=== PATIENT | female | born 1950 | race Caucasian/White ===

== ENCOUNTER 2016-06-08 10:26 | Inpatient (IN) | payer OTHER ==
--- NOTE | 2016-06-08 10:40 | PDOC ---
History of Present Illness - General History Source: Patient Exam Limitations: No Limitations - History of Present Illness Initial Comments: 06/08/16 11:02 CHIEF COMPLAINT: Left sided chest pressure PCP: Dr. Javier Strickland HISTORY OF PRESENT ILLNESS: 65 year old female presented to the ED with the chief complaints of left side chest pressure. A/c to the patient, she couldn't sleep, woke up at 4am, had her breakfast and then started having chest pressure, radiating towards the right arms and jaw and in the back in between the scapula. She called Dr. Mcginnis and was recommended to call 911 and so she came here. En route, her saturation was in 90's, she received nasal oxygen, sublingual nitrates and 162mg of Aspirin. Now, she is not complaining of any chest pressure and wants to go home. Denies palpitation, sob, cough, abdominal pain, nausea or vomiting. Recent Travel: None PAST MEDICAL HISTORY: Hypertension, Hyperlipidemia, DM, Hypothyroidism, Obesity , OA PAST SURGICAL HISTORY: As mentioned above Social History: Smoking: Denies Alcohol: Denies Drugs: Denies Family History: Allergies: NKDA <Zoila Cuevas - Last Filed: 06/08/16 14:03> <Alexandrea Gonsalves - Last Filed: 06/08/16 14:25> - General Chief Complaint: Chest Pain Stated Complaint: CHEST PAIN Time Seen by Provider: 06/08/16 10:40 Past History - Past Medical History Anemia: No Asthma: No Cancer: No Cardiac Disorders: No CVA: No COPD: No CHF: No Dementia: No Diabetes: Yes Disorders: No HTN: Yes Hypercholesterolemia: Yes Thyroid Disease: Yes (HYPO.) - Surgical History Cardiac Surgery: No Lung Surgery: No Neurologic Surgery: Yes Orthopedic Surgery: Yes - Psycho/Social/Smoking Cessation Hx Anxiety: No Suicidal Ideation: No Smoking Status: No Smoking History: Never smoked Have you smoked in the past 12 months: No Number of Cigarettes Smoked Daily: 0 Hx Alcohol Use: No Drug/Substance Use Hx: No Substance Use Type: None Hx Substance Use Treatment: No <Zoila Cuevas - Last Filed: 06/08/16 14:03> <Alexandrea Gonsalves - Last Filed: 06/08/16 14:25> - Past Medical History Allergies/Adverse Reactions: Allergies Allergy/AdvReac Type Severity Reaction Status Date / Time Penicillins AdvReac Rash Verified 06/08/16 10:31 Home Medications: Ambulatory Orders Atorvastatin Ca [Lipitor] 20 mg PO HS 01/24/16 Furosemide [Lasix -] 20 mg PO DAILY 01/24/16 Glipizide 2.5 mg PO DAILY 01/24/16 Hydrochlorothiazide [Hctz -] 25 mg PO DAILY 01/24/16 Levothyroxine [Synthroid -] 75 mcg PO DAILY 01/24/16 Metoprolol Succinate [Toprol Xl] 50 mg PO DAILY 01/24/16 Review of Systems - Review of Systems Able to Perform ROS?: Yes Comments:: 06/08/16 13:52 CONSTITUTIONAL:~ Absent: fever, chills, diaphoresis, generalized weakness, malaise, loss of appetite HEENT:~ Absent: rhinorrhea, nasal congestion, throat pain, throat swelling, difficulty swallowing, mouth swelling, ear pain, eye pain, visual Changes CARDIOVASCULAR: Present: Chest pressure Absent: syncope, palpitations, irregular heart rate, lightheadedness, peripheral edema RESPIRATORY:~ Absent: cough, shortness of breath, dyspnea with exertion, orthopnea, wheezing, stridor, hemoptysis GASTROINTESTINAL: Absent: abdominal pain, abdominal distension, nausea, vomiting, diarrhea, constipation, melena, hematochezia GENITOURINARY:~ Absent: dysuria, frequency, urgency, hesitancy, hematuria, flank pain, genital pain MUSCULOSKELETAL:~ Absent: myalgia, arthralgia, joint swelling SKIN:~ Absent: rash, itching, pallor HEMATOLOGIC/IMMUNOLOGIC:~ Absent: easy bleeding, easy bruising, lymphadenopathy, frequent infections ENDOCRINE: Absent: unexplained weight gain, unexplained weight loss, heat intolerance, cold intolerance NEUROLOGIC:~ Absent: headache, focal weakness or paresthesias, dizziness, unsteady gait, seizure, mental status changes, bladder or bowel incontinence PSYCHIATRIC:~ Absent: anxiety, depression, suicidal or homicidal ideation, hallucinations. Is the patient limited Telugu proficient: No <Zoila Cuevas - Last Filed: 06/08/16 14:03> *Physical Exam - Vital Signs Last Vital Signs Temp Pulse Resp BP Pulse Ox 98.3 F 77 18 123/58 100 06/08/16 10:27 06/08/16 10:27 06/08/16 10:27 06/08/16 10:27 06/08/16 10:27 - Physical Exam Comments: 06/08/16 13:53 PE: GENERAL: Awake, alert, and fully oriented, in no acute distress HEAD: No signs of trauma EYES: PERRLA, EOMI, sclera anicteric, conjunctiva clear ENT: Auricles normal inspection, hearing grossly normal, nares patent, oropharynx clear without exudates. Moist mucosa NECK: Normal ROM, supple, no lymphadenopathy, JVD, or masses LUNGS: Breath sounds equal, clear to auscultation bilaterally. No wheezes, and no crackles.. HEART: Regular rate and rhythm, normal S1 and S2, no murmurs, rubs or gallops ABDOMEN: Soft, nontender, normoactive bowel sounds. No guarding, no rebound. No masses EXTREMITIES: Normal range of motion, no edema. No clubbing or cyanosis. No cords, erythema, or tenderness NEUROLOGICAL: Cranial nerves II through XII grossly intact. Normal speech, Gait not observed. SKIN: Warm, Dry, normal turgor, no rashes or lesions noted. <Zoila Cuevas - Last Filed: 06/08/16 14:03> - Vital Signs Last Vital Signs Temp Pulse Resp BP Pulse Ox 98.3 F 77 18 123/58 100 06/08/16 10:27 06/08/16 10:27 06/08/16 10:27 06/08/16 10:27 06/08/16 10:27 <Alexandrea Gonsalves - Last Filed: 06/08/16 14:25> Heart Score/ECG Review - ECG Impressions Comment:: EKG read 10:43- NSR 77 bpm, Q waves II, III, aVF. Incomplete RBBB. <Alexandrea Gonsalves - Last Filed: 06/08/16 14:25> ED Treatment Course - LABORATORY CBC & Chemistry Diagram: 06/08/16 11:05 06/08/16 11:05 <Zoila Cuevas - Last Filed: 06/08/16 14:03> - LABORATORY CBC & Chemistry Diagram: 06/08/16 11:05 06/08/16 11:05 - ADDITIONAL ORDERS Additional order review: Laboratory Results 03/04/2606/08/16 06/08/16 11:05 11:05 11:05 INR 1.04 Sodium 142 Potassium 3.4 L Chloride 100 Carbon Dioxide 33 H Anion Gap 9 BUN 23 H D Creatinine 0.7 Creat Clearance w eGFR > 60 Random Glucose 169 H D Calcium 8.7 Magnesium 1.7 L Total Bilirubin 0.3 AST 14 L ALT 16 D Alkaline Phosphatase 94 Creatine Kinase 152 CK-MB (CK-2) 2.459 Troponin I 0.09 H Total Protein 6.7 Albumin 3.3 L Triglycerides 120 Cholesterol 138 D Total LDL Cholesterol 82 HDL Cholesterol 54 06/08/16 11:05 RBC 3.81 MCV 84.4 MCHC 32.4 RDW 15.5 MPV 7.5 Neutrophils % 66.5 Lymphocytes % 23.2 Monocytes % 7.2 Eosinophils % 1.6 Basophils % 1.5 - Medications Given in the ED: ED Medications Discontinued Medications Generic Name Dose Route Start Last Admin Trade Name Freq PRN Reason Stop Dose Admin Aspirin 162 mg 06/08/16 10:59 06/08/16 11:19 Asa - PO 06/08/16 11:00 162 mg ONCE ONE Administration <Alexandrea Gonsalves - Last Filed: 06/08/16 14:25> Medical Decision Making - Medical Decision Making 06/08/16 10:40 Patient seen and examined at bed side. Vitals noted, saturation 90 on RA. Patient looks comfortable. Physical exam normal. Will order CBC, CMP, UA, CXR, EKG, Troponins. Aspirin 162mg Differential diagnosis: Gastritis; R/O ACS considering her risk factors 06/08/16 12:00 Labs reviewed: Troponin 0.09, WBC-10.9, K-3.4 Will trend troponin, next one ordered for 6pm. Call placed for Dr. Mcginnis. 06/08/2016 13:00 Patient reassessed. No complaints. Clinical Impression: Atypical chest pain- R/O ACS Troponin ordered for 6pm Potassium repleted Admit the patient in Telemetry, Dr. Mcginnis agrees to the plan Continuous cardiac monitoring Resume home meds Illness, Investigation and Plan of care explained to the patient. She verbalized understanding. Case seen and discussed with Dr. Gonsalves. <Zoila Cuevas - Last Filed: 06/08/16 14:03> *DC/Admit/Observation/Transfer <Zoila Cuevas - Last Filed: 06/08/16 14:03> - Discharge Dispostion Admit: Yes <Alexandrea Gonsalves - Last Filed: 06/08/16 14:25> Diagnosis at time of Disposition: Chest pain Qualifiers: Chest pain type: unspecified Qualified Code(s): R07.9 - Chest pain, unspecified - Discharge Dispostion Condition at time of disposition: Stable
[2016-06-08] MEDS ORDERED: ASPIRIN 81 MG CHEWABLE TABLETS PO ONE (10:59)
[2016-06-08] MEDS ORDERED: ASPIRIN 81 MG CHEWABLE TABLETS ONE (11:16)
[2016-06-08 11:20] LABS: BASOPHIL 1.5 % (0-2.0); EOSINOPHIL 1.6 % (0-4.5); MCH 27.4 pg (25.7-33.7); MCHC 32.4 g/dl (32.0-36.0); MEAN CELL VOLUME 84.4 fl (80-96); MEAN PLT VOLUME 7.5 fl (7.5-11.1); NEUTROPHILS 66.5 % (42.8-82.8); PLATELET COUNT 352 K/MM3 (134-434); RDW 15.5 % (11.6-15.6); WHITE BLOOD COUNT 10.4 K/mm3 (4.0-10.0)
--- NOTE | 2016-06-08 11:23 | PDOC ---
Attending Attestation - Resident Resident Name: Zoila Cuevas - ED Attending Attestation I have performed the following: I have examined & evaluated the patient, The case was reviewed & discussed with the resident, I agree w/resident's findings & plan, Exceptions are as noted - HPI HPI: 65 yo F history Hypertension, Hyperlipidemia, DM, Hypothyroidism, Obesity, OA presents with chest pain/pressure since this morning. Pain radiated to her upper back, R arm. She called Dr. Rahel REINOSO, who recommended that she go to the ED. She received aspirin 162 mg and nitroglycerin en route, currently pain free. No associated symptoms such as SOB, N/V, sweating. - Physicial Exam PE: GENERAL: Awake, alert, and fully oriented, in no acute distress HEAD: No signs of trauma EYES: PERRLA, EOMI, sclera anicteric, conjunctiva clear ENT: Auricles normal inspection, hearing grossly normal, nares patent, oropharynx clear without exudates. Moist mucosa NECK: Normal ROM, supple, no lymphadenopathy, JVD, or masses LUNGS: Breath sounds equal, clear to auscultation bilaterally. No wheezes, and no crackles HEART: Regular rate and rhythm, normal S1 and S2, no murmurs, rubs or gallops ABDOMEN: Soft, nontender, normoactive bowel sounds. No guarding, no rebound. No masses EXTREMITIES: Normal range of motion, no edema. No clubbing or cyanosis. No cords, erythema, or tenderness NEUROLOGICAL: Cranial nerves II through XII grossly intact. Normal speech, normal gait SKIN: Warm, Dry, normal turgor, no rashes or lesions noted. - Medical Decision Making 65 yo F with multiple cardiac risk factors presenting with chest pain. Initial troponin 0.09. Discussed with Dr. Mcginnis, will admit. Discussed with Dr. Barron, will evaluate.
[2016-06-08 11:47] LABS: ALBUMIN 3.3 g/dl (3.4-5.0); ANION GAP 9 (8-16); BILIRUBIN,TOTAL 0.3 mg/dL (0.2-1.0); CALCIUM 8.7 mg/dL (8.5-10.1); CHOLESTEROL 138 mg/dL (50-200); CO2 33 mmol/L (21-32); CREATININE 0.7 mg/dL (0.55-1.02); GLUCOSE,RANDOM 169 mg/dL (74-106); LDL CHOLESTEROL (ONLY SJRH) 82 mg/dL (5-100); MAGNESIUM 1.7 mg/dL (1.8-2.4); SGOT/AST 14 U/L (15-37); SGPT/ALT 16 U/L (12-78); TOT PROT 6.7 g/dl (6.4-8.2)
[2016-06-08 11:49] LABS: INR 1.04 (0.82-1.09); PROTHROMBIN TIME (PATIENT) 11.5 SEC (9.98-11.88)
[2016-06-08 11:50] LABS: ALK PHOS 94 U/L (45-117); TROPONIN I 0.09 ng/ml (0.00-0.05)
[2016-06-08 13:49] VITALS: BMI 35.2
--- NOTE | 2016-06-08 13:52 | CON.CARD ---
Consult Consult Specialty:: Cardiology Referred by:: Javier Mcginnis MD Reason for Consultation:: Chest pain - History of Present Illness Chief Complaint: Chest pain History of Present Illness: 65 year old female h/o HCVD, type 2 DM, chest pain syndrome with neg MPI, hypothyroidism, presented to the ED with complaints of post-prandial indigestion chest pressure with radiation towards the right arms and jaw and in the back in between the scapula. Sxs has since abated, she denies associated dyspnea, palpitations, near or true syncope, orthopnea, PND or LE edema. 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 History of Recent Travel: No Home Medications - Allergies Allergies/Adverse Reactions: Allergies Allergy/AdvReac Type Severity Reaction Status Date / Time Penicillins AdvReac Rash Verified 06/08/16 10:31 - Home Medications Home Medications: Ambulatory Orders Atorvastatin Ca [Lipitor] 20 mg PO HS 01/24/16 Furosemide [Lasix -] 20 mg PO DAILY 01/24/16 Glipizide 2.5 mg PO DAILY 01/24/16 Hydrochlorothiazide [Hctz -] 25 mg PO DAILY 01/24/16 Levothyroxine [Synthroid -] 75 mcg PO DAILY 01/24/16 Metoprolol Succinate [Toprol Xl] 50 mg PO DAILY 01/24/16 Family Disease History - Family Disease History Family Disease History: Diabetes: Father, Brother, Sister, Heart Disease: Mother (Stomach Ca, CVA), CA: Grandparent (Cervical), Mother, Sister Review of Systems - Review of Systems Cardiovascular: reports: Chest Pain - Risk Factors Known Risk Factors: Yes: Diabetes Mellitus, Gender, Hypercholesterolemia, Hypertension Vital Signs: Vital Signs Temperature 98.3 F 06/08/16 10:27 Pulse Rate 87 06/08/16 13:45 Respiratory Rate 18 06/08/16 13:45 Blood Pressure 125/58 06/08/16 13:45 O2 Sat by Pulse Oximetry (%) 94 L 06/08/16 13:45 Constitutional: Yes: No Distress Neck: Yes: Supple Respiratory: Yes: Regular, CTA Bilaterally Gastrointestinal: Yes: Normal Bowel Sounds, Soft Cardiovascular: Yes: Regular Rate and Rhythm JVD: No Carotid Bruit: No Heart Sounds: Yes: S1, S2 Edema: No - Other Data Labs, Other Data: INR, PTT INR 1.04 (0.82-1.09) 06/08/16 11:05 Nsr @ 77 Irbbb Ejection Fraction %: LVEF > or = 40 % Imaging - Results Chest X-ray: Report Reviewed (NAD) Problem List - Problems (1) Chest pain Code(s): R07.9 - CHEST PAIN, UNSPECIFIED Qualifiers: Chest pain type: unspecified Qualified Code(s): R07.9 - Chest pain, unspecified (2) HTN (hypertension) Code(s): I10 - ESSENTIAL (PRIMARY) HYPERTENSION Qualifiers: Hypertension type: essential hypertension Qualified Code(s): I10 - Essential (primary) hypertension (3) Hyperlipidemia Code(s): E78.5 - HYPERLIPIDEMIA, UNSPECIFIED Qualifiers: Hyperlipidemia type: Pure hypercholesterolemia (4) Diabetes Code(s): E11.9 - TYPE 2 DIABETES MELLITUS WITHOUT COMPLICATIONS Qualifiers: Diabetes mellitus type: type 2 (5) Hypothyroid Code(s): E03.9 - HYPOTHYROIDISM, UNSPECIFIED Qualifiers: Hypothyroidism type: unspecified Qualified Code(s): E03.9 - Hypothyroidism, unspecified Assessment/Plan Echo: 03/11/2015 Normal LV size and fxn, tr MR P-Myoview 03/12/2015 No ischemia, LVEF 72% 1. Chest pain syndrome r/o CAD 2. H/o left renal colic and hydronephrosis post cystoscopy and left ureteral stent 3. HTN 4. Hypercholesterolemia 5. Hypothyroidism 6. h/o LACEY (obstructive uropathy) resolved 7. Anemia PLAN: 1. Continue Toprol 50 qd, HCTZ 25 qd, Lipitor 20 qhs and ASA 81 qd, replete K 2. Cycle cardiac enzymes 3. Repeat pharm stress to r/o CAD 4. Thank you for consultative opportunity
[2016-06-08] MEDS ORDERED: MAGNESIUM OXIDE 400 MG TABLET (FP) PO ONE (14:08)
[2016-06-08] MEDS ORDERED: POTASSIUM CHLORIDE TABS 20 MEQ TABLET.ER (FP) PO ONE (14:11)
[2016-06-08] MEDS: METOPROLOL SUCCINATE 50 MG TAB.SR.24H (FP) PO SCH (14:52)
--- NOTE | 2016-06-08 17:21 | HP ---
Admitting History and Physical - Primary Care Physician PCP: Javier Mcginnis - Admission Chief Complaint: CP History of Present Illness: Pt. states that developed chest tightness, band like this AM, while sitting; pt. states that CP travelled to the back, neck and she felt SOB; Pt received ASA and SLNGT by EMS that relief her CP. In ER pt. became CP free. 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 History of Recent Travel: No Home Medications - Allergies Allergies/Adverse Reactions: Allergies Allergy/AdvReac Type Severity Reaction Status Date / Time Penicillins AdvReac Rash Verified 06/08/16 10:31 - Home Medications Home Medications: Ambulatory Orders Atorvastatin Ca [Lipitor] 20 mg PO HS 01/24/16 Furosemide [Lasix -] 20 mg PO DAILY 01/24/16 Glipizide 2.5 mg PO DAILY 01/24/16 Hydrochlorothiazide [Hctz -] 25 mg PO DAILY 01/24/16 Levothyroxine [Synthroid -] 75 mcg PO DAILY 01/24/16 Metoprolol Succinate [Toprol Xl] 50 mg PO DAILY 01/24/16 Family Disease History - Family Disease History Family Disease History: Diabetes: Father, Brother, Sister, Heart Disease: Mother (Stomach Ca, CVA), CA: Grandparent (Cervical), Mother, Sister Review of Systems - Review of Systems Constitutional: denies: Chills, Fever Eyes: denies: Blurred Vision, Double Vision HENT: denies: Difficult Swallowing, Ear Discharge, Ear Pain, Nasal Congestion, Throat Pain Cardiovascular: denies: Chest Pain (since came to ER), Palpitations, Shortness of Breath (since came to ER) Respiratory: denies: Cough, Hemoptysis, SOB (since came to ER) Gastrointestinal: reports: Other (no GERD symptomps). denies: Abdominal Pain, Constipation, Diarrhea Genitourinary: denies: Burning, Discharge, Dysuria Musculoskeletal: denies: Back Pain, Extremity Pain, Muscle Pain Integumentary: denies: Bruising, Pruritis, Rash Neurological: denies: Change in LOC, Change in Speech, Confusion, Numbness, Tremors Endocrine: denies: Excessive Sweating, Intolerance to Cold Psychiatric: denies: Altered Sleep Pattern, Anxiety, Depression Physical Examination Vital Signs: Vital Signs Temperature 98.3 F 06/08/16 10:27 Pulse Rate 88 06/08/16 14:38 Respiratory Rate 20 06/08/16 14:38 Blood Pressure 137/79 06/08/16 14:38 O2 Sat by Pulse Oximetry (%) 99 06/08/16 14:38 Constitutional: Yes: No Distress, Calm Eyes: Yes: Conjunctiva Clear, EOM Intact, PERRL HENT: Yes: Normocephalic. No: Epistaxis, Rhinnorhea Neck: Yes: Trachea Midline. No: Lymphadenopathy Cardiovascular: Yes: Regular Rate and Rhythm, S1, S2 Respiratory: Yes: Regular, CTA Bilaterally. No: Rales, Rhonchi Gastrointestinal: Yes: Normal Bowel Sounds, Soft, Abdomen, Obese. No: Palpable Mass, Tenderness Breast(s): Yes: Other (deferred) Musculoskeletal: No: Back Pain, Joint Stiffness, Muscle Pain Edema: No Integumentary: No: Bruising, Erythema, Rash Neurological: Yes: Alert, Oriented, Cran Nerves II-XII Intact Psychiatric: Yes: Alert, Oriented Labs: reviewed Imaging - Results Chest X-ray: Report Reviewed Problem List - Problems (1) Chest pain Assessment/Plan: Serial CE Cardio consult, appreciated. BB, ASA, Statin Code(s): R07.9 - CHEST PAIN, UNSPECIFIED Qualifiers: Chest pain type: unspecified Qualified Code(s): R07.9 - Chest pain, unspecified (2) Diabetes Assessment/Plan: Cont medication Code(s): E11.9 - TYPE 2 DIABETES MELLITUS WITHOUT COMPLICATIONS Qualifiers: Diabetes mellitus type: type 2 (3) HTN (hypertension) Code(s): I10 - ESSENTIAL (PRIMARY) HYPERTENSION Qualifiers: Hypertension type: essential hypertension Qualified Code(s): I10 - Essential (primary) hypertension (4) Hyperlipidemia Assessment/Plan: in Statin Code(s): E78.5 - HYPERLIPIDEMIA, UNSPECIFIED Qualifiers: Hyperlipidemia type: Pure hypercholesterolemia (5) Hypokalemia Assessment/Plan: repleted. To monitor Code(s): E87.6 - HYPOKALEMIA (6) Anemia Assessment/Plan: to monitor Code(s): D64.9 - ANEMIA, UNSPECIFIED Assessment/Plan Pt was placed in Observation
[2016-06-08 19:54] LABS: TROPONIN I 2.85 ng/ml (0.00-0.05)
[2016-06-08] MEDS: ENOXAPARIN NA (PORCINE) 100 MG/1 ML DISP.SYRIN SQ SCH (23:13)
[2016-06-08] MEDS: CLOPIDOGREL BISULFATE 75 MG TABLET (FP) PO SCH (23:13)
[2016-06-08] MEDS: ATORVASTATIN CA 20 MG TABLET (FP) PO SCH (23:13)
[2016-06-09 01:04] LABS: TROPONIN I 3.57 ng/ml (0.00-0.05)
[2016-06-09] MEDS: LEVOTHYROXINE NA 75 MCG TABLET (FP) PO SCH (06:11)
[2016-06-09] MEDS: glipiZIDE 5 MG TABLET (FP) PO SCH (06:12)
[2016-06-09 07:18] LABS: MCHC 33.1 g/dl (32.0-36.0); MEAN CELL VOLUME 84.5 fl (80-96); PLATELET COUNT 346 K/MM3 (134-434); RDW 15.4 % (11.6-15.6); WHITE BLOOD COUNT 10.8 K/mm3 (4.0-10.0)
[2016-06-09 07:55] LABS: CREATININE 0.7 mg/dL (0.55-1.02)
--- NOTE | 2016-06-09 09:16 | PN ---
Progress Note, Physician History of Present Illness: No CP, SOB, palp., dizziness, back pain since yesterday. - Current Medication List Current Medications: Active Medications Aspirin (Asa -) 81 mg PO DAILY [facility] Atorvastatin Calcium (Lipitor -) 20 mg PO HS [facility] Last Admin: 06/08/16 23:13 Dose: 20 mg Clopidogrel Bisulfate (Plavix -) 75 mg PO DAILY [facility] Last Admin: 06/08/16 23:13 Dose: 75 mg Enoxaparin Sodium (Lovenox -) 90 mg SQ BID [facility] Last Admin: 06/08/16 23:13 Dose: 90 mg Furosemide (Lasix -) 20 mg PO DAILY [facility] Glipizide (Glucotrol -) 2.5 mg PO DAILY@0700 [facility] Last Admin: 06/09/16 06:12 Dose: Not Given Hydrochlorothiazide (Hctz -) 25 mg PO DAILY [facility] Levothyroxine Sodium (Synthroid -) 75 mcg PO DAILY@0700 [facility] Last Admin: 06/09/16 06:11 Dose: 75 mcg Metoprolol Succinate (Toprol Xl -) 50 mg PO DAILY [facility] Last Admin: 06/08/16 14:52 Dose: Not Given - Objective Vital Signs: Vital Signs Temperature 98.2 F 06/09/16 06:00 Pulse Rate 91 H 06/09/16 06:00 Respiratory Rate 18 06/09/16 06:00 Blood Pressure 131/83 06/09/16 06:00 O2 Sat by Pulse Oximetry (%) 98 06/08/16 22:00 Constitutional: Yes: No Distress, Calm Cardiovascular: Yes: Regular Rate and Rhythm, S1, S2 Respiratory: Yes: Regular, CTA Bilaterally. No: Rales Gastrointestinal: Yes: Normal Bowel Sounds, Soft, Abdomen, Obese. No: Tenderness Edema: No Neurological: Yes: Alert, Oriented Labs: CBC, BMP 06/09/16 05:35 06/09/16 05:35 INR, PTT INR 1.04 (0.82-1.09) 06/08/16 11:05 Positive Trop I Problem List - Problems (1) Chest pain Assessment/Plan: NSTEMI- on Lovenox, Plavix, BB, ASA, Statin Serial CE- positive Trop I To monitor CE Cardio consult, appreciated- to f/u for further management. Code(s): R07.9 - CHEST PAIN, UNSPECIFIED Qualifiers: Chest pain type: unspecified Qualified Code(s): R07.9 - Chest pain, unspecified (2) HTN (hypertension) Code(s): I10 - ESSENTIAL (PRIMARY) HYPERTENSION Qualifiers: Hypertension type: essential hypertension Qualified Code(s): I10 - Essential (primary) hypertension (3) Hyperlipidemia Assessment/Plan: in Statin Code(s): E78.5 - HYPERLIPIDEMIA, UNSPECIFIED Qualifiers: Hyperlipidemia type: Pure hypercholesterolemia (4) Hypokalemia Assessment/Plan: repleted. Corrected To monitor Code(s): E87.6 - HYPOKALEMIA (5) Anemia Assessment/Plan: to monitor, stable Code(s): D64.9 - ANEMIA, UNSPECIFIED (6) Diabetes Assessment/Plan: Cont medication Code(s): E11.9 - TYPE 2 DIABETES MELLITUS WITHOUT COMPLICATIONS Qualifiers: Diabetes mellitus type: type 2 Diabetes mellitus complication detail: with chronic kidney disease
[2016-06-09 09:52] LABS: TROPONIN I 4.88 ng/ml (0.00-0.05)
[2016-06-09] MEDS ORDERED: FUROSEMIDE 20 MG TABLET (FP) PO SCH (10:00)
[2016-06-09] MEDS ORDERED: HYDROCHLOROTHIAZIDE 25 MG TABLET (FP) PO SCH (10:00)
--- NOTE | 2016-06-09 10:09 | PN ---
Progress Note, Physician History of Present Illness: No further chest pain or dyspnea. - Current Medication List Current Medications: Active Medications Aspirin (Asa -) 81 mg PO DAILY [facility] Atorvastatin Calcium (Lipitor -) 20 mg PO HS [facility] Last Admin: 06/08/16 23:13 Dose: 20 mg Clopidogrel Bisulfate (Plavix -) 75 mg PO DAILY [facility] Last Admin: 06/08/16 23:13 Dose: 75 mg Enoxaparin Sodium (Lovenox -) 90 mg SQ BID [facility] Last Admin: 06/08/16 23:13 Dose: 90 mg Furosemide (Lasix -) 20 mg PO DAILY [facility] Glipizide (Glucotrol -) 2.5 mg PO DAILY@0700 [facility] Last Admin: 06/09/16 06:12 Dose: Not Given Hydrochlorothiazide (Hctz -) 25 mg PO DAILY [facility] Levothyroxine Sodium (Synthroid -) 75 mcg PO DAILY@0700 [facility] Last Admin: 06/09/16 06:11 Dose: 75 mcg Metoprolol Succinate (Toprol Xl -) 50 mg PO DAILY [facility] Last Admin: 06/08/16 14:52 Dose: Not Given - Objective Vital Signs: Vital Signs Temperature 98.2 F 06/09/16 06:00 Pulse Rate 91 H 06/09/16 06:00 Respiratory Rate 18 06/09/16 06:00 Blood Pressure 131/83 06/09/16 06:00 O2 Sat by Pulse Oximetry (%) 98 06/08/16 22:00 Constitutional: Yes: No Distress, Calm Neck: Yes: Supple Cardiovascular: Yes: Regular Rate and Rhythm Respiratory: Yes: Regular, Diminished Gastrointestinal: Yes: Normal Bowel Sounds, Soft, Abdomen, Obese Edema: No Labs: INR, PTT INR 1.04 (0.82-1.09) 06/08/16 11:05 - ....Imaging EKG: Report Reviewed (NSR @ 69 IRBBB similar to previous) Problem List - Problems (1) Chest pain Code(s): R07.9 - CHEST PAIN, UNSPECIFIED Qualifiers: Chest pain type: unspecified Qualified Code(s): R07.9 - Chest pain, unspecified (2) HTN (hypertension) Code(s): I10 - ESSENTIAL (PRIMARY) HYPERTENSION Qualifiers: Hypertension type: essential hypertension Qualified Code(s): I10 - Essential (primary) hypertension (3) Hyperlipidemia Code(s): E78.5 - HYPERLIPIDEMIA, UNSPECIFIED Qualifiers: Hyperlipidemia type: Pure hypercholesterolemia (4) Diabetes Code(s): E11.9 - TYPE 2 DIABETES MELLITUS WITHOUT COMPLICATIONS Qualifiers: Diabetes mellitus type: type 2 Diabetes mellitus complication detail: with chronic kidney disease (5) Hypothyroid Code(s): E03.9 - HYPOTHYROIDISM, UNSPECIFIED Qualifiers: Hypothyroidism type: unspecified Qualified Code(s): E03.9 - Hypothyroidism, unspecified (6) Acute coronary syndrome Code(s): I24.9 - ACUTE ISCHEMIC HEART DISEASE, UNSPECIFIED Assessment/Plan Echo: 03/11/2015 Normal LV size and fxn, tr MR P-Myoview 03/12/2015 No ischemia, LVEF 72% 1. Acute coronary syndrome 2. H/o left renal colic and hydronephrosis post cystoscopy and left ureteral stent 3. HTN 4. Hypercholesterolemia 5. Hypothyroidism 6. h/o LACEY (obstructive uropathy) resolved 7. Anemia 8. Type 2 DM PLAN: 1. Continue Toprol 50 qd, Lipitor 20 qhs, HCTZ 25 qd, change Lasix 20 qd to lisinopril 10 qd for renovascular protection, ASA 81 qd and Plavix 75 qd 2. Cycle cardiac enzymes to document peak, continue Lovenox 90 bid 3. Pharm stress to assess severity of CAD, f/u echocardiogram 4. Hesitant for cath, will obtain MPI to risk stratify
[2016-06-09 11:00] LABS: THYROID STIMULATING HORMONE 2.03 uIU/ml (0.358-3.74)
[2016-06-09] MEDS: LISINOPRIL 10 MG TABLET (FP) PO SCH (12:36)
[2016-06-09] MEDS: METOPROLOL SUCCINATE 50 MG TAB.SR.24H (FP) PO SCH (12:36)
[2016-06-09] MEDS: ENOXAPARIN NA (PORCINE) 100 MG/1 ML DISP.SYRIN SQ SCH ×2 (12:36→21:34)
[2016-06-09] MEDS: CLOPIDOGREL BISULFATE 75 MG TABLET (FP) PO SCH (12:36)
[2016-06-09] MEDS: ASPIRIN 81 MG CHEWABLE TABLETS PO SCH (12:36)
--- NOTE | 2016-06-09 14:09 | EKG ---
Test Reason : Blood Pressure : / mmHG Vent. Rate : 069 BPM Atrial Rate : 069 BPM P-R Int : 130 ms QRS Dur : 114 ms QT Int : 424 ms P-R-T Axes : 065 008 025 degrees QTc Int : 454 ms NORMAL SINUS RHYTHM INCOMPLETE RIGHT BUNDLE BRANCH BLOCK BORDERLINE ECG WHEN COMPARED WITH ECG OF 08-JUN-2016 10:37, NO SIGNIFICANT CHANGE WAS FOUND Confirmed by NONI BAZAN MD ([id number]) on 06/09/2016 2:08:57 PM Referred By: DELIA ESPINO Confirmed By:NONI BAZAN MD
--- NOTE | 2016-06-09 14:13 | EKG ---
Test Reason : Blood Pressure : / mmHG Vent. Rate : 077 BPM Atrial Rate : 077 BPM P-R Int : 108 ms QRS Dur : 118 ms QT Int : 408 ms P-R-T Axes : 018 012 030 degrees QTc Int : 461 ms SINUS RHYTHM WITH SHORT MS INCOMPLETE RIGHT BUNDLE BRANCH BLOCK POSSIBLE LATERAL INFARCT , AGE UNDETERMINED CANNOT RULE OUT INFERIOR INFARCT , AGE UNDETERMINED ABNORMAL ECG WHEN COMPARED WITH ECG OF 16-SEP-2015 01:00, NO SIGNIFICANT CHANGE WAS FOUND Confirmed by NONI BAZAN MD ([id number]) on 06/09/2016 2:12:38 PM Referred By: Confirmed By:NONI BAZAN MD
[2016-06-09] MEDS: ATORVASTATIN CA 20 MG TABLET (FP) PO SCH (21:33)
[2016-06-10] MEDS: LEVOTHYROXINE NA 75 MCG TABLET (FP) PO SCH (06:30)
[2016-06-10] MEDS: glipiZIDE 5 MG TABLET (FP) PO SCH (06:30)
[2016-06-10 08:02] LABS: CALCIUM 8.9 mg/dL (8.5-10.1)
[2016-06-10 08:22] LABS: ALBUMIN 3.3 g/dl (3.4-5.0); ALK PHOS 92 U/L (45-117); ANION GAP 11 (8-16); BILIRUBIN,TOTAL 0.4 mg/dL (0.2-1.0); CO2 27 mmol/L (21-32); CREATININE 0.7 mg/dL (0.55-1.02); GLUCOSE,RANDOM 136 mg/dL (74-106); SGOT/AST 34 U/L (15-37); SGPT/ALT 19 U/L (12-78); TOT PROT 6.7 g/dl (6.4-8.2)
[2016-06-10 08:33] LABS: TROPONIN I 2.59 ng/ml (0.00-0.05)
--- NOTE | 2016-06-10 09:07 | PN ---
Progress Note, Physician History of Present Illness: No further chest pain or dyspnea. - Current Medication List Current Medications: Active Medications Aspirin (Asa -) 81 mg PO DAILY [facility] Last Admin: 06/09/16 12:36 Dose: 81 mg Atorvastatin Calcium (Lipitor -) 20 mg PO HS [facility] Last Admin: 06/09/16 21:33 Dose: 20 mg Clopidogrel Bisulfate (Plavix -) 75 mg PO DAILY [facility] Last Admin: 06/09/16 12:36 Dose: 75 mg Enoxaparin Sodium (Lovenox -) 90 mg SQ BID [facility] Last Admin: 06/09/16 21:34 Dose: 90 mg Glipizide (Glucotrol -) 2.5 mg PO DAILY@0700 [facility] Last Admin: 06/10/16 06:30 Dose: Not Given Hydrochlorothiazide (Hctz -) 25 mg PO DAILY [facility] Last Admin: 06/09/16 12:36 Dose: 25 mg Levothyroxine Sodium (Synthroid -) 75 mcg PO DAILY@0700 [facility] Last Admin: 06/10/16 06:30 Dose: 75 mcg Lisinopril (Prinivil) 10 mg PO DAILY [facility] Last Admin: 06/09/16 12:36 Dose: 10 mg Metoprolol Succinate (Toprol Xl -) 50 mg PO DAILY [facility] Last Admin: 06/09/16 12:36 Dose: 50 mg - Objective Vital Signs: Vital Signs Temperature 97.9 F 06/10/16 01:00 Pulse Rate 79 06/10/16 05:00 Respiratory Rate 20 06/10/16 05:00 Blood Pressure 113/45 06/10/16 05:00 O2 Sat by Pulse Oximetry (%) 96 06/09/16 20:00 Constitutional: Yes: No Distress, Calm Neck: Yes: Supple Cardiovascular: Yes: Regular Rate and Rhythm Respiratory: Yes: Regular, CTA Bilaterally Gastrointestinal: Yes: Normal Bowel Sounds, Soft Edema: No Labs: CBC, BMP 06/10/16 05:35 INR, PTT INR 1.04 (0.82-1.09) 06/08/16 11:05 - ....Imaging EKG: Report Reviewed (NSR @ 72 IRBBB similar to previous Tele: SR) Problem List - Problems (1) Chest pain Code(s): R07.9 - CHEST PAIN, UNSPECIFIED Qualifiers: Chest pain type: unspecified Qualified Code(s): R07.9 - Chest pain, unspecified (2) HTN (hypertension) Code(s): I10 - ESSENTIAL (PRIMARY) HYPERTENSION Qualifiers: Hypertension type: essential hypertension Qualified Code(s): I10 - Essential (primary) hypertension (3) Hyperlipidemia Code(s): E78.5 - HYPERLIPIDEMIA, UNSPECIFIED Qualifiers: Hyperlipidemia type: Pure hypercholesterolemia (4) Diabetes Code(s): E11.9 - TYPE 2 DIABETES MELLITUS WITHOUT COMPLICATIONS Qualifiers: Diabetes mellitus type: type 2 Diabetes mellitus complication detail: with chronic kidney disease (5) Hypothyroid Code(s): E03.9 - HYPOTHYROIDISM, UNSPECIFIED Qualifiers: Hypothyroidism type: unspecified Qualified Code(s): E03.9 - Hypothyroidism, unspecified (6) Acute coronary syndrome Code(s): I24.9 - ACUTE ISCHEMIC HEART DISEASE, UNSPECIFIED Assessment/Plan Echo: 03/11/2015 Normal LV size and fxn, tr MR P-Myoview 03/12/2015 No ischemia, LVEF 72% Echo: 06/09/2016 Echo: Normal biventricular size and fxn, mild MR, TR, RVSP 30-40 mmHg P-Myoview: 06/10/2016 Small, mild apical ischemia, normal LVEF 70% 1. CAD post acute coronary syndrome with mild apical ischemia on MPI 2. H/o left renal colic and hydronephrosis post cystoscopy and left ureteral stent 3. HTN 4. Hypercholesterolemia 5. Hypothyroidism 6. h/o LACEY (obstructive uropathy) resolved 7. Anemia 8. Type 2 DM PLAN: 1. Continue Toprol 50 qd, Lipitor 20 qhs, lisinopril 10 qd, ASA 81 qd and Plavix 75 qd 2. Cardiac enzymes have peaked, d/c Lovenox 3. Ambulate, d/c planning with f/u with Dr. Guzman
[2016-06-10] MEDS ORDERED: DIPYRIDAMOLE 50 MG/10 ML VIAL IVPB ONE (09:22)
[2016-06-10] MEDS ORDERED: DIPYRIDAMOLE STRESS TEST 46.6 MG in DEXTROSE 5%-WATER - 37.28 ML IVPB ONE (10:00)
[2016-06-10 10:12] LABS: FREE T4 1.47 ng/dl (0.76-1.46)
--- NOTE | 2016-06-10 10:21 | PN ---
Progress Note, Physician History of Present Illness: No CP, SOB, palp., dizziness, back pain since admission. - Current Medication List Current Medications: Active Medications Aspirin (Asa -) 81 mg PO DAILY [facility] Last Admin: 06/09/16 12:36 Dose: 81 mg Atorvastatin Calcium (Lipitor -) 20 mg PO HS [facility] Last Admin: 06/09/16 21:33 Dose: 20 mg Clopidogrel Bisulfate (Plavix -) 75 mg PO DAILY [facility] Last Admin: 06/09/16 12:36 Dose: 75 mg Enoxaparin Sodium (Lovenox -) 90 mg SQ BID [facility] Last Admin: 06/09/16 21:34 Dose: 90 mg Glipizide (Glucotrol -) 2.5 mg PO DAILY@0700 [facility] Last Admin: 06/10/16 06:30 Dose: Not Given Levothyroxine Sodium (Synthroid -) 75 mcg PO DAILY@0700 [facility] Last Admin: 06/10/16 06:30 Dose: 75 mcg Lisinopril (Prinivil) 10 mg PO DAILY [facility] Last Admin: 06/09/16 12:36 Dose: 10 mg Metoprolol Succinate (Toprol Xl -) 50 mg PO DAILY [facility] Last Admin: 06/09/16 12:36 Dose: 50 mg - Objective Vital Signs: Vital Signs Temperature 97.9 F 06/10/16 01:00 Pulse Rate 79 06/10/16 05:00 Respiratory Rate 20 06/10/16 05:00 Blood Pressure 113/45 06/10/16 05:00 O2 Sat by Pulse Oximetry (%) 96 06/09/16 20:00 Constitutional: Yes: No Distress, Calm Cardiovascular: Yes: Regular Rate and Rhythm, Murmur, S2, S3 Respiratory: Yes: Regular, CTA Bilaterally. No: Rales Gastrointestinal: Yes: Normal Bowel Sounds, Soft, Abdomen, Obese. No: Pulsatile Mass, Tenderness Musculoskeletal: No: Back Pain Edema: No Neurological: Yes: Alert, Oriented Labs: CBC, BMP 06/10/16 05:35 INR, PTT INR 1.04 (0.82-1.09) 06/08/16 11:05 Problem List - Problems (1) Acute coronary syndrome Assessment/Plan: Trop I trending down Pt for Stress test this AM. t on on Lovenox, Plavix, BB, ASA, Statin. Case was d/c Dr. Wetzel; to f/u stress test report; might need cardiac cath. Code(s): I24.9 - ACUTE ISCHEMIC HEART DISEASE, UNSPECIFIED (2) Chest pain Assessment/Plan: NSTEMI- on Lovenox, Plavix, BB, ASA, Statin Serial CE- positive Trop I To monitor CE Cardio consult, appreciated- to f/u for further management. Code(s): R07.9 - CHEST PAIN, UNSPECIFIED Qualifiers: Chest pain type: unspecified Qualified Code(s): R07.9 - Chest pain, unspecified (3) HTN (hypertension) Code(s): I10 - ESSENTIAL (PRIMARY) HYPERTENSION Qualifiers: Hypertension type: essential hypertension Qualified Code(s): I10 - Essential (primary) hypertension (4) Hyperlipidemia Assessment/Plan: in Statin Code(s): E78.5 - HYPERLIPIDEMIA, UNSPECIFIED Qualifiers: Hyperlipidemia type: Pure hypercholesterolemia (5) Hypokalemia Assessment/Plan: repleted. Corrected To monitor Code(s): E87.6 - HYPOKALEMIA (6) Anemia Assessment/Plan: to monitor, stable Code(s): D64.9 - ANEMIA, UNSPECIFIED (7) Diabetes Assessment/Plan: Cont medication Code(s): E11.9 - TYPE 2 DIABETES MELLITUS WITHOUT COMPLICATIONS Qualifiers: Diabetes mellitus type: type 2 Diabetes mellitus complication detail: with chronic kidney disease Assessment/Plan Pt asked me to talk with her dgNapoleon Campbell; I called her on her cell and work and left message to call me back.
--- NOTE | 2016-06-10 10:48 | EKG ---
Test Reason : Blood Pressure : / mmHG Vent. Rate : 072 BPM Atrial Rate : 072 BPM P-R Int : 132 ms QRS Dur : 114 ms QT Int : 422 ms P-R-T Axes : 065 022 024 degrees QTc Int : 462 ms NORMAL SINUS RHYTHM INFERIOR-POSTERIOR INFARCT , AGE UNDETERMINED ABNORMAL ECG WHEN COMPARED WITH ECG OF 09-JUN-2016 09:58, NO SIGNIFICANT CHANGE WAS FOUND Confirmed by ELHAM BELTRAN MD ([id number]) on 06/10/2016 10:48:38 AM Referred By: CAM WHITTEN Confirmed By:ELHAM BELTRAN MD
[2016-06-10] MEDS: LISINOPRIL 10 MG TABLET (FP) PO SCH (11:31)
[2016-06-10] MEDS: ENOXAPARIN NA (PORCINE) 100 MG/1 ML DISP.SYRIN SQ SCH (11:32)
[2016-06-10] MEDS: METOPROLOL SUCCINATE 50 MG TAB.SR.24H (FP) PO SCH (11:32)
[2016-06-10] MEDS: ASPIRIN 81 MG CHEWABLE TABLETS PO SCH (11:32)
[2016-06-10] MEDS: CLOPIDOGREL BISULFATE 75 MG TABLET (FP) PO SCH (11:32)
[2016-06-10] MEDS: ATORVASTATIN CA 20 MG TABLET (FP) PO SCH (21:37)
--- NOTE | 2016-06-10 22:38 | CON.OBG ---
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 she passed blood clot of fist size, c/o RLQ pain - History of Present Illness Chief Complaint: pt admitted on 06/09/16 for chest pain, admitted for observation & work up. today evening she had onset of new complains as above ( PMB & RLQ pain ) History of Present Illness: 65 yrs H/F , , menopause at age 45-50 yrs approx yr 1999. she experienced PMB & RLQ pain at age 58yrs ( 2009) , was seen by her Edi Specialist , had Bx under [place] int hosp ( possible D&C or hysteroscopy ) , pt states verything was normal.Ultrasound had shown , she had fibroid she had 2nd episode of PMB again in 2012, bx ( or D&C -?hysteroscopy ) was done in the hosp, she was told if she gets bleeding again , she should have Hysterectomy .. Pt had last visit with her Gyncologist in 2013. no/h/o abn pap no h/o cancer presently not sexually active for sometime Past MH: cycles were regular, nrmal flow, no pain . No h/o Menstural problems . no h/o std/pid etc - History Source History Provided By: Patient, Medical Record Limitations to Obtaining History: No Limitations - Past Medical History Cardio/Vascular: Yes: HTN, Hyperlipdemia, Other (chest pain ) Pulmonary: Yes: Other (SOB ) Gastrointestinal: No: GI Bleed Renal/: Yes: Renal Calculi Reproductive: Yes: Fibroids, Postmenopausal ...: No ...: 3 ...Para: 3 (c/sections x3 1954, 1955, 1980 ) Heme/Onc: Yes: Anemia Musculoskeletal: Yes: Osteoarthritis Endocrine: Yes: Diabetes Mellitus, Hypothyroidism - Past Surgical History Past Surgical History: Yes: (1954, 1955, 1980 ), Laminectomy (spine surgery , 3 times, disc removal & fusion done at [facility] ) Additional Surgical History: D&C 2009, 2012. 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 History of Recent Travel: No Home Medications - Allergies Allergies/Adverse Reactions: Allergies Allergy/AdvReac Type Severity Reaction Status Date / Time Penicillins AdvReac Rash Verified 06/08/16 10:31 - Home Medications Home Medications: Ambulatory Orders Atorvastatin Ca [Lipitor] 20 mg PO HS 01/24/16 Glipizide 2.5 mg PO DAILY 01/24/16 Levothyroxine [Synthroid -] 75 mcg PO DAILY 01/24/16 Metoprolol Succinate [Toprol Xl] 50 mg PO DAILY 01/24/16 Acetaminophen [Tylenol .Regular Strength -] 650 mg PO Q6H PRN #0 tablet Aspirin [ASA -] 81 mg PO DAILY tab.chew 06/14/16 Bacitracin - [Bacitracin Topical Ointment -] 1 applic TP BID tube 06/14/16 Clopidogrel Bisulfate [Plavix -] 75 mg PO DAILY #90 tablet 06/14/16 Lisinopril [Prinivil] 10 mg PO DAILY #90 tablet 06/14/16 Family Disease History - Family Disease History Family Disease History: Diabetes: Father, Brother, Sister, Heart Disease: Mother (Stomach Ca, CVA), CA: Grandparent (Cervical), Mother, Sister 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 No: CVA Tenderness - Left, CVA Tenderness - Right Pelvis: Yes: Tenderness (RLQ deep tenderness). No: Mass External Genitalia: Yes: Normal Vaginal Exam: Yes: Bleeding (old blood moderate bleeding) Cervix: Yes: Normal (post erior, bleeding from os) Uterus: Yes: Enlarged, Mass (anterior to cervix, mostly on rt side , occupying rt adnexa, hard in consistancy, not mobile , tender), Tender Adnexa: Mass: Right (mostly uterine mass felt in rt adnexa ), Not Palpable: Left Breast(s): Yes: WNL. No: Discharge from Nipple, Mass Extremities: No: Calf Tenderness Integumentary: Yes: Incision (subumblical midline scar & pfannensteil scars noted) Neurological: Yes: WNL ...Motor Strength: WNL Psychiatric: Yes: WNL Labs: CBC, BMP 06/10/16 05:35 Laboratory Tests 06/08/16 06/08/16 06/09/16 18:00 23:35 05:35 WBC 10.8 H RBC 3.65 Hgb 10.2 L Hct 30.8 L MCV 84.5 Plt Count 346 Creatine Kinase 298 H D 310 H CK-MB (CK-2) Troponin I 2.85 H* 3.57 H* TSH Free T4 06/09/16 06/10/16 05:35 05:35 WBC RBC Hgb Hct MCV Plt Count Creatine Kinase 312 H 184 D CK-MB (CK-2) 3.194 Troponin I 4.88 H* 2.59 H* TSH 2.03 D Free T4 1.47 H Problem List - Problems (1) Acute coronary syndrome Code(s): I24.9 - ACUTE ISCHEMIC HEART DISEASE, UNSPECIFIED (2) Chest pain Code(s): R07.9 - CHEST PAIN, UNSPECIFIED Qualifiers: Chest pain type: unspecified Qualified Code(s): R07.9 - Chest pain, unspecified (3) Diabetes Code(s): E11.9 - TYPE 2 DIABETES MELLITUS WITHOUT COMPLICATIONS Qualifiers: Diabetes mellitus type: type 2 Diabetes mellitus complication detail: with chronic kidney disease Diabetes mellitus pharmacy coordinator insulin use: without shelter use (4) Hypokalemia Code(s): E87.6 - HYPOKALEMIA (5) Anemia Code(s): D64.9 - ANEMIA, UNSPECIFIED Qualifiers: Anemia type: unspecified type Qualified Code(s): D64.9 - Anemia, unspecified (6) Post-menopausal bleeding Code(s): N95.0 - POSTMENOPAUSAL BLEEDING (7) Fibroid uterus Code(s): D25.9 - LEIOMYOMA OF UTERUS, UNSPECIFIED Qualifiers: Uterine leiomyoma location: unspecified location Qualified Code(s): D25.9 - Leiomyoma of uterus, unspecified (8) RLQ abdominal pain Code(s): R10.31 - RIGHT LOWER QUADRANT PAIN Assessment/Plan 65 yrs , wth possible Acishemic hear disease on Plavix, Lovenox, & asprin , h/o PMBleeding, & Fibroid uterus .( anticoagulants can be c/o bleeding also) unable to determine RLQ pain is due to fibroid or not , pt appears to be not much in discomfort . Plan : Pelvic & TV US to check EM thickness & uterine pathology To r/o endometrial cancer endometrial sampling will be necessary, which will require surgical procedure like D&C , Hysteroscopy under [place] which can be done when she is medically cleared . It will be prudent for her to follow with her Edi Specialist's associate who will have her past records of procedures & pathology reports
[2016-06-11] MEDS: glipiZIDE 5 MG TABLET (FP) PO SCH (06:03)
[2016-06-11] MEDS: LEVOTHYROXINE NA 75 MCG TABLET (FP) PO SCH (06:04)
[2016-06-11 08:19] LABS: MCH 27.6 pg (25.7-33.7); MCHC 32.2 g/dl (32.0-36.0); MEAN CELL VOLUME 85.9 fl (80-96); MEAN PLT VOLUME 7.8 fl (7.5-11.1); PLATELET COUNT 381 K/MM3 (134-434); RDW 15.3 % (11.6-15.6); WHITE BLOOD COUNT 12.1 K/mm3 (4.0-10.0)
[2016-06-11] MEDS: ENOXAPARIN NA (PORCINE) 40 MG/0.4 ML DISP.SYRIN SQ SCH (09:08)
[2016-06-11] MEDS: CLOPIDOGREL BISULFATE 75 MG TABLET (FP) PO SCH (09:08)
[2016-06-11] MEDS: ASPIRIN 81 MG CHEWABLE TABLETS PO SCH (09:08)
[2016-06-11] MEDS: LISINOPRIL 10 MG TABLET (FP) PO SCH (09:08)
[2016-06-11] MEDS: METOPROLOL SUCCINATE 50 MG TAB.SR.24H (FP) PO SCH (09:08)
[2016-06-11 09:16] LABS: ALBUMIN 3.6 g/dl (3.4-5.0); ALK PHOS 102 U/L (45-117); ANION GAP 8 (8-16); BILIRUBIN,TOTAL 0.4 mg/dL (0.2-1.0); CALCIUM 8.9 mg/dL (8.5-10.1); CO2 28 mmol/L (21-32); CREATININE 0.8 mg/dL (0.55-1.02); GLUCOSE,RANDOM 123 mg/dL (74-106); SGOT/AST 31 U/L (15-37); SGPT/ALT 22 U/L (12-78); TOT PROT 7.5 g/dl (6.4-8.2)
[2016-06-11 09:22] LABS: INR 1.05 (0.82-1.09); PROTHROMBIN TIME (PATIENT) 11.6 SEC (9.98-11.88)
[2016-06-11 09:27] LABS: TROPONIN I 1.14 ng/ml (0.00-0.05)
--- NOTE | 2016-06-11 10:08 | PN ---
Progress Note, Physician Chief Complaint: in bed nad no CP or SOB, walked yesterday in hallway and had some palpitations; some pelvic and RLQ pain and vaginal bleeding / clots; no N/V/C/D/ abdominal pain chart meds tests and consults reviewed and d/w pt - Current Medication List Current Medications: Active Medications Aspirin (Asa -) 81 mg PO DAILY [facility] Last Admin: 06/11/16 09:08 Dose: 81 mg Atorvastatin Calcium (Lipitor -) 20 mg PO HS [facility] Last Admin: 06/10/16 21:37 Dose: 20 mg Clopidogrel Bisulfate (Plavix -) 75 mg PO DAILY [facility] Last Admin: 06/11/16 09:08 Dose: 75 mg Enoxaparin Sodium (Lovenox -) 40 mg SQ DAILY [facility] Last Admin: 06/11/16 09:08 Dose: 40 mg Glipizide (Glucotrol -) 2.5 mg PO DAILY@0700 [facility] Last Admin: 06/11/16 06:03 Dose: 2.5 mg Levothyroxine Sodium (Synthroid -) 75 mcg PO DAILY@0700 [facility] Last Admin: 06/11/16 06:04 Dose: 75 mcg Lisinopril (Prinivil) 10 mg PO DAILY [facility] Last Admin: 06/11/16 09:08 Dose: 10 mg Metoprolol Succinate (Toprol Xl -) 50 mg PO DAILY [facility] Last Admin: 06/11/16 09:08 Dose: 50 mg - Objective Vital Signs: Vital Signs Temperature 98.3 F 06/11/16 02:00 Pulse Rate 96 H 06/11/16 06:00 Respiratory Rate 18 06/11/16 06:00 Blood Pressure 120/57 06/11/16 06:00 O2 Sat by Pulse Oximetry (%) 97 06/10/16 21:04 Constitutional: Yes: No Distress, Calm Eyes: Yes: Conjunctiva Clear HENT: Yes: Atraumatic Neck: Yes: Supple Cardiovascular: Yes: Regular Rate and Rhythm Respiratory: Yes: CTA Bilaterally Gastrointestinal: Yes: Soft. No: Distention, Tenderness Genitourinary: No: CVA Tenderness - Left, CVA Tenderness - Right Musculoskeletal: No: Joint Stiffness, Joint Swelling Extremities: No: Cold, Cool Edema: No Peripheral Pulses WNL: Yes Integumentary: No: Rash, Venous Stasis Changes Neurological: Yes: WNL, Alert, Oriented ...Motor Strength: WNL Psychiatric: Yes: WNL, Alert, Oriented. No: Agitated, Suicidal Ideation Labs: CBC, BMP 06/11/16 05:40 06/11/16 05:40 INR, PTT INR 1.05 (0.82-1.09) 06/11/16 08:55 - ....Imaging Other: Report Reviewed Assessment/Plan 1. CAD post acute coronary syndrome with mild apical ischemia on MPI 2. H/o left renal colic and hydronephrosis post cystoscopy and left ureteral stent 3. HTN 4. Hypercholesterolemia 5. Hypothyroidism 6. h/o LACEY (obstructive uropathy) resolved 7. Anemia 8. Type 2 DM 9. 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 Continue Toprol 50 qd, Lipitor 20 qhs, lisinopril 10 qd, ASA 81 qd and Plavix 75 qd 2. Cardiac enzymes have peaked, d/c Lovenox 3. Ambulate, d/c planning with f/u with Dr. Guzman 4. ONLINE MARKETING COORDINATOR f/u and Pelvic TV US pending
[2016-06-11] MEDS: ACETAMINOPHEN 325 MG TABLET (FP) PO PRN ×2 (10:30→20:24)
--- NOTE | 2016-06-11 13:38 | PN ---
Progress Note, Physician Chief Complaint: Events noted Denies chest pain, SOB or palpitations History of Present Illness: Patient was seen and examined. Awake and alert. Chart was reviewed HIDE STRETCHER HAND input noted. Patient complains of right quadrant abdominal discomfort - Current Medication List Current Medications: Active Medications Acetaminophen (Tylenol -) 650 mg PO Q6H PRN PRN Reason: FEVER OR PAIN Aspirin (Asa -) 81 mg PO DAILY [facility] Last Admin: 06/11/16 09:08 Dose: 81 mg Atorvastatin Calcium (Lipitor -) 20 mg PO HS [facility] Last Admin: 06/10/16 21:37 Dose: 20 mg Clopidogrel Bisulfate (Plavix -) 75 mg PO DAILY [facility] Last Admin: 06/11/16 09:08 Dose: 75 mg Enoxaparin Sodium (Lovenox -) 40 mg SQ DAILY [facility] Last Admin: 06/11/16 09:08 Dose: 40 mg Glipizide (Glucotrol -) 2.5 mg PO DAILY@0700 [facility] Last Admin: 06/11/16 06:03 Dose: 2.5 mg Levothyroxine Sodium (Synthroid -) 75 mcg PO DAILY@0700 [facility] Last Admin: 06/11/16 06:04 Dose: 75 mcg Lisinopril (Prinivil) 10 mg PO DAILY [facility] Last Admin: 06/11/16 09:08 Dose: 10 mg Metoprolol Succinate (Toprol Xl -) 50 mg PO DAILY [facility] Last Admin: 06/11/16 09:08 Dose: 50 mg - Objective Vital Signs: Vital Signs Temperature 98.3 F 06/11/16 02:00 Pulse Rate 86 06/11/16 10:00 Respiratory Rate 18 06/11/16 10:00 Blood Pressure 146/70 06/11/16 10:00 O2 Sat by Pulse Oximetry (%) 98 06/11/16 10:00 Neck: Yes: Supple Cardiovascular: Yes: Regular Rate and Rhythm, S1, S2 Respiratory: Yes: CTA Bilaterally Gastrointestinal: Yes: Normal Bowel Sounds, Soft, Abdomen, Obese, Tenderness ( vague right quadrant) Edema: No Additional Findings/Remarks: - Review of Systems Constitutional: denies: Fever. denies: Chills Cardiovascular: denies: Chest Pain, Palpitations, Shortness of Breath Respiratory: denies: Cough, Hemoptysis, Orthopnea, PND Gastrointestinal: denies: Abdominal Pain. denies: Diarrhea, Melena, Nausea, Rectal Bleeding, Vomiting Genitourinary: denies: Dysuria Neurological: denies: Dizziness, Headache, Seizure, Syncope Labs: CBC, BMP 06/11/16 05:40 06/11/16 05:40 INR, PTT INR 1.05 (0.82-1.09) 06/11/16 08:55 - ....Imaging Cat Scan: Pending Problem List - Problems (1) Acute coronary syndrome Code(s): I24.9 - ACUTE ISCHEMIC HEART DISEASE, UNSPECIFIED (2) Diabetes Code(s): E11.9 - TYPE 2 DIABETES MELLITUS WITHOUT COMPLICATIONS Qualifiers: Diabetes mellitus type: type 2 Diabetes mellitus complication detail: with chronic kidney disease Diabetes mellitus shelter insulin use: without shelter use (3) RLQ abdominal pain Code(s): R10.31 - RIGHT LOWER QUADRANT PAIN (4) Anemia Code(s): D64.9 - ANEMIA, UNSPECIFIED (5) HTN (hypertension) Code(s): I10 - ESSENTIAL (PRIMARY) HYPERTENSION Qualifiers: Hypertension type: essential hypertension Qualified Code(s): I10 - Essential (primary) hypertension (6) History of nephrolithiasis Code(s): Z87.442 - PERSONAL HISTORY OF URINARY CALCULI (7) Hyperlipidemia Code(s): E78.5 - HYPERLIPIDEMIA, UNSPECIFIED Qualifiers: Hyperlipidemia type: pure hypercholesterolemia Qualified Code(s): E78.0 - Pure hypercholesterolemia (8) Hypothyroid Code(s): E03.9 - HYPOTHYROIDISM, UNSPECIFIED Qualifiers: Hypothyroidism type: unspecified Qualified Code(s): E03.9 - Hypothyroidism, unspecified Assessment/Plan 1. CAD post acute coronary syndrome with mild apical ischemia on myocardial perfusion imaging 2. Left renal colic and hydronephrosis post cystoscopy and left ureteral stent 3. HTN 4. Hypercholesterolemia 5. Hypothyroidism 6. History of LACEY (obstructive uropathy) 7. Anemia 8. Type 2 DM PLAN: 1. Continue Toprol 50 mg QD, Lipitor 20 mg QHS, Lisinopril 10 mg QD, ASA 81 mg QD and Plavix 75 mg QD 2. Trend cardiac enzyme. 3. Conservative therapy for now. May add Ranexa if patient continues to have chest discomfort and +/- coronary angiography 4. Further HIDE STRETCHER HAND work up to follow Riaz Balbuena MD
[2016-06-11] MEDS: ATORVASTATIN CA 20 MG TABLET (FP) PO SCH (22:14)
[2016-06-12] MEDS: glipiZIDE 5 MG TABLET (FP) PO SCH (06:35)
[2016-06-12] MEDS: LEVOTHYROXINE NA 75 MCG TABLET (FP) PO SCH (06:35)
[2016-06-12 08:22] LABS: BASOPHIL 0.5 % (0-2.0); EOSINOPHIL 2.2 % (0-4.5); MCH 27.6 pg (25.7-33.7); MCHC 32.5 g/dl (32.0-36.0); MEAN CELL VOLUME 84.9 fl (80-96); MEAN PLT VOLUME 8.1 fl (7.5-11.1); PLATELET COUNT 367 K/MM3 (134-434); RDW 15.7 % (11.6-15.6); WHITE BLOOD COUNT 12.1 K/mm3 (4.0-10.0)
[2016-06-12 08:39] LABS: INR 1.04 (0.82-1.09); PROTHROMBIN TIME (PATIENT) 11.4 SEC (9.98-11.88)
[2016-06-12 08:57] LABS: ALBUMIN 3.4 g/dl (3.4-5.0); ANION GAP 7 (8-16); CALCIUM 8.8 mg/dL (8.5-10.1); CO2 28 mmol/L (21-32); CREATININE 0.7 mg/dL (0.55-1.02); GLUCOSE,RANDOM 117 mg/dL (74-106); SGOT/AST 76 U/L (15-37); SGPT/ALT 61 U/L (12-78)
[2016-06-12 09:02] LABS: ALK PHOS 93 U/L (45-117); BILIRUBIN,TOTAL 0.3 mg/dL (0.2-1.0)
--- NOTE | 2016-06-12 09:13 | PN ---
Progress Note, Physician Chief Complaint: Events noted Denies chest pain, SOB or palpitations History of Present Illness: Patient was seen and examined. Awake and alert. Chart was reviewed Patient still complains of right quadrant abdominal discomfort. FRAME STRIPPER AND CRUSHER consultation on medical record. History of intermittent vaginal bleed - Current Medication List Current Medications: Active Medications Acetaminophen (Tylenol -) 650 mg PO Q6H PRN PRN Reason: FEVER OR PAIN Last Admin: 06/11/16 20:24 Dose: 650 mg Aspirin (Asa -) 81 mg PO DAILY [facility] Last Admin: 06/11/16 09:08 Dose: 81 mg Atorvastatin Calcium (Lipitor -) 20 mg PO HS [facility] Last Admin: 06/11/16 22:14 Dose: 20 mg Clopidogrel Bisulfate (Plavix -) 75 mg PO DAILY [facility] Last Admin: 06/11/16 09:08 Dose: 75 mg Enoxaparin Sodium (Lovenox -) 40 mg SQ DAILY [facility] Last Admin: 06/11/16 09:08 Dose: 40 mg Glipizide (Glucotrol -) 2.5 mg PO DAILY@0700 [facility] Last Admin: 06/12/16 06:35 Dose: 2.5 mg Levothyroxine Sodium (Synthroid -) 75 mcg PO DAILY@0700 [facility] Last Admin: 06/12/16 06:35 Dose: 75 mcg Lisinopril (Prinivil) 10 mg PO DAILY [facility] Last Admin: 06/11/16 09:08 Dose: 10 mg Metoprolol Succinate (Toprol Xl -) 50 mg PO DAILY [facility] Last Admin: 06/11/16 09:08 Dose: 50 mg - Objective Vital Signs: Vital Signs Temperature 97.5 F L 06/11/16 17:00 Pulse Rate 97 H 06/12/16 06:00 Respiratory Rate 20 06/12/16 06:00 Blood Pressure 140/89 06/12/16 06:00 O2 Sat by Pulse Oximetry (%) 96 06/11/16 21:00 Neck: Yes: Supple Cardiovascular: Yes: Regular Rate and Rhythm, S1, S2 Respiratory: Yes: Diminished Gastrointestinal: Yes: Normal Bowel Sounds, Soft, Abdomen, Obese. No: Tenderness Edema: No Additional Findings/Remarks: - Review of Systems Constitutional: denies: Fever. denies: Chills Cardiovascular: denies: Chest Pain, Palpitations, Shortness of Breath Respiratory: denies: Cough, Hemoptysis, Orthopnea, PND Gastrointestinal: (+) Abdominal Pain. denies: Diarrhea, Melena, Nausea, Rectal Bleeding, Vomiting Genitourinary: denies: Dysuria Neurological: denies: Dizziness, Headache, Seizure, Syncope Labs: CBC, BMP 06/12/16 05:45 06/12/16 05:45 INR, PTT INR 1.04 (0.82-1.09) 06/12/16 05:45 - ....Imaging Cat Scan: Report Reviewed (Abdominal CT) Problem List - Problems (1) Acute coronary syndrome Code(s): I24.9 - ACUTE ISCHEMIC HEART DISEASE, UNSPECIFIED (2) Diabetes Code(s): E11.9 - TYPE 2 DIABETES MELLITUS WITHOUT COMPLICATIONS Qualifiers: Diabetes mellitus type: type 2 Diabetes mellitus complication detail: with chronic kidney disease Diabetes mellitus shelter insulin use: without intermediate manager use (3) RLQ abdominal pain Code(s): R10.31 - RIGHT LOWER QUADRANT PAIN (4) Anemia Code(s): D64.9 - ANEMIA, UNSPECIFIED (5) HTN (hypertension) Code(s): I10 - ESSENTIAL (PRIMARY) HYPERTENSION Qualifiers: Hypertension type: essential hypertension Qualified Code(s): I10 - Essential (primary) hypertension (6) History of nephrolithiasis Code(s): Z87.442 - PERSONAL HISTORY OF URINARY CALCULI (7) Hyperlipidemia Code(s): E78.5 - HYPERLIPIDEMIA, UNSPECIFIED Qualifiers: Hyperlipidemia type: pure hypercholesterolemia Qualified Code(s): E78.0 - Pure hypercholesterolemia (8) Hypothyroid Code(s): E03.9 - HYPOTHYROIDISM, UNSPECIFIED Qualifiers: Hypothyroidism type: unspecified Qualified Code(s): E03.9 - Hypothyroidism, unspecified Assessment/Plan 1. CAD post acute coronary syndrome with mild apical ischemia on myocardial perfusion imaging 2. Left renal colic and hydronephrosis post cystoscopy and left ureteral stent 3. HTN 4. Hypercholesterolemia 5. Hypothyroidism 6. History of LACEY (obstructive uropathy) 7. Anemia 8. Type 2 DM PLAN: 1. Continue Toprol 50 mg QD, Lipitor 20 mg QHS, Lisinopril 10 mg QD, ASA 81 mg QD and Plavix 75 mg QD as tolerated 2. Trend cardiac enzyme. 3. Conservative therapy for now. May add Ranexa if patient continues to have chest discomfort and +/- coronary angiography as recommended. 4. Further FRAME STRIPPER AND CRUSHER work up and plans to follow. Possible FRAME STRIPPER AND CRUSHER ultrasound Riaz Balbuena MD
[2016-06-12] MEDS: LISINOPRIL 10 MG TABLET (FP) PO SCH (09:26)
[2016-06-12] MEDS: METOPROLOL SUCCINATE 50 MG TAB.SR.24H (FP) PO SCH (09:26)
[2016-06-12] MEDS: ASPIRIN 81 MG CHEWABLE TABLETS PO SCH (09:26)
[2016-06-12] MEDS: CLOPIDOGREL BISULFATE 75 MG TABLET (FP) PO SCH (09:26)
[2016-06-12] MEDS: ENOXAPARIN NA (PORCINE) 40 MG/0.4 ML DISP.SYRIN SQ SCH (09:26)
--- NOTE | 2016-06-12 10:50 | PN ---
Progress Note, Physician Chief Complaint: in bed nad still with some RLQ pain, has loose stolls after po contrast; had one episode of vaginal bleed with clots CA125 high; abdomen pelvic CT negative; will do pelvic US; pt refused TV US - Current Medication List Current Medications: Active Medications Acetaminophen (Tylenol -) 650 mg PO Q6H PRN PRN Reason: FEVER OR PAIN Last Admin: 06/11/16 20:24 Dose: 650 mg Aspirin (Asa -) 81 mg PO DAILY [facility] Last Admin: 06/12/16 09:26 Dose: 81 mg Atorvastatin Calcium (Lipitor -) 20 mg PO HS [facility] Last Admin: 06/11/16 22:14 Dose: 20 mg Clopidogrel Bisulfate (Plavix -) 75 mg PO DAILY [facility] Last Admin: 06/12/16 09:26 Dose: 75 mg Enoxaparin Sodium (Lovenox -) 40 mg SQ DAILY [facility] Last Admin: 06/12/16 09:26 Dose: 40 mg Glipizide (Glucotrol -) 2.5 mg PO DAILY@0700 [facility] Last Admin: 06/12/16 06:35 Dose: 2.5 mg Levothyroxine Sodium (Synthroid -) 75 mcg PO DAILY@0700 [facility] Last Admin: 06/12/16 06:35 Dose: 75 mcg Lisinopril (Prinivil) 10 mg PO DAILY [facility] Last Admin: 06/12/16 09:26 Dose: 10 mg Metoprolol Succinate (Toprol Xl -) 50 mg PO DAILY [facility] Last Admin: 06/12/16 09:26 Dose: 50 mg - Objective Vital Signs: Vital Signs Temperature 97.5 F L 06/11/16 17:00 Pulse Rate 97 H 06/12/16 06:00 Respiratory Rate 20 06/12/16 06:00 Blood Pressure 140/89 06/12/16 06:00 O2 Sat by Pulse Oximetry (%) 96 06/11/16 21:00 Constitutional: Yes: No Distress, Calm Eyes: Yes: Conjunctiva Clear HENT: Yes: Atraumatic Neck: Yes: Supple Cardiovascular: Yes: Regular Rate and Rhythm Respiratory: Yes: CTA Bilaterally Gastrointestinal: Yes: Soft. No: Distention, Tenderness Genitourinary: No: CVA Tenderness - Left, CVA Tenderness - Right, Hematuria Musculoskeletal: No: Joint Stiffness, Joint Swelling Extremities: No: Cold, Cool Edema: No Peripheral Pulses WNL: Yes Neurological: Yes: WNL, Alert, Oriented ...Motor Strength: WNL Psychiatric: Yes: WNL, Alert, Oriented. No: Agitated, Suicidal Ideation Labs: CBC, BMP 06/12/16 05:45 06/12/16 05:45 INR, PTT INR 1.04 (0.82-1.09) 06/12/16 05:45 - ....Imaging Cat Scan: Report Reviewed Other: Report Reviewed Assessment/Plan 1. CAD post acute coronary syndrome with mild apical ischemia on MPI 2. H/o left renal colic and hydronephrosis post cystoscopy and left ureteral stent 3. HTN 4. Hypercholesterolemia 5. Hypothyroidism 6. h/o LACEY (obstructive uropathy) resolved 7. Anemia 8. Type 2 DM 9. Uterine fibroids and REEL SLITTER bleeding on ASA and sq lovenox PLAN: 1. Continue Toprol 50 qd, Lipitor 20 qhs, lisinopril 10 qd, ASA 81 qd and Plavix 75 qd 2. Cardiac enzymes have peaked, d/c Lovenox 3. Ambulate, d/c planning with f/u with Dr. Guzman 4. REEL SLITTER f/u and Pelvic TV US pending d/w pt and staff, d.w dr Berry cardio
[2016-06-12] MEDS ORDERED: LOPERAMIDE HCL 2 MG CAPSULE PO PRN (16:20)
[2016-06-12] MEDS: ATORVASTATIN CA 20 MG TABLET (FP) PO SCH (22:19)
[2016-06-13] MEDS: LEVOTHYROXINE NA 75 MCG TABLET (FP) PO SCH (06:20)
[2016-06-13 07:21] LABS: BASOPHIL 0.8 % (0-2.0); EOSINOPHIL 2.4 % (0-4.5); MCH 27.9 pg (25.7-33.7); MCHC 32.9 g/dl (32.0-36.0); MEAN CELL VOLUME 84.9 fl (80-96); MEAN PLT VOLUME 7.8 fl (7.5-11.1); NEUTROPHILS 58.7 % (42.8-82.8); PLATELET COUNT 330 K/MM3 (134-434); RDW 15.2 % (11.6-15.6); WHITE BLOOD COUNT 10.9 K/mm3 (4.0-10.0)
[2016-06-13 07:56] LABS: ALBUMIN 3.3 g/dl (3.4-5.0); ANION GAP 8 (8-16); CALCIUM 8.8 mg/dL (8.5-10.1); CO2 27 mmol/L (21-32); GLUCOSE,RANDOM 119 mg/dL (74-106)
[2016-06-13 08:00] LABS: ALK PHOS 94 U/L (45-117); BILIRUBIN,TOTAL 0.3 mg/dL (0.2-1.0); CREATININE 0.6 mg/dL (0.55-1.02); SGOT/AST 56 U/L (15-37); SGPT/ALT 60 U/L (12-78); TOT PROT 6.8 g/dl (6.4-8.2)
[2016-06-13] MEDS: glipiZIDE 5 MG TABLET (FP) PO SCH (08:20)
--- NOTE | 2016-06-13 08:36 | PN ---
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 INSIGHT MANAGER f/u no CP/SOB, cleared by cardio for DC home - Current Medication List Current Medications: Active Medications Acetaminophen (Tylenol -) 650 mg PO Q6H PRN PRN Reason: FEVER OR PAIN Last Admin: 06/11/16 20:24 Dose: 650 mg Aspirin (Asa -) 81 mg PO DAILY [facility] Last Admin: 06/12/16 09:26 Dose: 81 mg Atorvastatin Calcium (Lipitor -) 20 mg PO HS [facility] Last Admin: 06/12/16 22:19 Dose: 20 mg Clopidogrel Bisulfate (Plavix -) 75 mg PO DAILY [facility] Last Admin: 06/12/16 09:26 Dose: 75 mg Glipizide (Glucotrol -) 2.5 mg PO DAILY@0700 [facility] Last Admin: 06/13/16 08:20 Dose: 2.5 mg Levothyroxine Sodium (Synthroid -) 75 mcg PO DAILY@0700 [facility] Last Admin: 06/13/16 06:20 Dose: 75 mcg Lisinopril (Prinivil) 10 mg PO DAILY [facility] Last Admin: 06/12/16 09:26 Dose: 10 mg Loperamide HCl (Imodium -) 2 mg PO Q6H PRN PRN Reason: DIARRHEA Last Admin: 06/12/16 16:32 Dose: 2 mg Metoprolol Succinate (Toprol Xl -) 50 mg PO DAILY [facility] Last Admin: 06/12/16 09:26 Dose: 50 mg - Objective Vital Signs: Vital Signs Temperature 97.7 F 06/13/16 08:00 Pulse Rate 77 06/13/16 08:00 Respiratory Rate 18 06/13/16 08:00 Blood Pressure 128/55 06/13/16 08:00 O2 Sat by Pulse Oximetry (%) 97 06/13/16 08:00 Constitutional: Yes: No Distress Eyes: Yes: Conjunctiva Clear HENT: Yes: Atraumatic Neck: Yes: Supple Cardiovascular: Yes: Regular Rate and Rhythm Respiratory: Yes: CTA Bilaterally Gastrointestinal: Yes: Soft. No: Distention, Tenderness Genitourinary: No: CVA Tenderness - Left, CVA Tenderness - Right Musculoskeletal: No: Joint Stiffness, Joint Swelling Extremities: No: Cold, Cool Edema: No Peripheral Pulses WNL: Yes Neurological: Yes: WNL, Alert, Oriented ...Motor Strength: WNL Psychiatric: Yes: WNL, Alert, Oriented. No: Agitated Labs: CBC, BMP 06/13/16 05:35 06/13/16 05:35 INR, PTT INR 1.04 (0.82-1.09) 06/12/16 05:45 - ....Imaging Other: Report Reviewed Assessment/Plan 1. CAD post acute coronary syndrome with mild apical ischemia on MPI 2. H/o left renal colic and hydronephrosis post cystoscopy and left ureteral stent 3. HTN 4. Hypercholesterolemia 5. Hypothyroidism 6. h/o LACEY (obstructive uropathy) resolved 7. Anemia 8. Type 2 DM 9. 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 Continue Toprol 50 qd, Lipitor 20 qhs, lisinopril 10 qd, ASA 81 qd and Plavix 75 qd 2. Cardiac enzymes have peaked, d/cd Lovenox 3. Ambulate, d/c planning with f/u with Dr. Guzman 4. SENIOUR INSIGHT MANAGER f/u regarding further w/u d/w pt and staff
[2016-06-13] MEDS: CLOPIDOGREL BISULFATE 75 MG TABLET (FP) PO SCH (09:05)
[2016-06-13] MEDS: ASPIRIN 81 MG CHEWABLE TABLETS PO SCH (09:05)
[2016-06-13] MEDS: METOPROLOL SUCCINATE 50 MG TAB.SR.24H (FP) PO SCH (09:05)
[2016-06-13] MEDS: LISINOPRIL 10 MG TABLET (FP) PO SCH (09:05)
--- NOTE | 2016-06-13 09:47 | PN ---
Progress Note, Physician Chief Complaint: Events noted Denies chest pain, SOB or palpitations Left lower extremity appears to be mildly edematous History of Present Illness: Patient was seen and examined. Awake and alert. Chart was reviewed Patient denies right quadrant abdominal discomfort. IRONWORKER APPRENTICE consultation on medical record. History of intermittent vaginal bleed, currently appears stable Denies chest pain or shortness of breath - Current Medication List Current Medications: Active Medications Acetaminophen (Tylenol -) 650 mg PO Q6H PRN PRN Reason: FEVER OR PAIN Last Admin: 06/11/16 20:24 Dose: 650 mg Aspirin (Asa -) 81 mg PO DAILY [facility] Last Admin: 06/13/16 09:05 Dose: 81 mg Atorvastatin Calcium (Lipitor -) 20 mg PO HS [facility] Last Admin: 06/12/16 22:19 Dose: 20 mg Bacitracin (Bacitracin -) 1 applic TP BID [facility] Clopidogrel Bisulfate (Plavix -) 75 mg PO DAILY [facility] Last Admin: 06/13/16 09:05 Dose: 75 mg Glipizide (Glucotrol -) 2.5 mg PO DAILY@0700 [facility] Last Admin: 06/13/16 08:20 Dose: 2.5 mg Levothyroxine Sodium (Synthroid -) 75 mcg PO DAILY@0700 [facility] Last Admin: 06/13/16 06:20 Dose: 75 mcg Lisinopril (Prinivil) 10 mg PO DAILY [facility] Last Admin: 06/13/16 09:05 Dose: 10 mg Loperamide HCl (Imodium -) 2 mg PO Q6H PRN PRN Reason: DIARRHEA Last Admin: 06/12/16 16:32 Dose: 2 mg Metoprolol Succinate (Toprol Xl -) 50 mg PO DAILY [facility] Last Admin: 06/13/16 09:05 Dose: 50 mg - Objective Vital Signs: Vital Signs Temperature 97.7 F 06/13/16 08:00 Pulse Rate 77 06/13/16 08:00 Respiratory Rate 18 06/13/16 08:00 Blood Pressure 128/55 06/13/16 08:00 O2 Sat by Pulse Oximetry (%) 97 06/13/16 08:00 Neck: Yes: Supple Cardiovascular: Yes: Regular Rate and Rhythm, S1, S2 Respiratory: Yes: CTA Bilaterally Gastrointestinal: Yes: Normal Bowel Sounds, Soft, Abdomen, Obese. No: Tenderness Edema: Yes Edema: LLE: Trace Additional Findings/Remarks: - Review of Systems Constitutional: denies: Fever. denies: Chills Cardiovascular: denies: Chest Pain, Palpitations, Shortness of Breath Respiratory: denies: Cough, Hemoptysis, Orthopnea, PND Gastrointestinal: (+) Abdominal Pain. denies: Diarrhea, Melena, Nausea, Rectal Bleeding, Vomiting Genitourinary: denies: Dysuria Neurological: denies: Dizziness, Headache, Seizure, Syncope Labs: CBC, BMP 06/13/16 05:35 06/13/16 05:35 INR, PTT INR 1.04 (0.82-1.09) 06/12/16 05:45 Problem List - Problems (1) Acute coronary syndrome Code(s): I24.9 - ACUTE ISCHEMIC HEART DISEASE, UNSPECIFIED (2) Diabetes Code(s): E11.9 - TYPE 2 DIABETES MELLITUS WITHOUT COMPLICATIONS Qualifiers: Diabetes mellitus type: type 2 Diabetes mellitus complication detail: with chronic kidney disease Diabetes mellitus dog day care attendant insulin use: without dog day care attendant use (3) RLQ abdominal pain Code(s): R10.31 - RIGHT LOWER QUADRANT PAIN (4) Anemia Code(s): D64.9 - ANEMIA, UNSPECIFIED Qualifiers: Anemia type: unspecified type Qualified Code(s): D64.9 - Anemia, unspecified (5) HTN (hypertension) Code(s): I10 - ESSENTIAL (PRIMARY) HYPERTENSION Qualifiers: Hypertension type: essential hypertension Qualified Code(s): I10 - Essential (primary) hypertension (6) History of nephrolithiasis Code(s): Z87.442 - PERSONAL HISTORY OF URINARY CALCULI (7) Hyperlipidemia Code(s): E78.5 - HYPERLIPIDEMIA, UNSPECIFIED Qualifiers: Hyperlipidemia type: pure hypercholesterolemia Qualified Code(s): E78.0 - Pure hypercholesterolemia (8) Hypothyroid Code(s): E03.9 - HYPOTHYROIDISM, UNSPECIFIED Qualifiers: Hypothyroidism type: unspecified Qualified Code(s): E03.9 - Hypothyroidism, unspecified Assessment/Plan 1. CAD post acute coronary syndrome with mild apical ischemia on myocardial perfusion imaging 2. Left renal colic and hydronephrosis post cystoscopy and left ureteral stent 3. HTN 4. Hypercholesterolemia 5. Hypothyroidism 6. History of LACEY (obstructive uropathy) 7. Anemia 8. Type 2 DM 9. LLE edema - rule out DVT PLAN: 1. Continue Toprol 50 mg QD, Lipitor 20 mg QHS, Lisinopril 10 mg QD, ASA 81 mg QD and Plavix 75 mg QD as tolerated 2. Trend cardiac enzyme. 3. Conservative therapy for now. May add Ranexa if patient continues to have chest discomfort and +/- coronary angiography as recommended. 4. Further IRONWORKER APPRENTICE work up and plans to follow. Possible IRONWORKER APPRENTICE ultrasound 5. Lower extremity Doppler to rule out DVT Riaz Balbuena MD
[2016-06-13 10:14] LABS: TROPONIN I 0.42 ng/ml (0.00-0.05)
[2016-06-13] MEDS: BACITRACIN 30 GM TUBE TOPICAL OINTMENT TP SCH ×2 (10:30→22:03)
--- NOTE | 2016-06-13 13:43 | PN ---
Progress Note (short form) - Note Progress Note: Cloud Developer f/u pt not in the room she has gone for testing. . ct scan report noted : fibroid uterus . pelvic us pending . pt is refusing tv sono but it is necessary to estimate endomerial thickness, which will give us clue for EM cancer . US radiocommunications technician had called me up to ask for TVsono, I told him i ordered it but pt is refusing, if she permits him to do, he should go ahead. CA 125 : 160.2 elevated .. I will f/u Pelvic US report Problem List - Problems (1) Acute coronary syndrome Code(s): I24.9 - ACUTE ISCHEMIC HEART DISEASE, UNSPECIFIED (2) Chest pain Code(s): R07.9 - CHEST PAIN, UNSPECIFIED Qualifiers: Chest pain type: unspecified Qualified Code(s): R07.9 - Chest pain, unspecified (3) Diabetes Code(s): E11.9 - TYPE 2 DIABETES MELLITUS WITHOUT COMPLICATIONS Qualifiers: Diabetes mellitus type: type 2 Diabetes mellitus complication detail: with chronic kidney disease Diabetes mellitus roasterman insulin use: without roasterman use (4) Hypokalemia Code(s): E87.6 - HYPOKALEMIA (5) Anemia Code(s): D64.9 - ANEMIA, UNSPECIFIED Qualifiers: Anemia type: unspecified type Qualified Code(s): D64.9 - Anemia, unspecified (6) Post-menopausal bleeding Code(s): N95.0 - POSTMENOPAUSAL BLEEDING (7) Fibroid uterus Code(s): D25.9 - LEIOMYOMA OF UTERUS, UNSPECIFIED Qualifiers: Uterine leiomyoma location: unspecified location Qualified Code(s): D25.9 - Leiomyoma of uterus, unspecified (8) RLQ abdominal pain Code(s): R10.31 - RIGHT LOWER QUADRANT PAIN
[2016-06-13] MEDS: ATORVASTATIN CA 20 MG TABLET (FP) PO SCH (22:06)
[2016-06-14] MEDS: LEVOTHYROXINE NA 75 MCG TABLET (FP) PO SCH (06:05)
[2016-06-14] MEDS: glipiZIDE 5 MG TABLET (FP) PO SCH (06:05)
--- NOTE | 2016-06-14 09:37 | DS ---
Physical Examination Vital Signs: Vital Signs Temperature 97.4 F L 06/14/16 06:00 Pulse Rate 107 H 06/14/16 06:00 Respiratory Rate 20 06/14/16 06:00 Blood Pressure 119/88 06/14/16 06:00 O2 Sat by Pulse Oximetry (%) 97 06/13/16 22:00 Findings/Remarks: Pt. w/o CP, SOB, palp., dizziness, abd. pain. Pt with decreased vaginal bleeding. Time spent for managing pt.'s care: over 45 minutes. Constitutional: Yes: No Distress, Calm Cardiovascular: Yes: Regular Rate and Rhythm, S1, S2 Respiratory: Yes: Regular, CTA Bilaterally. No: Rales Gastrointestinal: Yes: Normal Bowel Sounds, Soft, Abdomen, Obese. No: Palpable Mass, Tenderness Edema: No Neurological: Yes: Alert, Oriented Labs: CBC, BMP 06/13/16 05:35 06/13/16 05:35 Pelvic/ Bladder US reviewed Discharge Summary Reason For Visit: CHEST PAIN Current Active Problems Acute coronary syndrome (Acute) Chest pain (Acute) Diabetes (Acute) Fibroid uterus (Acute) Hypokalemia (Acute) Post-menopausal bleeding (Acute) RLQ abdominal pain (Acute) Procedures: Principal: Stress Test Other Procedures: ECHO. Pelvic/Bladder US Hospital Course: Pt. came to ER with CP, resolved by the time she came to ER; 1-st CE was negative, pt. was admitted for observation on Telemetry; second CE came back elevated, pt was started on AC and treated for ACS. Pt. was seen by Cardiology ( Dr. Wetzel/ Kristi/ Thomas). Pt had pharmacologic stress test( + for apical ischemia with preserved ejection fraction). Pt. started to have vaginal bleed( has hx/o vaginal bleed, uterine fibroids), AC was stopped and pt. was ssen by Pharmacy Services Representative (Dr. Hill); pt. had Pelvic/ Bladder US ( c/w multiple uterine fibroids) ; pt. wants to have D&C with her own GEAR SHAPER. Pt's case was reviewed in detail with Dr. Guzman; pt is cleared for D&C and the then should have cardiac cath.; pt was explained above, all questions were answered; pt. agrees with the plan and wants to see her own Pharmacy Services Representative specialist ( [facility]) for evaluation and D&C. To DC pt. home today with f/u with my office and Cardio office. Condition: Stable - Instructions Diet, Activity, Other Instructions: ADA, Low salt, Low Cholesterol. To see GEAR SHAPER specialist as soon as possible. Referrals: Javier Mcginnis MD [Primary Care Provider] - (within a week) Belén Guzman MD [Staff Physician] - (as ascheduled) Disposition: HOME - Home Medications Comprehensive Discharge Medication List: Ambulatory Orders Atorvastatin Ca [Lipitor] 20 mg PO HS 01/24/16 Glipizide 2.5 mg PO DAILY 01/24/16 Levothyroxine [Synthroid -] 75 mcg PO DAILY 01/24/16 Metoprolol Succinate [Toprol Xl] 50 mg PO DAILY 01/24/16 This is NOT an updated list (computer glitch).
--- NOTE | 2016-06-14 10:13 | PN ---
Progress Note (short form) - Note Progress Note: Chief Complaint: Events noted, notes reviewed, denies any chest pain or dyspnea , reports vague dysphagia History of Present Illness: Seen and examined on telemetry. Events noted, notes reviewed, denies any chest pain or dyspnea, reports vague dysphagia Discussed in detail with patient and her primary care provider Dr. Lenard Mcginnis in reference to her presentation with ACS which is managed medically that she should proceed with EDUCATION COUNSELOR evaluation and management of her vaginal bleed related to uterine fibroids, prior to proceeding with LHC & coronary angiogrpahy unless patient has recurrent angina pectoris (not controllable with medical therapy) - Current Medication List Current Medications Acetaminophen (Tylenol -) 650 mg PO Q6H PRN PRN Reason: FEVER OR PAIN Last Admin: 06/11/16 20:24 Dose: 650 mg Aspirin (Asa -) 81 mg PO DAILY [facility] Last Admin: 06/13/16 09:05 Dose: 81 mg Atorvastatin Calcium (Lipitor -) 20 mg PO HS [facility] Last Admin: 06/13/16 22:06 Dose: 20 mg Bacitracin (Bacitracin -) 1 applic TP BID [facility] Last Admin: 06/13/16 22:03 Dose: 1 applic Clopidogrel Bisulfate (Plavix -) 75 mg PO DAILY [facility] Last Admin: 06/13/16 09:05 Dose: 75 mg Glipizide (Glucotrol -) 2.5 mg PO DAILY@0700 [facility] Last Admin: 06/14/16 06:05 Dose: 2.5 mg Levothyroxine Sodium (Synthroid -) 75 mcg PO DAILY@0700 [facility] Last Admin: 06/14/16 06:05 Dose: 75 mcg Lisinopril (Prinivil) 10 mg PO DAILY [facility] Last Admin: 06/13/16 09:05 Dose: 10 mg Loperamide HCl (Imodium -) 2 mg PO Q6H PRN PRN Reason: DIARRHEA Last Admin: 06/12/16 16:32 Dose: 2 mg Metoprolol Succinate (Toprol Xl -) 50 mg PO DAILY [facility] Last Admin: 06/13/16 09:05 Dose: 50 mg Review of Systems - Review of Systems Constitutional: denies: Chills, Fever Cardiovascular: As noted above Respiratory: denies: Cough or Sputum Production Gastrointestinal: denies: Nausea, Vomiting, Diarrhea, Constipation or Abdominal Pain Musculoskeletal: No symptoms reported Neurological: No symptoms reported - Objective Vital Signs: Last Vital Signs Temp Pulse Resp BP Pulse Ox 97.4 F L 107 H 20 119/88 97 06/14/16 06:00 06/14/16 06:00 06/14/16 06:00 06/14/16 06:00 06/13/16 22:00 Neck: Supple Negative JVD No bruit Cardiovascular: S1 S2 Regular Rate and Rhythm Respiratory: Clear to A&P Bilaterally Gastrointestinal: Soft Benign Normal Bowel Sounds Ext: Trace Edema Labs: CBC, BMP 06/13/16 05:35 06/13/16 05:35 Assessment/Plan ASSESSMENT: 1. CAD post acute coronary syndrome abnormal MPI study (mild apical ischemia) angina pectoris 2. Diastolic LV dysfunction with class 0 NYHA classification LV failure 3. HTN 4. DM 5. Hypercholesterolemia 6. Hypothyroidism 7. Left renal colic and hydronephrosis post cystoscopy and left ureteral stent 8. History of LACEY (obstructive uropathy) 9. Vaginal bleed related to uterine fibroids 10. Anemia PLAN: 1. Continue Toprol 2. Continue Lisinopril 3. Continue Lipitor 4. Continue ASA and Plavix with caution considering the above noted vaginal bleed and anemia 5. As outlined above regarding proceeding with further EDUCATION COUNSELOR evaluation Belén Guzman MD
[2016-06-14 10:23] VITALS: BP 126/55; PULSE 82; TEMP 97.6
[2016-06-14] MEDS: METOPROLOL SUCCINATE 50 MG TAB.SR.24H (FP) PO SCH (10:23)
[2016-06-14] MEDS: LISINOPRIL 10 MG TABLET (FP) PO SCH (10:23)
[2016-06-14] MEDS: ASPIRIN 81 MG CHEWABLE TABLETS PO SCH (10:23)
[2016-06-14] MEDS: CLOPIDOGREL BISULFATE 75 MG TABLET (FP) PO SCH (10:23)
[2016-06-14] MEDS: BACITRACIN 30 GM TUBE TOPICAL OINTMENT TP SCH (10:24)
== END 2016-06-14 14:20 | disposition home or self-care (01) | DRG 303 ==
LOC: JER 10:26 → JERBED 12:43 → J4W 14:25 → OBSVTOIN 06-09 09:09
PROVIDERS: ADMIT Specialist; ATTEND Specialist
DX: I25.10 Atherosclerotic heart disease of native coronary artery without angina pectoris (principal); I24.9 Acute ischemic heart disease, unspecified; I10 Essential (primary) hypertension; E78.5 Hyperlipidemia, unspecified; E11.9 Type 2 diabetes mellitus without complications; E03.9 Hypothyroidism, unspecified; N95.0 Postmenopausal bleeding; E66.8 Other obesity; Z68.35 Body mass index [BMI] 35.0-35.9, adult; Z71.3 Dietary counseling and surveillance; D25.9 Leiomyoma of uterus, unspecified; M19.90 Unspecified osteoarthritis, unspecified site; D64.9 Anemia, unspecified; E87.6 Hypokalemia; Z87.442 Personal history of urinary calculi
CPT/HCPCS: 36415; 71020-TC; 74176-TC; 76856-TC; 78452-TC; 80048; 80053; 80061; 82550; 82553; 83721; 83735; 84439; 84443; 84484; 85025; 85027; 85610; 86304; 93005; 93010; 93017; 93306-TC; 93971-TC; 99284-25; A9502; G0378; J1245; Q9967

== ENCOUNTER 2016-06-18 18:11 | Emergency (ER) | payer OTHER ==
[2016-06-18 18:27] VITALS: BMI 31.2
--- NOTE | 2016-06-18 19:06 | PDOC ---
History of Present Illness - History of Present Illness Initial Comments: 06/18/16 19:25 The patient is a 65 year old female, with a significant past medical history of hypertension, hyperlipidemia, diabetes mellitus, hypothyroidism, obesity, and osteoarthritis, who presents to the emergency department with right foot pain, swelling, and tingling since last night at 11PM. The patient was discharged from the hospital for mild [place] after a negative stress test on 06/14/16. She reports soaking her foot in epsom salt bath, elevating her foot and taking tylenol at 11am today with no alleviation of pain. She reports the painis is constant, stabbing, 10/10 in severity, and diffuse to her entire right foot with associated numbness/tingling to her She reports recently starting lasix and plavix since her discharge. She denies chest pain, shortness of breath, headache and dizziness. She denies fever, chills, nausea, vomit, diarrhea and constipation. She denies dysuria, frequency, urgency and hematuria. Allergies: penicillin (rash) Past surgical history: , Social history: denies toxic habits PCP - Dr. Javier Mcginnis Student Specialist - Dr. Guzman <Maegan Waller - Last Filed: 06/18/16 20:17> - General History Source: Patient Exam Limitations: No Limitations <Kendall Beach - Last Filed: 06/18/16 20:59> - General Chief Complaint: Edema Stated Complaint: RT FOOT SWOLLEN/PAIN/RED Time Seen by Provider: 06/18/16 18:26 Past History <Maegan Waller - Last Filed: 06/18/16 20:17> - Past Medical History Anemia: No Asthma: No Cancer: No Cardiac Disorders: Yes ([place](2017)) CVA: No COPD: No CHF: No Dementia: No Diabetes: Yes Disorders: No HTN: Yes Hypercholesterolemia: Yes Thyroid Disease: Yes (HYPO.) - Surgical History Cardiac Surgery: No Lung Surgery: No Neurologic Surgery: Yes Orthopedic Surgery: Yes - Psycho/Social/Smoking Cessation Hx Anxiety: No Suicidal Ideation: No Smoking Status: No Smoking History: Never smoked Have you smoked in the past 12 months: No Number of Cigarettes Smoked Daily: 0 Information on smoking cessation initiated: No Hx Alcohol Use: No Drug/Substance Use Hx: No Substance Use Type: None Hx Substance Use Treatment: No <BayleeKendall - Last Filed: 06/18/16 20:59> - Past Medical History Allergies/Adverse Reactions: Allergies Allergy/AdvReac Type Severity Reaction Status Date / Time Penicillins AdvReac Rash Verified 06/18/16 18:20 Home Medications: Ambulatory Orders Atorvastatin Ca [Lipitor] 20 mg PO HS 01/24/16 Glipizide 2.5 mg PO DAILY 01/24/16 Levothyroxine [Synthroid -] 75 mcg PO DAILY 01/24/16 Metoprolol Succinate [Toprol Xl] 50 mg PO DAILY 01/24/16 Acetaminophen [Tylenol .Regular Strength -] 650 mg PO Q6H PRN #0 tablet Aspirin [ASA -] 81 mg PO DAILY tab.chew 06/14/16 Clopidogrel Bisulfate [Plavix -] 75 mg PO DAILY #90 tablet 06/14/16 Furosemide [Lasix -] 20 mg PO DAILY 06/18/16 Sulfamethoxazole/Trimethoprim [Bactrim Ds -] 1 tab PO BID #14 tablet 06/18/16 Review of Systems - Review of Systems Able to Perform ROS?: Yes Comments:: 06/18/16 19:26 GENERAL/CONSTITUTIONAL: No fever or chills. No weakness. HEAD, EYES, EARS, NOSE AND THROAT: No change in vision. No ear pain or discharge. No sore throat. CARDIOVASCULAR: No chest pain or shortness of breath. RESPIRATORY: No cough, wheezing, or hemoptysis. GASTROINTESTINAL: No nausea, vomiting, diarrhea or constipation. GENITOURINARY: No dysuria, frequency, or change in urination. MUSCULOSKELETAL: No joint or muscle swelling or pain. No neck or back pain. EXTREMITIES: (+) right foot pain, redness and swelling SKIN: No rash NEUROLOGIC: No headache, vertigo, loss of consciousness, or change in strength/ sensation. ENDOCRINE: No increased thirst. No abnormal weight change. HEMATOLOGIC/LYMPHATIC: No anemia, easy bleeding, or history of blood clots. ALLERGIC/IMMUNOLOGIC: No hives or skin allergy. <Maegan Waller - Last Filed: 06/18/16 20:17> *Physical Exam - Vital Signs Last Vital Signs Temp Pulse Resp BP Pulse Ox 98.3 F 85 20 142/70 100 06/18/16 18:16 06/18/16 18:16 06/18/16 18:16 06/18/16 18:16 06/18/16 18:16 - Physical Exam Comments: 06/18/16 19:26 GENERAL: Awake, alert, and fully oriented, in no acute distress HEAD: No signs of trauma EYES: PERRLA, EOMI, sclera anicteric, conjunctiva clear ENT: Auricles normal inspection, hearing grossly normal, nares patent, oropharynx clear without exudates. Moist mucosa NECK: Normal ROM, supple, no lymphadenopathy, JVD, or masses LUNGS: Breath sounds equal, clear to auscultation bilaterally. No wheezes, and no crackles HEART: Regular rate and rhythm, normal S1 and S2, no murmurs, rubs or gallops ABDOMEN: Soft, nontender, normoactive bowel sounds. No guarding, no rebound. No masses EXTREMITIES: (+) 5x5cm erythema and ttp to right lateral foot, no calf tenderness, less than 2 second capillary refill in each digit. 2+ DP pulse in right foot. 1+ pedal edema in right foot. No clubbing or cyanosis. No cords. NEUROLOGICAL: Cranial nerves II-XII intact. Normal speech, normal gait. Sensation intact in upper and lower extremities. 5/5 motor strength in upper and lower extremities. No pronator drift. Finger to nose intact. Rapid alternations intact. SKIN: Warm, Dry, normal turgor, no rashes or lesions noted. <Maeagn Waller - Last Filed: 06/18/16 20:17> - Vital Signs Last Vital Signs Temp Pulse Resp BP Pulse Ox 98.3 F 85 20 142/70 100 06/18/16 18:16 06/18/16 18:16 06/18/16 18:16 06/18/16 18:16 06/18/16 18:16 <Kendall Beach - Last Filed: 06/18/16 20:59> ED Treatment Course - LABORATORY CBC & Chemistry Diagram: 06/18/16 19:03 06/18/16 19:03 - ADDITIONAL ORDERS Additional order review: 06/18/16 19:03 RBC 3.63 MCV 84.0 MCHC 32.1 RDW 15.3 MPV 7.6 Neutrophils % 68.2 Lymphocytes % 19.9 D Monocytes % 10.0 Eosinophils % 1.2 Basophils % 0.7 - RADIOLOGY Radiograph Interpretation: 06/18/16 20:17 EXAM: Right lower extremity venous duplex ultrasound was read by Mt Rodriguez MD at 20:13 EST REASON FOR EXAM: Rule out DVT FINDINGS: No evidence for deep venous thrombosis. No Sagastume's cyst. <PoornimadominiqueMaegan moralez - Last Filed: 06/18/16 20:17> - LABORATORY CBC & Chemistry Diagram: 06/18/16 19:03 06/18/16 19:03 - RADIOLOGY Radiology Studies Ordered: Category Date Time Status DUPLEX VASCUL US-1 LEG [US] Stat Ultrasound 06/18/16 18:54 Ordered <Kendall Beach - Last Filed: 06/18/16 20:59> Medical Decision Making - Medical Decision Making 06/18/16 20:16 Dr. Javier Mcginnis was paged via phone answering service requesting a call back for doctor to doctor consult at 20:18 <PoornimadominiqueMaegan moralez - Last Filed: 06/18/16 20:17> - Medical Decision Making 06/18/16 19:07 A portion of this note was documented by scribe services under my direction. I have reviewed the details of the note, within reason, and agree with the documentation with the following case summary and management plan written by me. Patient treated in the ED. Nursing notes are reviewed and incorporated into the medical decision-making. Vital signs reviewed. Peripheral IV access obtained by the nurse, laboratory studies are drawn and sent, reviewed and interpreted by myself. Vital Signs Temp Pulse Resp BP Pulse Ox 98.3 F 85 20 142/70 100 06/18/16 18:16 06/18/16 18:16 06/18/16 18:16 06/18/16 18:16 06/18/16 18:16 65-year-old female history of hypertension, diabetes, hyperlipidemia, hypothyroidism, obesity, coronary disease resents with right lateral foot pain and swelling since yesterday. Denies fevers or chills. There has some develop some erythema. This has started approximately 10 PM since yesterday. It is tender to the skin. Patient had called her PMD within sent the patient to the ER for rule out DVT. With my physical exam, I suspect that this is actually cellulitis. Patient denies any trauma. She is not ill-appearing. We'll obtain labs. We'll obtain a duplex. Initiate antibiotics. Patient overall appears well. We'll likely discharge after talking with PMD. As of note, the patient patient was recently admitted for NSTEMI. 06/18/16 20:57 CBC, BMP 06/18/16 19:03 06/18/16 19:03 CMP Sodium 140 mmol/L (136-145) 06/18/16 19:03 Potassium 3.8 mmol/L (3.5-5.1) 06/18/16 19:03 Chloride 101 mmol/L (98-107) 06/18/16 19:03 Carbon Dioxide 30 mmol/L (21-32) 06/18/16 19:03 Anion Gap 9 (8-16) 06/18/16 19:03 BUN 19 mg/dL (7-18) H 06/18/16 19:03 Creatinine 0.8 mg/dL (0.55-1.02) D 06/18/16 19:03 Creat Clearance w eGFR > 60 (>60) 06/18/16 19:03 Random Glucose 132 mg/dL (74-106) H 06/18/16 19:03 Calcium 8.9 mg/dL (8.5-10.1) 06/18/16 19:03 Total Bilirubin 0.5 mg/dL (0.2-1.0) D 06/18/16 19:03 AST 9 U/L (15-37) L D 06/18/16 19:03 ALT 26 U/L (12-78) D 06/18/16 19:03 Alkaline Phosphatase 105 U/L (45-117) 06/18/16 19:03 Total Protein 7.4 g/dl (6.4-8.2) 06/18/16 19:03 Albumin 3.6 g/dl (3.4-5.0) 06/18/16 19:03 Duplex negative for DVT. I again, this is likely cellulitis. Will initiate bactrim. Case discussed in detail with Dr. Javier Mcginnis. He agrees with plan and follow up with him. I discussed the physical exam findings, ancillary test results and final diagnoses with the patient. I answered all of the patient's questions. The patient was satisfied with the care received and felt comfortable with the discharge plan and treatment plan. The patient will call their primary care physician within 24 hours to arrange follow-up and will return to the Emergency Department with any new, persistant or worsening symptoms. <Kendall Beach - Last Filed: 06/18/16 20:59> *DC/Admit/Observation/Transfer - Attestations Scribe Attestion: 06/18/16 19:32 Documentation prepared by Maegan Waller, acting as er medical technician for Kendall Beach MD, MD <Maegan Waller - Last Filed: 06/18/16 20:17> - Discharge Dispostion Admit: No <Kendall Beach - Last Filed: 06/18/16 20:59> Diagnosis at time of Disposition: Cellulitis Qualifiers: Site of cellulitis: extremity Site of cellulitis of extremity: lower extremity Laterality: unspecified laterality Qualified Code(s): L03.119 - Cellulitis of unspecified part of limb - Discharge Dispostion Disposition: HOME Condition at time of disposition: Stable - Prescriptions Prescriptions: Sulfamethoxazole/Trimethoprim [Bactrim Ds -] 1 tab PO BID #14 tablet - Referrals Referrals: Javier Mcginnis MD [Primary Care Provider] - - Patient Instructions Printed Discharge Instructions: DI for Cellulitis -- Adult Additional Instructions: Please take 1 tablet of bactrim every 12 hours for the next week. Please follow up with Dr. Mcginnis.
[2016-06-18 19:13] LABS: BASOPHIL 0.7 % (0-2.0); EOSINOPHIL 1.2 % (0-4.5); MCHC 32.1 g/dl (32.0-36.0); MEAN PLT VOLUME 7.6 fl (7.5-11.1); NEUTROPHILS 68.2 % (42.8-82.8); PLATELET COUNT 372 K/MM3 (134-434); RDW 15.3 % (11.6-15.6); WHITE BLOOD COUNT 13.1 K/mm3 (4.0-10.0)
[2016-06-18 19:37] LABS: ALBUMIN 3.6 g/dl (3.4-5.0); ALK PHOS 105 U/L (45-117); ANION GAP 9 (8-16); BILIRUBIN,TOTAL 0.5 mg/dL (0.2-1.0); CALCIUM 8.9 mg/dL (8.5-10.1); CO2 30 mmol/L (21-32); CREATININE 0.8 mg/dL (0.55-1.02); GLUCOSE,RANDOM 132 mg/dL (74-106); SGOT/AST 9 U/L (15-37); SGPT/ALT 26 U/L (12-78); TOT PROT 7.4 g/dl (6.4-8.2)
[2016-06-18 20:34] VITALS: BP 138/65; PULSE 94
[2016-06-18] MEDS ORDERED: SULFAMETHOXAZOLE/TRIMETHOPRIM 800MG/160MG D.S. TABLET PO ONE (20:57)
[2016-06-18] MEDS ORDERED: SULFAMETHOXAZOLE/TRIMETHOPRIM 800MG/160MG D.S. TABLET ONE (21:01)
[2016-06-18 21:18] VITALS: TEMP 98.2
== END 2016-06-18 21:17 | disposition home or self-care (01) ==
LOC: JER 18:11
DX: L03.115 Cellulitis of right lower limb (principal); I10 Essential (primary) hypertension; E11.9 Type 2 diabetes mellitus without complications; Z79.84 Long term (current) use of oral hypoglycemic drugs; E03.9 Hypothyroidism, unspecified; E78.00 Pure hypercholesterolemia, unspecified; I21.4 Non-ST elevation (NSTEMI) myocardial infarction; I25.10 Atherosclerotic heart disease of native coronary artery without angina pectoris
CPT/HCPCS: 36415; 80053; 85025; 93971-TC; 99283-25

== ENCOUNTER 2016-07-06 10:50 | Emergency (ER) | payer OTHER ==
[2016-07-06 10:56] VITALS: BP 131/57; PULSE 97; TEMP 97.7; BMI 38.2
[2016-07-06] MEDS ORDERED: KETOROLAC TROMETHAMINE 30 MG/1 ML VIAL IM ONE (11:41)
[2016-07-06] MEDS ORDERED: traMADol HCL 50 MG TABLET PO ONE (11:42)
--- NOTE | 2016-07-06 11:54 | PDOC ---
History of Present Illness - General Chief Complaint: Pain Stated Complaint: PAIN/ BACK, LT LEG PAIN Time Seen by Provider: 07/06/16 11:20 History Source: Patient - History of Present Illness Occurred: reports: other Severity: reports: severe Pain Location: reports: back Past History - Past Medical History Allergies/Adverse Reactions: Allergies Allergy/AdvReac Type Severity Reaction Status Date / Time Penicillins AdvReac Rash Verified 07/06/16 10:56 Home Medications: Ambulatory Orders Atorvastatin Ca [Lipitor] 20 mg PO HS 01/24/16 Glipizide 2.5 mg PO DAILY 01/24/16 Levothyroxine [Synthroid -] 75 mcg PO DAILY 01/24/16 Metoprolol Succinate [Toprol Xl] 50 mg PO DAILY 01/24/16 Acetaminophen [Tylenol .Regular Strength -] 650 mg PO Q6H PRN #0 tablet Aspirin [ASA -] 81 mg PO DAILY tab.chew 06/14/16 Clopidogrel Bisulfate [Plavix -] 75 mg PO DAILY #90 tablet 06/14/16 Furosemide [Lasix -] 20 mg PO DAILY 06/18/16 Cyclobenzaprine HCl [Flexeril 10 mg] 10 mg PO TID PRN #9 tablet 07/06/16 Ibuprofen [Motrin -] 800 mg PO Q6H #30 tablet 07/06/16 Lidocaine 5% Patch [Lidoderm Patch -] 1 patch TP DAILY #10 patch 07/06/16 Tramadol HCl 50 mg PO Q6H #20 tablet MDD 200 mg 07/06/16 Anemia: No Asthma: No Cancer: No Cardiac Disorders: Yes ([place](2017)) CVA: No COPD: No CHF: No Dementia: No Diabetes: Yes Disorders: No HTN: Yes Hypercholesterolemia: Yes Thyroid Disease: Yes (HYPO.) - Surgical History Cardiac Surgery: No Lung Surgery: No Neurologic Surgery: Yes Orthopedic Surgery: Yes - Psycho/Social/Smoking Cessation Hx Anxiety: No Suicidal Ideation: No Smoking Status: No Smoking History: Never smoked Have you smoked in the past 12 months: No Number of Cigarettes Smoked Daily: 0 Hx Alcohol Use: No Drug/Substance Use Hx: No Substance Use Type: None Hx Substance Use Treatment: No Review of Systems - Review of Systems Constitutional: No: Fever ABD/GI: No: Nausea, Vomiting : No: Dysuria Musculoskeletal: Yes: Back Pain Neurological: No: Numbness, Tingling, Weakness *Physical Exam - Vital Signs Last Vital Signs Temp Pulse Resp BP Pulse Ox 97.7 F 97 H 20 131/57 98 07/06/16 10:53 07/06/16 10:53 07/06/16 10:53 07/06/16 10:53 07/06/16 10:53 - Physical Exam General Appearance: Yes: Appropriately Dressed. No: Apparent Distress HEENT: positive: Normal Voice Neck: positive: Supple Respiratory/Chest: negative: Respiratory Distress Gastrointestinal/Abdominal: positive: Soft. negative: Tender Musculoskeletal: positive: Other (+ttp to L gluteus). negative: CVA Tenderness Integumentary: positive: Dry, Warm Neurologic: positive: Fully Oriented, Alert, Normal Mood/Affect Medical Decision Making - Medical Decision Making 07/06/16 11:50 65 yo F, HTN, HLD, CAD, [place], hupothyroid, here w/ back pain. Patient reports left lower back/gluteal pain radiating to thigh 4 days that started after getting up from a seated position. Unable to describe pain but states it is 10 out of 10 and worse when she bears weight. Taking Tylenol with no relief. No lower extremity weakness, saddle anesthesia or bowel or bladder incontinence. No dysuria, nausea, vomiting, fever or chills. States she has had back pain in the past but not this severe. See exam LBP No trauma No red flags, i.e cauda equina or infxn M/l MSK -pain control in ED and reassess 07/06/16 13:30 Pt reports significant improvement w/ meds and now requesting discharge. Rxs sent to pharmacy. Pt to f/u with PMD if pain continues *DC/Admit/Observation/Transfer Diagnosis at time of Disposition: Low back pain Qualifiers: Chronicity: acute Back pain laterality: left Sciatica presence: without sciatica Qualified Code(s): M54.5 - Low back pain - Discharge Dispostion Disposition: HOME Condition at time of disposition: Improved - Prescriptions Prescriptions: Cyclobenzaprine HCl [Flexeril 10 mg] 10 mg PO TID PRN #9 tablet PRN Reason: Back Pain Lidocaine 5% Patch [Lidoderm Patch -] 1 patch TP DAILY #10 patch Ibuprofen [Motrin -] 800 mg PO Q6H #30 tablet Tramadol HCl 50 mg PO Q6H #20 tablet MDD 200 mg - Referrals Referrals: Javier Mcginnis MD [Primary Care Provider] - - Patient Instructions Printed Discharge Instructions: Low Back Pain Additional Instructions: Take medications as directed. If pain continues, follow with your PMD
[2016-07-06] MEDS ORDERED: traMADol HCL 50 MG TABLET ONE (12:01)
[2016-07-06] MEDS ORDERED: KETOROLAC TROMETHAMINE 30 MG/1 ML VIAL ONE (12:02)
[2016-07-06] MEDS ORDERED: LIDOCAINE 5% TOPICAL PATCH TP ONE (12:49)
[2016-07-06] MEDS ORDERED: LIDOCAINE 5% TOPICAL PATCH ONE (12:55)
== END 2016-07-06 13:29 | disposition home or self-care (01) ==
LOC: JERFT 10:50
DX: M54.5 Low back pain (principal)
CPT/HCPCS: 99281-25

== ENCOUNTER 2016-07-22 08:39 | Observation (INO) | payer OTHER ==
--- NOTE | 2016-07-22 09:29 | PDOC ---
History of Present Illness <Herman English - Last Filed: 07/22/16 11:20> - General History Source: Patient Exam Limitations: No Limitations - History of Present Illness Initial Comments: 07/22/16 11:29 The patient is a 65 year old female, with a significant past medical history of anemia, hypertension, hypercholesterolemia, diabetes mellitus, hypothyroidism, NE(2016), obesity, and osteoarthritis, who presents to the emergency department sent by PCP, Dr. Mcginnis for a blood transfusion. The patient reports a recent history of an NE in June of 2016, after which she was placed on Plavix. Patient reports experiencing vaginal spotting, dizziness, and lightheadedness after being placed on plavix. She states she presented to Dr. Paul office last week, during which she had blood work done. During this time the patient had an H and H of 8, and was placed on iron supplements. Patient reports she was diagnosed with uterine fibroids in 2013, which she was supposed to get surgically removed, but never got the chance. Patient reports she is scheduled for a D&C on Tuesday 07/25. Dr. Mcginnis reports speaking to patients surgeon, Dr. Jones, who reports the patient needs a blood transfusion prior to her D&C procedure. Patient reports receiving a call from Dr. Mcginnis, who informed the patient she needed to present to the ED for this transfusion. Patient states she is no longer on plavix, but does take a baby aspirin every day. Patient reports visiting her neurologist 3 days ago for pain and edema to her bilateral lower extremities, during which she received a cortisone injection. Patient denies any hematuria, dysuria, frequency, or urgency. Patient denies any abdominal pain, nausea, vomiting, diarrhea, or constipation. Patient denies any fever, chills, cough, headache, or dizziness. Allergies: Penicillins Past Surgical History: Section Social History: Non-smoker. Denies alcohol or drug use. PCP: Dr. Javier Mcginnis Multimedia Programmer: Dr. Guzman <Keri Mendez - Last Filed: 07/22/16 11:32> - General Chief Complaint: Blood Transfusion Stated Complaint: (PCP SENT) TRANSFUSION Time Seen by Provider: 07/22/16 09:27 Past History - Past Medical History Anemia: No Asthma: No Cancer: No Cardiac Disorders: Yes (NE(2017)) CVA: No COPD: No CHF: No Dementia: No Diabetes: Yes Disorders: No HTN: Yes Hypercholesterolemia: Yes Thyroid Disease: Yes (HYPO.) - Surgical History Abdominal Surgery: Yes Cardiac Surgery: No Lung Surgery: No Neurologic Surgery: Yes (BACK X 3.) Orthopedic Surgery: Yes - Psycho/Social/Smoking Cessation Hx Anxiety: No Suicidal Ideation: No Smoking Status: No Smoking History: Never smoked Have you smoked in the past 12 months: No Number of Cigarettes Smoked Daily: 0 Information on smoking cessation initiated: No Hx Alcohol Use: No Drug/Substance Use Hx: No Substance Use Type: None Hx Substance Use Treatment: No <Herman English - Last Filed: 07/22/16 11:20> <Keri Mendez - Last Filed: 07/22/16 11:32> - Past Medical History Allergies/Adverse Reactions: Allergies Allergy/AdvReac Type Severity Reaction Status Date / Time Penicillins AdvReac Intermediate Rash Verified 07/22/16 08:42 Home Medications: Ambulatory Orders Aspirin [ASA -] 81 mg PO DAILY 07/22/16 Atorvastatin Ca [Lipitor] 20 mg PO HS 07/22/16 Clopidogrel Bisulfate [Plavix -] 75 mg PO DAILY 07/22/16 Furosemide [Lasix] 20 mg PO DAILY 07/22/16 Glipizide [Glipizide ER] 5 mg PO DAILY 07/22/16 Hydrochlorothiazide 25 mg PO DAILY 07/22/16 Levothyroxine [Synthroid -] 75 mcg PO DAILY 07/22/16 Lisinopril 10 mg PO DAILY 07/22/16 Metoprolol Succinate [Toprol Xl] 50 mg PO DAILY 07/22/16 Review of Systems - Review of Systems Able to Perform ROS?: Yes Comments:: 07/22/16 11:30 GENERAL/CONSTITUTIONAL: No fever or chills. No weakness. HEAD, EYES, EARS, NOSE AND THROAT: No change in vision. No ear pain or discharge. No sore throat. CARDIOVASCULAR: No chest pain or shortness of breath. RESPIRATORY: No cough, wheezing, or hemoptysis. GASTROINTESTINAL: No nausea, vomiting, diarrhea or constipation. GENITOURINARY: Yes: +vaginal spotting. No dysuria, frequency, or change in urination. MUSCULOSKELETAL: No joint or muscle swelling or pain. No neck or back pain. SKIN: No rash NEUROLOGIC: Yes: +dizziness, +lightheadedness. No headache, vertigo, loss of consciousness, or change in strength/sensation. ENDOCRINE: No increased thirst. No abnormal weight change. HEMATOLOGIC/LYMPHATIC: Yes: +anemia, +easy bleeding and vaginal spotting secondary to being placed on plavix. No history of blood clots. ALLERGIC/IMMUNOLOGIC: No hives or skin allergy. <Keri Mendez - Last Filed: 07/22/16 11:32> *Physical Exam - Vital Signs Last Vital Signs Temp Pulse Resp BP Pulse Ox 97.8 F 79 19 130/94 100 07/22/16 08:42 07/22/16 08:42 07/22/16 08:42 07/22/16 08:42 07/22/16 09:08 <Herman English - Last Filed: 07/22/16 11:20> - Vital Signs Last Vital Signs Temp Pulse Resp BP Pulse Ox 97.8 F 79 19 130/94 100 07/22/16 08:42 07/22/16 08:42 07/22/16 08:42 07/22/16 08:42 07/22/16 09:08 - Physical Exam Comments: 07/22/16 11:29 GENERAL: Awake, alert, and fully oriented, in no acute distress HEAD: No signs of trauma EYES: PERRLA, EOMI, sclera anicteric, conjunctiva pale ENT: Auricles normal inspection, hearing grossly normal, nares patent, oropharynx clear without exudates. Moist mucosa NECK: Normal ROM, supple, no lymphadenopathy, JVD, or masses LUNGS: Breath sounds equal, clear to auscultation bilaterally. No wheezes, and no crackles HEART: Regular rate and rhythm, normal S1 and S2, no murmurs, rubs or gallops ABDOMEN: Soft, nontender, normoactive bowel sounds. No guarding, no rebound. No masses EXTREMITIES: Normal range of motion, no edema. No clubbing or cyanosis. No cords, erythema, or tenderness NEUROLOGICAL: Cranial nerves II through XII grossly intact. Normal speech, normal gait SKIN: Warm, Dry, normal turgor, no rashes or lesions noted. <Keri Mendez - Last Filed: 07/22/16 11:32> Medical Decision Making - Medical Decision Making 07/22/16 10:35 First call placed to Dr. Maria E Mcginnis at 10:35. Awaiting call back. Case discussed with Dr. Javier Mcginnis at 10:56. Will admit patient to observation. <Keri Mendez - Last Filed: 07/22/16 11:32> *DC/Admit/Observation/Transfer - Discharge Dispostion Admit: Yes - Attestations Physician Attestion: 07/22/16 09:29 I, Dr. Herman English, attest that this document has been prepared under my direction and personally reviewed by me in its entirety. I further attest, that it accurately reflects all work, treatment, procedures and medical decision -making performed by me. <Herman English - Last Filed: 07/22/16 11:20> - Attestations Scribe Attestion: 07/22/16 09:40 Documentation prepared by Keri Mendez, acting as medical photographer for Herman English DO. <Keri Mendez - Last Filed: 07/22/16 11:32> Diagnosis at time of Disposition: Acute blood loss anemia, Dyslipidemia associated with type 2 diabetes mellitus , Diabetes mellitus type 2 in obese, Vagina bleeding Coronary artery disease Qualifiers: Coronary Disease-Associated Artery/Lesion type: unspecified vessel or lesion type [place] vs. transplanted heart: [place] heart Associated angina: with unspecified angina Qualified Code(s): I25.119 - Atherosclerotic heart disease of [place] coronary artery with unspecified angina pectoris Obesity Qualifiers: Obesity type: unspecified obesity type Obesity severity: non-morbid Qualified Code(s): E66.9 - Obesity, unspecified Hypothyroid Qualifiers: Hypothyroidism type: acquired Qualified Code(s): E03.9 - Hypothyroidism, unspecified - Referrals Referrals: Maria E Mcginnis [Primary Care Provider] -
--- NOTE | 2016-07-22 12:48 | CON.CARD ---
Consult Consult Specialty:: Cardiology Referred by:: Javier Mcginnis MD Reason for Consultation:: Pre-procedure cardiovascular evaluation - History of Present Illness Chief Complaint: Dysfunctional uterine bleeding History of Present Illness: 65 year old female h/o HCVD, type 2 DM, CAD h/o acute coronary syndrome with mildly abnormal MPI, hypothyroidism, anemia, hypertension, hypercholesterolemia , diabetes mellitus, obesity, osteoarthritis, uterine fibroids, dysfunctional uterine bleeding planned for D&C Tuesday 07/25, Hgb 8, admitted for pRBC transfusion. Now off Plavix, remains on ASA 81 qd, she denies chest pain, dyspnea, near or true syncope, palpitations, orthopnea, PND or LE edema. Seen by Dr. Guzman 07/08/2016 for pre-op cv evaluation. Allergies: Penicillins Past Surgical History: Section Social History: Non-smoker. Denies alcohol or drug use. PCP: Dr. Javier Mcginnis Vegetable Worker: Dr. Guzman - History Source History Provided By: Patient Limitations to Obtaining History: No Limitations - Past Medical History Cardio/Vascular: Yes: HTN, Hyperlipdemia, Other (chest pain ) Pulmonary: Yes: Other (SOB ) Renal/: Yes: Renal Calculi Musculoskeletal: Yes: Osteoarthritis Endocrine: Yes: Diabetes Mellitus, Hypothyroidism - Past Surgical History Past Surgical History: Yes: (1954, 1955, 1980 ), Laminectomy (spine surgery , 3 times, disc removal & fusion done at [facility] ) - Alcohol/Substance Use Hx Alcohol Use: No History of Substance Use: reports: None - Smoking History Smoking history: Never smoked Have you smoked in the past 12 months: No Aproximately how many cigarettes per day: 0 - Social History ADL: Independent 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 History of Recent Travel: No Home Medications - Allergies Allergies/Adverse Reactions: Allergies Allergy/AdvReac Type Severity Reaction Status Date / Time Penicillins AdvReac Intermediate Rash Verified 07/22/16 08:42 - Home Medications Home Medications: Ambulatory Orders Aspirin [ASA -] 81 mg PO DAILY 07/22/16 Atorvastatin Ca [Lipitor] 20 mg PO HS 07/22/16 Clopidogrel Bisulfate [Plavix -] 75 mg PO DAILY 07/22/16 Furosemide [Lasix] 20 mg PO DAILY 07/22/16 Glipizide [Glipizide ER] 5 mg PO DAILY 07/22/16 Hydrochlorothiazide 25 mg PO DAILY 07/22/16 Levothyroxine [Synthroid -] 75 mcg PO DAILY 07/22/16 Lisinopril 10 mg PO DAILY 07/22/16 Metoprolol Succinate [Toprol Xl] 50 mg PO DAILY 07/22/16 Family Disease History - Family Disease History Family Disease History: Diabetes: Father, Brother, Sister, Heart Disease: Mother (Stomach Ca, CVA), CA: Grandparent (Cervical), Mother, Sister Review of Systems - Review of Systems Genitourinary: reports: Vaginal Bleeding Vital Signs: Vital Signs Temperature 97.8 F 07/22/16 08:42 Pulse Rate 79 07/22/16 08:42 Respiratory Rate 19 07/22/16 08:42 Blood Pressure 130/94 07/22/16 08:42 O2 Sat by Pulse Oximetry (%) 100 07/22/16 09:08 Constitutional: Yes: No Distress, Calm Neck: Yes: Supple Respiratory: Yes: Regular, CTA Bilaterally Gastrointestinal: Yes: Normal Bowel Sounds, Soft Cardiovascular: Yes: Regular Rate and Rhythm JVD: No Carotid Bruit: No Heart Sounds: Yes: S1, S2 Edema: No Problem List - Problems (1) Acute blood loss anemia Code(s): D62 - ACUTE POSTHEMORRHAGIC ANEMIA (2) Coronary artery disease Code(s): I25.10 - ATHSCL HEART DISEASE OF [place] CORONARY ARTERY W/O ANG PCTRS Qualifiers: Coronary Disease-Associated Artery/Lesion type: unspecified vessel or lesion type [place] vs. transplanted heart: [place] heart Associated angina: with unspecified angina Qualified Code(s): I25.119 - Atherosclerotic heart disease of [place] coronary artery with unspecified angina pectoris (3) Diabetes mellitus type 2 in obese Code(s): E11.9 - TYPE 2 DIABETES MELLITUS WITHOUT COMPLICATIONS E66.9 - OBESITY, UNSPECIFIED (4) Dyslipidemia associated with type 2 diabetes mellitus Code(s): E11.69 - TYPE 2 DIABETES MELLITUS WITH OTHER SPECIFIED COMPLICATION E78.5 - HYPERLIPIDEMIA, UNSPECIFIED (5) Fibroid uterus Code(s): D25.9 - LEIOMYOMA OF UTERUS, UNSPECIFIED Qualifiers: Uterine leiomyoma location: unspecified location Qualified Code(s): D25.9 - Leiomyoma of uterus, unspecified (6) Hypothyroid Code(s): E03.9 - HYPOTHYROIDISM, UNSPECIFIED Qualifiers: Hypothyroidism type: acquired Qualified Code(s): E03.9 - Hypothyroidism, unspecified (7) Vagina bleeding Code(s): N93.9 - ABNORMAL UTERINE AND VAGINAL BLEEDING, UNSPECIFIED (8) Anemia Code(s): D64.9 - ANEMIA, UNSPECIFIED Qualifiers: Anemia type: unspecified type Qualified Code(s): D64.9 - Anemia, unspecified (9) HTN (hypertension) Code(s): I10 - ESSENTIAL (PRIMARY) HYPERTENSION Qualifiers: Hypertension type: essential hypertension Qualified Code(s): I10 - Essential (primary) hypertension (10) Hyperlipidemia Code(s): E78.5 - HYPERLIPIDEMIA, UNSPECIFIED Qualifiers: Hyperlipidemia type: pure hypercholesterolemia Qualified Code(s): E78.00 - Pure hypercholesterolemia, unspecified; E78.0 - Pure hypercholesterolemia (11) Pre-operative cardiovascular examination Code(s): Z01.810 - ENCOUNTER FOR PREPROCEDURAL CARDIOVASCULAR EXAMINATION Assessment/Plan Echo: 03/11/2015 Normal LV size and fxn, tr MR P-Myoview 03/12/2015 No ischemia, LVEF 72% Echo: 06/09/2016 Echo: Normal biventricular size and fxn, mild MR, TR, RVSP 30-40 mmHg P-Myoview: 06/10/2016 Small, mild apical ischemia, normal LVEF 70% 1. CAD h/o acute coronary syndrome with mild apical ischemia on MPI 2. H/o left renal colic and hydronephrosis post cystoscopy and left ureteral stent 3. HTN 4. Hypercholesterolemia 5. Hypothyroidism 6. h/o LACEY (obstructive uropathy) resolved 7. Anemia 8. Type 2 DM PLAN: 1. Transfuse pRBC as needed with monitor Hgb 2. Continue Toprol 50 mg QD, Lipitor 20 mg QHS, Lisinopril 10 mg QD, hold Plavix 75 mg QD pre-procedure and resume once hemostasis achieved, ideally maintain ASA 81 qd adele-op 3. Given low risk stress test and no current sxs of acute coronary syndrome, decompensated CHF or malignant arrhythmia, may proceed with D&C as planned without further cardiovascular imaging 4. Thank you for consultative opportunity
[2016-07-22 13:34] LABS: EOSINOPHIL 1.6 % (0-4.5); MCHC 32.6 g/dl (32.0-36.0); MEAN CELL VOLUME 82.8 fl (80-96); MEAN PLT VOLUME 7.1 fl (7.5-11.1); NEUTROPHILS 57.4 % (42.8-82.8); PLATELET COUNT 432 K/MM3 (134-434); WHITE BLOOD COUNT 12.6 K/mm3 (4.0-10.0)
[2016-07-22 14:24] VITALS: BMI 37.3
--- NOTE | 2016-07-22 16:12 | HP ---
Admitting History and Physical - Primary Care Physician PCP: Javier Mcginnis - Admission Chief Complaint: Anemia History of Present Illness: Pt with recent ACS, known menorrhagia, it was noticed in the office to have Hb of 8 (repeated 8.2); pt is scheduled for D&C, admitted for PRBC TX pre surgery - Past Medical History Cardiovascular: Yes: HTN, Hyperlipdemia, Other (chest pain ) Pulmonary: Yes: Other (SOB ) Renal/: Yes: Renal Calculi Heme/Onc: Yes: Anemia Musculoskeletal: Yes: Osteoarthritis Endocrine: Yes: Diabetes Mellitus, Hypothyroidism - Past Surgical History Past Surgical History: Yes: (1954, 1955, 1980 ), Laminectomy (spine surgery , 3 times, disc removal & fusion done at [facility] ) - Smoking History Smoking history: Never smoked Have you smoked in the past 12 months: No Aproximately how many cigarettes per day: 0 - Alcohol/Substance Use Hx Alcohol Use: No History of Substance Use: reports: None - Social History ADL: Independent 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 History of Recent Travel: No Home Medications - Allergies Allergies/Adverse Reactions: Allergies Allergy/AdvReac Type Severity Reaction Status Date / Time Penicillins AdvReac Intermediate Rash Verified 07/22/16 08:42 - Home Medications Home Medications: Ambulatory Orders Aspirin [ASA -] 81 mg PO DAILY 07/22/16 Atorvastatin Ca [Lipitor] 20 mg PO HS 07/22/16 Clopidogrel Bisulfate [Plavix -] 75 mg PO DAILY 07/22/16 Furosemide [Lasix] 20 mg PO DAILY 07/22/16 Glipizide [Glipizide ER] 5 mg PO DAILY 07/22/16 Hydrochlorothiazide 25 mg PO DAILY 07/22/16 Levothyroxine [Synthroid -] 75 mcg PO DAILY 07/22/16 Lisinopril 10 mg PO DAILY 07/22/16 Metoprolol Succinate [Toprol Xl] 50 mg PO DAILY 07/22/16 Family Disease History - Family Disease History Family Disease History: Diabetes: Father, Brother, Sister, Heart Disease: Mother (Stomach Ca, CVA), CA: Grandparent (Cervical), Mother, Sister Review of Systems - Review of Systems Constitutional: denies: Chills, Fever Eyes: denies: Blind Spots, Double Vision HENT: reports: Other (no gum bleed). denies: Difficult Swallowing, Ear Pain, Epistaxis, Nasal Congestion Neck: denies: Stiffness, Tenderness Cardiovascular: denies: Chest Pain, Edema, Palpitations, Shortness of Breath Respiratory: denies: Cough, SOB Gastrointestinal: denies: Abdominal Pain, Diarrhea, Rectal Bleeding Genitourinary: reports: Vaginal Bleeding (worse last week, improved this week). denies: Burning, Dysuria, Hematuria Musculoskeletal: reports: Joint Pain Integumentary: denies: Bruising, Rash Hematology/Lymphatic: denies: Easily Bruised, Excessive Bleeding Psychiatric: denies: Anxiety, Depression Physical Examination Vital Signs: Vital Signs Temperature 98.3 F 07/22/16 14:15 Pulse Rate 80 07/22/16 14:15 Respiratory Rate 18 07/22/16 14:15 Blood Pressure 126/57 07/22/16 14:15 O2 Sat by Pulse Oximetry (%) 94 L 07/22/16 14:15 Constitutional: Yes: No Distress, Calm Eyes: Yes: Conjunctiva Clear, EOM Intact, PERRL HENT: Yes: Normocephalic, Other (no nose bleed, no gum bleeding). No: Nasal Congestion, Thrush Neck: Yes: Trachea Midline. No: Lymphadenopathy Cardiovascular: Yes: Regular Rate and Rhythm, Rub, S2 Respiratory: Yes: Regular, CTA Bilaterally. No: Rales Gastrointestinal: Yes: Normal Bowel Sounds, Soft, Abdomen, Obese. No: Palpable Mass, Tenderness ...Rectal Exam: Yes: Deferred Renal/: Yes: Other (deferred) Breast(s): Yes: Other (deferred) Musculoskeletal: No: Back Pain Extremities: No: Cold, Cool Edema: No Neurological: Yes: Alert, Oriented, Other (symmetric motor and sensory exam.) Labs: CBC, BMP 07/22/16 13:13 Problem List - Problems (1) Acute blood loss anemia Assessment/Plan: To transfuse PRBC. To monitor H/H. Pt. is scheduled for D&C this coming Monday. Code(s): D62 - ACUTE POSTHEMORRHAGIC ANEMIA (2) Acute coronary syndrome Assessment/Plan: Recent event (June 2016). Cardio consult- preop eval. Code(s): I24.9 - ACUTE ISCHEMIC HEART DISEASE, UNSPECIFIED (3) Coronary artery disease Assessment/Plan: Recent event (June 2016). Cardio consult- preop eval. Code(s): I25.10 - ATHSCL HEART DISEASE OF [place] CORONARY ARTERY W/O ANG PCTRS Qualifiers: Coronary Disease-Associated Artery/Lesion type: unspecified vessel or lesion type [place] vs. transplanted heart: [place] heart Associated angina: with unspecified angina Qualified Code(s): I25.119 - Atherosclerotic heart disease of [place] coronary artery with unspecified angina pectoris (4) Diabetes Code(s): E11.9 - TYPE 2 DIABETES MELLITUS WITHOUT COMPLICATIONS Qualifiers: Diabetes mellitus type: type 2 Diabetes mellitus complication detail: with chronic kidney disease Diabetes mellitus [facility] insulin use: without [facility] use (5) Menometrorrhagia Assessment/Plan: Pt is scheduled for D&C ( in our hospital) this coming Monday. Code(s): N92.1 - EXCESSIVE AND FREQUENT MENSTRUATION WITH IRREGULAR CYCLE
[2016-07-22 17:03] LABS: BASOPHIL 1.2 % (0-2.0); EOSINOPHIL 1.9 % (0-4.5); MCH 26.5 pg (25.7-33.7); MCHC 32.4 g/dl (32.0-36.0); MEAN CELL VOLUME 81.8 fl (80-96); MEAN PLT VOLUME 7.7 fl (7.5-11.1); NEUTROPHILS 56.7 % (42.8-82.8); PLATELET COUNT 445 K/MM3 (134-434); RDW 15.9 % (11.6-15.6); WHITE BLOOD COUNT 11.3 K/mm3 (4.0-10.0)
[2016-07-22] MEDS ORDERED: FUROSEMIDE 40 MG/4 ML INJECTABLE VIAL IVPUSH ONE (18:30)
[2016-07-22] MEDS ORDERED: FUROSEMIDE 40 MG/4 ML INJECTABLE VIAL ONE (21:20)
[2016-07-22] MEDS ORDERED: ATORVASTATIN CA 20 MG TABLET (FP) PO SCH (22:00)
[2016-07-22] MEDS ORDERED: LISINOPRIL 10 MG TABLET (FP) PO SCH (22:00)
[2016-07-23] MEDS ORDERED: PT OWN MED DRAWER 7, Y5N ONE ×2 (05:27→10:14)
[2016-07-23] MEDS: ACETAMINOPHEN 325 MG TABLET (FP) PO PRN ×2 (06:45→13:58)
[2016-07-23] MEDS ORDERED: glipiZIDE-XL 5 MG TAB.ER.24 PO SCH (07:00)
[2016-07-23] MEDS ORDERED: LEVOTHYROXINE NA 75 MCG TABLET (FP) PO SCH (07:00)
[2016-07-23 09:04] LABS: MCH 27.3 pg (25.7-33.7); MCHC 33.1 g/dl (32.0-36.0); MEAN CELL VOLUME 82.6 fl (80-96); MEAN PLT VOLUME 7.3 fl (7.5-11.1); PLATELET COUNT 388 K/MM3 (134-434); RDW 15.5 % (11.6-15.6); WHITE BLOOD COUNT 11.8 K/mm3 (4.0-10.0)
[2016-07-23 09:39] LABS: ALBUMIN 3.1 g/dl (3.4-5.0); BILIRUBIN,TOTAL 1.4 mg/dL (0.2-1.0); COCKROFT - GAULT 76.704; TOT PROT 6.9 g/dl (6.4-8.2)
[2016-07-23] MEDS ORDERED: ASPIRIN 81 MG CHEWABLE TABLETS PO SCH (10:00)
[2016-07-23] MEDS ORDERED: LISINOPRIL 10 MG TABLET (FP) PO SCH (10:00)
[2016-07-23] MEDS ORDERED: METOPROLOL SUCCINATE 50 MG TAB.SR.24H (FP) PO SCH (10:00)
[2016-07-23] MEDS ORDERED: HYDROCHLOROTHIAZIDE 25 MG TABLET (FP) PO SCH (10:00)
[2016-07-23] MEDS ORDERED: FUROSEMIDE 20 MG TABLET (FP) PO SCH (10:00)
--- NOTE | 2016-07-23 15:06 | PN ---
Progress Note (short form) - Note Progress Note: Chief Complaint: Events noted, notes reviewed, denies any chest pain or dyspnea History of Present Illness: Seen and examined. Events noted, notes reviewed, denies any chest pain or dyspnea Patient reports intermittent bilateral lower extremity edema Patient is scheduled to proceed with a D&C this coming Monday for management of her vaginal bleed related to uterine fibroids As outlined in the outpatient evaluation note that there are no absolute contraindications in proceeding with the above planned procedure, Ecotrin therapy to be continued adele-operatively and patient is to administer her cardiovascular medications in the morning of the procedure with a sip of water - Current Medication List Current Medications Acetaminophen (Tylenol -) 650 mg PO Q6H PRN PRN Reason: FEVER OR PAIN Last Admin: 07/23/16 13:58 Dose: 650 mg Aspirin (Asa -) 81 mg PO DAILY [facility] Last Admin: 07/23/16 10:20 Dose: 81 mg Atorvastatin Calcium (Lipitor -) 20 mg PO [facility] Last Admin: 07/22/16 21:52 Dose: Not Given Furosemide (Lasix -) 20 mg PO DAILY [facility] Last Admin: 07/23/16 10:25 Dose: 20 mg Glipizide (Glucotrol Xl -) 5 mg PO DAILY@0700 [facility] Last Admin: 07/23/16 07:43 Dose: 5 mg Hydrochlorothiazide (Hctz -) 25 mg PO DAILY [facility] Last Admin: 07/23/16 10:25 Dose: 25 mg Levothyroxine Sodium (Synthroid -) 75 mcg PO DAILY@0700 [facility] Last Admin: 07/23/16 06:44 Dose: 75 mcg Lisinopril (Prinivil) 10 mg PO [facility] Last Admin: 07/22/16 21:53 Dose: 10 mg Metoprolol Succinate (Toprol Xl -) 50 mg PO DAILY [facility] Last Admin: 07/23/16 10:25 Dose: 50 mg Review of Systems - Review of Systems Constitutional: denies: Chills, Fever Cardiovascular: As noted above Respiratory: denies: Cough or Sputum Production Gastrointestinal: denies: Nausea, Vomiting, Diarrhea, Constipation or Abdominal Pain Musculoskeletal: No symptoms reported Neurological: No symptoms reported - Objective Vital Signs: Last Vital Signs Temp Pulse Resp BP Pulse Ox 97.9 F 100 H 16 122/67 96 07/23/16 10:00 07/23/16 10:00 07/23/16 10:00 07/23/16 10:00 07/23/16 08:00 Neck: Supple Negative JVD No bruit Cardiovascular: S1 S2 Regular Rate and Rhythm Respiratory: Clear to A&P Bilaterally Gastrointestinal: Soft Benign Normal Bowel Sounds Ext: Trace Edema Labs: CBC, BMP 07/23/16 07:30 07/23/16 07:30 Assessment/Plan ASSESSMENT: 1. Anemia secondary to recurrent vaginal bleed related to uterine fibroids for D &C 2. CAD post acute coronary syndrome abnormal MPI study (mild apical ischemia) angina pectoris, Stable 3. Diastolic LV dysfunction with class 0 NYHA classification LV failure 4. HTN 5. DM 6. Hypercholesterolemia 7. Hypothyroidism 8. Left renal colic and hydronephrosis post cystoscopy and left ureteral stent 9. History of LACEY (obstructive uropathy) PLAN: 1. Continue Toprol 2. Continue Lisinopril 3. Continue Lipitor 4. Continue Lasix and Hydrochlorothiazide therapies with caution 5. Continue ASA adele-operatively as outlined above 6. Patient can be discharged home from the cardiovascular point of view to proceed with the above planned procedure Belén Guzman MD
--- NOTE | 2016-07-23 15:14 | DS ---
Physical Examination Vital Signs: Vital Signs Temperature 97.9 F 07/23/16 10:00 Pulse Rate 100 H 07/23/16 10:00 Respiratory Rate 16 07/23/16 10:00 Blood Pressure 122/67 07/23/16 10:00 O2 Sat by Pulse Oximetry (%) 96 07/23/16 08:00 Findings/Remarks: Pt. SOB, SOB, CP, plap, abd pain, bleed. Constitutional: Yes: No Distress, Calm Cardiovascular: Yes: Regular Rate and Rhythm, S1, S2 Respiratory: Yes: Regular, CTA Bilaterally. No: Rales Gastrointestinal: Yes: Normal Bowel Sounds, Soft, Abdomen, Obese. No: Tenderness Edema: No Labs: CBC, BMP 07/23/16 07:30 07/23/16 07:30 Discharge Summary Reason For Visit: ANEMIA,TYPE2 DIABETES Current Active Problems Acute blood loss anemia (Acute) Acute coronary syndrome (Acute) Chest pain (Acute) Coronary artery disease (Acute) Diabetes (Acute) Diabetes mellitus type 2 in obese (Acute) Dyslipidemia associated with type 2 diabetes mellitus (Acute) Fibroid uterus (Acute) Hypokalemia (Acute) Hypothyroid (Acute) Menometrorrhagia (Acute) Obesity (Acute) Post-menopausal bleeding (Acute) RLQ abdominal pain (Acute) Vagina bleeding (Acute) Hospital Course: Pt came to ER with anemia( Hb of 8 to 8.3- on repeated labs); pt. with ACS last month, scheduled for D&C on Monday. Pt. was transfused 2 units of PRBC, Hb now is 10.8. Pt was seen by Cardio, cleared for surgery. To DC pt home today. Pt to return Monday for D&C with Dr. Jones. Condition: Improved - Instructions Diet, Activity, Other Instructions: ADA, Low salt, Low cholesterol. Proceed with surgery on Monday. Referrals: Maria E Mcginnis [Primary Care Provider] - (as scheduled or PRN) Disposition: HOME - Home Medications Comprehensive Discharge Medication List: Ambulatory Orders Aspirin [ASA -] 81 mg PO DAILY 07/22/16 Atorvastatin Ca [Lipitor] 20 mg PO HS 07/22/16 Clopidogrel Bisulfate [Plavix -] 75 mg on HOLD untill after surgery; to restart it per Dr. Shi. Furosemide [Lasix] 20 mg PO DAILY 07/22/16 Glipizide [Glipizide ER] 5 mg PO DAILY 07/22/16 Hydrochlorothiazide 25 mg PO DAILY 07/22/16 Levothyroxine [Synthroid -] 75 mcg PO DAILY 07/22/16 Lisinopril 10 mg PO DAILY 07/22/16 Metoprolol Succinate [Toprol Xl] 50 mg PO DAILY 07/22/16
[2016-07-23 18:21] VITALS: BP 101/53; PULSE 88; TEMP 97.9
== END 2016-07-23 18:29 | disposition home or self-care (01) ==
LOC: JER 08:39 → JERBED 11:25 → J5S 13:50
PROVIDERS: ADMIT Specialist; ATTEND Specialist
PROC: 3E033GC Introduction of Other Therapeutic Substance into Peripheral Vein, Percutaneous Approach (ICD-10-PCS; principal; 2016-07-22)
DX: D62 Acute posthemorrhagic anemia (principal); I10 Essential (primary) hypertension; I25.119 Atherosclerotic heart disease of native coronary artery with unspecified angina pectoris; I25.2 Old myocardial infarction; I24.9 Acute ischemic heart disease, unspecified; E03.9 Hypothyroidism, unspecified; E11.69 Type 2 diabetes mellitus with other specified complication; E78.5 Hyperlipidemia, unspecified; E66.9 Obesity, unspecified; Z68.37 Body mass index [BMI] 37.0-37.9, adult; M19.90 Unspecified osteoarthritis, unspecified site; N93.9 Abnormal uterine and vaginal bleeding, unspecified; N92.1 Excessive and frequent menstruation with irregular cycle; D25.9 Leiomyoma of uterus, unspecified; Z88.0 Allergy status to penicillin; Z79.82 Long term (current) use of aspirin
CPT/HCPCS: 36415; 36430; 80053; 85025; 85027; 86850; 86900; 86901; 86922; 99284-25; G0378; P9038; P9058

== ENCOUNTER 2016-07-25 05:34 | Day surgery (SDC) | payer OTHER ==
[2016-07-19 17:00] VITALS: BMI 37.0
[2016-07-25] MEDS ORDERED: LIDOCAINE HCL/PF 2% SDV 5ML VIAL ONE (09:03)
[2016-07-25] MEDS ORDERED: MIDAZOLAM HCL 2 MG/2 ML SINGLE DOSE VIAL ONE (09:03)
[2016-07-25] MEDS ORDERED: PROPOFOL 20 ML ONE (09:03)
[2016-07-25] MEDS ORDERED: DEXAMETHASONE SOD PHOSPHATE 4 MG/1 ML VIAL ONE (09:03)
[2016-07-25] MEDS ORDERED: KETOROLAC TROMETHAMINE 30 MG/1 ML VIAL ONE (09:03)
--- NOTE | 2016-07-25 09:22 | HP ---
Past Medical History - Primary Care Physician PCP:: Jeferson Jones - Admission Chief Complaint: 65 yo female with postmenopausal bleeding, anemia, fibroid uterus. History of Present Illness: Recently admitted for blood transfusions. 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: Alzheimer's, CVA, Dementia, Migraine, Multiple Sclerosis, Peripheral Neuropathy, Parkinson's, Seizure, Syncope, TIA, Vertigo, Other Cardiovascular: Yes: HTN, Hyperlipdemia, Other (chest pain, CAD with apical ischemia) Pulmonary: Yes: Other (SOB ) Renal/: Yes: Renal Calculi ...Para: 3 Heme/Onc: Yes: Anemia Musculoskeletal: Yes: Osteoarthritis Endocrine: Yes: Diabetes Mellitus, Hypothyroidism - Past Surgical History Past Surgical History: Yes: (1954, 1955, 1980 ), Laminectomy (spine surgery , 3 times, disc removal & fusion done at [facility] ) Hx Myomectomy: No Hx Transabdominal Cerclage: No - Smoking History Smoking history: Never smoked Have you smoked in the past 12 months: No Aproximately how many cigarettes per day: 0 - Alcohol/Substance Use Hx Alcohol Use: No History of Substance Use: reports: None - Social History ADL: Independent 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 History of Recent Travel: No Home Medications - Allergies Allergies/Adverse Reactions: Allergies Allergy/AdvReac Type Severity Reaction Status Date / Time Penicillins AdvReac Intermediate Rash Verified 07/25/16 07:47 - Home Medications Home Medications: Ambulatory Orders Aspirin [ASA -] 81 mg PO DAILY 07/22/16 Atorvastatin Ca [Lipitor] 20 mg PO HS 07/22/16 Furosemide [Lasix] 20 mg PO DAILY 07/22/16 Glipizide [Glipizide ER] 5 mg PO DAILY 07/22/16 Hydrochlorothiazide 25 mg PO DAILY 07/22/16 Levothyroxine [Synthroid -] 75 mcg PO DAILY 07/22/16 Lisinopril 10 mg PO DAILY 07/22/16 Metoprolol Succinate [Toprol Xl] 50 mg PO DAILY 07/22/16 Acetaminophen [Tylenol .Regular Strength -] 650 mg PO Q6H PRN #0 tablet Family Disease History - Family Disease History Family Disease History: Diabetes: Father, Brother, Sister, Heart Disease: Mother (Stomach Ca, CVA), CA: Grandparent (Cervical), Mother, Sister Review of Systems Findings/Remarks: Well appearing - Review of Systems Constitutional: reports: No Symptoms Eyes: reports: No Symptoms HENT: reports: No Symptoms Neck: reports: No Symptoms Cardiovascular: reports: No Symptoms Respiratory: reports: No Symptoms Gastrointestinal: reports: No Symptoms Genitourinary: reports: No Symptoms, Vaginal Bleeding (light) Breasts: reports: No Symptoms Reported Musculoskeletal: reports: Other (right foot pain) Integumentary: reports: No Symptoms Neurological: reports: No Symptoms Endocrine: reports: No Symptoms Hematology/Lymphatic: reports: No Symptoms Psychiatric: reports: No Symptoms Pain Intensity: 2 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 Vital Signs: Vital Signs Temperature 97.8 F 07/25/16 07:43 Pulse Rate 92 H 07/25/16 07:43 Respiratory Rate 18 07/25/16 07:43 Blood Pressure 140/85 07/25/16 07:43 O2 Sat by Pulse Oximetry (%) 99 07/25/16 07:45 Constitutional: Yes: No Distress, Calm, Obese Eyes: Yes: WNL, Conjunctiva Clear HENT: Yes: WNL, Atraumatic, Normocephalic Neck: Yes: WNL, Supple, Trachea Midline Cardiovascular: Yes: WNL, Regular Rate and Rhythm Respiratory: Yes: WNL, Regular, CTA Bilaterally Gastrointestinal: Yes: Normal Bowel Sounds, Soft, Abdomen, Obese Renal/: Yes: WNL, Vaginal Bleeding (light) Pelvis: Yes: WNL External Genitalia: Yes: Normal Internal Exam Deferred: No Vaginal Exam: Yes: Normal Cervix: Yes: Normal Uterus: Yes: Enlarged Adnexa: Normal: Left, Right Musculoskeletal: Yes: WNL Extremities: Yes: WNL Edema: No Integumentary: Yes: WNL Neurological: Yes: WNL, Alert, Oriented ...Motor Strength: WNL Psychiatric: Yes: WNL, Alert, Oriented Imaging - Results Cat Scan: Report Reviewed Ultrasound: Report Reviewed Problem List - Problem (1) Acute coronary syndrome Assessment/Plan: Stable at this time. Cleared by cardiology. On ASA 81mg. Code(s): I24.9 - ACUTE ISCHEMIC HEART DISEASE, UNSPECIFIED (2) Fibroid uterus Code(s): D25.9 - LEIOMYOMA OF UTERUS, UNSPECIFIED Qualifiers: Uterine leiomyoma location: unspecified location Qualified Code(s): D25.9 - Leiomyoma of uterus, unspecified (3) Post-menopausal bleeding Assessment/Plan: Risks, benefits, alternatives of surgery were discussed. Risks of infection, bleeding, scarring, perforation, pain, etc expalined. Pt requested to proceed with surgery. Postop instructions also reviewed. Code(s): N95.0 - POSTMENOPAUSAL BLEEDING
[2016-07-25] MEDS ORDERED: CLINDAMYCIN 600 MG PREMIX BAG IVPB ONE (09:29)
[2016-07-25] MEDS ORDERED: CLINDAMYCIN PHOSPHATE 600 MG/4 ML VIAL ONE (09:29)
[2016-07-25] MEDS ORDERED: IBUPROFEN 600 MG TABLET (FP) PO PRN (10:00)
[2016-07-25] MEDS ORDERED: ACETAMINOPHEN 325 MG TABLET (FP) PO PRN (10:00)
[2016-07-25] MEDS ORDERED: oxyCODONE HCL 5 MG TABLET PO PRN (10:08)
[2016-07-25] MEDS ORDERED: ACETAMINOPHEN 1000 MG/100 ML VIAL (NON FORMULARY) IVPB PRN (10:08)
[2016-07-25] MEDS ORDERED: ONDANSETRON 4 MG/2 ML VIAL IVPUSH PRN (10:08)
[2016-07-25] MEDS ORDERED: LACTATED RINGERS SOLUTION 1,000 ML IV SCH (10:15)
--- NOTE | 2016-07-25 10:16 | OP ---
Operative Note - Note: Operative Date: 07/25/16 Pre-Operative Diagnosis: Postmenopausal bleeding, fibroid uterus, obesity Operation: Hysteroscopy, D&C Findings: Uterine polyps, small submucosal myomas Post-Operative Diagnosis: Other (same, and uterine polyps) Surgeon: Jeferson Jones Anesthesiologist/HOSPITALIST PROGRAM DIRECTOR: Jeanine Zhong Anesthesia: General Specimens Removed: Uterine polyps and curettings Estimated Blood Loss (mls): 20 Drains & Tubes with Location: None Blood Volume Replaced (mls): 0 Fluid Volume Replaced (mls): 300 Operative Report Dictated: Yes
[2016-07-25 10:56] VITALS: TEMP 98.1
[2016-07-25 11:33] VITALS: PULSE 73
[2016-07-25 12:29] VITALS: BP 131/64
--- NOTE | 2016-07-25 17:48 | OP ---
DATE OF OPERATION: 07/25/2016 PREOPERATIVE DIAGNOSIS: Post menopausal bleeding, fibroid uterus, morbid obesity, coronary artery disease, diabetes, nephrolithiasis, hypothyroidism, hypercholesterolemia. POSTOPERATIVE DIAGNOSIS: Post menopausal bleeding, fibroid uterus, morbid obesity, coronary artery disease, diabetes, nephrolithiasis, hypothyroidism, hypercholesterolemia. Uterine polyps. PROCEDURE: Hysteroscopy, dilation and curettage, excision of uterine polyps. SURGEON: Jeferson Jones M.D. BANQUET COORDINATOR: None. ANESTHESIOLOGIST: Jeanine Zhong M.D. ANESTHESIA: General. COMPLICATIONS: None. ESTIMATED BLOOD LOSS: 20 mL. INTRAVENOUS FLUIDS: 300 mL of crystalloids. PATHOLOGY: Uterine polyps and endometrial curettings. FINDINGS: Examination under anesthesia revealed abdominal obesity with a midline vertical old scar. The uterus appeared small, anteverted, somewhat adherent, internally consistent with multiple prior abdominal surgeries. No pelvic or adnexal masses were noted on examination. No vaginal bleeding was noted prior to surgery. Hysteroscopy revealed several small intrauterine polyps and several small submucosal fibroids. PROCEDURE: The patient was met preoperatively. Risks, benefits, and alternatives of surgery were discussed in detail at length. The patient does not need an deaf interpreter. She is proficient in French. Risks of surgery were explained including but not limited to infection, bleeding, scarring perforation, pain, need for further surgery including hysterectomy. Risks of anesthesia, risks of cardiac disease, etc. The patient verbalized her understanding and requested to proceed with the operation. The patient was then brought to the OR with the IV running. She was placed in a surgical table in a supine position. The general anesthesia was achieved without difficulty. The patient was then placed in a dorsal lithotomy position using adjustable Jeff stirrups. She was prepped and draped in the usual sterile fashion. A timeout procedure was conducted as per standard protocol. A weighted speculum was introduced inside the vagina with good visualization of the cervix. The anterior cervical lip was grasped with the tenaculum. The cervical os was dilated using Cartwright dilators. A diagnostic hysteroscopy was gently advanced through the cervix into the uterine cavity. The hysteroscopy revealed several small polyps and small submucosal myomas. The hysteroscope was then removed. Sharp uterine curettage was performed to excise the uterine polyps. Once the curettage was completed, the tissue was submitted to pathology. Following the sharp curettage, suction curettage was also performed to remove all of the intrauterine tissue and debris. Following the suction curettage, hysteroscopy was repeated, and no uterine polyps were noted. Good hemostasis was confirmed. All of the instruments were then removed from the patient once again hemostasis was noted. The patient was then transferred to supine position. Sponge, lap, and instruments counts were correct. The patient was transferred to recovery room in stable condition and awake. [place] [id number]
--- NOTE | 2016-07-26 15:58 | PATH ---
Surgical Pathology Report Patient Name: JEANINE DE LA ROSA Med. Rec. #: [id number] /Age/Gender: 1950 (Age: 65) / F Account: [id number] [facility] Taken: 07/25/2016 Received: 07/25/2016 Reported: 07/26/2016 Physicians: Jeferson Jones M.D. Specimen(s) Received ENDOMETRIAL CURETTINGS Clinical History Fibroids, postmenopausal bleeding Final Diagnosis ENDOMETRIUM, CURRETTING: ENDOMETRIOID ADENOCARCINOMA, FIGO GRADE 1 OF 3, PARTIALLY INVOLVING AN ENDOMETRIAL POLYP. ADDITIONAL PORTIONS OF BENIGN ENDOMETRIAL POLYP PRESENT. PORTIONS OF MYOMETRIAL TIDDUE CONSISTENT WITH PORTIONS OF LEIOMYOMA PRESENT. Comment: Mismatch repair protein analysis by immunohistochemistry is pending, and a report will follow. This case was discussed with Dr. Jones on 07/26/2016. Electronically Signed Ishmael May M.D. Addendum Reported: 07/27/2016 Addendum Diagnosis DNA Mismatch Repair (MMR) protein expression analysis by IHC performed at the [place], [place] ([id number]) on block #5 and interpreted [facility] shows the following: Results: hMLH-1 DNA Mismatch Repair Protein: Intact nuclear expression hMSH-2 DNA Mismatch Repair Protein: Intact nuclear expression hMSH-6 DNA Mismatch Repair Protein: Intact nuclear expression PMS2 DNA Mismatch Repair Protein: Intact nuclear expression Interpretation: No defect in DNA Mismatch Repair (MMR) protein expression is identified by IHC. This result is usually seen in MSI-H stable tumors and is not associated with HNPCC (Carvalho syndrome). Santiago Chilel M.D. Gross Description Received in formalin labeled "endometrial curetting," is a 5.7 x 5.5 x 0.5 cm aggregate of red-brown soft tissue fragments. The formalin is filtered and the specimen is entirely submitted in 7 cassettes. /07/25/201607/25/2016
== END 2016-07-25 12:30 | disposition home or self-care (01) ==
LOC: JASU-SURG 05:34
PROVIDERS: ATTEND Obstetrics & Gynecology
PROC: 0UB98ZX Excision of Uterus, Via Natural or Artificial Opening Endoscopic, Diagnostic (ICD-10-PCS; principal; 2016-07-25 09:00)
PROC: 0UDB8ZX Extraction of Endometrium, Via Natural or Artificial Opening Endoscopic, Diagnostic (ICD-10-PCS; 2016-07-25 09:00)
DX: N95.0 Postmenopausal bleeding (principal); D25.9 Leiomyoma of uterus, unspecified; E66.01 Morbid (severe) obesity due to excess calories; N84.0 Polyp of corpus uteri; I25.10 Atherosclerotic heart disease of native coronary artery without angina pectoris; E03.9 Hypothyroidism, unspecified; E11.9 Type 2 diabetes mellitus without complications; E78.00 Pure hypercholesterolemia, unspecified; N20.0 Calculus of kidney
CPT/HCPCS: 88305-TC; 94760

== ENCOUNTER 2016-07-28 15:40 | Emergency (ER) | payer OTHER ==
[2016-07-28 16:05] VITALS: BP 149/73; PULSE 71; TEMP 97.5; BMI 37.8
[2016-07-28] MEDS ORDERED: ACETAMINOPHEN 1000 MG/100 ML VIAL (NON FORMULARY) IVPB ONE (16:35)
--- NOTE | 2016-07-28 16:49 | PDOC ---
History of Present Illness <Essence Urena - Last Filed: 07/28/16 16:54> - History of Present Illness Initial Comments: 07/28/16 16:53 - History of Present Illness Initial Comments: 07/28/16 16:53 The patient is a 65 year old female HCVD, type 2 DM, CAD h/o prior acute coronary syndrome with mildly abnormal MPI, hypothyroidism, anemia, hypertension , hypercholesterolemia, obesity, osteoarthritis, uterine fibroids, lumbar laminectomy x 3, and hysteroscopy, who had dilation and curettage, excision of uterine polyps (07/25/16) due to persistent vaginal bleeding and anemia, who presents to the ED with left lower back pain for 3 weeks. She describes her back pain as a pressure pain, rating it a 10/10. She reports the pain radiates into her L buttock and down her left leg. She states the pain is exacerbated by lying down and with movement. She reports taking Tylenol, ice, menthol with no relief. She presented to the ED 3 weeks ago when the pain initially began, and she was given medications that did not help. (pain started prior to the surgery on 07/25) She denies numbness or tingling. She denies fever, chills. She denies abdominal pain, nausea, vomiting, diarrhea. She denies any urinary symptoms. She denies vaginal bleeding or discharge. The patient went to her surgeons office today and was received the results of her path report from the recent proceedure - endometrioid adenocarcinoma grade 1, partially involving an endometrial polyp and was recommended to have a hysterectomy. She is being followed closely by Dr Jones. Allergies: Penicillins Past Surgical History: hysteroscopy, dilation and curettage, excision of uterine polyps, lumbar laminectomy x3, Section Social History: Non-smoker. Denies alcohol or drug use. PCP: Dr. Javier Mcginnis River Tester: Dr. Belén Guzman Surgeon: Dr. Jeferson Jones <Essence Urena - Last Filed: 07/28/16 16:53> <Dana Cuba - Last Filed: 07/28/16 18:44> - General Chief Complaint: Back Pain Stated Complaint: LEFT LOWER BACK PAIN Time Seen by Provider: 07/28/16 16:12 Past History <Essence Urena - Last Filed: 07/28/16 16:54> - Past Medical History Anemia: Yes (BLOOD TRANSFUSION) Asthma: No Cancer: No Cardiac Disorders: Yes (RI(2017)) CVA: No COPD: No CHF: No Dementia: No Diabetes: Yes GI Disorders: No (POST MENOPAUSAL BLEEDING) Disorders: Yes HTN: Yes Hypercholesterolemia: Yes Liver Disease: No Seizures: No Thyroid Disease: Yes (HYPO.) - Surgical History Abdominal Surgery: Yes Appendectomy: No Cardiac Surgery: No Cholecystectomy: No Lung Surgery: No Neurologic Surgery: Yes (BACK X 3.) Orthopedic Surgery: Yes - Psycho/Social/Smoking Cessation Hx Anxiety: No Suicidal Ideation: No Smoking Status: No Smoking History: Never smoked Have you smoked in the past 12 months: No Number of Cigarettes Smoked Daily: 0 Hx Alcohol Use: No Drug/Substance Use Hx: No Substance Use Type: None Hx Substance Use Treatment: No <Dana Cuba - Last Filed: 07/28/16 18:44> - Past Medical History Allergies/Adverse Reactions: Allergies Allergy/AdvReac Type Severity Reaction Status Date / Time Penicillins AdvReac Intermediate Rash Verified 07/25/16 07:47 Home Medications: Ambulatory Orders Aspirin [ASA -] 81 mg PO DAILY 07/22/16 Atorvastatin Ca [Lipitor] 20 mg PO HS 07/22/16 Furosemide [Lasix] 20 mg PO DAILY 07/22/16 Glipizide [Glipizide ER] 5 mg PO DAILY 07/22/16 Hydrochlorothiazide 25 mg PO DAILY 07/22/16 Levothyroxine [Synthroid -] 75 mcg PO DAILY 07/22/16 Lisinopril 10 mg PO DAILY 07/22/16 Metoprolol Succinate [Toprol Xl] 50 mg PO DAILY 07/22/16 Acetaminophen [Tylenol .Regular Strength -] 650 mg PO Q6H PRN #0 tablet Metronidazole [Flagyl -] 500 mg PO BID #14 tablet 07/25/16 Clopidogrel Bisulfate [Plavix -] 75 mg PO HS 07/28/16 Ondansetron [Zofran Odt -] 4 mg SL TID PRN #14 od.tablet 07/28/16 Oxycodone HCl/Acetaminophen [Percocet 5-325 mg Tablet] 1 - 2 tab PO Q6H PRN #14 tab MDD 6 07/28/16 *Physical Exam - Vital Signs Last Vital Signs Temp Pulse Resp BP Pulse Ox 97.5 F L 71 17 149/73 99 07/28/16 15:46 07/28/16 15:46 07/28/16 15:46 07/28/16 15:46 07/28/16 15:46 <Essence Urena - Last Filed: 07/28/16 16:54> - Vital Signs Last Vital Signs Temp Pulse Resp BP Pulse Ox 97.5 F L 71 17 149/73 99 07/28/16 15:46 07/28/16 15:46 07/28/16 15:46 07/28/16 15:46 07/28/16 15:46 - Physical Exam Comments: 07/28/16 16:44 Physical exam Last Vital Signs Temp Pulse Resp BP Pulse Ox 97.5 F L 71 17 149/73 99 07/28/16 15:46 07/28/16 15:46 07/28/16 15:46 07/28/16 15:46 07/28/16 15:46 GENERAL: The patient is awake, alert, and answering questions HEAD: Normal with no signs of trauma. EYES: sclera anicteric, conjunctiva are normal. ENT: Moist mucous membranes. NECK: Normal range of motion, supple LUNGS: Breath sounds equal, clear to auscultation bilaterally. No wheezes, and no crackles. HEART: Regular rate and rhythm, normal S1 and S2 without murmur, rub or gallop. ABDOMEN: Soft, nontender, normoactive bowel sounds. No guarding, no rebound. No masses appreciated. BACK: No C-spine or T-spine tenderness There is a well-healed prior lumbar laminectomy scar There is no midline point tenderness on the LS-spine, or on the laminectomy scar To the left of the LS-spine, approximately L4-L5 area, there is some tenderness going into the left buttocks and sciatic area, which is also tender There is no warmth or erythema noted There is no CVA tenderness noted EXTREMITIES: Normal range of motion, no edema. No clubbing or cyanosis. No cords, erythema, or tenderness. Motor strength is 5 out of 5 in the lower extremities bilaterally, with full dorsiflexion and plantar flexion of the feet bilaterally also Dorsalis pedis pulses are full and intact bilaterally Sensation is intact in the lower extremities bilaterally There is negative straight leg raising bilaterally NEUROLOGICAL: Cranial nerves II through XII grossly intact. Normal speech, normal gait. PSYCH: Normal mood, normal affect. SKIN: Warm, Dry, <Dana Cuba - Last Filed: 07/28/16 18:44> ED Treatment Course - RADIOLOGY Radiology Studies Ordered: Category Date Time Status PELVIS [RAD] Stat Radiology 07/28/16 16:43 Ordered SPINE-LUMBAR SACRAL [RAD] Stat Radiology 07/28/16 16:36 Ordered <Dana Cuba - Last Filed: 07/28/16 18:44> Medical Decision Making - Medical Decision Making 07/28/16 16:48 65-year-old female with history as noted above, with pain that is clinically consistent with sciatica, without alarm symptoms She was just diagnosed on recent D&C with endometrial carcinoma in situ in one of the polyps removed, stage I, and was just recommended to have a hysterectomy There is no associated fever, abdominal pain, cauda equina symptoms, or midline point tenderness The pain started prior to her surgery, and there is no vaginal discharge or spotting, and she states that since her surgery she has had no further vaginal bleeding Will start with pain control and x-rays 07/28/16 18:07 LS-spine series There is straightening of the lordosis And interbody spacer is again seen at L3-L4 The height and alignment of the vertebral bodies appears unremarkable Slightly to moderately prominent spur formation at L2-L3 level is again seen There is degenerative disc disease at L4-L5, and L5-S1, with mild narrowing of the intervertebral disc spaces No paraspinal soft tissue abnormality is seen 07/28/16 18:[address] Mcginnis-will see the patient in the office for reevaluation on Monday07/28/16 18:36 Pelvis series with repeat views requested by radiology, as read by me- NAD will treat with percocet for pain, and pt will f/u with her PCP <Dana Cuba - Last Filed: 07/28/16 18:44> *DC/Admit/Observation/Transfer <Essence Urena - Last Filed: 07/28/16 16:54> <Dana Cuba - Last Filed: 07/28/16 18:44> Diagnosis at time of Disposition: Low back pain, Sciatica - Discharge Dispostion Disposition: HOME Condition at time of disposition: Improved - Referrals Referrals: Javier Mcginnis MD [Primary Care Provider] - Call tomorrow (please call tomorrow for an appointment on Monday - Dr Mcginnis says he will see you in the office on Monday) - Patient Instructions Printed Discharge Instructions: Sciatica, DI for Sciatica, DI for Low Back Pain , Low Back Pain Additional Instructions: Percocet for pain as directed-you may take Zofran SL one half hour prior to taking the Percocet as we discussed, to prevent the N+V Rest, warm compresses Followup with your primary care physician on Monday - call tomorrow to make this appointment Return immediately if you worsen in any way Take your medications as directed
[2016-07-28] MEDS ORDERED: ACETAMINOPHEN INJECTION 100 ML IVPB ONE (17:25)
== END 2016-07-28 19:03 | disposition home or self-care (01) ==
LOC: FER 15:40
PROC: 3E033NZ Introduction of Analgesics, Hypnotics, Sedatives into Peripheral Vein, Percutaneous Approach (ICD-10-PCS; principal; 2016-07-28)
DX: M54.30 Sciatica, unspecified side (principal); M54.5 Low back pain; E11.9 Type 2 diabetes mellitus without complications; I25.10 Atherosclerotic heart disease of native coronary artery without angina pectoris; E03.9 Hypothyroidism, unspecified; I10 Essential (primary) hypertension; E78.5 Hyperlipidemia, unspecified; E66.9 Obesity, unspecified; I51.9 Heart disease, unspecified
CPT/HCPCS: 72100-TC; 72170-TC; 99282-25

== ENCOUNTER 2016-09-04 23:13 | Inpatient (IN) | payer OTHER ==
[2016-09-04] MEDS ORDERED: ASPIRIN 81 MG CHEWABLE TABLETS PO ONE (23:32)
[2016-09-04 23:37] VITALS: BMI 37.0
--- NOTE | 2016-09-04 23:39 | PDOC ---
History of Present Illness - General History Source: Patient, Old Records Exam Limitations: No Limitations <JimMariela - Last Filed: 09/05/16 00:49> <GomezJessica Marroquin - Last Filed: 09/05/16 01:23> - General Chief Complaint: Chest Pain Stated Complaint: CHEST PAIN/NAUSEA Time Seen by Provider: 09/04/16 23:28 - History of Present Illness Initial Comments: 09/05/16 00:20 The patient is a 65 year old female HCVD, type 2 DM, CAD h/o prior acute coronary syndrome with mildly abnormal MPI, hypothyroidism, anemia, hypertension , hypercholesterolemia, obesity, osteoarthritis, uterine fibroids, lumbar laminectomy x 3, and hysteroscopy, who had dilation and curettage, excision of uterine polyps (07/25/16) due to persistent vaginal bleeding and anemia, who presents to the ED via EMS with chest pain, palpitations, and sciatica. Pt states that she woke up yesterday at 11AM and began to experience sciatica pain starting at the left-side of her lower back, moving down her buttock, and along her left leg. As peer son, it is becoming increasingly more difficult to transport the patient, who normally ambulates with a walker, due to the pain. She reports calling her PCP, Dr. Mcginnis, who advised the pt to take half a tramadol tablet. Before taking the medication, the pt reports that she was experiencing left-sided chest pain, palpitations, dizziness, and nausea. Pt was recently diagnosed with uterine cancer and is schedule for a full hysterectomy on 09/16 at [facility]. Patient denies any fever, chills, vomiting, diarrhea, or abdominal pain. Denies any shortness of breath. Dr. Javier Mcginnis Human Resource Professional: Dr. Saeed (Mariela Fernandez) Past History <Mariela Fernandez - Last Filed: 09/05/16 00:49> - Past Medical History Anemia: Yes (BLOOD TRANSFUSION) Asthma: No Cancer: No Cardiac Disorders: Yes (ID(2017)) CVA: No COPD: No CHF: No Dementia: No Diabetes: Yes GI Disorders: No (POST MENOPAUSAL BLEEDING) Disorders: Yes HTN: Yes Hypercholesterolemia: Yes Liver Disease: No Seizures: No Thyroid Disease: Yes (HYPO.) - Surgical History Abdominal Surgery: Yes Appendectomy: No Cardiac Surgery: No Cholecystectomy: No Lung Surgery: No Neurologic Surgery: Yes (BACK X 3.) Orthopedic Surgery: Yes - Psycho/Social/Smoking Cessation Hx Anxiety: No Suicidal Ideation: No Smoking Status: No Smoking History: Never smoked Have you smoked in the past 12 months: No Number of Cigarettes Smoked Daily: 0 Information on smoking cessation initiated: No Hx Alcohol Use: No Drug/Substance Use Hx: No Substance Use Type: None Hx Substance Use Treatment: No <Jessica Dyer - Last Filed: 09/05/16 01:23> - Past Medical History Allergies/Adverse Reactions: Allergies Allergy/AdvReac Type Severity Reaction Status Date / Time Penicillins AdvReac Intermediate Rash Verified 07/25/16 07:47 Home Medications: Ambulatory Orders Atorvastatin Ca [Lipitor] 20 mg PO HS 07/22/16 Furosemide [Lasix] 20 mg PO DAILY 07/22/16 Hydrochlorothiazide 25 mg PO DAILY 07/22/16 Levothyroxine [Synthroid -] 75 mcg PO DAILY 07/22/16 Lisinopril 10 mg PO DAILY 07/22/16 Metoprolol Succinate [Toprol Xl] 50 mg PO DAILY 07/22/16 Acetaminophen [Tylenol .Regular Strength -] 650 mg PO Q6H PRN #0 tablet Clopidogrel Bisulfate [Plavix -] 75 mg PO HS 07/28/16 Glipizide [Glipizide ER] 5 mg PO DAILY 09/05/16 Cardiac Specific PMH - Complaint Specific PMHX Pacemaker: No <Jessica Dyer - Last Filed: 09/05/16 01:23> Review of Systems - Review of Systems Able to Perform ROS?: Yes <Mariela Fernandez - Last Filed: 09/05/16 00:49> <Jessica Dyer - Last Filed: 09/05/16 01:23> - Review of Systems Comments:: 09/05/16 00:21 CONSTITUTIONAL: Absent: fever, chills, diaphoresis, generalized weakness, malaise, loss of appetite HEENT: Absent: rhinorrhea, nasal congestion, throat pain, throat swelling, difficulty swallowing, mouth swelling, ear pain, eye pain, visual Changes CARDIOVASCULAR: Present: chest pain, palpitations Absent: syncope, irregular heart rate, lightheadedness, peripheral edema RESPIRATORY: Absent: cough, shortness of breath, dyspnea with exertion, orthopnea, wheezing, stridor, hemoptysis GASTROINTESTINAL: Present: nausea Absent: abdominal pain, abdominal distension, vomiting, diarrhea, constipation, melena, hematochezia GENITOURINARY: Absent: dysuria, frequency, urgency, hesitancy, hematuria, flank pain, genital pain MUSCULOSKELETAL: Present: sciatica Absent: arthralgia, joint swelling SKIN: Absent: rash, itching, pallor HEMATOLOGIC/IMMUNOLOGIC: Absent: easy bleeding, easy bruising, lymphadenopathy, frequent infections ENDOCRINE: Absent: unexplained weight gain, unexplained weight loss, heat intolerance, cold intolerance NEUROLOGIC: Present: dizziness Absent: headache, focal weakness or paresthesias, unsteady gait, seizure, mental status changes, bladder or bowel incontinence PSYCHIATRIC: Absent: anxiety, depression, suicidal or homicidal ideation, hallucinations. (Mariela Fernandez) *Physical Exam <Mariela Fernandez - Last Filed: 09/05/16 00:49> <Jessica Dyer - Last Filed: 09/05/16 01:23> - Vital Signs Last Vital Signs Temp Pulse Resp BP Pulse Ox 97.7 F 75 21 123/66 100 09/04/16 23:34 09/04/16 23:34 09/04/16 23:34 09/04/16 23:34 09/04/16 23:34 - Physical Exam Comments: 09/05/16 00:23 Well developed, well nourished. Awake and alert. No acute distress. HEENT: Normocephalic, atraumatic. PERRLA, EOMI. No conjunctival pallor. Sclera are non- icteric. Moist mucous membranes. Oropharynx is clear. NECK: Supple. Full ROM. No JVD. Carotid pulses 2+ and symmetric, without bruits. No thyromegaly. No lymphadenopathy. CARDIOVASCULAR: Regular rate and rhythm. No murmurs, rubs, or gallops. Distal pulses are 2+ and symmetric. PULMONARY: No evidence of respiratory distress. Lungs clear to auscultation bilaterally. No wheezing, rales or rhonchi. ABDOMINAL: Soft. Protuberant belly. Non-tender. Non-distended. No rebound or guarding. No organomegaly. Normoactive bowel sounds. MUSCULOSKELETAL Normal range of motion at all joints. No bony deformities or tenderness. No CVA tenderness. EXTREMITIES: No cyanosis. No clubbing. No pitting edema. No calf tenderness. SKIN: Warm and dry. Normal capillary refill. No rashes. No jaundice. NEUROLOGICAL: Alert, awake, appropriate. Cranial nerves 2-12 intact. No deficits to light touch and temperature in face, upper extremities and lower extremities. No motor deficits in the in face, upper extremities and lower extremities. Normoreflexic in the upper and lower extremities. Normal speech. Toes are down- going bilaterally. Gait is normal without ataxia. PSYCHIATRIC: Cooperative. Good eye contact. Appropriate mood and affect. (Mariela Fernandez) Heart Score/ECG Review - History History: Slightly suspicious - Electrocardiogram EKG: Non specific repolarization disturbance - Age Age: >/= 65 - Risk Factors Risk Factors Heart Score: Yes Hx Hypercholesterolemia, Yes Hx Hypertension, Yes Hx Diabetes, Yes Positive family hx of cardiac disease, Yes Hx Obesity Based on the list above the patient has:: >/=3 risk factors or Hx atherosclerotic disease - Troponin Troponin: </= normal limit - Score Heart Score - Total: 5 - ECG Intrepretation Rhythm: Regular Rhythm - P and IA Delta Wave(s) Present: No WPW: No - QRS Widened: RBBB - ST and T Flattened T Waves: No Prolonged Q-T Interval: No - ECG Impressions Normal ECG: No Torsades luz marina Pointes: No WPW: No <Jessica Dyer - Last Filed: 09/05/16 01:23> ED Treatment Course - LABORATORY CBC & Chemistry Diagram: 09/05/16 00:01 09/05/16 00:01 <Mariela Fernandez - Last Filed: 09/05/16 00:49> - LABORATORY CBC & Chemistry Diagram: 09/05/16 00:01 09/05/16 00:01 <Jessica Dyer - Last Filed: 09/05/16 01:23> - ADDITIONAL ORDERS Additional order review: Laboratory Results 09/05/16 09/05/16 09/05/16 00:01 00:01 00:01 INR 1.14 Sodium 138 Potassium 3.8 Chloride 101 Carbon Dioxide 25 Anion Gap 12 BUN 32 H Creatinine 1.0 Creat Clearance w eGFR 55.64 Random Glucose 177 H D Calcium 9.0 Magnesium 1.8 Total Bilirubin 0.5 D AST 13 L ALT 16 Alkaline Phosphatase 89 Creatine Kinase 86 Troponin I < 0.02 B-Natriuretic Peptide 165.70 H Total Protein 7.2 Albumin 3.6 09/05/16 00:01 RBC 3.76 MCV 83.0 MCHC 32.2 RDW 16.8 H MPV 7.1 L Neutrophils % 76.2 D Lymphocytes % 14.0 D Monocytes % 9.3 Eosinophils % 0.1 D Basophils % 0.4 - RADIOLOGY Radiology Studies Ordered: Category Date Time Status CHEST X-RAY PORTABLE* [RAD] Stat Radiology 09/04/16 23:33 Taken - Medications Given in the ED: ED Medications Discontinued Medications Generic Name Dose Route Start Last Admin Trade Name Diegoq PRN Reason Stop Dose Admin Aspirin 162 mg 09/04/16 23:32 09/05/16 00:01 Asa - PO 09/04/16 23:33 162 mg ONCE ONE Administration Morphine Sulfate 2 mg 09/05/16 01:03 09/05/16 01:09 Morphine Injection - IVPUSH 09/05/16 01:04 2 mg ONCE ONE Administration Medical Decision Making <Mariela Fernandez - Last Filed: 09/05/16 00:49> <Jessica Dyer - Last Filed: 09/05/16 01:23> - Medical Decision Making 09/05/16 00:49 Dr. Javier Mcginnis was paged and notified via phone service. (Mariela Fernandez) 09/05/16 00:09 65-year-old female brought in by ambulance for chest pain, palpitations and sciatica that started 2 days ago. Yesterday morning at 11 AM, started to have sciatica that affected her left flank. He is from her low back and down her buttocks down her left leg. She does have a long history of sciatica. She says she only takes Tylenol. Patient was diagnosed with having cancer recently and scheduled for a total hysterectomy at [facility] on [address] today. She talked to Dr. Woods, who told her to take The tramadol. But even before taking her tramadol she said she felt dizzy and had palpitations. She was diaphoretic and nauseous. She describes left-sided chest pain. EKG was unchanged from prior EKG. Tonight's ekg is Normal sinus rhythm, 81 bpm , incomplete right bundle branch block Blood pressure is 123/66, pulse 79 Son and states that she uses a walker at home but is very difficult for her to make transfers because of the back pain. Her bathroom, was only about 10 feet from the bed, but it takes a very long period of time for her to get to the bathroom even with assistance. 09/05/16 00:13 She did have an echo done this year that showed normal LV function, ejection fraction of 70%, normal biventricular size and function, mild MR, mild TR, R VST 30-40mmHg Stress test was done on 06/10/2016 that showed small, mild apical ischemia, normal LV EF of 70% 09/05/16 01:20 First troponin is less than 0.02 This is discussed with her primary care physician, Dr. Herrera Androni recommended telemetry admission. Patient has a SCHNEIDER score of 5 Consulting Human Resource Professional will be from Drs. Berry/Flako/diane group (Jessica Dyer) *DC/Admit/Observation/Transfer <Mariela Fernandez - Last Filed: 09/05/16 00:49> - Discharge Dispostion Admit: Yes <Jessica Dyer - Last Filed: 09/05/16 01:23> Diagnosis at time of Disposition: Chest pain Qualifiers: Chest pain type: unspecified Qualified Code(s): R07.9 - Chest pain, unspecified Sciatica Qualifiers: Laterality: left Qualified Code(s): M54.32 - Sciatica, left side - Discharge Dispostion Decision to Admit order Date/Time: Decision to Admit Order Category Date Time Status Decision to Admit to Hospital Routine Admission 09/05/16 01:05 Active - Referrals Referrals: Javier Lamb MD [Primary Care Provider] - - Attestations Scribe Attestion: 09/05/16 00:24 Documentation prepared by Mariela Fernandez, acting as medical staffing coordinator for Jessica Dyer MD. (Mariela Fernandez)
[2016-09-04] MEDS ORDERED: ASPIRIN 81 MG CHEWABLE TABLETS ONE (23:41)
[2016-09-05 00:08] LABS: BASOPHIL 0.4 % (0-2.0); EOSINOPHIL 0.1 % (0-4.5)
[2016-09-05 00:10] LABS: MCH 26.7 pg (25.7-33.7); MCHC 32.2 g/dl (32.0-36.0); MEAN PLT VOLUME 7.1 fl (7.5-11.1); NEUTROPHILS 76.2 % (42.8-82.8); PLATELET COUNT 366 K/MM3 (134-434); RDW 16.8 % (11.6-15.6); WHITE BLOOD COUNT 14.2 K/mm3 (4.0-10.0)
[2016-09-05 00:23] LABS: INR 1.14 (0.82-1.09); PROTHROMBIN TIME (PATIENT) 12.6 SEC (9.98-11.88)
[2016-09-05 00:30] LABS: ALBUMIN 3.6 g/dl (3.4-5.0); ANION GAP 12 (8-16); BILIRUBIN,TOTAL 0.5 mg/dL (0.2-1.0); CO2 25 mmol/L (21-32); COCKROFT - GAULT 76.3045; GLUCOSE,RANDOM 177 mg/dL (74-106); MAGNESIUM 1.8 mg/dL (1.8-2.4); SGOT/AST 13 U/L (15-37); SGPT/ALT 16 U/L (12-78); TOT PROT 7.2 g/dl (6.4-8.2)
[2016-09-05 00:33] LABS: ALK PHOS 89 U/L (45-117); TROPONIN I < 0.02 ng/ml (0.00-0.05)
[2016-09-05] MEDS ORDERED: morphine CARPU-JECT 2 MG/1 ML DISP.SYRIN IVPUSH ONE ×2 (01:03→02:05)
[2016-09-05] MEDS ORDERED: morphine CARPU-JECT 2 MG/1 ML DISP.SYRIN ONE ×2 (01:06→02:12)
[2016-09-05] MEDS ORDERED: morphine CARPU-JECT 4 MG/1 ML DISP.SYRIN ONE ×2 (05:43→12:12)
[2016-09-05] MEDS: morphine CARPU-JECT 4 MG/1 ML DISP.SYRIN IVPB PRN ×2 (05:50→12:15)
[2016-09-05 07:44] LABS: TROPONIN I < 0.02 ng/ml (0.00-0.05)
--- NOTE | 2016-09-05 08:13 | EKG ---
Test Reason : Blood Pressure : / mmHG Vent. Rate : 081 BPM Atrial Rate : 081 BPM P-R Int : 138 ms QRS Dur : 118 ms QT Int : 402 ms P-R-T Axes : 055 -05 025 degrees QTc Int : 466 ms NORMAL SINUS RHYTHM INCOMPLETE RIGHT BUNDLE BRANCH BLOCK CANNOT RULE OUT INFERIOR INFARCT (CITED ON OR BEFORE 10-JUN-2016) ABNORMAL ECG WHEN COMPARED WITH ECG OF 10-JUN-2016 08:49, NO SIGNIFICANT CHANGE WAS FOUND Confirmed by JANET RAMIREZ MD ([id number]) on 09/05/2016 8:13:40 AM Referred By: Confirmed By:JANET RAMIREZ MD
[2016-09-05] MEDS ORDERED: HEMOQUE TEST 1 EACH EACH ONE (09:04)
[2016-09-05] MEDS ORDERED: glipiZIDE 5 MG TABLET (FP) ONE (09:14)
[2016-09-05] MEDS ORDERED: LEVOTHYROXINE NA 25 MCG TABLET (FP) ONE (09:14)
[2016-09-05 09:16] LABS: MCH 26.9 pg (25.7-33.7); MCHC 32.3 g/dl (32.0-36.0); MEAN CELL VOLUME 83.3 fl (80-96); MEAN PLT VOLUME 7.2 fl (7.5-11.1); PLATELET COUNT 315 K/MM3 (134-434); RDW 16.6 % (11.6-15.6); WHITE BLOOD COUNT 12.5 K/mm3 (4.0-10.0)
[2016-09-05] MEDS: glipiZIDE-XL 5 MG TAB.ER.24 PO SCH (09:17)
[2016-09-05] MEDS: LEVOTHYROXINE NA 75 MCG TABLET (FP) PO SCH (09:17)
[2016-09-05 09:27] LABS: ALBUMIN 3.2 g/dl (3.4-5.0); ANION GAP 10 (8-16); BILIRUBIN,TOTAL 0.5 mg/dL (0.2-1.0); CALCIUM 8.7 mg/dL (8.5-10.1); CO2 27 mmol/L (21-32); CREATININE 0.9 mg/dL (0.55-1.02); GLUCOSE,RANDOM 102 mg/dL (74-106); SGOT/AST 14 U/L (15-37); SGPT/ALT 17 U/L (12-78); TOT PROT 6.5 g/dl (6.4-8.2)
[2016-09-05 09:29] LABS: ALK PHOS 83 U/L (45-117); TROPONIN I < 0.02 ng/ml (0.00-0.05)
[2016-09-05] MEDS ORDERED: METOPROLOL SUCCINATE 50 MG TAB.SR.24H (FP) PO SCH (10:00)
[2016-09-05] MEDS: HYDROCHLOROTHIAZIDE 25 MG TABLET (FP) PO SCH (10:45)
[2016-09-05] MEDS: LISINOPRIL 10 MG TABLET (FP) PO SCH (10:45)
[2016-09-05] MEDS: FUROSEMIDE 20 MG TABLET (FP) PO SCH (10:45)
[2016-09-05] MEDS: INSULIN SLIDING SCALE (NOVOLOG) 1 VIAL SQ SCH ×3 (13:13→23:20)
[2016-09-05] MEDS ORDERED: ONDANSETRON 4 MG/2 ML VIAL IVPUSH ONE (13:14)
[2016-09-05] MEDS ORDERED: ONDANSETRON 4 MG/2 ML VIAL ONE (13:15)
--- NOTE | 2016-09-05 13:33 | HP ---
Admitting History and Physical - Primary Care Physician PCP: Javier Mcginnis - Admission Chief Complaint: CP, back pain History of Present Illness: Pt came to ER c/o left side CP and back pain (treated at home with Tramadol) w/ o relief. Pt states that has CP at rest, associated with lightheadedness; no specific trigger or alleviating factor. Pt states thet doen't recall any activity to trigger back pain; no radiation down the leg, no numbness, tingling , no LE motor weakness. Pt was admitted for further management. Pt with ACS in June 2016. History Source: Patient, Family Member (at bedside) - Past Medical History Cardiovascular: Yes: HTN, Hyperlipdemia, Other (chest pain, CAD with apical ischemia) Renal/: Yes: Renal Calculi Heme/Onc: Yes: Anemia Musculoskeletal: Yes: Osteoarthritis Endocrine: Yes: Diabetes Mellitus, Hypothyroidism Additional Past Medical History: Obesity Uterine fibroids Uterine Cancer ( for hysterectomy on 09/16/2016 at [facility]) - Past Surgical History Past Surgical History: Yes: (1954, 1955, 1980 ), Laminectomy (spine surgery , 3 times, disc removal & fusion done at [facility] ) - Smoking History Smoking history: Never smoked Have you smoked in the past 12 months: No Aproximately how many cigarettes per day: 0 - Alcohol/Substance Use Hx Alcohol Use: No History of Substance Use: reports: None - Social History ADL: Independent 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 History of Recent Travel: No Home Medications - Allergies Allergies/Adverse Reactions: Allergies Allergy/AdvReac Type Severity Reaction Status Date / Time Penicillins AdvReac Intermediate Rash Verified 07/25/16 07:47 - Home Medications Home Medications: Ambulatory Orders Atorvastatin Ca [Lipitor] 20 mg PO HS 07/22/16 Furosemide [Lasix] 20 mg PO DAILY 07/22/16 Hydrochlorothiazide 25 mg PO DAILY 07/22/16 Levothyroxine [Synthroid -] 75 mcg PO DAILY 07/22/16 Lisinopril 10 mg PO DAILY 07/22/16 Metoprolol Succinate [Toprol Xl] 50 mg PO DAILY 07/22/16 Acetaminophen [Tylenol .Regular Strength -] 650 mg PO Q6H PRN #0 tablet Clopidogrel Bisulfate [Plavix -] 75 mg PO HS 07/28/16 Glipizide [Glipizide ER] 5 mg PO DAILY 09/05/16 Family Disease History - Family Disease History Family Disease History: Diabetes: Father, Brother, Sister, Heart Disease: Mother (Stomach Ca, CVA), CA: Grandparent (Cervical), Mother, Sister Review of Systems - Review of Systems Constitutional: denies: Chills, Fever Eyes: denies: Blurred Vision, Double Vision, Recent Change in Vision HENT: denies: Difficult Swallowing, Ear Discharge, Nasal Congestion, Throat Pain Neck: denies: Decreased ROM, Pain on Movement Cardiovascular: denies: Chest Pain (now), Palpitations, Shortness of Breath Respiratory: denies: Cough, Hemoptysis, SOB (now), Wheezing Gastrointestinal: reports: Nausea (after received Morphine). denies: Abdominal Pain, Constipation, Diarrhea Genitourinary: denies: Burning, Discharge, Frequency Musculoskeletal: reports: Back Pain Neurological: denies: Change in LOC, Change in Speech, Confusion Endocrine: denies: Excessive Sweating, Intolerance to Cold Physical Examination Vital Signs: Vital Signs Temperature 98.1 F 09/05/16 07:30 Pulse Rate 74 09/05/16 09:13 Respiratory Rate 18 09/05/16 07:30 Blood Pressure 106/56 09/05/16 07:30 O2 Sat by Pulse Oximetry (%) 100 09/05/16 09:13 Constitutional: Yes: No Distress, Calm Eyes: Yes: Conjunctiva Clear, EOM Intact, PERRL HENT: Yes: Normocephalic. No: Rhinnorhea Neck: Yes: Trachea Midline. No: Lymphadenopathy Cardiovascular: Yes: Regular Rate and Rhythm, S1, S2 Respiratory: Yes: Regular, CTA Bilaterally. No: Rales Gastrointestinal: Yes: Normal Bowel Sounds, Soft, Abdomen, Obese. No: Tenderness ...Rectal Exam: Yes: Deferred Extremities: No: Cold, Cool, Cyanosis Edema: No Neurological: Yes: Oriented, Aphasia, Cran Nerves II-XII Intact Labs: CBC, BMP 09/05/16 08:55 09/05/16 08:55 Imaging - Results Cat Scan: Report Reviewed Problem List - Problems (1) Chest pain Code(s): R07.9 - CHEST PAIN, UNSPECIFIED Qualifiers: Chest pain type: chest pain on breathing Qualified Code(s): R07.1 - Chest pain on breathing (2) Anemia Code(s): D64.9 - ANEMIA, UNSPECIFIED Qualifiers: Anemia type: unspecified type Qualified Code(s): D64.9 - Anemia, unspecified (3) Diabetes Code(s): E11.9 - TYPE 2 DIABETES MELLITUS WITHOUT COMPLICATIONS Qualifiers: Diabetes mellitus type: type 2 Diabetes mellitus complication detail: with chronic kidney disease Diabetes mellitus boarding mother insulin use: without boarding mother use (4) HTN (hypertension) Code(s): I10 - ESSENTIAL (PRIMARY) HYPERTENSION Qualifiers: Hypertension type: essential hypertension Qualified Code(s): I10 - Essential (primary) hypertension (5) Nausea Assessment/Plan: secondary to pain medication Code(s): R11.0 - NAUSEA Assessment/Plan serisl CE Cardion consult Neuro consult admit to Telematry DVt prophylasis Am labs. Case was d/w with pt's ER nurse case was d/w pt'. familly -at bedside.
[2016-09-05 15:06] LABS: URINE APPEARANCE CLEAR; URINE BILIRUBIN NEGATIVE (NEGATIVE); URINE COLOR YELLOW; URINE GLUCOSE (UA) NEGATIVE (NEGATIVE); URINE KETONE NEGATIVE (NEGATIVE); URINE NITRITE POSITIVE (NEGATIVE); URINE PROTEIN NEGATIVE (NEGATIVE); URINE UROBILINOGEN NEGATIVE E.U./dl (0.2-1.0)
--- NOTE | 2016-09-05 15:07 | CON.CARD ---
Consult Consult Specialty:: Cardiology Referred by:: Javier Mcginnis MD Reason for Consultation:: Chest pain - History of Present Illness Chief Complaint: Chest pain History of Present Illness: 65 year old female h/o HCVD, type 2 DM, CAD h/o acute coronary syndrome with mildly abnormal MPI, hypothyroidism, anemia, hypertension, hypercholesterolemia , diabetes mellitus, obesity, osteoarthritis, lumbar laminectomy x 3, uterine fibroids, anemia, dysfunctional uterine bleeding post hysteroscopy, dilation and curettage, excision of uterine polyps with subsequent confirmation of uterine cancer planned for hysterectomy 09/16 at [facility] presented with chest pain, palpitations, and sciatica. Pt states that she woke up Monday at 11AM and began to experience sciatica pain starting at the left-side of her lower back, moving down her buttock, and along her left leg. As per son, it is becoming increasingly more difficult to transport the patient, who normally ambulates with a walker, due to the pain. Due to severe back pain, she then developed left -sided chest pain, palpitations, dizziness, dyspnea and nausea. Allergies: Penicillins Past Surgical History: Section Social History: Non-smoker. Denies alcohol or drug use. PCP: Dr. Javier Mcginnis Doping Supervisor: Dr. Guzman - History Source History Provided By: Patient Limitations to Obtaining History: No Limitations - Past Medical History Cardio/Vascular: Yes: HTN, Hyperlipdemia, Other (chest pain, CAD with apical ischemia) Pulmonary: Yes: Other (SOB ) Renal/: Yes: Renal Calculi Musculoskeletal: Yes: Osteoarthritis Endocrine: Yes: Diabetes Mellitus, Hypothyroidism - Past Surgical History Past Surgical History: Yes: (1954, 1955, 1980 ), Laminectomy (spine surgery , 3 times, disc removal & fusion done at [facility] ) - Alcohol/Substance Use Hx Alcohol Use: No History of Substance Use: reports: None - Smoking History Smoking history: Never smoked Have you smoked in the past 12 months: No Aproximately how many cigarettes per day: 0 - Social History ADL: Independent 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 History of Recent Travel: No Home Medications - Allergies Allergies/Adverse Reactions: Allergies Allergy/AdvReac Type Severity Reaction Status Date / Time Penicillins AdvReac Intermediate Rash Verified 07/25/16 07:47 - Home Medications Home Medications: Ambulatory Orders Atorvastatin Ca [Lipitor] 20 mg PO HS 07/22/16 Furosemide [Lasix] 20 mg PO DAILY 07/22/16 Hydrochlorothiazide 25 mg PO DAILY 07/22/16 Levothyroxine [Synthroid -] 75 mcg PO DAILY 07/22/16 Lisinopril 10 mg PO DAILY 07/22/16 Metoprolol Succinate [Toprol Xl] 50 mg PO DAILY 07/22/16 Acetaminophen [Tylenol .Regular Strength -] 650 mg PO Q6H PRN #0 tablet Clopidogrel Bisulfate [Plavix -] 75 mg PO HS 07/28/16 Glipizide [Glipizide ER] 5 mg PO DAILY 09/05/16 Family Disease History - Family Disease History Family Disease History: Diabetes: Father, Brother, Sister, Heart Disease: Mother (Stomach Ca, CVA), CA: Grandparent (Cervical), Mother, Sister Review of Systems - Review of Systems Cardiovascular: reports: Chest Pain, Shortness of Breath Musculoskeletal: reports: Back Pain Vital Signs: Vital Signs Temperature 98.1 F 09/05/16 07:30 Pulse Rate 74 09/05/16 09:13 Respiratory Rate 18 09/05/16 07:30 Blood Pressure 106/56 09/05/16 07:30 O2 Sat by Pulse Oximetry (%) 100 09/05/16 09:13 Constitutional: Yes: No Distress, Calm Neck: Yes: Supple Respiratory: Yes: Regular, Diminished Gastrointestinal: Yes: Normal Bowel Sounds, Soft, Abdomen, Obese Cardiovascular: Yes: Regular Rate and Rhythm JVD: No Carotid Bruit: No Heart Sounds: Yes: S1, S2 Murmur: Yes: Systolic Murmur, Grade 1 Edema: No - Other Data Labs, Other Data: CBC, BMP 09/05/16 08:55 09/05/16 08:55 INR, PTT INR 1.14 (0.82-1.09) 09/05/16 00:01 Troponin, BNP 09/05/16 09/05/16 06:50 08:55 Troponin I < 0.02 < 0.02 Troponin, BNP 09/05/16 09/05/16 06:50 08:55 Troponin I < 0.02 < 0.02 NSR @ 81 IRBBB Ejection Fraction %: LVEF > or = 40 % Imaging - Results Chest X-ray: Report Reviewed (NAD) Problem List - Problems (1) Chest pain Code(s): R07.9 - CHEST PAIN, UNSPECIFIED Qualifiers: Chest pain type: chest pain on breathing Qualified Code(s): R07.1 - Chest pain on breathing (2) Sciatica Code(s): M54.30 - SCIATICA, UNSPECIFIED SIDE Qualifiers: Laterality: left Qualified Code(s): M54.32 - Sciatica, left side (3) Status post dilation and curettage Code(s): Z98.890 - OTHER SPECIFIED POSTPROCEDURAL STATES (4) Anemia Code(s): D64.9 - ANEMIA, UNSPECIFIED Qualifiers: Anemia type: unspecified type Qualified Code(s): D64.9 - Anemia, unspecified (5) Coronary artery disease Code(s): I25.10 - ATHSCL HEART DISEASE OF [place] CORONARY ARTERY W/O ANG PCTRS Qualifiers: Coronary Disease-Associated Artery/Lesion type: unspecified vessel or lesion type [place] vs. transplanted heart: [place] heart Associated angina: with unspecified angina Qualified Code(s): I25.119 - Atherosclerotic heart disease of [place] coronary artery with unspecified angina pectoris (6) Diabetes mellitus type 2 in obese Code(s): E11.9 - TYPE 2 DIABETES MELLITUS WITHOUT COMPLICATIONS E66.9 - OBESITY, UNSPECIFIED (7) Dyslipidemia associated with type 2 diabetes mellitus Code(s): E11.69 - TYPE 2 DIABETES MELLITUS WITH OTHER SPECIFIED COMPLICATION E78.5 - HYPERLIPIDEMIA, UNSPECIFIED (8) HTN (hypertension) Code(s): I10 - ESSENTIAL (PRIMARY) HYPERTENSION Qualifiers: Hypertension type: essential hypertension Qualified Code(s): I10 - Essential (primary) hypertension (9) Hyperlipidemia Code(s): E78.5 - HYPERLIPIDEMIA, UNSPECIFIED Qualifiers: Hyperlipidemia type: pure hypercholesterolemia Qualified Code(s): E78.00 - Pure hypercholesterolemia, unspecified; E78.0 - Pure hypercholesterolemia (10) Hypothyroid Code(s): E03.9 - HYPOTHYROIDISM, UNSPECIFIED Qualifiers: Hypothyroidism type: acquired Qualified Code(s): E03.9 - Hypothyroidism, unspecified (11) Low back pain Code(s): M54.5 - LOW BACK PAIN Qualifiers: Chronicity: chronic Assessment/Plan Echo: 03/11/2015 Normal LV size and fxn, tr MR P-Myoview 03/12/2015 No ischemia, LVEF 72% Echo: 06/09/2016 Echo: Normal biventricular size and fxn, mild MR, TR, RVSP 30-40 mmHg P-Myoview: 06/10/2016 Small, mild apical ischemia, normal LVEF 70% 1. Chest pain syndrome with atypical features suspect anxiety in context of severe sciatica 2. CAD post acute coronary syndrome abnormal MPI study (mild apical ischemia) angina pectoris, stable 3. Diastolic LV dysfunction with class 0 NYHA classification LV failure 4. HTN 5. DM 6. Hypercholesterolemia 7. Hypothyroidism 8. Left renal colic and hydronephrosis post cystoscopy and left ureteral stent 9. History of ALCEY (obstructive uropathy) 10. Anemia with h/o dysfunctional uterine bleed due to uterine ca PLAN: 1. Continue Toprol 50 qd 2. Continue Lisinopril 10 qd 3. Continue Lipitor 20 qhs 4. Continue Lasix 20 qd and Hydrochlorothiazide 25 qd 5. Off ASA due to dysfunctional uterine bleed pending planned hysterectomy 6. Analgesia as needed, ruling out for [place], neuro input 7. Thank you for consultative opportunity
[2016-09-05 15:10] LABS: URINE BLOOD 1+ (NEGATIVE); URINE LEUK ESTERASE 1+ (NEGATIVE)
[2016-09-05 15:16] LABS: URINE HYALINE CAST 26 /lpf; URINE MUCUS RARE; URINE RBC 1 /hpf (0-3); URINE WBC 3 /hpf (3-5)
[2016-09-05 15:32] LABS: TROPONIN I < 0.02 ng/ml (0.00-0.05)
[2016-09-05 15:33] LABS: URINE BACTERIA MANY /hpf (NONE SEEN)
--- NOTE | 2016-09-05 18:27 | CON.NEURO ---
Consult Consult Specialty:: Neurology For [facility] Referred by:: Dr. Mcginnis Reason for Consultation:: Lumbar radiculopathy - History of Present Illness Chief Complaint: Back pain radiating down the left leg since Monday History of Present Illness: 65 year old woman with history of coronary artery disease, DMII, HTN, fibroids, and uterine cancer, laminectomy, who developed severe back pain in July following biopsy of her uterus. She had imaging which revealed herniated discs , but the pain got better until Monday when she had an acute exacerbation to the point where any movement is excruciating. She comes in with severe incapacitating pain and associated chest pain as well. She was also seen by cardiology. During the course of the interview, I pointed out to her that her right nasolabial fold was flattened and didn't move as her left did, and asked her if that were old. She said that she hadn't looked in a mirror since Monday , and when I showed her her face in my phone, she said that it was different. She has pain going from her back radiating down the left leg. She was given morphine in the ER which did take the edge off the pain. - History Source History Provided By: Patient, Medical Record Limitations to Obtaining History: No Limitations - Past Medical History Cardio/Vascular: Yes: HTN, Hyperlipdemia, Other (chest pain, CAD with apical ischemia) Pulmonary: Yes: Other (SOB ) Renal/: Yes: Renal Calculi Musculoskeletal: Yes: Osteoarthritis Endocrine: Yes: Diabetes Mellitus, Hypothyroidism - Past Surgical History Past Surgical History: Yes: (1954, 1955, 1980 ), Laminectomy (spine surgery , 3 times, disc removal & fusion done at [facility] ) - Alcohol/Substance Use Hx Alcohol Use: No History of Substance Use: reports: None - Smoking History Smoking history: Never smoked Have you smoked in the past 12 months: No Aproximately how many cigarettes per day: 0 - Social History ADL: Independent 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 History of Recent Travel: No Home Medications - Allergies Allergies/Adverse Reactions: Allergies Allergy/AdvReac Type Severity Reaction Status Date / Time Penicillins AdvReac Intermediate Rash Verified 07/25/16 07:47 - Home Medications Home Medications: Ambulatory Orders Atorvastatin Ca [Lipitor] 20 mg PO HS 07/22/16 Furosemide [Lasix] 20 mg PO DAILY 07/22/16 Hydrochlorothiazide 25 mg PO DAILY 07/22/16 Levothyroxine [Synthroid -] 75 mcg PO DAILY 07/22/16 Lisinopril 10 mg PO DAILY 07/22/16 Metoprolol Succinate [Toprol Xl] 50 mg PO DAILY 07/22/16 Acetaminophen [Tylenol .Regular Strength -] 650 mg PO Q6H PRN #0 tablet Clopidogrel Bisulfate [Plavix -] 75 mg PO HS 07/28/16 Glipizide [Glipizide ER] 5 mg PO DAILY 09/05/16 Family Disease History - Family Disease History Family Disease History: Diabetes: Father, Brother, Sister, Heart Disease: Mother (Stomach Ca, CVA), CA: Grandparent (Cervical), Mother, Sister Physical Exam-Neuro Vital Signs: Vital Signs Temperature 98.6 F 09/05/16 16:40 Pulse Rate 70 09/05/16 16:40 Respiratory Rate 18 09/05/16 16:40 Blood Pressure 115/74 09/05/16 16:40 O2 Sat by Pulse Oximetry (%) 98 09/05/16 16:40 Labs: CBC, BMP 09/05/16 08:55 09/05/16 08:55 INR, PTT INR 1.14 (0.82-1.09) 09/05/16 00:01 - Neuro Exam Cranial Nerves II-XII Intact: No (CN II-XII intact except for reduced movement of right lower face and flattened right nasolabial fold.) DTR's: 0 Left Achilles, 0 Right Achilles, 2+ Left Bicep, 2+ Right Bicep, 2+ Left Tricep, 2+ Right Tricep, 2+ Left Brachioradialis, 2+ Right Brachioradialis Babinski: Absent (withdrew) Motor Strength: 5/5: Left Arm, Right Arm Gait: Deferred (patient's pain level precluded lower extremity motor testing) NIH Stroke Scale - Total Score NIH Stroke Scale Score: 0 Problem List - Problems (1) Sciatica Assessment/Plan: IN addition to prn morphine, I'll add small dose of standing morphine so that her pain level has a chance to drop a bit. We'll probably have to titrate it up a bit, but I wanted to start by under dosing rather than overdosing. 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 Patient was not aware of the change. Interestingly, no other motor deficits were evident, which is a bit unusual. Dr. Cheung to f/u tomorrow. Thanks. Code(s): S04.50XA - INJURY OF FACIAL NERVE, UNSPECIFIED SIDE, INITIAL ENCOUNTER Qualifiers: Laterality: right
[2016-09-05] MEDS ORDERED: CLOPIDOGREL BISULFATE 75 MG TABLET (FP) PO SCH (22:00)
[2016-09-05] MEDS: HEPARIN NA (PORCINE) 5,000 UNITS/ML 1ML VIAL SQ SCH (23:03)
[2016-09-05] MEDS: morphine SO4 SUSTAINED ACTING 15 MG TABLET.SA PO SCH (23:04)
[2016-09-05] MEDS: ATORVASTATIN CA 20 MG TABLET (FP) PO SCH (23:04)
[2016-09-05] MEDS: ONDANSETRON 4 MG/2 ML VIAL IVPB PRN (23:13)
[2016-09-06] MEDS: morphine CARPU-JECT 4 MG/1 ML DISP.SYRIN IVPB PRN ×2 (04:48→10:54)
[2016-09-06] MEDS: glipiZIDE-XL 5 MG TAB.ER.24 PO SCH (06:20)
[2016-09-06] MEDS: LEVOTHYROXINE NA 75 MCG TABLET (FP) PO SCH (06:20)
[2016-09-06] MEDS: INSULIN SLIDING SCALE (NOVOLOG) 1 VIAL SQ SCH ×4 (06:21→22:19)
[2016-09-06 07:33] LABS: MCH 27.5 pg (25.7-33.7); MCHC 32.7 g/dl (32.0-36.0); MEAN CELL VOLUME 84.1 fl (80-96); MEAN PLT VOLUME 7.5 fl (7.5-11.1); PLATELET COUNT 328 K/MM3 (134-434); WHITE BLOOD COUNT 12.5 K/mm3 (4.0-10.0)
[2016-09-06 07:58] LABS: ANION GAP 10 (8-16); CALCIUM 9.3 mg/dL (8.5-10.1); CO2 29 mmol/L (21-32); CREATININE 0.9 mg/dL (0.55-1.02); GLUCOSE,RANDOM 109 mg/dL (74-106); SGOT/AST 12 U/L (15-37); SGPT/ALT 16 U/L (12-78)
[2016-09-06 08:00] LABS: ALK PHOS 80 U/L (45-117); BILIRUBIN,TOTAL 0.5 mg/dL (0.2-1.0); TOT PROT 6.5 g/dl (6.4-8.2)
[2016-09-06] MEDS ORDERED: PT OWN MED DRAWER 7, Y5N ONE (09:47)
[2016-09-06 10:23] LABS: URINE APPEARANCE SLCLOUDY; URINE BILIRUBIN NEGATIVE (NEGATIVE); URINE COLOR YELLOW; URINE GLUCOSE (UA) NEGATIVE (NEGATIVE); URINE KETONE NEGATIVE (NEGATIVE); URINE NITRITE POSITIVE (NEGATIVE); URINE PROTEIN NEGATIVE (NEGATIVE); URINE UROBILINOGEN NEGATIVE E.U./dl (0.2-1.0)
[2016-09-06 10:31] LABS: URINE BLOOD 2+ (NEGATIVE); URINE LEUK ESTERASE 1+ (NEGATIVE)
[2016-09-06 10:32] LABS: URINE RBC 4 /hpf (0-3); URINE WBC 7 /hpf (3-5)
[2016-09-06 10:33] LABS: URINE BACTERIA RARE /hpf (NONE SEEN); URINE HYALINE CAST 3 /lpf; URINE MUCUS RARE
[2016-09-06] MEDS: morphine SO4 SUSTAINED ACTING 15 MG TABLET.SA PO SCH ×2 (10:53→21:10)
[2016-09-06] MEDS: HEPARIN NA (PORCINE) 5,000 UNITS/ML 1ML VIAL SQ SCH ×2 (10:55→21:09)
[2016-09-06] MEDS: LISINOPRIL 10 MG TABLET (FP) PO SCH (10:55)
[2016-09-06] MEDS: FUROSEMIDE 20 MG TABLET (FP) PO SCH (10:55)
[2016-09-06] MEDS: METOPROLOL SUCCINATE 50 MG TAB.SR.24H (FP) PO SCH ×2 (10:55→21:10)
[2016-09-06] MEDS: HYDROCHLOROTHIAZIDE 25 MG TABLET (FP) PO SCH (10:55)
[2016-09-06] MEDS: ONDANSETRON 4 MG/2 ML VIAL IVPB PRN ×2 (10:55→17:46)
[2016-09-06] MEDS ORDERED: HYDROmorphone HCL CARPU-JECT 2 MG/1 ML DISP.SYRIN IVPB PRN (11:01)
--- NOTE | 2016-09-06 11:08 | PN ---
Progress Note (short form) - Note Progress Note: Chief Complaint: Events noted, notes reviewed, denies any chest pain or dyspnea , continues to report back discomfort and nausea History of Present Illness: Seen and examined on telemetry. Events noted, notes reviewed, denies any chest pain or dyspnea, continues to report back discomfort and nausea Neurology consult noted, evaluation of facial drop in progress, not evident on my exam although my exam is limited (MRI pending) - Current Medication List Current Medications Acetaminophen (Tylenol -) 650 mg PO Q6H PRN PRN Reason: FEVER OR PAIN Atorvastatin Calcium (Lipitor -) 20 mg PO HS [facility] Last Admin: 09/05/16 23:04 Dose: 20 mg Clopidogrel Bisulfate (Plavix -) 75 mg PO HS [facility] Last Admin: 09/05/16 23:04 Dose: 75 mg Furosemide (Lasix -) 20 mg PO DAILY [facility] Last Admin: 09/06/16 10:55 Dose: 20 mg Glipizide (Glucotrol Xl -) 5 mg PO DAILY@0700 [facility] Last Admin: 09/06/16 06:20 Dose: 5 mg Heparin Sodium (Porcine) (Heparin -) 5,000 unit SQ BID [facility] Last Admin: 09/06/16 10:55 Dose: 5,000 unit Hydrochlorothiazide (Hctz -) 25 mg PO DAILY [facility] Last Admin: 09/06/16 10:55 Dose: 25 mg Hydromorphone HCl (Dilaudid Injection -) 2 mg IVPB Q6H PRN PRN Reason: PAIN Insulin Aspart (Novolog Vial Sliding Scale -) 1 vial SQ ACHS [facility] PRN Reason: Protocol Last Admin: 09/06/16 06:21 Dose: Not Given Levothyroxine Sodium (Synthroid -) 75 mcg PO DAILY@0700 [facility] Last Admin: 09/06/16 06:20 Dose: 75 mcg Lisinopril (Prinivil) 10 mg PO DAILY [facility] Last Admin: 09/06/16 10:55 Dose: 10 mg Metoprolol Succinate (Toprol Xl -) 50 mg PO BID [facility] Last Admin: 09/06/16 10:55 Dose: 50 mg Morphine Sulfate (Ms Contin -) 15 mg PO BID [facility] Last Admin: 09/06/16 10:53 Dose: 15 mg Ondansetron HCl (Zofran Injection) 4 mg IVPB Q8H PRN PRN Reason: NAUSEA Last Admin: 09/06/16 10:55 Dose: 4 mg Review of Systems - Review of Systems Constitutional: denies: Chills, Fever Cardiovascular: As noted above Respiratory: denies: Cough or Sputum Production Gastrointestinal: denies: Vomiting, Diarrhea, Constipation or Abdominal Pain but reports Nausea as noted above Musculoskeletal: As noted above Neurological: No symptoms reported - Objective Vital Signs: Last Vital Signs Temp Pulse Resp BP Pulse Ox 98.2 F 84 14 114/56 97 09/06/16 08:00 09/06/16 08:00 09/06/16 08:00 09/06/16 08:00 09/05/16 21:00 Neck: Supple Negative JVD No bruit Cardiovascular: S1 S2 Regular Rate and Rhythm Respiratory: Clear to A&P Bilaterally Gastrointestinal: Soft Benign Normal Bowel Sounds Ext: Trace Edema Labs: CBC, BMP 07/23/16 07:30 07/23/16 07:30 Assessment/Plan ASSESSMENT: 1. Chest pain syndrome with atypical features suspect anxiety in context of severe sciatica 2. CAD post acute coronary syndrome abnormal MPI study (mild apical ischemia) angina pectoris, stable 3. Diastolic LV dysfunction with class 0 NYHA classification LV failure 4. HTN 5. DM 6. Hypercholesterolemia 7. Hypothyroidism 8. Left renal colic and hydronephrosis post cystoscopy and left ureteral stent 9. History of LACEY (related obstructive uropathy) 10. Anemia with h/o dysfunctional uterine bleed due to uterine ca PLAN: 1. Continue Toprol XL but increase dosage to twice daily (dose was increased as outpatient related to tachycardia) 2. Continue Lisinopril 3. Continue Lipitor 4. Continue Lasix and Hydrochlorothiazide with caution 5. Resume ASA and D/C Plavix pending planned hysterectomy for next week ( surgery to be performed with ASA on board) 6. Pain management as per the primary team Belén Guzman MD
--- NOTE | 2016-09-06 12:13 | PN ---
Progress Note (short form) - Note Progress Note: Neurology History of Present Illness: 65 year old woman with history of coronary artery disease, DMII, HTN, fibroids, and uterine cancer, laminectomy, who developed severe back pain in July following biopsy of her uterus. She had imaging which revealed herniated discs , but the pain got better until Monday when she had an acute exacerbation to the point where any movement is excruciating. She comes in with severe incapacitating pain and associated chest pain as well, seen by Dr. Ibanez covering over weekend. She was also seen by cardiology. Mention of ? right nasolabial fold was flattened and didn't move as her left did, and asked her if that were old. She said that she hadn't looked in a mirror since Monday, and when I showed her her face in my phone, she said that it was different. She has pain going from her back radiating down the left leg. She was given morphine in the ER which did take the edge off the pain. Active Medications Acetaminophen (Tylenol -) 650 mg PO Q6H PRN PRN Reason: FEVER OR PAIN Aspirin (Ecotrin -) 81 mg PO DAILY [facility] Atorvastatin Calcium (Lipitor -) 20 mg PO HS [facility] Last Admin: 09/05/16 23:04 Dose: 20 mg Furosemide (Lasix -) 20 mg PO DAILY [facility] Last Admin: 09/06/16 10:55 Dose: 20 mg Glipizide (Glucotrol Xl -) 5 mg PO DAILY@0700 [facility] Last Admin: 09/06/16 06:20 Dose: 5 mg Heparin Sodium (Porcine) (Heparin -) 5,000 unit SQ BID [facility] Last Admin: 09/06/16 10:55 Dose: 5,000 unit Hydrochlorothiazide (Hctz -) 25 mg PO DAILY [facility] Last Admin: 09/06/16 10:55 Dose: 25 mg Hydromorphone HCl (Dilaudid Injection -) 2 mg IVPB Q6H PRN PRN Reason: PAIN Insulin Aspart (Novolog Vial Sliding Scale -) 1 vial SQ ACHS [facility] PRN Reason: Protocol Last Admin: 09/06/16 06:21 Dose: Not Given Levothyroxine Sodium (Synthroid -) 75 mcg PO DAILY@0700 [facility] Last Admin: 09/06/16 06:20 Dose: 75 mcg Lisinopril (Prinivil) 10 mg PO DAILY [facility] Last Admin: 09/06/16 10:55 Dose: 10 mg Metoprolol Succinate (Toprol Xl -) 50 mg PO BID [facility] Last Admin: 09/06/16 10:55 Dose: 50 mg Morphine Sulfate (Ms Contin -) 15 mg PO BID [facility] Last Admin: 09/06/16 10:53 Dose: 15 mg Ondansetron HCl (Zofran Injection) 4 mg IVPB Q8H PRN PRN Reason: NAUSEA Last Admin: 09/06/16 10:55 Dose: 4 mg Family Disease History - Family Disease History Family Disease History: Diabetes: Father, Brother, Sister, Heart Disease: Mother (Stomach Ca, CVA), CA: Grandparent (Cervical), Mother, Sister Physical Exam-Neuro Vital Signs Temperature 98.2 F 09/06/16 08:00 Pulse Rate 84 09/06/16 08:00 Respiratory Rate 14 09/06/16 08:00 Blood Pressure 114/56 09/06/16 08:00 O2 Sat by Pulse Oximetry (%) 97 09/05/16 21:00 CBCD WBC 12.5 K/mm3 (4.0-10.0) H 09/06/16 05:35 RBC 3.51 M/mm3 (3.60-5.2) L 09/06/16 05:35 Hgb 9.6 GM/dL (10.7-15.3) L 09/06/16 05:35 Hct 29.5 % (32.4-45.2) L 09/06/16 05:35 MCV 84.1 fl (80-96) 09/06/16 05:35 MCHC 32.7 g/dl (32.0-36.0) 09/06/16 05:35 RDW 17.0 % (11.6-15.6) H 09/06/16 05:35 Plt Count 328 K/MM3 (134-434) 09/06/16 05:35 MPV 7.5 fl (7.5-11.1) 09/06/16 05:35 CMP Sodium 141 mmol/L (136-145) 09/06/16 05:35 Potassium 3.8 mmol/L (3.5-5.1) 09/06/16 05:35 Chloride 102 mmol/L (98-107) 09/06/16 05:35 Carbon Dioxide 29 mmol/L (21-32) 09/06/16 05:35 Anion Gap 10 (8-16) 09/06/16 05:35 BUN 26 mg/dL (7-18) H 09/06/16 05:35 Creatinine 0.9 mg/dL (0.55-1.02) 09/06/16 05:35 Creat Clearance w eGFR > 60 (>60) 09/06/16 05:35 Calcium 9.3 mg/dL (8.5-10.1) 09/06/16 05:35 Total Bilirubin 0.5 mg/dL (0.2-1.0) 09/06/16 05:35 AST 12 U/L (15-37) L 09/06/16 05:35 ALT 16 U/L (12-78) 09/06/16 05:35 Alkaline Phosphatase 80 U/L (45-117) 09/06/16 05:35 Total Protein 6.5 g/dl (6.4-8.2) 09/06/16 05:35 Albumin 3.0 g/dl (3.4-5.0) L 09/06/16 05:35 - Neuro Exam Cranial Nerves II-XII Intact: No (CN II-XII intact except for reduced movement of right lower face and flattened right nasolabial fold.) DTR's: 0 Left Achilles, 0 Right Achilles, 2+ Left Bicep, 2+ Right Bicep, 2+ Left Tricep, 2+ Right Tricep, 2+ Left Brachioradialis, 2+ Right Brachioradialis Babinski: Absent (withdrew) Motor Strength: 5/5: Left Arm, Right Arm Gait: D - Plan: 65 year old woman with history of coronary artery disease, DMII, HTN, fibroids, and uterine cancer, laminectomy, who developed severe back pain in July following biopsy of her uterus. She had imaging which revealed herniated discs , but the pain got better until Monday when she had an acute exacerbation to the point where any movement is excruciating. She comes in with severe incapacitating pain and associated chest pain as well, seen by Dr. Ibanez covering over weekend. She was also seen by cardiology. Mention of ? right nasolabial fold was flattened and didn't move as her left did, and asked her if that were old. Agree with MRI brain Had lumbar spine imaging already PT/OT Pain mgmt, consider consult Dr. regan Would not make suddent movements DVT ppx
[2016-09-06] MEDS ORDERED: DOCUSATE SODIUM 100 MG CAPSULE (FP) PO PRN (15:52)
--- NOTE | 2016-09-06 17:12 | CONSULT ---
Consult Consult Specialty:: Pain Management Reason for Consultation:: LBP - History of Present Illness Chief Complaint: LBP with Left leg pain History of Present Illness: 65 yr old female was admitted with severe LBP with left leg pain for last 4 days with acute onset. She had back surgery x3 in past. pain 10/10 , radiating left leg with no numbness or tingling. she has difficulty in ambulation. - History Source History Provided By: Patient Limitations to Obtaining History: No Limitations - Past Medical History Cardio/Vascular: Yes: HTN, Hyperlipdemia, Other (chest pain, CAD with apical ischemia) Pulmonary: Yes: Other (SOB ) Renal/: Yes: Renal Calculi Musculoskeletal: Yes: Osteoarthritis Endocrine: Yes: Diabetes Mellitus, Hypothyroidism - Past Surgical History Past Surgical History: Yes: (1954, 1955, 1980 ), Laminectomy (spine surgery , 3 times, disc removal & fusion done at [facility] ) - Alcohol/Substance Use Hx Alcohol Use: No History of Substance Use: reports: None - Smoking History Smoking history: Never smoked Have you smoked in the past 12 months: No Aproximately how many cigarettes per day: 0 - Social History ADL: Independent 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 History of Recent Travel: No Home Medications - Allergies Allergies/Adverse Reactions: Allergies Allergy/AdvReac Type Severity Reaction Status Date / Time Penicillins AdvReac Intermediate Rash Verified 07/25/16 07:47 - Home Medications Home Medications: Ambulatory Orders Atorvastatin Ca [Lipitor] 20 mg PO HS 07/22/16 Furosemide [Lasix] 20 mg PO DAILY 07/22/16 Hydrochlorothiazide 25 mg PO DAILY 07/22/16 Levothyroxine [Synthroid -] 75 mcg PO DAILY 07/22/16 Lisinopril 10 mg PO DAILY 07/22/16 Metoprolol Succinate [Toprol Xl] 50 mg PO DAILY 07/22/16 Acetaminophen [Tylenol .Regular Strength -] 650 mg PO Q6H PRN #0 tablet Clopidogrel Bisulfate [Plavix -] 75 mg PO HS 07/28/16 Glipizide [Glipizide ER] 5 mg PO DAILY 09/05/16 Family Disease History - Family Disease History Family Disease History: Diabetes: Father, Brother, Sister, Heart Disease: Mother (Stomach Ca, CVA), CA: Grandparent (Cervical), Mother, Sister Review of Systems - Review of Systems Constitutional: reports: No Symptoms Eyes: reports: No Symptoms HENT: reports: No Symptoms Neck: reports: No Symptoms Gastrointestinal: reports: No Symptoms Genitourinary: reports: No Symptoms Musculoskeletal: reports: Back Pain, Extremity Pain Integumentary: reports: No Symptoms Neurological: reports: No Symptoms Endocrine: reports: No Symptoms Hematology/Lymphatic: reports: No Symptoms Psychiatric: reports: No Symptoms Pain Intensity: 10 Physical Exam Vital Signs: Vital Signs Temperature 99.1 F 09/06/16 14:00 Pulse Rate 82 09/06/16 14:00 Respiratory Rate 16 09/06/16 14:00 Blood Pressure 100/45 09/06/16 14:00 O2 Sat by Pulse Oximetry (%) 96 09/06/16 09:00 Constitutional: Yes: Well Nourished, Calm, Obese Eyes: Yes: WNL HENT: Yes: WNL Neck: Yes: WNL Gastrointestinal: Yes: WNL Musculoskeletal: Yes: Back Pain, Muscle Pain, Muscle Weakness, Other Extremities: Yes: WNL Edema: No Peripheral Pulses WNL: Yes Neurological: Yes: WNL ...Motor Strength: WNL Psychiatric: Yes: WNL Labs: CBC, BMP 09/06/16 05:35 09/06/16 05:35 Problem List - Problems (1) Low back pain of multiple sites of spine with sciatica Code(s): M54.40 - LUMBAGO WITH SCIATICA, UNSPECIFIED SIDE (2) Fusion of lumbar spine Assessment/Plan: discussed in detail and answered all questions. continue current care Physical therapy. ambulation with assistance. dilaudid 1 mg IVPush q 4 hr PRN MRI of L-S spine with/without contrast. Neurontin 300 mg po TID Flexeril 10 mg PO BID please call if pain not well controlled [phone]. Thanks Kei Fabian MD Code(s): M43.26 - FUSION OF SPINE, LUMBAR REGION
[2016-09-06] MEDS ORDERED: HYDROmorphone HCL CARPU-JECT 1 MG/1 ML DISP.SYRIN IVPB PRN (17:19)
[2016-09-06] MEDS: SENNOSIDES 8.6MG TABLET (FP) PO SCH ×2 (18:21→21:10)
[2016-09-06] MEDS: GABAPENTIN 300 MG CAPSULE (FP) PO SCH (21:10)
[2016-09-06] MEDS: CYCLOBENZAPRINE HCL 10 MG TABLET (FP) PO SCH (21:10)
[2016-09-06] MEDS: ATORVASTATIN CA 20 MG TABLET (FP) PO SCH (21:10)
--- NOTE | 2016-09-06 23:48 | PN ---
Progress Note, Physician History of Present Illness: Pt. on Telemetry floor. Pt. w/o CP, palp, dizziness Pt with back pain, minimal improvement with Morphine. - Current Medication List Current Medications: Active Medications Acetaminophen (Tylenol -) 650 mg PO Q6H PRN PRN Reason: FEVER OR PAIN Aspirin (Ecotrin -) 81 mg PO DAILY [facility] Atorvastatin Calcium (Lipitor -) 20 mg PO HS [facility] Last Admin: 09/06/16 21:10 Dose: 20 mg Cyclobenzaprine HCl (Flexeril -) 10 mg PO TID [facility] Last Admin: 09/06/16 21:10 Dose: 10 mg Docusate Sodium (Colace -) 100 mg PO BID PRN PRN Reason: CONSTIPATION Furosemide (Lasix -) 20 mg PO DAILY [facility] Last Admin: 09/06/16 10:55 Dose: 20 mg Gabapentin (Neurontin -) 300 mg PO TID [facility] Last Admin: 09/06/16 21:10 Dose: 300 mg Glipizide (Glucotrol Xl -) 5 mg PO DAILY@0700 [facility] Last Admin: 09/06/16 06:20 Dose: 5 mg Heparin Sodium (Porcine) (Heparin -) 5,000 unit SQ BID [facility] Last Admin: 09/06/16 21:09 Dose: 5,000 unit Hydrochlorothiazide (Hctz -) 25 mg PO DAILY [facility] Last Admin: 09/06/16 10:55 Dose: 25 mg Hydromorphone HCl (Dilaudid Injection -) 1 mg IVPB Q4H PRN PRN Reason: PAIN Last Admin: 09/06/16 19:49 Dose: 1 mg Insulin Aspart (Novolog Vial Sliding Scale -) 1 vial SQ ACHS [facility] PRN Reason: Protocol Last Admin: 09/06/16 17:44 Dose: Not Given Levothyroxine Sodium (Synthroid -) 75 mcg PO DAILY@0700 [facility] Last Admin: 09/06/16 06:20 Dose: 75 mcg Lisinopril (Prinivil) 10 mg PO DAILY [facility] Last Admin: 09/06/16 10:55 Dose: 10 mg Metoprolol Succinate (Toprol Xl -) 50 mg PO BID [facility] Last Admin: 09/06/16 21:10 Dose: 50 mg Morphine Sulfate (Ms Contin -) 15 mg PO BID [facility] Last Admin: 09/06/16 21:10 Dose: 15 mg Ondansetron HCl (Zofran Injection) 4 mg IVPB Q8H PRN PRN Reason: NAUSEA Last Admin: 09/06/16 17:46 Dose: 4 mg Senna (Senna -) 1 tab PO BID [facility] Last Admin: 09/06/16 21:10 Dose: 1 tab - Objective Vital Signs: Vital Signs Temperature 98.4 F 09/06/16 17:30 Pulse Rate 84 09/06/16 17:30 Respiratory Rate 16 09/06/16 17:30 Blood Pressure 116/68 09/06/16 17:30 O2 Sat by Pulse Oximetry (%) 98 09/06/16 21:00 Constitutional: Yes: No Distress, Calm Cardiovascular: Yes: Regular Rate and Rhythm, S1, S2 Respiratory: Yes: Regular, CTA Bilaterally. No: Rales Gastrointestinal: Yes: Normal Bowel Sounds, Soft. No: Tenderness Edema: Yes Labs: CBC, BMP 09/06/16 05:35 09/06/16 05:35 INR, PTT INR 1.14 (0.82-1.09) 09/05/16 00:01 Problem List - Problems (1) Chest pain Assessment/Plan: serial CE are negative, Case was d/w Dr. Guzman, no new cardiac injury Code(s): R07.9 - CHEST PAIN, UNSPECIFIED Qualifiers: Chest pain type: chest pain on breathing Qualified Code(s): R07.1 - Chest pain on breathing (2) Low back pain Assessment/Plan: Change pain medicatin to Dilaudid Code(s): M54.5 - LOW BACK PAIN Qualifiers: Chronicity: chronic (3) Anemia Code(s): D64.9 - ANEMIA, UNSPECIFIED Qualifiers: Anemia type: unspecified type Qualified Code(s): D64.9 - Anemia, unspecified (4) Diabetes Code(s): E11.9 - TYPE 2 DIABETES MELLITUS WITHOUT COMPLICATIONS Qualifiers: Diabetes mellitus type: type 2 Diabetes mellitus complication detail: with chronic kidney disease 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
[2016-09-07] MEDS: CYCLOBENZAPRINE HCL 10 MG TABLET (FP) PO SCH ×3 (06:14→21:26)
[2016-09-07] MEDS: ACETAMINOPHEN 325 MG TABLET (FP) PO PRN ×2 (06:14→21:28)
[2016-09-07] MEDS: GABAPENTIN 300 MG CAPSULE (FP) PO SCH ×3 (06:14→21:28)
[2016-09-07] MEDS: glipiZIDE-XL 5 MG TAB.ER.24 PO SCH (06:14)
[2016-09-07] MEDS: LEVOTHYROXINE NA 75 MCG TABLET (FP) PO SCH (06:16)
[2016-09-07 07:35] LABS: MCH 27.1 pg (25.7-33.7); MCHC 32.6 g/dl (32.0-36.0); MEAN CELL VOLUME 83.1 fl (80-96); MEAN PLT VOLUME 7.5 fl (7.5-11.1); PLATELET COUNT 307 K/MM3 (134-434); RDW 16.6 % (11.6-15.6); WHITE BLOOD COUNT 11.5 K/mm3 (4.0-10.0)
[2016-09-07 07:56] LABS: CALCIUM 8.8 mg/dL (8.5-10.1); COCKROFT - GAULT 76.3045
[2016-09-07] MEDS: INSULIN SLIDING SCALE (NOVOLOG) 1 VIAL SQ SCH ×4 (08:14→21:38)
[2016-09-07] MEDS: morphine SO4 SUSTAINED ACTING 15 MG TABLET.SA PO SCH ×2 (10:17→21:27)
[2016-09-07] MEDS: SENNOSIDES 8.6MG TABLET (FP) PO SCH ×2 (10:18→21:28)
--- NOTE | 2016-09-07 10:40 | PN ---
Progress Note (short form) - Note Progress Note: Neurology History of Present Illness: 65 year old woman with history of coronary artery disease, DMII, HTN, fibroids, and uterine cancer, laminectomy, who developed severe back pain in July following biopsy of her uterus. She had imaging which revealed herniated discs , but the pain got better until Monday when she had an acute exacerbation to the point where any movement is excruciating. She comes in with severe incapacitating pain and associated chest pain as well, seen by Dr. Ibanez covering over weekend. She was also seen by cardiology. Mention of ? right nasolabial fold was flattened and didn't move as her left did, and asked her if that were old. She said that she hadn't looked in a mirror since Monday, and when I showed her her face in my phone, she said that it was different. She has pain going from her back radiating down the left leg. She was given morphine in the ER which did take the edge off the pain. Seen by Dr. Fabian for pain mgmt. Agree with MRI L spine. Active Medications Acetaminophen (Tylenol -) 650 mg PO Q6H PRN PRN Reason: FEVER OR PAIN Last Admin: 09/07/16 06:14 Dose: 650 mg Aspirin (Ecotrin -) 81 mg PO DAILY [facility] Atorvastatin Calcium (Lipitor -) 20 mg PO HS [facility] Last Admin: 09/06/16 21:10 Dose: 20 mg Cyclobenzaprine HCl (Flexeril -) 10 mg PO TID [facility] Last Admin: 09/07/16 06:14 Dose: 10 mg Docusate Sodium (Colace -) 100 mg PO BID PRN PRN Reason: CONSTIPATION Furosemide (Lasix -) 20 mg PO DAILY [facility] Last Admin: 09/06/16 10:55 Dose: 20 mg Gabapentin (Neurontin -) 300 mg PO TID [facility] Last Admin: 09/07/16 06:14 Dose: 300 mg Glipizide (Glucotrol Xl -) 5 mg PO DAILY@0700 [facility] Last Admin: 09/07/16 06:14 Dose: 5 mg Heparin Sodium (Porcine) (Heparin -) 5,000 unit SQ BID [facility] Last Admin: 09/06/16 21:09 Dose: 5,000 unit Hydrochlorothiazide (Hctz -) 25 mg PO DAILY [facility] Last Admin: 05/30/17 10:55 Dose: 25 mg Hydromorphone HCl (Dilaudid Injection -) 1 mg IVPB Q4H PRN PRN Reason: PAIN Last Admin: 09/06/16 19:49 Dose: 1 mg Insulin Aspart (Novolog Vial Sliding Scale -) 1 vial SQ ACHS [facility] PRN Reason: Protocol Last Admin: 09/07/16 08:14 Dose: Not Given Levothyroxine Sodium (Synthroid -) 75 mcg PO DAILY@0700 [facility] Last Admin: 09/07/16 06:16 Dose: 75 mcg Lisinopril (Prinivil) 10 mg PO DAILY [facility] Last Admin: 09/06/16 10:55 Dose: 10 mg Metoprolol Succinate (Toprol Xl -) 50 mg PO BID [facility] Last Admin: 09/06/16 21:10 Dose: 50 mg Morphine Sulfate (Ms Contin -) 15 mg PO BID [facility] Last Admin: 09/07/16 10:17 Dose: 15 mg Ondansetron HCl (Zofran Injection) 4 mg IVPB Q8H PRN PRN Reason: NAUSEA Last Admin: 09/06/16 17:46 Dose: 4 mg Senna (Senna -) 1 tab PO BID [facility] Last Admin: 09/07/16 10:18 Dose: 1 tab Family Disease History - Family Disease History Family Disease History: Diabetes: Father, Brother, Sister, Heart Disease: Mother (Stomach Ca, CVA), CA: Grandparent (Cervical), Mother, Sister Physical Exam-Neuro Vital Signs Temperature 98.2 F 09/06/16 08:00 Pulse Rate 84 09/06/16 08:00 Respiratory Rate 14 09/06/16 08:00 Blood Pressure 114/56 09/06/16 08:00 O2 Sat by Pulse Oximetry (%) 97 09/05/16 21:00 - Neuro Exam Cranial Nerves II-XII Intact: No (CN II-XII intact except for reduced movement of right lower face and flattened right nasolabial fold.) DTR's: 0 Left Achilles, 0 Right Achilles, 2+ Left Bicep, 2+ Right Bicep, 2+ Left Tricep, 2+ Right Tricep, 2+ Left Brachioradialis, 2+ Right Brachioradialis Babinski: Absent (withdrew) Motor Strength: 5/5: Left Arm, Right Arm Gait: Deferred - Plan: 65 year old woman with history of coronary artery disease, DMII, HTN, fibroids, and uterine cancer, laminectomy, who developed severe back pain in July following biopsy of her uterus. She had imaging which revealed herniated discs , but the pain got better until Monday when she had an acute exacerbation to the point where any movement is excruciating. She comes in with severe incapacitating pain and associated chest pain as well, seen by Dr. Ibanez covering over weekend. She was also seen by cardiology. Mention of ? right nasolabial fold was flattened and didn't move as her left did, and asked her if that were old. Agree with MRI brain, MRI L spine PT/OT, may need rehab placement Pain mgmt follow up, Dr. fabian Would not make sudden movements DVT ppx
--- NOTE | 2016-09-07 12:00 | PN ---
Progress Note, Physician History of Present Illness: Pt. on Telemetry floor. Pt. w/o motor or sensory deficit in UE/ LE/ face. Pt. w/o CP, palp, dizziness, abd apin, N, V. Pt with back pain, better; movements make pain worse. - Current Medication List Current Medications: Active Medications Acetaminophen (Tylenol -) 650 mg PO Q6H PRN PRN Reason: FEVER OR PAIN Last Admin: 09/07/16 06:14 Dose: 650 mg Aspirin (Ecotrin -) 81 mg PO DAILY [facility] Atorvastatin Calcium (Lipitor -) 20 mg PO HS [facility] Last Admin: 09/06/16 21:10 Dose: 20 mg Cyclobenzaprine HCl (Flexeril -) 10 mg PO TID [facility] Last Admin: 09/07/16 06:14 Dose: 10 mg Docusate Sodium (Colace -) 100 mg PO BID PRN PRN Reason: CONSTIPATION Furosemide (Lasix -) 20 mg PO DAILY [facility] Last Admin: 09/06/16 10:55 Dose: 20 mg Gabapentin (Neurontin -) 300 mg PO TID [facility] Last Admin: 09/07/16 06:14 Dose: 300 mg Glipizide (Glucotrol Xl -) 5 mg PO DAILY@0700 [facility] Last Admin: 09/07/16 06:14 Dose: 5 mg Heparin Sodium (Porcine) (Heparin -) 5,000 unit SQ BID [facility] Last Admin: 09/06/16 21:09 Dose: 5,000 unit Hydrochlorothiazide (Hctz -) 25 mg PO DAILY [facility] Last Admin: 09/06/16 10:55 Dose: 25 mg Insulin Aspart (Novolog Vial Sliding Scale -) 1 vial SQ ACHS [facility] PRN Reason: Protocol Last Admin: 09/07/16 08:14 Dose: Not Given Levothyroxine Sodium (Synthroid -) 75 mcg PO DAILY@0700 [facility] Last Admin: 09/07/16 06:16 Dose: 75 mcg Lisinopril (Prinivil) 10 mg PO DAILY [facility] Last Admin: 09/06/16 10:55 Dose: 10 mg Metoprolol Succinate (Toprol Xl -) 50 mg PO BID [facility] Morphine Sulfate (Ms Contin -) 15 mg PO BID [facility] Last Admin: 09/07/16 10:17 Dose: 15 mg Ondansetron HCl (Zofran Injection) 4 mg IVPB Q8H PRN PRN Reason: NAUSEA Last Admin: 09/06/16 17:46 Dose: 4 mg Senna (Senna -) 1 tab PO BID [facility] Last Admin: 09/07/16 10:18 Dose: 1 tab - Objective Vital Signs: Vital Signs Temperature 98.4 F 09/07/16 10:30 Pulse Rate 74 09/07/16 10:30 Respiratory Rate 14 09/07/16 10:30 Blood Pressure 94/42 09/07/16 10:30 O2 Sat by Pulse Oximetry (%) 98 09/06/16 21:00 Constitutional: Yes: No Distress, Calm, Other (sleepy) Cardiovascular: Yes: Regular Rate and Rhythm, S1, S2 Respiratory: Yes: Regular, CTA Bilaterally. No: Rales Gastrointestinal: Yes: Normal Bowel Sounds, Soft, Abdomen, Obese. No: Tenderness Edema: No Neurological: Yes: Alert, Oriented Labs: CBC, BMP 09/07/16 05:35 09/07/16 05:35 INR, PTT INR 1.14 (0.82-1.09) 09/05/16 00:01 Problem List - Problems (1) Chest pain Assessment/Plan: serial CE are negative, Code(s): R07.9 - CHEST PAIN, UNSPECIFIED Qualifiers: Chest pain type: chest pain on breathing Qualified Code(s): R07.1 - Chest pain on breathing (2) Low back pain Assessment/Plan: Pain management consult appreciated. Code(s): M54.5 - LOW BACK PAIN Qualifiers: Chronicity: chronic (3) Anemia Assessment/Plan: H/H trending down, no sign of bleeding To monitor. 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 To DC Dilaudid. To hold GAbapentin, Flexeril MS-contin until pt is more awake Code(s): R40.0 - SOMNOLENCE (8) UTI (urinary tract infection) Code(s): N39.0 - URINARY TRACT INFECTION, SITE NOT SPECIFIED Assessment/Plan Cardiology consult appreciated Neuro consult appreciated Pain Management consult appreciated Admitted to Telemetry DVT prophylaxis Start IV abtx for UTI, f/u [facility] AM labs.
[2016-09-07] MEDS: HYDROCHLOROTHIAZIDE 25 MG TABLET (FP) PO SCH (12:09)
[2016-09-07] MEDS: LISINOPRIL 10 MG TABLET (FP) PO SCH (12:09)
[2016-09-07] MEDS: FUROSEMIDE 20 MG TABLET (FP) PO SCH (12:09)
[2016-09-07] MEDS: METOPROLOL SUCCINATE 50 MG TAB.SR.24H (FP) PO SCH ×2 (12:10→21:26)
[2016-09-07] MEDS: HEPARIN NA (PORCINE) 5,000 UNITS/ML 1ML VIAL SQ SCH ×2 (12:11→21:28)
[2016-09-07] MEDS: ASPIRIN COATED 81 MG TABLET.EC PO SCH (12:11)
[2016-09-07] MEDS ORDERED: LEVOFLOXACIN 500 MG IVPB 100 ML IVPB ONE (16:24)
--- NOTE | 2016-09-07 16:45 | PN ---
Progress Note, Physician History of Present Illness: Continued back pain, chest pain, palpitations, dizziness, dyspnea and nausea resolved, L-S MRI pending. - Current Medication List Current Medications: Active Medications Acetaminophen (Tylenol -) 650 mg PO Q6H PRN PRN Reason: FEVER OR PAIN Last Admin: 09/07/16 06:14 Dose: 650 mg Aspirin (Ecotrin -) 81 mg PO DAILY [facility] Last Admin: 09/07/16 12:11 Dose: 81 mg Atorvastatin Calcium (Lipitor -) 20 mg PO HS [facility] Last Admin: 09/06/16 21:10 Dose: 20 mg Cyclobenzaprine HCl (Flexeril -) 10 mg PO TID [facility] Last Admin: 09/07/16 15:58 Dose: 10 mg Docusate Sodium (Colace -) 100 mg PO BID PRN PRN Reason: CONSTIPATION Furosemide (Lasix -) 20 mg PO DAILY [facility] Last Admin: 09/07/16 12:09 Dose: Not Given Gabapentin (Neurontin -) 300 mg PO TID [facility] Last Admin: 09/07/16 15:58 Dose: 300 mg Glipizide (Glucotrol Xl -) 5 mg PO DAILY@0700 [facility] Last Admin: 09/07/16 06:14 Dose: 5 mg Heparin Sodium (Porcine) (Heparin -) 5,000 unit SQ BID [facility] Last Admin: 09/07/16 12:11 Dose: 5,000 unit Hydrochlorothiazide (Hctz -) 25 mg PO DAILY [facility] Last Admin: 09/07/16 12:09 Dose: Not Given Levofloxacin (Levaquin 500 Mg Premixed Ivpb -) 100 mls @ 100 mls/hr IVPB ONCE ONE Stop: 09/07/16 17:23 Insulin Aspart (Novolog Vial Sliding Scale -) 1 vial SQ ACHS [facility] PRN Reason: Protocol Last Admin: 09/07/16 12:00 Dose: Not Given Levothyroxine Sodium (Synthroid -) 75 mcg PO DAILY@0700 [facility] Last Admin: 09/07/16 06:16 Dose: 75 mcg Lisinopril (Prinivil) 10 mg PO DAILY [facility] Last Admin: 09/07/16 12:09 Dose: Not Given Metoprolol Succinate (Toprol Xl -) 50 mg PO BID [facility] Morphine Sulfate (Ms Contin -) 15 mg PO BID [facility] Last Admin: 05/31/17 10:17 Dose: 15 mg Ondansetron HCl (Zofran Injection) 4 mg IVPB Q8H PRN PRN Reason: NAUSEA Last Admin: 09/06/16 17:46 Dose: 4 mg Senna (Senna -) 1 tab PO BID [facility] Last Admin: 09/07/16 10:18 Dose: 1 tab - Objective Vital Signs: Vital Signs Temperature 99.8 F H 09/07/16 15:55 Pulse Rate 92 H 09/07/16 15:55 Respiratory Rate 18 09/07/16 15:55 Blood Pressure 121/60 09/07/16 15:55 O2 Sat by Pulse Oximetry (%) 95 09/07/16 11:00 Constitutional: Yes: No Distress, Anxious Neck: Yes: Supple Cardiovascular: Yes: Regular Rate and Rhythm Respiratory: Yes: Regular, Diminished Gastrointestinal: Yes: Normal Bowel Sounds, Soft, Abdomen, Obese Edema: No Labs: CBC, BMP 09/07/16 05:35 09/07/16 05:35 INR, PTT INR 1.14 (0.82-1.09) 09/05/16 00:01 Problem List - Problems (1) Chest pain Code(s): R07.9 - CHEST PAIN, UNSPECIFIED Qualifiers: Chest pain type: chest pain on breathing Qualified Code(s): R07.1 - Chest pain on breathing (2) Sciatica Code(s): M54.30 - SCIATICA, UNSPECIFIED SIDE Qualifiers: Laterality: left Qualified Code(s): M54.32 - Sciatica, left side (3) Status post dilation and curettage Code(s): Z98.890 - OTHER SPECIFIED POSTPROCEDURAL STATES (4) Anemia Code(s): D64.9 - ANEMIA, UNSPECIFIED Qualifiers: Anemia type: unspecified type Qualified Code(s): D64.9 - Anemia, unspecified (5) Coronary artery disease Code(s): I25.10 - ATHSCL HEART DISEASE OF [place] CORONARY ARTERY W/O ANG PCTRS Qualifiers: Coronary Disease-Associated Artery/Lesion type: unspecified vessel or lesion type [place] vs. transplanted heart: [place] heart Associated angina: with unspecified angina Qualified Code(s): I25.119 - Atherosclerotic heart disease of [place] coronary artery with unspecified angina pectoris (6) Diabetes mellitus type 2 in obese Code(s): E11.9 - TYPE 2 DIABETES MELLITUS WITHOUT COMPLICATIONS E66.9 - OBESITY, UNSPECIFIED (7) Dyslipidemia associated with type 2 diabetes mellitus Code(s): E11.69 - TYPE 2 DIABETES MELLITUS WITH OTHER SPECIFIED COMPLICATION E78.5 - HYPERLIPIDEMIA, UNSPECIFIED (8) HTN (hypertension) Code(s): I10 - ESSENTIAL (PRIMARY) HYPERTENSION Qualifiers: Hypertension type: essential hypertension Qualified Code(s): I10 - Essential (primary) hypertension (9) Hyperlipidemia Code(s): E78.5 - HYPERLIPIDEMIA, UNSPECIFIED Qualifiers: Hyperlipidemia type: pure hypercholesterolemia Qualified Code(s): E78.00 - Pure hypercholesterolemia, unspecified; E78.0 - Pure hypercholesterolemia (10) Hypothyroid Code(s): E03.9 - HYPOTHYROIDISM, UNSPECIFIED Qualifiers: Hypothyroidism type: acquired Qualified Code(s): E03.9 - Hypothyroidism, unspecified (11) Low back pain Code(s): M54.5 - LOW BACK PAIN Qualifiers: Chronicity: chronic Assessment/Plan 1. Chest pain syndrome with atypical features suspect anxiety in context of severe sciatica 2. CAD post acute coronary syndrome abnormal MPI study (mild apical ischemia) angina pectoris, stable 3. Diastolic LV dysfunction with class 0 NYHA classification LV failure 4. HTN 5. DM 6. Hypercholesterolemia 7. Hypothyroidism 8. Left renal colic and hydronephrosis post cystoscopy and left ureteral stent 9. History of LACEY (related obstructive uropathy) 10. Anemia with h/o dysfunctional uterine bleed due to uterine ca PLAN: 1. Continue Toprol XL 50 twice daily (dose was increased as outpatient related to tachycardia) 2. Continue Lisinopril 10 qd 3. Continue Lipitor 20 qhs 4. Continue Lasix 20 qd and Hydrochlorothiazide 25 qd with caution 5. Continue ASA 81 qd and D/C Plavix pending planned hysterectomy for next week (surgery to be performed with ASA on board) 6. Pain management as per the primary team 7. DVT prophylaxis 8. Complete abx course
[2016-09-07] MEDS: ATORVASTATIN CA 20 MG TABLET (FP) PO SCH (21:26)
[2016-09-08] MEDS: GABAPENTIN 300 MG CAPSULE (FP) PO SCH ×3 (07:12→21:38)
[2016-09-08] MEDS: CYCLOBENZAPRINE HCL 10 MG TABLET (FP) PO SCH ×3 (07:13→21:38)
[2016-09-08] MEDS: LEVOTHYROXINE NA 75 MCG TABLET (FP) PO SCH (07:13)
[2016-09-08] MEDS: INSULIN SLIDING SCALE (NOVOLOG) 1 VIAL SQ SCH ×4 (07:13→22:15)
[2016-09-08 08:19] LABS: MCH 27.3 pg (25.7-33.7); MCHC 32.4 g/dl (32.0-36.0); MEAN CELL VOLUME 84.4 fl (80-96); MEAN PLT VOLUME 7.9 fl (7.5-11.1); PLATELET COUNT 328 K/MM3 (134-434); RDW 16.7 % (11.6-15.6); WHITE BLOOD COUNT 12.7 K/mm3 (4.0-10.0)
[2016-09-08 08:58] LABS: ALBUMIN 2.6 g/dl (3.4-5.0); BILIRUBIN,TOTAL 0.4 mg/dL (0.2-1.0); CALCIUM 8.7 mg/dL (8.5-10.1); COCKROFT - GAULT 76.3045
[2016-09-08] MEDS: glipiZIDE-XL 5 MG TAB.ER.24 PO SCH (10:42)
[2016-09-08] MEDS: SENNOSIDES 8.6MG TABLET (FP) PO SCH ×2 (10:44→21:39)
[2016-09-08] MEDS: METOPROLOL SUCCINATE 50 MG TAB.SR.24H (FP) PO SCH ×2 (10:44→21:39)
[2016-09-08] MEDS: FUROSEMIDE 20 MG TABLET (FP) PO SCH (10:44)
[2016-09-08] MEDS: ASPIRIN COATED 81 MG TABLET.EC PO SCH (10:44)
[2016-09-08] MEDS: morphine SO4 SUSTAINED ACTING 15 MG TABLET.SA PO SCH ×2 (10:44→21:38)
[2016-09-08] MEDS: LISINOPRIL 10 MG TABLET (FP) PO SCH (10:45)
[2016-09-08] MEDS: HYDROCHLOROTHIAZIDE 25 MG TABLET (FP) PO SCH (10:45)
[2016-09-08] MEDS: HEPARIN NA (PORCINE) 5,000 UNITS/ML 1ML VIAL SQ SCH ×2 (10:46→21:37)
--- NOTE | 2016-09-08 11:12 | PN ---
Progress Note, Physician History of Present Illness: Continued back pain radiating to left leg. Chest pain, palpitations, dizziness, dyspnea and nausea resolved, L-S MRI pending. - Current Medication List Current Medications: Active Medications Acetaminophen (Tylenol -) 650 mg PO Q6H PRN PRN Reason: FEVER OR PAIN Last Admin: 09/07/16 21:28 Dose: 650 mg Aspirin (Ecotrin -) 81 mg PO DAILY [facility] Last Admin: 09/08/16 10:44 Dose: 81 mg Atorvastatin Calcium (Lipitor -) 20 mg PO HS [facility] Last Admin: 09/07/16 21:26 Dose: 20 mg Cyclobenzaprine HCl (Flexeril -) 10 mg PO TID [facility] Last Admin: 09/08/16 07:13 Dose: Not Given Docusate Sodium (Colace -) 100 mg PO BID PRN PRN Reason: CONSTIPATION Furosemide (Lasix -) 20 mg PO DAILY [facility] Last Admin: 09/08/16 10:44 Dose: 20 mg Gabapentin (Neurontin -) 300 mg PO TID [facility] Last Admin: 09/08/16 07:12 Dose: 300 mg Glipizide (Glucotrol Xl -) 5 mg PO DAILY@0700 [facility] Last Admin: 09/08/16 10:42 Dose: Not Given Heparin Sodium (Porcine) (Heparin -) 5,000 unit SQ BID [facility] Last Admin: 09/08/16 10:46 Dose: 5,000 unit Hydrochlorothiazide (Hctz -) 25 mg PO DAILY [facility] Last Admin: 09/08/16 10:45 Dose: 25 mg Insulin Aspart (Novolog Vial Sliding Scale -) 1 vial SQ ACHS [facility] PRN Reason: Protocol Last Admin: 09/08/16 07:13 Dose: Not Given Levothyroxine Sodium (Synthroid -) 75 mcg PO DAILY@0700 [facility] Last Admin: 09/08/16 07:13 Dose: 75 mcg Lisinopril (Prinivil) 10 mg PO DAILY [facility] Last Admin: 09/08/16 10:45 Dose: 10 mg Metoprolol Succinate (Toprol Xl -) 50 mg PO BID [facility] Last Admin: 09/08/16 10:44 Dose: 50 mg Morphine Sulfate (Ms Contin -) 15 mg PO BID [facility] Last Admin: 09/08/16 10:44 Dose: 15 mg Ondansetron HCl (Zofran Injection) 4 mg IVPB Q8H PRN PRN Reason: NAUSEA Last Admin: 09/06/16 17:46 Dose: 4 mg Senna (Senna -) 1 tab PO BID [facility] Last Admin: 09/08/16 10:44 Dose: 1 tab - Objective Vital Signs: Vital Signs Temperature 97.6 F 09/08/16 06:00 Pulse Rate 71 09/08/16 06:00 Respiratory Rate 20 09/08/16 06:00 Blood Pressure 95/48 09/08/16 06:00 O2 Sat by Pulse Oximetry (%) 97 09/07/16 21:00 Constitutional: Yes: No Distress, Calm Neck: Yes: Supple Cardiovascular: Yes: Regular Rate and Rhythm Respiratory: Yes: Regular, Diminished Gastrointestinal: Yes: Normal Bowel Sounds, Soft, Abdomen, Obese Edema: No Labs: CBC, BMP 09/08/16 06:00 09/08/16 06:00 INR, PTT INR 1.14 (0.82-1.09) 09/05/16 00:01 - ....Imaging EKG: Report Reviewed (Tele: No events) Problem List - Problems (1) Chest pain Code(s): R07.9 - CHEST PAIN, UNSPECIFIED Qualifiers: Chest pain type: chest pain on breathing Qualified Code(s): R07.1 - Chest pain on breathing (2) Sciatica Code(s): M54.30 - SCIATICA, UNSPECIFIED SIDE Qualifiers: Laterality: left Qualified Code(s): M54.32 - Sciatica, left side (3) Status post dilation and curettage Code(s): Z98.890 - OTHER SPECIFIED POSTPROCEDURAL STATES (4) Anemia Code(s): D64.9 - ANEMIA, UNSPECIFIED Qualifiers: Anemia type: unspecified type Qualified Code(s): D64.9 - Anemia, unspecified (5) Coronary artery disease Code(s): I25.10 - ATHSCL HEART DISEASE OF [place] CORONARY ARTERY W/O ANG PCTRS Qualifiers: Coronary Disease-Associated Artery/Lesion type: unspecified vessel or lesion type [place] vs. transplanted heart: [place] heart Associated angina: with unspecified angina Qualified Code(s): I25.119 - Atherosclerotic heart disease of [place] coronary artery with unspecified angina pectoris (6) Diabetes mellitus type 2 in obese Code(s): E11.9 - TYPE 2 DIABETES MELLITUS WITHOUT COMPLICATIONS E66.9 - OBESITY, UNSPECIFIED (7) Dyslipidemia associated with type 2 diabetes mellitus Code(s): E11.69 - TYPE 2 DIABETES MELLITUS WITH OTHER SPECIFIED COMPLICATION E78.5 - HYPERLIPIDEMIA, UNSPECIFIED (8) HTN (hypertension) Code(s): I10 - ESSENTIAL (PRIMARY) HYPERTENSION Qualifiers: Hypertension type: essential hypertension Qualified Code(s): I10 - Essential (primary) hypertension (9) Hyperlipidemia Code(s): E78.5 - HYPERLIPIDEMIA, UNSPECIFIED Qualifiers: Hyperlipidemia type: pure hypercholesterolemia Qualified Code(s): E78.00 - Pure hypercholesterolemia, unspecified; E78.0 - Pure hypercholesterolemia (10) Hypothyroid Code(s): E03.9 - HYPOTHYROIDISM, UNSPECIFIED Qualifiers: Hypothyroidism type: acquired Qualified Code(s): E03.9 - Hypothyroidism, unspecified (11) Low back pain Code(s): M54.5 - LOW BACK PAIN Qualifiers: Chronicity: chronic Assessment/Plan 1. Chest pain syndrome with atypical features suspect anxiety in context of severe sciatica 2. CAD post acute coronary syndrome abnormal MPI study (mild apical ischemia) angina pectoris, stable 3. Diastolic LV dysfunction with class 0 NYHA classification LV failure 4. HTN 5. DM 6. Hypercholesterolemia 7. Hypothyroidism 8. Left renal colic and hydronephrosis post cystoscopy and left ureteral stent 9. History of LACEY (related obstructive uropathy) 10. Anemia with h/o dysfunctional uterine bleed due to uterine ca PLAN: 1. Continue Toprol XL 50 twice daily (dose was increased as outpatient related to tachycardia) 2. Continue Lisinopril 10 qd 3. Continue Lipitor 20 qhs 4. Continue Lasix 20 qd and Hydrochlorothiazide 25 qd with caution 5. Continue ASA 81 qd and D/C Plavix pending planned hysterectomy for next week (surgery to be performed with ASA on board) 6. Pain management as per the primary team, f/u L-S spine MRI 7. DVT prophylaxis, d/c telemetry 8. Complete abx course
--- NOTE | 2016-09-08 12:32 | PN ---
Progress Note (short form) - Note Progress Note: Neurology History of Present Illness: 65 year old woman with history of coronary artery disease, DMII, HTN, fibroids, and uterine cancer, laminectomy, who developed severe back pain in July following biopsy of her uterus. She had imaging which revealed herniated discs , but the pain got better until Monday when she had an acute exacerbation to the point where any movement is excruciating. She comes in with severe incapacitating pain and associated chest pain as well, seen by Dr. Ibanez covering over weekend. She was also seen by cardiology. Mention of ? right nasolabial fold was flattened and didn't move as her left did, and asked her if that were old. She said that she hadn't looked in a mirror since Monday, and when I showed her her face in my phone, she said that it was different. She has pain going from her back radiating down the left leg. She was given morphine in the ER which did take the edge off the pain. Seen by Dr. Fabian for pain mgmt. Agree with MRI L spine. MRi brain completed and no acute changes. Comfortable appearing and eatting lunch but reports excruciating pain. Active Medications Acetaminophen (Tylenol -) 650 mg PO Q6H PRN PRN Reason: FEVER OR PAIN Last Admin: 09/07/16 21:28 Dose: 650 mg Aspirin (Ecotrin -) 81 mg PO DAILY [facility] Last Admin: 09/08/16 10:44 Dose: 81 mg Atorvastatin Calcium (Lipitor -) 20 mg PO HS [facility] Last Admin: 09/07/16 21:26 Dose: 20 mg Cyclobenzaprine HCl (Flexeril -) 10 mg PO TID [facility] Last Admin: 09/08/16 07:13 Dose: Not Given Docusate Sodium (Colace -) 100 mg PO BID PRN PRN Reason: CONSTIPATION Furosemide (Lasix -) 20 mg PO DAILY [facility] Last Admin: 09/08/16 10:44 Dose: 20 mg Gabapentin (Neurontin -) 300 mg PO TID [facility] Last Admin: 09/08/16 07:12 Dose: 300 mg Glipizide (Glucotrol Xl -) 5 mg PO DAILY@0700 [facility] Last Admin: 09/08/16 10:42 Dose: Not Given Heparin Sodium (Porcine) (Heparin -) 5,000 unit SQ BID [facility] Last Admin: 09/08/16 10:46 Dose: 5,000 unit Hydrochlorothiazide (Hctz -) 25 mg PO DAILY [facility] Last Admin: 09/08/16 10:45 Dose: 25 mg Insulin Aspart (Novolog Vial Sliding Scale -) 1 vial SQ ACHS [facility] PRN Reason: Protocol Last Admin: 09/08/16 11:08 Dose: Not Given Levothyroxine Sodium (Synthroid -) 75 mcg PO DAILY@0700 [facility] Last Admin: 09/08/16 07:13 Dose: 75 mcg Lisinopril (Prinivil) 10 mg PO DAILY [facility] Last Admin: 09/08/16 10:45 Dose: 10 mg Metoprolol Succinate (Toprol Xl -) 50 mg PO BID [facility] Last Admin: 09/08/16 10:44 Dose: 50 mg Morphine Sulfate (Ms Contin -) 15 mg PO BID [facility] Last Admin: 09/08/16 10:44 Dose: 15 mg Ondansetron HCl (Zofran Injection) 4 mg IVPB Q8H PRN PRN Reason: NAUSEA Last Admin: 09/06/16 17:46 Dose: 4 mg Senna (Senna -) 1 tab PO BID [facility] Last Admin: 09/08/16 10:44 Dose: 1 tab Physical Exam-Neuro Vital Signs Temperature 97.6 F 09/08/16 06:00 Pulse Rate 71 09/08/16 06:00 Respiratory Rate 20 09/08/16 06:00 Blood Pressure 95/48 09/08/16 06:00 O2 Sat by Pulse Oximetry (%) 97 09/07/16 21:00 - Neuro Exam Cranial Nerves II-XII Intact: No (CN II-XII intact except for reduced movement of right lower face and flattened right nasolabial fold.) DTR's: 0 Left Achilles, 0 Right Achilles, 2+ Left Bicep, 2+ Right Bicep, 2+ Left Tricep, 2+ Right Tricep, 2+ Left Brachioradialis, 2+ Right Brachioradialis Babinski: Absent (withdrew) Motor Strength: 5/5: Left Arm, Right Arm Gait: Deferred - Plan: 65 year old woman with history of coronary artery disease, DMII, HTN, fibroids, and uterine cancer, laminectomy, who developed severe back pain in July following biopsy of her uterus. She had imaging which revealed herniated discs , but the pain got better until Saturday when she had an acute exacerbation to the point where any movement is excruciating. She comes in with severe incapacitating pain and associated chest pain as well, seen by Dr. Ibanez covering over weekend. She was also seen by cardiology. Mention of ? right nasolabial fold was flattened and didn't move as her left did, and asked her if that were old. MRI brain without acute changes, no infarct MRI L spine pending PT/OT, may need rehab placement Pain mgmt follow up, Dr. fabian Would not make sudden movements DVT ppx
[2016-09-08] MEDS: LEVOFLOXACIN 500 MG IVPB 100 ML IVPB SCH (15:12)
[2016-09-08] MEDS: ATORVASTATIN CA 20 MG TABLET (FP) PO SCH (21:38)
--- NOTE | 2016-09-08 22:32 | PN ---
Progress Note, Physician History of Present Illness: Pt. transferred to regular medical floor. Pt. w/o motor or sensory deficit in UE/ LE/ face. Pt. w/o CP, palp, dizziness, abd pain, N, V, blood in stool, no vaginal bleed. Pt with back pain; movements make pain worse. - Current Medication List Current Medications: Active Medications Acetaminophen (Tylenol -) 650 mg PO Q6H PRN PRN Reason: FEVER OR PAIN Last Admin: 09/07/16 21:28 Dose: 650 mg Aspirin (Ecotrin -) 81 mg PO DAILY [facility] Last Admin: 09/08/16 10:44 Dose: 81 mg Atorvastatin Calcium (Lipitor -) 20 mg PO HS [facility] Last Admin: 09/08/16 21:38 Dose: 20 mg Cyclobenzaprine HCl (Flexeril -) 10 mg PO TID [facility] Last Admin: 09/08/16 21:38 Dose: Not Given Docusate Sodium (Colace -) 100 mg PO BID PRN PRN Reason: CONSTIPATION Furosemide (Lasix -) 20 mg PO DAILY [facility] Last Admin: 09/08/16 10:44 Dose: 20 mg Gabapentin (Neurontin -) 300 mg PO TID [facility] Last Admin: 09/08/16 21:38 Dose: 300 mg Glipizide (Glucotrol Xl -) 5 mg PO DAILY@0700 [facility] Last Admin: 09/08/16 10:42 Dose: Not Given Heparin Sodium (Porcine) (Heparin -) 5,000 unit SQ BID [facility] Last Admin: 09/08/16 21:37 Dose: 5,000 unit Hydrochlorothiazide (Hctz -) 25 mg PO DAILY [facility] Last Admin: 09/08/16 10:45 Dose: 25 mg Levofloxacin (Levaquin 500 Mg Premixed Ivpb -) 100 mls @ 100 mls/hr IVPB DAILY [facility] Last Admin: 09/08/16 15:12 Dose: 100 mls/hr Insulin Aspart (Novolog Vial Sliding Scale -) 1 vial SQ ACHS [facility] PRN Reason: Protocol Last Admin: 09/08/16 17:37 Dose: Not Given Levothyroxine Sodium (Synthroid -) 75 mcg PO DAILY@0700 [facility] Last Admin: 09/08/16 07:13 Dose: 75 mcg Lisinopril (Prinivil) 10 mg PO DAILY [facility] Last Admin: 09/08/16 10:45 Dose: 10 mg Metoprolol Succinate (Toprol Xl -) 50 mg PO BID [facility] Last Admin: 09/08/16 21:39 Dose: Not Given Morphine Sulfate (Ms Contin -) 15 mg PO BID [facility] Last Admin: 09/08/16 21:38 Dose: 15 mg Ondansetron HCl (Zofran Injection) 4 mg IVPB Q8H PRN PRN Reason: NAUSEA Last Admin: 09/06/16 17:46 Dose: 4 mg Senna (Senna -) 1 tab PO BID [facility] Last Admin: 09/08/16 21:39 Dose: 1 tab - Objective Vital Signs: Vital Signs Temperature 98.5 F 09/08/16 18:00 Pulse Rate 85 09/08/16 18:00 Respiratory Rate 19 09/08/16 18:00 Blood Pressure 114/53 09/08/16 18:00 O2 Sat by Pulse Oximetry (%) 97 09/08/16 10:00 Constitutional: Yes: Mild Distress (secondary to back pain) Cardiovascular: Yes: Regular Rate and Rhythm, S1, S2 Respiratory: Yes: Regular, CTA Bilaterally. No: Rales Gastrointestinal: Yes: Normal Bowel Sounds, Soft, Abdomen, Obese. No: Tenderness Edema: No Neurological: Yes: Alert, Oriented Labs: CBC, BMP 09/08/16 06:00 09/08/16 06:00 INR, PTT INR 1.14 (0.82-1.09) 09/05/16 00:01 Problem List - Problems (1) Chest pain Assessment/Plan: serial CE are negative. Seen by Cardio, cleared for new cardiac event. Pt. was transferred out of Telemetry. Code(s): R07.9 - CHEST PAIN, UNSPECIFIED Qualifiers: Chest pain type: chest pain on breathing Qualified Code(s): R07.1 - Chest pain on breathing (2) Low back pain Assessment/Plan: Neuro consult appreciated. Pain management consult appreciated. Back MRI just done, to f/u reading with Neuro. Code(s): M54.5 - LOW BACK PAIN Qualifiers: Chronicity: chronic (3) Anemia Assessment/Plan: Pt. with Known MAMTA, secondary to Uterine bleed; now no obvious sign of bleed. H/H trending down; to transfuse PRBC, in this patient with Hx/o CAD To monitor H/H. Code(s): D64.9 - ANEMIA, UNSPECIFIED Qualifiers: Anemia type: unspecified type Qualified Code(s): D64.9 - Anemia, unspecified (4) Diabetes Code(s): E11.9 - TYPE 2 DIABETES MELLITUS WITHOUT COMPLICATIONS Qualifiers: Diabetes mellitus type: type 2 Diabetes mellitus complication detail: with chronic kidney disease Diabetes mellitus ferry terminal agent insulin use: without ferry terminal agent use (5) HTN (hypertension) Code(s): I10 - ESSENTIAL (PRIMARY) HYPERTENSION Qualifiers: Hypertension type: essential hypertension Qualified Code(s): I10 - Essential (primary) hypertension (6) Nausea Assessment/Plan: secondary to pain medication; better Code(s): R11.0 - NAUSEA (7) Sleepiness Assessment/Plan: resolved with medication adjustment. Code(s): R40.0 - SOMNOLENCE (8) UTI (urinary tract infection) Assessment/Plan: on IV abtx. Code(s): N39.0 - URINARY TRACT INFECTION, SITE NOT SPECIFIED Assessment/Plan Cardiology consult appreciated Neuro consult appreciated Pain Management consult appreciated DVT prophylaxis Start IV abtx for UTI, f/u UCX. Transfuse PRBC. AM labs.
[2016-09-09] MEDS ORDERED: PT OWN MED DRAWER 7, Y5N ONE ×3 (06:01→10:21)
[2016-09-09] MEDS: CYCLOBENZAPRINE HCL 10 MG TABLET (FP) PO SCH ×3 (06:23→21:27)
[2016-09-09] MEDS: GABAPENTIN 300 MG CAPSULE (FP) PO SCH ×3 (06:23→21:27)
[2016-09-09] MEDS: INSULIN SLIDING SCALE (NOVOLOG) 1 VIAL SQ SCH ×4 (06:24→21:29)
[2016-09-09] MEDS: LEVOTHYROXINE NA 75 MCG TABLET (FP) PO SCH (06:24)
[2016-09-09 08:47] LABS: THYROID STIMULATING HORMONE 1.89 uIU/ml (0.358-3.74)
[2016-09-09 09:08] LABS: MCH 28.2 pg (25.7-33.7); MCHC 33.3 g/dl (32.0-36.0); MEAN CELL VOLUME 84.6 fl (80-96); MEAN PLT VOLUME 7.2 fl (7.5-11.1); PLATELET COUNT 326 K/MM3 (134-434); RDW 16.6 % (11.6-15.6); WHITE BLOOD COUNT 10.1 K/mm3 (4.0-10.0)
[2016-09-09 09:33] LABS: ALBUMIN 2.6 g/dl (3.4-5.0); BILIRUBIN,TOTAL 0.8 mg/dL (0.2-1.0); CALCIUM 9.1 mg/dL (8.5-10.1); COCKROFT - GAULT 76.3045; TOT PROT 6.2 g/dl (6.4-8.2)
[2016-09-09] MEDS ORDERED: morphine CARPU-JECT 2 MG/1 ML DISP.SYRIN IVPUSH PRN (09:44)
--- NOTE | 2016-09-09 09:52 | PN ---
Progress Note, Physician History of Present Illness: Pt. transferred to regular medical floor. Pt. w/o motor or sensory deficit in UE/ LE/ face. Pt. w/o CP, palp, dizziness, abd pain, N, V, blood in stool, no vaginal bleed. Pt with back pain; movements make pain worse. Pt. with constipation. - Current Medication List Current Medications: Active Medications Acetaminophen (Tylenol -) 650 mg PO Q6H PRN PRN Reason: FEVER OR PAIN Last Admin: 09/07/16 21:28 Dose: 650 mg Aspirin (Ecotrin -) 81 mg PO DAILY [facility] Last Admin: 09/08/16 10:44 Dose: 81 mg Atorvastatin Calcium (Lipitor -) 20 mg PO HS [facility] Last Admin: 09/08/16 21:38 Dose: 20 mg Cyclobenzaprine HCl (Flexeril -) 10 mg PO TID [facility] Last Admin: 09/09/16 06:23 Dose: 10 mg Docusate Sodium (Colace -) 100 mg PO BID PRN PRN Reason: CONSTIPATION Furosemide (Lasix -) 20 mg PO DAILY [facility] Last Admin: 09/08/16 10:44 Dose: 20 mg Gabapentin (Neurontin -) 300 mg PO TID [facility] Last Admin: 09/09/16 06:23 Dose: 300 mg Glipizide (Glucotrol Xl -) 5 mg PO DAILY@0700 [facility] Last Admin: 09/08/16 10:42 Dose: Not Given Heparin Sodium (Porcine) (Heparin -) 5,000 unit SQ BID [facility] Last Admin: 09/08/16 21:37 Dose: 5,000 unit Hydrochlorothiazide (Hctz -) 25 mg PO DAILY [facility] Last Admin: 09/08/16 10:45 Dose: 25 mg Levofloxacin (Levaquin 500 Mg Premixed Ivpb -) 100 mls @ 100 mls/hr IVPB DAILY [facility] Last Admin: 09/08/16 15:12 Dose: 100 mls/hr Insulin Aspart (Novolog Vial Sliding Scale -) 1 vial SQ ACHS [facility] PRN Reason: Protocol Last Admin: 09/09/16 06:24 Dose: Not Given Levothyroxine Sodium (Synthroid -) 75 mcg PO DAILY@0700 [facility] Last Admin: 09/09/16 06:24 Dose: 75 mcg Lisinopril (Prinivil) 10 mg PO DAILY [facility] Last Admin: 09/08/16 10:45 Dose: 10 mg Metoprolol Succinate (Toprol Xl -) 50 mg PO BID [facility] Last Admin: 09/08/16 21:39 Dose: Not Given Morphine Sulfate (Ms Contin -) 15 mg PO BID [facility] Last Admin: 09/08/16 21:38 Dose: 15 mg Morphine Sulfate (Morphine Injection -) 1 mg IVPUSH Q6H PRN PRN Reason: PAIN Ondansetron HCl (Zofran Injection) 4 mg IVPB Q8H PRN PRN Reason: NAUSEA Last Admin: 09/06/16 17:46 Dose: 4 mg Polyethylene Glycol (Miralax (For Daily Use) -) 17 gm PO BID [facility] Senna (Senna -) 1 tab PO BID [facility] Last Admin: 09/08/16 21:39 Dose: 1 tab - Objective Vital Signs: Vital Signs Temperature 97.7 F 09/09/16 06:00 Pulse Rate 79 09/09/16 06:00 Respiratory Rate 18 09/09/16 06:00 Blood Pressure 102/48 09/09/16 06:00 O2 Sat by Pulse Oximetry (%) 97 09/08/16 21:00 Constitutional: Yes: No Distress, Calm Cardiovascular: Yes: Regular Rate and Rhythm, S1, S2 Respiratory: Yes: Regular, CTA Bilaterally. No: Rales Gastrointestinal: Yes: Normal Bowel Sounds, Soft, Abdomen, Obese. No: Palpable Mass, Tenderness Edema: No Neurological: Yes: Alert, Oriented, Other (motor and sensory is symetric in UE, LE, Face) Labs: CBC, BMP 09/09/16 08:50 09/09/16 08:50 INR, PTT INR 1.14 (0.82-1.09) 09/05/16 00:01 Problem List - Problems (1) Chest pain Assessment/Plan: serial CE are negative. Pt. was monitored on Telemetry. Seen by Cardio, cleared for new cardiac event. Pt. was transferred out of Telemetry. Code(s): R07.9 - CHEST PAIN, UNSPECIFIED Qualifiers: Chest pain type: chest pain on breathing Qualified Code(s): R07.1 - Chest pain on breathing (2) Low back pain Assessment/Plan: Neuro consult appreciated. Pain management consult appreciated. Back MRI was done ( report is pending), to f/u reading with Neuro. Code(s): M54.5 - LOW BACK PAIN Qualifiers: Chronicity: chronic (3) Anemia Assessment/Plan: Pt. with Known MAMTA, secondary to Uterine bleed; now no obvious sign of bleed. H/H trending down; s/p one unit of PRBC. To monitor H/H. Check stool for occult blood. Code(s): D64.9 - ANEMIA, UNSPECIFIED Qualifiers: Anemia type: unspecified type Qualified Code(s): D64.9 - Anemia, unspecified (4) Diabetes Code(s): E11.9 - TYPE 2 DIABETES MELLITUS WITHOUT COMPLICATIONS Qualifiers: Diabetes mellitus type: type 2 Diabetes mellitus complication detail: with chronic kidney disease Diabetes mellitus [facility] insulin use: without computer terminal operator use (5) HTN (hypertension) Code(s): I10 - ESSENTIAL (PRIMARY) HYPERTENSION Qualifiers: Hypertension type: essential hypertension Qualified Code(s): I10 - Essential (primary) hypertension (6) Nausea Code(s): R11.0 - NAUSEA (7) Sleepiness Code(s): R40.0 - SOMNOLENCE (8) UTI (urinary tract infection) Assessment/Plan: on IV abtx. Code(s): N39.0 - URINARY TRACT INFECTION, SITE NOT SPECIFIED (9) Constipation Assessment/Plan: Add Miralax Code(s): K59.00 - CONSTIPATION, UNSPECIFIED Assessment/Plan Cardiology consult appreciated Neuro consult appreciated Pain Management consult appreciated; to recall for reevaluation, medication adjustment DVT prophylaxis Start IV abtx for UTI, f/u UCX. AM labs.
[2016-09-09] MEDS: LEVOFLOXACIN 500 MG IVPB 100 ML IVPB SCH (10:42)
[2016-09-09] MEDS: SENNOSIDES 8.6MG TABLET (FP) PO SCH ×2 (10:43→21:27)
[2016-09-09] MEDS: morphine SO4 SUSTAINED ACTING 15 MG TABLET.SA PO SCH (10:43)
[2016-09-09] MEDS: HYDROCHLOROTHIAZIDE 25 MG TABLET (FP) PO SCH (10:43)
[2016-09-09] MEDS: FUROSEMIDE 20 MG TABLET (FP) PO SCH (10:43)
[2016-09-09] MEDS: METOPROLOL SUCCINATE 50 MG TAB.SR.24H (FP) PO SCH ×2 (10:43→21:27)
[2016-09-09] MEDS: LISINOPRIL 10 MG TABLET (FP) PO SCH (10:43)
[2016-09-09] MEDS: POLYETHYLENE GLYCOL 3350 119 GM BTL PO SCH ×2 (10:44→21:27)
[2016-09-09] MEDS: HEPARIN NA (PORCINE) 5,000 UNITS/ML 1ML VIAL SQ SCH ×2 (10:44→21:27)
[2016-09-09] MEDS: ASPIRIN COATED 81 MG TABLET.EC PO SCH (10:44)
[2016-09-09] MEDS: glipiZIDE-XL 5 MG TAB.ER.24 PO SCH (10:45)
--- NOTE | 2016-09-09 11:27 | PN ---
Progress Note (short form) - Note Progress Note: Neurology History of Present Illness: 65 year old woman with history of coronary artery disease, DMII, HTN, fibroids, and uterine cancer, laminectomy, who developed severe back pain in July following biopsy of her uterus. She had imaging which revealed herniated discs , but the pain got better until Monday when she had an acute exacerbation to the point where any movement is excruciating. She comes in with severe incapacitating pain and associated chest pain as well, seen by Dr. Ibanez covering over weekend. She was also seen by cardiology. Mention of ? right nasolabial fold was flattened and didn't move as her left did, and asked her if that were old. She said that she hadn't looked in a mirror since Monday, and when I showed her her face in my phone, she said that it was different. She has pain going from her back radiating down the left leg. She was given morphine in the ER which did take the edge off the pain. Seen by Dr. Fabian for pain mgmt. Agree with MRI L spine. MRi brain completed and no acute changes. MRI L spine completed, awaiting report, does appear to have disc herniations but does not appear to have cord impingement. Active Medications Acetaminophen (Tylenol -) 650 mg PO Q6H PRN PRN Reason: FEVER OR PAIN Last Admin: 09/07/16 21:28 Dose: 650 mg Aspirin (Ecotrin -) 81 mg PO DAILY [facility] [place] Last Admin: 09/09/16 10:44 Dose: 81 mg Atorvastatin Calcium (Lipitor -) 20 mg PO HS [facility] [place] Last Admin: 09/08/16 21:38 Dose: 20 mg Cyclobenzaprine HCl (Flexeril -) 10 mg PO TID [facility] [place] Last Admin: 09/09/16 06:23 Dose: 10 mg Docusate Sodium (Colace -) 100 mg PO BID PRN PRN Reason: CONSTIPATION Furosemide (Lasix -) 20 mg PO DAILY [facility] [place] Last Admin: 09/09/16 10:43 Dose: 20 mg Gabapentin (Neurontin -) 300 mg PO TID [facility] [place] Last Admin: 09/09/16 06:23 Dose: 300 mg Glipizide (Glucotrol Xl -) 5 mg PO DAILY@0700 [facility] [place] Last Admin: 09/09/16 10:45 Dose: 5 mg Heparin Sodium (Porcine) (Heparin -) 5,000 unit SQ BID [facility] [place] Last Admin: 09/09/16 10:44 Dose: 5,000 unit Hydrochlorothiazide (Hctz -) 25 mg PO DAILY [facility] [place] Last Admin: 09/09/16 10:43 Dose: 25 mg Levofloxacin (Levaquin 500 Mg Premixed Ivpb -) 100 mls @ 100 mls/hr IVPB DAILY [facility] [place] Last Admin: 09/09/16 10:42 Dose: 100 mls/hr Insulin Aspart (Novolog Vial Sliding Scale -) 1 vial SQ ACHS [facility] [place] PRN Reason: Protocol Last Admin: 09/09/16 06:24 Dose: Not Given Levothyroxine Sodium (Synthroid -) 75 mcg PO DAILY@0700 [facility] [place] Last Admin: 09/09/16 06:24 Dose: 75 mcg Lisinopril (Prinivil) 10 mg PO DAILY [facility] [place] Last Admin: 09/09/16 10:43 Dose: 10 mg Metoprolol Succinate (Toprol Xl -) 50 mg PO BID [facility] [place] Last Admin: 09/09/16 10:43 Dose: 50 mg Morphine Sulfate (Ms Contin -) 15 mg PO BID [facility] [place] Last Admin: 09/09/16 10:43 Dose: 15 mg Morphine Sulfate (Morphine Injection -) 1 mg IVPUSH Q6H PRN PRN Reason: PAIN Ondansetron HCl (Zofran Injection) 4 mg IVPB Q8H PRN PRN Reason: NAUSEA Last Admin: 09/06/16 17:46 Dose: 4 mg Polyethylene Glycol (Miralax (For Daily Use) -) 17 gm PO BID [facility] [place] Last Admin: 09/09/16 10:44 Dose: 17 grams Senna (Senna -) 1 tab PO BID [facility] [place] Last Admin: 09/09/16 10:43 Dose: 1 tab Physical Exam-Neuro Vital Signs Temperature 97.7 F 09/09/16 06:00 Pulse Rate 79 09/09/16 06:00 Respiratory Rate 18 09/09/16 06:00 Blood Pressure 102/48 09/09/16 06:00 O2 Sat by Pulse Oximetry (%) 97 09/08/16 21:00 - Neuro Exam Cranial Nerves II-XII Intact: No (CN II-XII intact except for reduced movement of right lower face and flattened right nasolabial fold.) DTR's: 0 Left Achilles, 0 Right Achilles, 2+ Left Bicep, 2+ Right Bicep, 2+ Left Tricep, 2+ Right Tricep, 2+ Left Brachioradialis, 2+ Right Brachioradialis Babinski: Absent (withdrew) Motor Strength: 5/5: Left Arm, Right Arm Gait: Deferred - Plan: 65 year old woman with history of coronary artery disease, DMII, HTN, fibroids, and uterine cancer, laminectomy, who developed severe back pain in July following biopsy of her uterus. She had imaging which revealed herniated discs , but the pain got better until Monday when she had an acute exacerbation to the point where any movement is excruciating. She comes in with severe incapacitating pain and associated chest pain as well, seen by Dr. Ibanez covering over weekend. She was also seen by cardiology. Mention of ? right nasolabial fold was flattened and didn't move as her left did, and asked her if that were old. MRI brain without acute changes, no infarct MRI L spine completed, awaiting final report PT/OT, may need rehab placement Pain mgmt follow up, Dr. fabian Would not make sudden movements DVT ppx Dr. Rubio covering this weekend if needed.
--- NOTE | 2016-09-09 14:41 | PN ---
Progress Note, Physician History of Present Illness: Continued back pain radiating to left leg. Chest pain, palpitations, dizziness, dyspnea and nausea resolved, L-S MRI results appreciated. - Current Medication List Current Medications: Active Medications Acetaminophen (Tylenol -) 650 mg PO Q6H PRN PRN Reason: FEVER OR PAIN Last Admin: 09/07/16 21:28 Dose: 650 mg Aspirin (Ecotrin -) 81 mg PO DAILY [facility] Last Admin: 09/09/16 10:44 Dose: 81 mg Atorvastatin Calcium (Lipitor -) 20 mg PO HS [facility] Last Admin: 09/08/16 21:38 Dose: 20 mg Cyclobenzaprine HCl (Flexeril -) 10 mg PO TID [facility] Last Admin: 09/09/16 06:23 Dose: 10 mg Docusate Sodium (Colace -) 100 mg PO BID PRN PRN Reason: CONSTIPATION Furosemide (Lasix -) 20 mg PO DAILY [facility] Last Admin: 09/09/16 10:43 Dose: 20 mg Gabapentin (Neurontin -) 300 mg PO TID [facility] Last Admin: 09/09/16 06:23 Dose: 300 mg Glipizide (Glucotrol Xl -) 5 mg PO DAILY@0700 [facility] Last Admin: 09/09/16 10:45 Dose: 5 mg Heparin Sodium (Porcine) (Heparin -) 5,000 unit SQ BID [facility] Last Admin: 09/09/16 10:44 Dose: 5,000 unit Hydrochlorothiazide (Hctz -) 25 mg PO DAILY [facility] Last Admin: 09/09/16 10:43 Dose: 25 mg Levofloxacin (Levaquin 500 Mg Premixed Ivpb -) 100 mls @ 100 mls/hr IVPB DAILY [facility] Last Admin: 09/09/16 10:42 Dose: 100 mls/hr Insulin Aspart (Novolog Vial Sliding Scale -) 1 vial SQ ACHS [facility] PRN Reason: Protocol Last Admin: 09/09/16 11:35 Dose: Not Given Levothyroxine Sodium (Synthroid -) 75 mcg PO DAILY@0700 [facility] Last Admin: 09/09/16 06:24 Dose: 75 mcg Lisinopril (Prinivil) 10 mg PO DAILY [facility] Last Admin: 09/09/16 10:43 Dose: 10 mg Metoprolol Succinate (Toprol Xl -) 50 mg PO BID [facility] Last Admin: 09/09/16 10:43 Dose: 50 mg Morphine Sulfate (Ms Contin -) 15 mg PO BID [facility] Last Admin: 09/09/16 10:43 Dose: 15 mg Morphine Sulfate (Morphine Injection -) 1 mg IVPUSH Q6H PRN PRN Reason: PAIN Ondansetron HCl (Zofran Injection) 4 mg IVPB Q8H PRN PRN Reason: NAUSEA Last Admin: 09/06/16 17:46 Dose: 4 mg Polyethylene Glycol (Miralax (For Daily Use) -) 17 gm PO BID [facility] Last Admin: 09/09/16 10:44 Dose: 17 grams Senna (Senna -) 1 tab PO BID [facility] Last Admin: 09/09/16 10:43 Dose: 1 tab - Objective Vital Signs: Vital Signs Temperature 98.3 F 09/09/16 14:03 Pulse Rate 92 H 09/09/16 14:03 Respiratory Rate 20 09/09/16 14:03 Blood Pressure 111/57 09/09/16 14:03 O2 Sat by Pulse Oximetry (%) 97 09/08/16 21:00 Constitutional: Yes: No Distress, Calm Neck: Yes: Supple Cardiovascular: Yes: Regular Rate and Rhythm Respiratory: Yes: Regular, Diminished Gastrointestinal: Yes: Normal Bowel Sounds, Soft, Abdomen, Obese Edema: No Labs: CBC, BMP 09/09/16 08:50 09/09/16 08:50 INR, PTT INR 1.14 (0.82-1.09) 09/05/16 00:01 Problem List - Problems (1) Chest pain Code(s): R07.9 - CHEST PAIN, UNSPECIFIED Qualifiers: Chest pain type: chest pain on breathing Qualified Code(s): R07.1 - Chest pain on breathing (2) Sciatica Code(s): M54.30 - SCIATICA, UNSPECIFIED SIDE Qualifiers: Laterality: left Qualified Code(s): M54.32 - Sciatica, left side (3) Status post dilation and curettage Code(s): Z98.890 - OTHER SPECIFIED POSTPROCEDURAL STATES (4) Anemia Code(s): D64.9 - ANEMIA, UNSPECIFIED Qualifiers: Anemia type: unspecified type Qualified Code(s): D64.9 - Anemia, unspecified (5) Coronary artery disease Code(s): I25.10 - ATHSCL HEART DISEASE OF [place] CORONARY ARTERY W/O ANG PCTRS Qualifiers: Coronary Disease-Associated Artery/Lesion type: unspecified vessel or lesion type [place] vs. transplanted heart: [place] heart Associated angina: with unspecified angina Qualified Code(s): I25.119 - Atherosclerotic heart disease of [place] coronary artery with unspecified angina pectoris (6) Diabetes mellitus type 2 in obese Code(s): E11.9 - TYPE 2 DIABETES MELLITUS WITHOUT COMPLICATIONS E66.9 - OBESITY, UNSPECIFIED (7) Dyslipidemia associated with type 2 diabetes mellitus Code(s): E11.69 - TYPE 2 DIABETES MELLITUS WITH OTHER SPECIFIED COMPLICATION E78.5 - HYPERLIPIDEMIA, UNSPECIFIED (8) HTN (hypertension) Code(s): I10 - ESSENTIAL (PRIMARY) HYPERTENSION Qualifiers: Hypertension type: essential hypertension Qualified Code(s): I10 - Essential (primary) hypertension (9) Hyperlipidemia Code(s): E78.5 - HYPERLIPIDEMIA, UNSPECIFIED Qualifiers: Hyperlipidemia type: pure hypercholesterolemia Qualified Code(s): E78.00 - Pure hypercholesterolemia, unspecified; E78.0 - Pure hypercholesterolemia (10) Hypothyroid Code(s): E03.9 - HYPOTHYROIDISM, UNSPECIFIED Qualifiers: Hypothyroidism type: acquired Qualified Code(s): E03.9 - Hypothyroidism, unspecified (11) Low back pain Code(s): M54.5 - LOW BACK PAIN Qualifiers: Chronicity: chronic Assessment/Plan 1. Chest pain syndrome with atypical features suspect anxiety in context of severe sciatica, L5 nerve impingement 2. CAD post acute coronary syndrome abnormal MPI study (mild apical ischemia) angina pectoris, stable 3. Diastolic LV dysfunction with class 0 NYHA classification LV failure 4. HTN 5. DM 6. Hypercholesterolemia 7. Hypothyroidism 8. Left renal colic and hydronephrosis post cystoscopy and left ureteral stent 9. History of LACEY (related obstructive uropathy) 10. Anemia with h/o dysfunctional uterine bleed due to uterine ca PLAN: 1. Continue Toprol XL 50 twice daily (dose was increased as outpatient related to tachycardia) 2. Continue Lisinopril 10 qd 3. Continue Lipitor 20 qhs 4. Continue Lasix 20 qd and Hydrochlorothiazide 25 qd with caution 5. Continue ASA 81 qd and D/C Plavix pending planned hysterectomy for next week (surgery to be performed with ASA on board) 6. Pain management as per the primary team 7. DVT prophylaxis, d/c telemetry 8. Complete abx course
--- NOTE | 2016-09-09 19:06 | PN ---
Progress Note, Physician History of Present Illness: 65 yr old female was admitted with severe LBP with left leg pain for last 4 days with acute onset. She had back surgery x3 in past. pain 10/10 , radiating left leg with no numbness or tingling. she has difficulty in ambulation. - Current Medication List Current Medications: Active Medications Acetaminophen (Tylenol -) 650 mg PO Q6H PRN PRN Reason: FEVER OR PAIN Last Admin: 09/07/16 21:28 Dose: 650 mg Aspirin (Ecotrin -) 81 mg PO DAILY [facility] Last Admin: 09/09/16 10:44 Dose: 81 mg Atorvastatin Calcium (Lipitor -) 20 mg PO HS [facility] Last Admin: 09/08/16 21:38 Dose: 20 mg Cyclobenzaprine HCl (Flexeril -) 10 mg PO TID [facility] Last Admin: 09/09/16 15:15 Dose: 10 mg Docusate Sodium (Colace -) 100 mg PO BID PRN PRN Reason: CONSTIPATION Furosemide (Lasix -) 20 mg PO DAILY [facility] Last Admin: 09/09/16 10:43 Dose: 20 mg Gabapentin (Neurontin -) 300 mg PO TID [facility] Last Admin: 09/09/16 15:15 Dose: 300 mg Glipizide (Glucotrol Xl -) 5 mg PO DAILY@0700 [facility] Last Admin: 09/09/16 10:45 Dose: 5 mg Heparin Sodium (Porcine) (Heparin -) 5,000 unit SQ BID [facility] Last Admin: 09/09/16 10:44 Dose: 5,000 unit Hydrochlorothiazide (Hctz -) 25 mg PO DAILY [facility] Last Admin: 09/09/16 10:43 Dose: 25 mg Levofloxacin (Levaquin 500 Mg Premixed Ivpb -) 100 mls @ 100 mls/hr IVPB DAILY [facility] Last Admin: 09/09/16 10:42 Dose: 100 mls/hr Insulin Aspart (Novolog Vial Sliding Scale -) 1 vial SQ ACHS [facility] PRN Reason: Protocol Last Admin: 09/09/16 17:35 Dose: Not Given Levothyroxine Sodium (Synthroid -) 75 mcg PO DAILY@0700 [facility] Last Admin: 09/09/16 06:24 Dose: 75 mcg Lisinopril (Prinivil) 10 mg PO DAILY [facility] Last Admin: 09/09/16 10:43 Dose: 10 mg Metoprolol Succinate (Toprol Xl -) 50 mg PO BID [facility] Last Admin: 09/09/16 10:43 Dose: 50 mg Morphine Sulfate (Ms Contin -) 15 mg PO BID [facility] Last Admin: 09/09/16 10:43 Dose: 15 mg Morphine Sulfate (Morphine Injection -) 1 mg IVPUSH Q6H PRN PRN Reason: PAIN Ondansetron HCl (Zofran Injection) 4 mg IVPB Q8H PRN PRN Reason: NAUSEA Last Admin: 09/06/16 17:46 Dose: 4 mg Polyethylene Glycol (Miralax (For Daily Use) -) 17 gm PO BID [facility] Last Admin: 09/09/16 10:44 Dose: 17 grams Senna (Senna -) 1 tab PO BID [facility] Last Admin: 09/09/16 10:43 Dose: 1 tab - Objective Vital Signs: Vital Signs Temperature 98.3 F 09/09/16 14:03 Pulse Rate 92 H 09/09/16 14:03 Respiratory Rate 20 09/09/16 14:03 Blood Pressure 111/57 09/09/16 14:03 O2 Sat by Pulse Oximetry (%) 93 L 09/09/16 09:00 Constitutional: Yes: Well Nourished Eyes: Yes: WNL HENT: Yes: WNL Neck: Yes: WNL Respiratory: Yes: WNL Gastrointestinal: Yes: Other (constipation) Genitourinary: Yes: WNL Musculoskeletal: Yes: Back Pain, Muscle Pain Edema: No Peripheral Pulses WNL: Yes ...Motor Strength: WNL (8) Labs: CBC, BMP 09/09/16 08:50 09/09/16 08:50 INR, PTT INR 1.14 (0.82-1.09) 09/05/16 00:01 Problem List - Problems (1) Low back pain of multiple sites of spine with sciatica Code(s): M54.40 - LUMBAGO WITH SCIATICA, UNSPECIFIED SIDE (2) Fusion of lumbar spine Code(s): M43.26 - FUSION OF SPINE, LUMBAR REGION Assessment/Plan Discussed in detail and answered all questions. Lumbar epidural steroid injection after PMD clearance. Continue current medication,\ Thanks Dr. Fabian
[2016-09-09] MEDS: KETOROLAC TROMETHAMINE 15 MG/ML VIAL IM PRN (21:25)
[2016-09-09] MEDS: ATORVASTATIN CA 20 MG TABLET (FP) PO SCH (21:27)
[2016-09-10] MEDS ORDERED: PT OWN MED DRAWER 7, Y5N ONE ×2 (05:43→09:46)
[2016-09-10] MEDS: glipiZIDE-XL 5 MG TAB.ER.24 PO SCH (06:11)
[2016-09-10] MEDS: GABAPENTIN 300 MG CAPSULE (FP) PO SCH ×3 (06:11→22:29)
[2016-09-10] MEDS: CYCLOBENZAPRINE HCL 10 MG TABLET (FP) PO SCH ×3 (06:11→22:29)
[2016-09-10] MEDS: LEVOTHYROXINE NA 75 MCG TABLET (FP) PO SCH (06:11)
[2016-09-10] MEDS: INSULIN SLIDING SCALE (NOVOLOG) 1 VIAL SQ SCH ×4 (06:12→22:31)
[2016-09-10 08:02] LABS: MCH 28.5 pg (25.7-33.7); MCHC 33.6 g/dl (32.0-36.0); MEAN CELL VOLUME 84.8 fl (80-96); MEAN PLT VOLUME 7.4 fl (7.5-11.1); PLATELET COUNT 352 K/MM3 (134-434); RDW 16.4 % (11.6-15.6); WHITE BLOOD COUNT 10.8 K/mm3 (4.0-10.0)
[2016-09-10 09:05] LABS: CALCIUM 9.4 mg/dL (8.5-10.1); COCKROFT - GAULT 54.502; CREATININE 1.4 mg/dL (0.55-1.02)
[2016-09-10] MEDS: FUROSEMIDE 20 MG TABLET (FP) PO SCH (09:49)
[2016-09-10] MEDS: LISINOPRIL 10 MG TABLET (FP) PO SCH (09:49)
[2016-09-10] MEDS: SENNOSIDES 8.6MG TABLET (FP) PO SCH ×2 (09:49→22:29)
[2016-09-10] MEDS: ASPIRIN COATED 81 MG TABLET.EC PO SCH (09:49)
[2016-09-10] MEDS: HEPARIN NA (PORCINE) 5,000 UNITS/ML 1ML VIAL SQ SCH ×2 (09:50→22:29)
[2016-09-10] MEDS: METOPROLOL SUCCINATE 50 MG TAB.SR.24H (FP) PO SCH ×2 (09:50→22:31)
[2016-09-10] MEDS: HYDROCHLOROTHIAZIDE 25 MG TABLET (FP) PO SCH (09:50)
[2016-09-10] MEDS: LEVOFLOXACIN 500 MG IVPB 100 ML IVPB SCH (09:52)
[2016-09-10] MEDS: KETOROLAC TROMETHAMINE 15 MG/ML VIAL IM PRN (11:16)
[2016-09-10] MEDS: POLYETHYLENE GLYCOL 3350 119 GM BTL PO SCH ×2 (11:21→22:31)
--- NOTE | 2016-09-10 11:31 | PN ---
Progress Note, Physician Chief Complaint: OOB to chair still with a lot of back pain and legs pains with moving; MRI done results P no paresis or incontinence constipation for few days; high fiber diet; po water and miralax ordered and d/ w pt and staff - Current Medication List Current Medications: Active Medications Acetaminophen (Tylenol -) 650 mg PO Q6H PRN PRN Reason: FEVER OR PAIN Last Admin: 09/07/16 21:28 Dose: 650 mg Aspirin (Ecotrin -) 81 mg PO DAILY [facility] Last Admin: 09/10/16 09:49 Dose: Not Given Atorvastatin Calcium (Lipitor -) 20 mg PO HS [facility] Last Admin: 09/09/16 21:27 Dose: 20 mg Cyclobenzaprine HCl (Flexeril -) 10 mg PO TID [facility] Last Admin: 09/10/16 06:11 Dose: 10 mg Docusate Sodium (Colace -) 100 mg PO BID PRN PRN Reason: CONSTIPATION Furosemide (Lasix -) 20 mg PO DAILY [facility] Last Admin: 09/10/16 09:49 Dose: 20 mg Gabapentin (Neurontin -) 300 mg PO TID [facility] Last Admin: 09/10/16 06:11 Dose: 300 mg Glipizide (Glucotrol Xl -) 5 mg PO DAILY@0700 [facility] Last Admin: 09/10/16 06:11 Dose: 5 mg Heparin Sodium (Porcine) (Heparin -) 5,000 unit SQ BID [facility] Last Admin: 09/10/16 09:50 Dose: 5,000 unit Hydrochlorothiazide (Hctz -) 25 mg PO DAILY [facility] Last Admin: 09/10/16 09:50 Dose: 25 mg Levofloxacin (Levaquin 500 Mg Premixed Ivpb -) 100 mls @ 100 mls/hr IVPB DAILY [facility] Last Admin: 09/10/16 09:52 Dose: 100 mls/hr Insulin Aspart (Novolog Vial Sliding Scale -) 1 vial SQ ACHS [facility] PRN Reason: Protocol Last Admin: 09/10/16 06:12 Dose: Not Given Ketorolac Tromethamine (Toradol Injection -) 15 mg IM Q8H PRN PRN Reason: PAIN Stop: 09/14/16 20:16 Last Admin: 09/10/16 11:16 Dose: 15 mg Levothyroxine Sodium (Synthroid -) 75 mcg PO DAILY@0700 [facility] Last Admin: 09/10/16 06:11 Dose: 75 mcg Lisinopril (Prinivil) 10 mg PO DAILY [facility] Last Admin: 09/10/16 09:49 Dose: Not Given Metoprolol Succinate (Toprol Xl -) 50 mg PO BID [facility] Last Admin: 09/10/16 09:50 Dose: Not Given Morphine Sulfate (Morphine Injection -) 1 mg IVPUSH Q6H PRN PRN Reason: PAIN Ondansetron HCl (Zofran Injection) 4 mg IVPB Q8H PRN PRN Reason: NAUSEA Last Admin: 09/06/16 17:46 Dose: 4 mg Polyethylene Glycol (Miralax (For Daily Use) -) 17 gm PO BID [facility] Last Admin: 09/10/16 11:21 Dose: 17 grams Senna (Senna -) 1 tab PO BID [facility] Last Admin: 09/10/16 09:49 Dose: 1 tab - Objective Vital Signs: Vital Signs Temperature 97.2 F L 09/10/16 06:00 Pulse Rate 75 09/10/16 06:00 Respiratory Rate 20 09/10/16 06:00 Blood Pressure 104/56 09/10/16 06:00 O2 Sat by Pulse Oximetry (%) 95 09/09/16 21:00 Constitutional: Yes: Anxious Eyes: Yes: Conjunctiva Clear HENT: Yes: Atraumatic Neck: Yes: Supple Cardiovascular: No: Regular Rate and Rhythm Respiratory: Yes: CTA Bilaterally Gastrointestinal: Yes: Soft, Abdomen, Obese. No: Distention, Tenderness Genitourinary: No: CVA Tenderness - Left, CVA Tenderness - Right, Hematuria, Vaginal Bleeding Musculoskeletal: No: Joint Stiffness, Joint Swelling Extremities: No: Cold, Cool, Cyanosis Edema: No Peripheral Pulses WNL: Yes Neurological: Yes: WNL, Alert, Oriented ...Motor Strength: WNL Psychiatric: Yes: WNL, Alert, Oriented. No: Agitated, Suicidal Ideation Labs: CBC, BMP 09/10/16 06:30 09/10/16 06:30 INR, PTT INR 1.14 (0.82-1.09) 09/05/16 00:01 - ....Imaging Other: Report Reviewed Assessment/Plan 65 year old woman with history of coronary artery disease, DMII, HTN, fibroids, and uterine cancer, laminectomy, who developed severe back pain in July following biopsy of her uterus. She had imaging which revealed herniated discs , recently she had an acute exacerbation to the point where any movement is excruciating. She comes in with severe incapacitating pain and associated chest pain as well, seen by neurology and cardiology. needs hysterectomy for CA PT/OT, may need rehab placement Pain mgmt follow up, Dr. regan, possible epidural next week Would not make sudden movements DVT and falls pfx d/w pt and staff
--- NOTE | 2016-09-10 20:19 | PN ---
Progress Note, Physician Chief Complaint: Events noted Complained of back pain History of Present Illness: Patient was seen and examined. Awake and alert. Chart was reviewed Denies chest pain, SOB or palpitations - Current Medication List Current Medications: Active Medications Acetaminophen (Tylenol -) 650 mg PO Q6H PRN PRN Reason: FEVER OR PAIN Last Admin: 09/07/16 21:28 Dose: 650 mg Aspirin (Ecotrin -) 81 mg PO DAILY [facility] Last Admin: 09/10/16 09:49 Dose: Not Given Atorvastatin Calcium (Lipitor -) 20 mg PO HS [facility] Last Admin: 09/09/16 21:27 Dose: 20 mg Cyclobenzaprine HCl (Flexeril -) 10 mg PO TID [facility] Last Admin: 09/10/16 13:36 Dose: 10 mg Docusate Sodium (Colace -) 100 mg PO BID PRN PRN Reason: CONSTIPATION Furosemide (Lasix -) 20 mg PO DAILY [facility] Last Admin: 09/10/16 09:49 Dose: 20 mg Gabapentin (Neurontin -) 300 mg PO TID [facility] Last Admin: 09/10/16 13:36 Dose: 300 mg Glipizide (Glucotrol Xl -) 5 mg PO DAILY@0700 [facility] Last Admin: 09/10/16 06:11 Dose: 5 mg Heparin Sodium (Porcine) (Heparin -) 5,000 unit SQ BID [facility] Last Admin: 09/10/16 09:50 Dose: 5,000 unit Hydrochlorothiazide (Hctz -) 25 mg PO DAILY [facility] Last Admin: 09/10/16 09:50 Dose: 25 mg Levofloxacin (Levaquin 500 Mg Premixed Ivpb -) 100 mls @ 100 mls/hr IVPB DAILY [facility] Last Admin: 09/10/16 09:52 Dose: 100 mls/hr Insulin Aspart (Novolog Vial Sliding Scale -) 1 vial SQ ACHS [facility] PRN Reason: Protocol Last Admin: 09/10/16 17:35 Dose: Not Given Ketorolac Tromethamine (Toradol Injection -) 15 mg IM Q8H PRN PRN Reason: PAIN Stop: 09/14/16 20:16 Last Admin: 09/10/16 11:16 Dose: 15 mg Levothyroxine Sodium (Synthroid -) 75 mcg PO DAILY@0700 [facility] Last Admin: 09/10/16 06:11 Dose: 75 mcg Lisinopril (Prinivil) 10 mg PO DAILY [facility] Last Admin: 09/10/16 09:49 Dose: Not Given Metoprolol Succinate (Toprol Xl -) 50 mg PO BID [facility] Last Admin: 09/10/16 09:50 Dose: Not Given Morphine Sulfate (Morphine Injection -) 1 mg IVPUSH Q6H PRN PRN Reason: PAIN Ondansetron HCl (Zofran Injection) 4 mg IVPB Q8H PRN PRN Reason: NAUSEA Last Admin: 09/06/16 17:46 Dose: 4 mg Polyethylene Glycol (Miralax (For Daily Use) -) 17 gm PO BID [facility] Last Admin: 09/10/16 11:21 Dose: 17 grams Senna (Senna -) 1 tab PO BID [facility] Last Admin: 09/10/16 09:49 Dose: 1 tab - Objective Vital Signs: Vital Signs Temperature 98.2 F 09/10/16 19:17 Pulse Rate 73 09/10/16 19:17 Respiratory Rate 20 09/10/16 19:17 Blood Pressure 110/65 09/10/16 19:17 O2 Sat by Pulse Oximetry (%) 99 09/10/16 09:00 Neck: Yes: Supple Cardiovascular: Yes: Regular Rate and Rhythm, S1, S2 Respiratory: Yes: CTA Bilaterally Gastrointestinal: Yes: Normal Bowel Sounds, Soft. No: Tenderness Edema: No Additional Findings/Remarks: - Review of Systems Cardiovascular: Denies: Chest Pain. denies: Palpitations, Shortness of Breath Respiratory: denies: Cough, Hemoptysis, Orthopnea, PND, SOB, SOB on Exertion Gastrointestinal: denies: Abdominal Pain, Constipation, Diarrhea, Melena, Nausea , Rectal Bleeding, Vomiting Neurological: denies: Dizziness, Headache, Seizure, Syncope Labs: CBC, BMP 09/10/16 06:30 09/10/16 06:30 Problem List - Problems (1) Chest pain Code(s): R07.9 - CHEST PAIN, UNSPECIFIED Qualifiers: Chest pain type: chest pain on breathing Qualified Code(s): R07.1 - Chest pain on breathing (2) Diabetes Code(s): E11.9 - TYPE 2 DIABETES MELLITUS WITHOUT COMPLICATIONS Qualifiers: Diabetes mellitus type: type 2 Diabetes mellitus complication detail: with chronic kidney disease Diabetes mellitus mcc insulin use: without joint terminal attack controller use (3) Low back pain of multiple sites of spine with sciatica Code(s): M54.40 - LUMBAGO WITH SCIATICA, UNSPECIFIED SIDE (4) LACEY (acute kidney injury) Code(s): N17.9 - ACUTE KIDNEY FAILURE, UNSPECIFIED (5) Anemia Code(s): D64.9 - ANEMIA, UNSPECIFIED Qualifiers: Anemia type: unspecified type Qualified Code(s): D64.9 - Anemia, unspecified (6) Coronary artery disease Code(s): I25.10 - ATHSCL HEART DISEASE OF [place] CORONARY ARTERY W/O ANG PCTRS Qualifiers: Coronary Disease-Associated Artery/Lesion type: unspecified vessel or lesion type [place] vs. transplanted heart: [place] heart Associated angina: with unspecified angina Qualified Code(s): I25.119 - Atherosclerotic heart disease of [place] coronary artery with unspecified angina pectoris (7) Dyslipidemia associated with type 2 diabetes mellitus Code(s): E11.69 - TYPE 2 DIABETES MELLITUS WITH OTHER SPECIFIED COMPLICATION E78.5 - HYPERLIPIDEMIA, UNSPECIFIED (8) HTN (hypertension) Code(s): I10 - ESSENTIAL (PRIMARY) HYPERTENSION Qualifiers: Hypertension type: essential hypertension Qualified Code(s): I10 - Essential (primary) hypertension (9) Hyperlipidemia Code(s): E78.5 - HYPERLIPIDEMIA, UNSPECIFIED Qualifiers: Hyperlipidemia type: pure hypercholesterolemia Qualified Code(s): E78.00 - Pure hypercholesterolemia, unspecified; E78.0 - Pure hypercholesterolemia (10) Menometrorrhagia Code(s): N92.1 - EXCESSIVE AND FREQUENT MENSTRUATION WITH IRREGULAR CYCLE (11) Pre-operative cardiovascular examination Code(s): Z01.810 - ENCOUNTER FOR PREPROCEDURAL CARDIOVASCULAR EXAMINATION Assessment/Plan 1. Chest pain syndrome with atypical features suspect anxiety in context of severe sciatica, L5 nerve impingement 2. CAD post acute coronary syndrome abnormal MPI study (mild apical ischemia) angina pectoris 3. Diastolic LV dysfunction with class 0 NYHA classification LV failure 4. HTN 5. DM 6. Hypercholesterolemia 7. Hypothyroidism 8. Left renal colic and hydronephrosis post cystoscopy and left ureteral stent 9. History of LACEY (related obstructive uropathy) 10. Anemia with h/o dysfunctional uterine bleed due to uterine CA PLAN: 1. Continue Toprol XL and Lisinopril 2. Continue Lipitor 3. Continue Lasix and Hydrochlorothiazide with caution 4. Await hysterectomy next week (surgery to be performed with ASA on board) - Plavix has been discontinued. There appears to be no absolute contraindication in proceeding with planned hysterectomy in view of absence of ischemic symptoms , decompensated congestive heart failure or malignant arrhythmia. 5. Pain management as per the primary team 6. DVT prophylaxis, d/c telemetry 7. Complete antibiotic course Riaz Berry MD
[2016-09-10] MEDS: ATORVASTATIN CA 20 MG TABLET (FP) PO SCH (22:30)
[2016-09-11] MEDS ORDERED: PT OWN MED DRAWER 7, Y5N ONE ×2 (05:53→18:07)
[2016-09-11] MEDS: INSULIN SLIDING SCALE (NOVOLOG) 1 VIAL SQ SCH ×4 (06:05→22:07)
[2016-09-11] MEDS: LEVOTHYROXINE NA 75 MCG TABLET (FP) PO SCH (06:05)
[2016-09-11] MEDS: CYCLOBENZAPRINE HCL 10 MG TABLET (FP) PO SCH ×3 (06:05→21:06)
[2016-09-11] MEDS: glipiZIDE-XL 5 MG TAB.ER.24 PO SCH (06:05)
[2016-09-11] MEDS: GABAPENTIN 300 MG CAPSULE (FP) PO SCH ×3 (06:05→21:06)
[2016-09-11 08:39] LABS: BASOPHIL 0.6 % (0-2.0); EOSINOPHIL 2.4 % (0-4.5); MCH 28.1 pg (25.7-33.7); MCHC 33.4 g/dl (32.0-36.0); MEAN CELL VOLUME 84.2 fl (80-96); MEAN PLT VOLUME 7.5 fl (7.5-11.1); PLATELET COUNT 356 K/MM3 (134-434); WHITE BLOOD COUNT 11.7 K/mm3 (4.0-10.0)
[2016-09-11 08:55] LABS: ALBUMIN 2.4 g/dl (3.4-5.0); BILIRUBIN,TOTAL 0.4 mg/dL (0.2-1.0); CALCIUM 8.8 mg/dL (8.5-10.1); COCKROFT - GAULT 76.3045; TOT PROT 5.8 g/dl (6.4-8.2)
[2016-09-11] MEDS: METOPROLOL SUCCINATE 50 MG TAB.SR.24H (FP) PO SCH ×2 (10:13→21:09)
[2016-09-11] MEDS: ASPIRIN COATED 81 MG TABLET.EC PO SCH (10:13)
[2016-09-11] MEDS: FUROSEMIDE 20 MG TABLET (FP) PO SCH (10:13)
[2016-09-11] MEDS: POLYETHYLENE GLYCOL 3350 119 GM BTL PO SCH ×2 (10:13→21:07)
[2016-09-11] MEDS: LISINOPRIL 10 MG TABLET (FP) PO SCH (10:13)
[2016-09-11] MEDS: HYDROCHLOROTHIAZIDE 25 MG TABLET (FP) PO SCH (10:13)
[2016-09-11] MEDS: SENNOSIDES 8.6MG TABLET (FP) PO SCH ×2 (10:13→21:06)
[2016-09-11] MEDS: HEPARIN NA (PORCINE) 5,000 UNITS/ML 1ML VIAL SQ SCH (10:13)
[2016-09-11] MEDS: LEVOFLOXACIN 500 MG IVPB 100 ML IVPB SCH (10:14)
--- NOTE | 2016-09-11 12:53 | PN ---
Progress Note, Physician Chief Complaint: in bed still with bavk pain when moving; pt does NOT want the epidural INJ on miralax and advised po fluids and fibers - Current Medication List Current Medications: Active Medications Acetaminophen (Tylenol -) 650 mg PO Q6H PRN PRN Reason: FEVER OR PAIN Last Admin: 09/07/16 21:28 Dose: 650 mg Aspirin (Ecotrin -) 81 mg PO DAILY [facility] Last Admin: 09/11/16 10:13 Dose: Not Given Atorvastatin Calcium (Lipitor -) 20 mg PO HS [facility] Last Admin: 09/10/16 22:30 Dose: 20 mg Cyclobenzaprine HCl (Flexeril -) 10 mg PO TID [facility] Last Admin: 09/11/16 06:05 Dose: Not Given Docusate Sodium (Colace -) 100 mg PO BID PRN PRN Reason: CONSTIPATION Furosemide (Lasix -) 20 mg PO DAILY [facility] Last Admin: 09/11/16 10:13 Dose: 20 mg Gabapentin (Neurontin -) 300 mg PO TID [facility] Last Admin: 09/11/16 06:05 Dose: Not Given Glipizide (Glucotrol Xl -) 5 mg PO DAILY@0700 [facility] Last Admin: 09/11/16 06:05 Dose: Not Given Heparin Sodium (Porcine) (Heparin -) 5,000 unit SQ BID [facility] Last Admin: 09/11/16 10:13 Dose: 5,000 unit Hydrochlorothiazide (Hctz -) 25 mg PO DAILY [facility] Last Admin: 09/11/16 10:13 Dose: 25 mg Levofloxacin (Levaquin 500 Mg Premixed Ivpb -) 100 mls @ 100 mls/hr IVPB DAILY [facility] Last Admin: 09/11/16 10:14 Dose: 100 mls/hr Insulin Aspart (Novolog Vial Sliding Scale -) 1 vial SQ ACHS [facility] PRN Reason: Protocol Last Admin: 09/11/16 06:05 Dose: Not Given Ketorolac Tromethamine (Toradol Injection -) 15 mg IM Q8H PRN PRN Reason: PAIN Stop: 09/14/16 20:16 Last Admin: 09/10/16 11:16 Dose: 15 mg Levothyroxine Sodium (Synthroid -) 75 mcg PO DAILY@0700 [facility] Last Admin: 09/11/16 06:05 Dose: Not Given Lisinopril (Prinivil) 10 mg PO DAILY [facility] Last Admin: 09/11/16 10:13 Dose: Not Given Metoprolol Succinate (Toprol Xl -) 50 mg PO BID [facility] Last Admin: 09/11/16 10:13 Dose: 50 mg Morphine Sulfate (Morphine Injection -) 1 mg IVPUSH Q6H PRN PRN Reason: PAIN Ondansetron HCl (Zofran Injection) 4 mg IVPB Q8H PRN PRN Reason: NAUSEA Last Admin: 09/06/16 17:46 Dose: 4 mg Polyethylene Glycol (Miralax (For Daily Use) -) 17 gm PO BID [facility] Last Admin: 09/11/16 10:13 Dose: 17 grams Senna (Senna -) 1 tab PO BID [facility] Last Admin: 09/11/16 10:13 Dose: 1 tab - Objective Vital Signs: Vital Signs Temperature 98.2 F 09/11/16 10:00 Pulse Rate 119 H 09/11/16 11:00 Respiratory Rate 18 09/11/16 10:00 Blood Pressure 109/60 09/11/16 10:00 O2 Sat by Pulse Oximetry (%) 95 09/11/16 11:00 Constitutional: Yes: No Distress, Calm Eyes: Yes: Conjunctiva Clear HENT: Yes: Atraumatic Neck: Yes: Supple Cardiovascular: Yes: Regular Rate and Rhythm Respiratory: Yes: CTA Bilaterally Gastrointestinal: Yes: Soft, Abdomen, Obese. No: Distention, Tenderness Genitourinary: No: CVA Tenderness - Left, CVA Tenderness - Right Musculoskeletal: No: Joint Stiffness, Joint Swelling Extremities: No: Cold, Cool, Cyanosis Edema: No Integumentary: No: Rash, Venous Stasis Changes Neurological: Yes: WNL, Alert, Oriented ...Motor Strength: WNL Psychiatric: Yes: WNL, Alert, Oriented. No: Agitated, Suicidal Ideation Labs: CBC, BMP 09/11/16 06:30 09/11/16 06:30 INR, PTT INR 1.14 (0.82-1.09) 09/05/16 00:01 - ....Imaging Other: Report Reviewed Assessment/Plan 65 year old woman with history of coronary artery disease, DMII, HTN, fibroids, and uterine cancer, laminectomy, who developed severe back pain in July following biopsy of her uterus. She had imaging which revealed herniated discs , recently she had an acute exacerbation to the point where any movement is excruciating. She comes in with severe incapacitating pain and associated chest pain as well, seen by neurology and cardiology. needs hysterectomy for CA PT/OT, Pain mgmt follow up, Dr. regan, pt does NOT want epidural inj stools softeners prn DVT and falls pfx d/w pt and staff
[2016-09-11] MEDS: ATORVASTATIN CA 20 MG TABLET (FP) PO SCH (21:06)
[2016-09-11] MEDS: ACETAMINOPHEN 325 MG TABLET (FP) PO PRN (21:07)
[2016-09-12] MEDS ORDERED: PT OWN MED DRAWER 7, Y5N ONE (06:04)
[2016-09-12] MEDS: LEVOTHYROXINE NA 75 MCG TABLET (FP) PO SCH (06:30)
[2016-09-12] MEDS: CYCLOBENZAPRINE HCL 10 MG TABLET (FP) PO SCH ×3 (06:31→21:44)
[2016-09-12] MEDS: glipiZIDE-XL 5 MG TAB.ER.24 PO SCH (06:31)
[2016-09-12] MEDS: GABAPENTIN 300 MG CAPSULE (FP) PO SCH ×3 (06:31→21:44)
[2016-09-12] MEDS: INSULIN SLIDING SCALE (NOVOLOG) 1 VIAL SQ SCH ×4 (06:31→22:25)
[2016-09-12] MEDS: POLYETHYLENE GLYCOL 3350 119 GM BTL PO SCH ×3 (06:31→22:25)
[2016-09-12 08:01] LABS: BASOPHIL 0.7 % (0-2.0); EOSINOPHIL 2.4 % (0-4.5); MCH 28.2 pg (25.7-33.7); MCHC 33.7 g/dl (32.0-36.0); MEAN CELL VOLUME 83.9 fl (80-96); MEAN PLT VOLUME 7.3 fl (7.5-11.1); PLATELET COUNT 381 K/MM3 (134-434); RDW 17.1 % (11.6-15.6); WHITE BLOOD COUNT 10.5 K/mm3 (4.0-10.0)
[2016-09-12 08:15] LABS: ALBUMIN 2.8 g/dl (3.4-5.0); BILIRUBIN,TOTAL 0.4 mg/dL (0.2-1.0); CALCIUM 9.5 mg/dL (8.5-10.1); COCKROFT - GAULT 76.3045; TOT PROT 6.3 g/dl (6.4-8.2)
[2016-09-12] MEDS: SENNOSIDES 8.6MG TABLET (FP) PO SCH ×2 (09:06→21:44)
[2016-09-12] MEDS: LEVOFLOXACIN 500 MG IVPB 100 ML IVPB SCH (09:06)
[2016-09-12] MEDS: FUROSEMIDE 20 MG TABLET (FP) PO SCH (09:06)
[2016-09-12] MEDS: HYDROCHLOROTHIAZIDE 25 MG TABLET (FP) PO SCH (09:06)
[2016-09-12] MEDS: METOPROLOL SUCCINATE 50 MG TAB.SR.24H (FP) PO SCH ×2 (09:07→21:44)
[2016-09-12] MEDS: LISINOPRIL 10 MG TABLET (FP) PO SCH (09:07)
[2016-09-12] MEDS: ACETAMINOPHEN 325 MG TABLET (FP) PO PRN (09:12)
--- NOTE | 2016-09-12 11:53 | PN ---
Progress Note, Physician History of Present Illness: Back pain radiating to left leg has improved, now with right knee discomfort with warm compress being applied. Chest pain, palpitations, dizziness, dyspnea and nausea resolved, L-S MRI results appreciated. - Current Medication List Current Medications: Active Medications Acetaminophen (Tylenol -) 650 mg PO Q6H PRN PRN Reason: FEVER OR PAIN Last Admin: 09/12/16 09:12 Dose: 650 mg Atorvastatin Calcium (Lipitor -) 20 mg PO HS [facility] Last Admin: 09/11/16 21:06 Dose: 20 mg Cyclobenzaprine HCl (Flexeril -) 10 mg PO TID [facility] Last Admin: 09/12/16 06:31 Dose: 10 mg Docusate Sodium (Colace -) 100 mg PO BID PRN PRN Reason: CONSTIPATION Furosemide (Lasix -) 20 mg PO DAILY [facility] Last Admin: 09/12/16 09:06 Dose: 20 mg Gabapentin (Neurontin -) 300 mg PO TID [facility] Last Admin: 09/12/16 06:31 Dose: 300 mg Glipizide (Glucotrol Xl -) 5 mg PO DAILY@0700 [facility] Last Admin: 09/12/16 06:31 Dose: 5 mg Heparin Sodium (Porcine) (Heparin -) 5,000 unit SQ BID [facility] Last Admin: 09/11/16 10:13 Dose: 5,000 unit Hydrochlorothiazide (Hctz -) 25 mg PO DAILY [facility] Last Admin: 09/12/16 09:06 Dose: 25 mg Levofloxacin (Levaquin 500 Mg Premixed Ivpb -) 100 mls @ 100 mls/hr IVPB DAILY [facility] Last Admin: 09/12/16 09:06 Dose: 100 mls/hr Insulin Aspart (Novolog Vial Sliding Scale -) 1 vial SQ ACHS [facility] PRN Reason: Protocol Last Admin: 09/12/16 06:31 Dose: Not Given Ketorolac Tromethamine (Toradol Injection -) 15 mg IM Q8H PRN PRN Reason: PAIN Stop: 09/14/16 20:16 Last Admin: 09/10/16 11:16 Dose: 15 mg Levothyroxine Sodium (Synthroid -) 75 mcg PO DAILY@0700 [facility] Last Admin: 09/12/16 06:30 Dose: 75 mcg Lisinopril (Prinivil) 10 mg PO DAILY [facility] Last Admin: 09/12/16 09:07 Dose: 10 mg Metoprolol Succinate (Toprol Xl -) 50 mg PO BID [facility] Last Admin: 09/12/16 09:07 Dose: 50 mg Morphine Sulfate (Morphine Injection -) 1 mg IVPUSH Q6H PRN PRN Reason: PAIN Ondansetron HCl (Zofran Injection) 4 mg IVPB Q8H PRN PRN Reason: NAUSEA Last Admin: 09/06/16 17:46 Dose: 4 mg Polyethylene Glycol (Miralax (For Daily Use) -) 17 gm PO TID [facility] Last Admin: 09/12/16 06:31 Dose: 17 grams Senna (Senna -) 1 tab PO BID [facility] Last Admin: 09/12/16 09:06 Dose: 1 tab - Objective Vital Signs: Vital Signs Temperature 97.7 F 09/12/16 10:00 Pulse Rate 87 09/12/16 10:00 Respiratory Rate 18 09/12/16 10:00 Blood Pressure 106/57 09/12/16 10:00 O2 Sat by Pulse Oximetry (%) 98 09/12/16 09:00 Constitutional: Yes: No Distress, Calm Neck: Yes: Supple Cardiovascular: Yes: Regular Rate and Rhythm Respiratory: Yes: Regular, CTA Bilaterally Gastrointestinal: Yes: Normal Bowel Sounds, Soft, Abdomen, Obese Edema: No Labs: CBC, BMP 09/12/16 06:30 09/12/16 06:30 INR, PTT INR 1.14 (0.82-1.09) 09/05/16 00:01 Problem List - Problems (1) Chest pain Code(s): R07.9 - CHEST PAIN, UNSPECIFIED Qualifiers: Chest pain type: chest pain on breathing Qualified Code(s): R07.1 - Chest pain on breathing (2) Sciatica Code(s): M54.30 - SCIATICA, UNSPECIFIED SIDE Qualifiers: Laterality: left Qualified Code(s): M54.32 - Sciatica, left side (3) Status post dilation and curettage Code(s): Z98.890 - OTHER SPECIFIED POSTPROCEDURAL STATES (4) Anemia Code(s): D64.9 - ANEMIA, UNSPECIFIED Qualifiers: Anemia type: unspecified type Qualified Code(s): D64.9 - Anemia, unspecified (5) Coronary artery disease Code(s): I25.10 - ATHSCL HEART DISEASE OF [place] CORONARY ARTERY W/O ANG PCTRS Qualifiers: Coronary Disease-Associated Artery/Lesion type: unspecified vessel or lesion type [place] vs. transplanted heart: [place] heart Associated angina: with unspecified angina Qualified Code(s): I25.119 - Atherosclerotic heart disease of [place] coronary artery with unspecified angina pectoris (6) Diabetes mellitus type 2 in obese Code(s): E11.9 - TYPE 2 DIABETES MELLITUS WITHOUT COMPLICATIONS E66.9 - OBESITY, UNSPECIFIED (7) Dyslipidemia associated with type 2 diabetes mellitus Code(s): E11.69 - TYPE 2 DIABETES MELLITUS WITH OTHER SPECIFIED COMPLICATION E78.5 - HYPERLIPIDEMIA, UNSPECIFIED (8) HTN (hypertension) Code(s): I10 - ESSENTIAL (PRIMARY) HYPERTENSION Qualifiers: Hypertension type: essential hypertension Qualified Code(s): I10 - Essential (primary) hypertension (9) Hyperlipidemia Code(s): E78.5 - HYPERLIPIDEMIA, UNSPECIFIED Qualifiers: Hyperlipidemia type: pure hypercholesterolemia Qualified Code(s): E78.00 - Pure hypercholesterolemia, unspecified; E78.0 - Pure hypercholesterolemia (10) Hypothyroid Code(s): E03.9 - HYPOTHYROIDISM, UNSPECIFIED Qualifiers: Hypothyroidism type: acquired Qualified Code(s): E03.9 - Hypothyroidism, unspecified (11) Low back pain Code(s): M54.5 - LOW BACK PAIN Qualifiers: Chronicity: chronic Assessment/Plan 1. Chest pain syndrome with atypical features suspect anxiety in context of severe sciatica, L5 nerve impingement 2. CAD post acute coronary syndrome abnormal MPI study (mild apical ischemia) angina pectoris 3. Diastolic LV dysfunction with class 0 NYHA classification LV failure 4. HTN 5. DM 6. Hypercholesterolemia 7. Hypothyroidism 8. Left renal colic and hydronephrosis post cystoscopy and left ureteral stent 9. History of LACEY (related obstructive uropathy) 10. Anemia with h/o dysfunctional uterine bleed due to uterine CA PLAN: 1. Continue Toprol XL 50 bid and Lisinopril 10 qd 2. Continue Lipitor 20 qhs 3. Continue Lasix 20 qd and Hydrochlorothiazide 25 qd with caution 4. Await hysterectomy next week (surgery to be performed with ASA on board) - Plavix has been discontinued. There appears to be no absolute contraindication in proceeding with planned hysterectomy in view of absence of ischemic symptoms , decompensated congestive heart failure or malignant arrhythmia. 5. Pain management as per the primary team, declines epidural injection 6. DVT prophylaxis, PT as tolerated 7. Complete antibiotic course
[2016-09-12] MEDS: KETOROLAC TROMETHAMINE 15 MG/ML VIAL IM PRN (13:09)
--- NOTE | 2016-09-12 14:21 | PN ---
Progress Note (short form) - Note Progress Note: Neurology History of Present Illness: 65 year old woman with history of coronary artery disease, DMII, HTN, fibroids, and uterine cancer, laminectomy, who developed severe back pain in July following biopsy of her uterus. She had imaging which revealed herniated discs , but the pain got better until Monday when she had an acute exacerbation to the point where any movement is excruciating. She comes in with severe incapacitating pain and associated chest pain as well, Seen by Dr. Fabian for pain mgmt. MRI brain completed and no acute changes. MRI L spine completed, mild to moderate changes noted, spinal cord signal intact. Well appearing today but reports inability to ambulate. Active Medications Acetaminophen (Tylenol -) 650 mg PO Q6H PRN PRN Reason: FEVER OR PAIN Last Admin: 09/12/16 09:12 Dose: 650 mg Atorvastatin Calcium (Lipitor -) 20 mg PO HS [facility] Last Admin: 09/11/16 21:06 Dose: 20 mg Cyclobenzaprine HCl (Flexeril -) 10 mg PO TID [facility] Last Admin: 09/12/16 13:09 Dose: 10 mg Docusate Sodium (Colace -) 100 mg PO BID PRN PRN Reason: CONSTIPATION Furosemide (Lasix -) 20 mg PO DAILY [facility] Last Admin: 09/12/16 09:06 Dose: 20 mg Gabapentin (Neurontin -) 300 mg PO TID [facility] Last Admin: 09/12/16 13:08 Dose: 300 mg Glipizide (Glucotrol Xl -) 5 mg PO DAILY@0700 [facility] Last Admin: 09/12/16 06:31 Dose: 5 mg Heparin Sodium (Porcine) (Heparin -) 5,000 unit SQ BID [facility] Last Admin: 09/11/16 10:13 Dose: 5,000 unit Hydrochlorothiazide (Hctz -) 25 mg PO DAILY [facility] Last Admin: 09/12/16 09:06 Dose: 25 mg Levofloxacin (Levaquin 500 Mg Premixed Ivpb -) 100 mls @ 100 mls/hr IVPB DAILY [facility] Last Admin: 09/12/16 09:06 Dose: 100 mls/hr Insulin Aspart (Novolog Vial Sliding Scale -) 1 vial SQ ACHS [facility] PRN Reason: Protocol Last Admin: 09/12/16 11:56 Dose: Not Given Ketorolac Tromethamine (Toradol Injection -) 15 mg IM Q8H PRN PRN Reason: PAIN Stop: 09/14/16 20:16 Last Admin: 09/12/16 13:09 Dose: 15 mg Levothyroxine Sodium (Synthroid -) 75 mcg PO DAILY@0700 [facility] Last Admin: 09/12/16 06:30 Dose: 75 mcg Lisinopril (Prinivil) 10 mg PO DAILY [facility] Last Admin: 09/12/16 09:07 Dose: 10 mg Metoprolol Succinate (Toprol Xl -) 50 mg PO BID [facility] Last Admin: 09/12/16 09:07 Dose: 50 mg Morphine Sulfate (Morphine Injection -) 1 mg IVPUSH Q6H PRN PRN Reason: PAIN Ondansetron HCl (Zofran Injection) 4 mg IVPB Q8H PRN PRN Reason: NAUSEA Last Admin: 09/06/16 17:46 Dose: 4 mg Polyethylene Glycol (Miralax (For Daily Use) -) 17 gm PO TID [facility] Last Admin: 09/12/16 13:37 Dose: 17 grams Senna (Senna -) 1 tab PO BID [facility] Last Admin: 09/12/16 09:06 Dose: 1 tab Physical Exam-Neuro Vital Signs Period Temp Pulse Resp BP Sys/Alcazar Pulse Ox Last 24 Hr 97.7 F-98.1 F 79-88 18-18 92-112/55-63 95-98 - Neuro Exam Cranial Nerves II-XII Intact: No (CN II-XII intact except for reduced movement of right lower face and flattened right nasolabial fold.) DTR's: 0 Left Achilles, 0 Right Achilles, 2+ Left Bicep, 2+ Right Bicep, 2+ Left Tricep, 2+ Right Tricep, 2+ Left Brachioradialis, 2+ Right Brachioradialis Babinski: Absent (withdrew) Motor Strength: 5/5: Left Arm, Right Arm Gait: Deferred - Plan:65 year old woman with history of coronary artery disease, DMII, HTN, fibroids, and uterine cancer, laminectomy, who developed severe back pain in July following biopsy of her uterus. She had imaging which revealed herniated discs, but the pain got better until Monday when she had an acute exacerbation to the point where any movement is excruciating. She comes in with severe incapacitating pain and associated chest pain as well, Seen by Dr. Fabian for pain mgmt. MRI brain completed and no acute changes. MRI L spine completed, mild to moderate changes noted, spinal cord signal intact. Well appearing today but reports inability to ambulate. MRI L spine completed, no cord changes, mild to moderate changes noted PT/OT, may need rehab placement as she reports not being able to ambulate Pain mgmt follow up, Dr. fabian Would not make sudden movements DVT ppx fall precautions
--- NOTE | 2016-09-12 19:23 | PN ---
Progress Note, Physician History of Present Illness: Pt. transferred to regular medical floor. Pt. w/o motor or sensory deficit in UE/ LE/ face. Pt. w/o CP, palp, dizziness, abd pain, N, V, blood in stool, no vaginal bleed. Pt with back pain; pain is better laying down in the bed but become significant when trying to walk. Pt. refused back infiltrations( were scheduled for today). - Current Medication List Current Medications: Active Medications Acetaminophen (Tylenol -) 650 mg PO Q6H PRN PRN Reason: FEVER OR PAIN Last Admin: 09/12/16 09:12 Dose: 650 mg Atorvastatin Calcium (Lipitor -) 20 mg PO HS [facility] Last Admin: 09/11/16 21:06 Dose: 20 mg Cyclobenzaprine HCl (Flexeril -) 10 mg PO TID [facility] Last Admin: 09/12/16 13:09 Dose: 10 mg Docusate Sodium (Colace -) 100 mg PO BID PRN PRN Reason: CONSTIPATION Furosemide (Lasix -) 20 mg PO DAILY [facility] Last Admin: 09/12/16 09:06 Dose: 20 mg Gabapentin (Neurontin -) 300 mg PO TID [facility] Last Admin: 09/12/16 13:08 Dose: 300 mg Glipizide (Glucotrol Xl -) 5 mg PO DAILY@0700 [facility] Last Admin: 09/12/16 06:31 Dose: 5 mg Heparin Sodium (Porcine) (Heparin -) 5,000 unit SQ BID [facility] Last Admin: 09/11/16 10:13 Dose: 5,000 unit Hydrochlorothiazide (Hctz -) 25 mg PO DAILY [facility] Last Admin: 09/12/16 09:06 Dose: 25 mg Levofloxacin (Levaquin 500 Mg Premixed Ivpb -) 100 mls @ 100 mls/hr IVPB DAILY [facility] Last Admin: 09/12/16 09:06 Dose: 100 mls/hr Insulin Aspart (Novolog Vial Sliding Scale -) 1 vial SQ ACHS [facility] PRN Reason: Protocol Last Admin: 09/12/16 17:30 Dose: Not Given Ketorolac Tromethamine (Toradol Injection -) 15 mg IM Q8H PRN PRN Reason: PAIN Stop: 09/14/16 20:16 Last Admin: 09/12/16 13:09 Dose: 15 mg Levothyroxine Sodium (Synthroid -) 75 mcg PO DAILY@0700 [facility] Last Admin: 09/12/16 06:30 Dose: 75 mcg Lisinopril (Prinivil) 10 mg PO DAILY [facility] Last Admin: 09/12/16 09:07 Dose: 10 mg Metoprolol Succinate (Toprol Xl -) 50 mg PO BID [facility] Last Admin: 09/12/16 09:07 Dose: 50 mg Morphine Sulfate (Morphine Injection -) 1 mg IVPUSH Q6H PRN PRN Reason: PAIN Ondansetron HCl (Zofran Injection) 4 mg IVPB Q8H PRN PRN Reason: NAUSEA Last Admin: 09/06/16 17:46 Dose: 4 mg Polyethylene Glycol (Miralax (For Daily Use) -) 17 gm PO TID [facility] Last Admin: 09/12/16 13:37 Dose: 17 grams Senna (Senna -) 1 tab PO BID [facility] Last Admin: 09/12/16 09:06 Dose: 1 tab - Objective Vital Signs: Vital Signs Temperature 98.6 F 09/12/16 17:14 Pulse Rate 80 09/12/16 17:14 Respiratory Rate 20 09/12/16 17:14 Blood Pressure 108/56 09/12/16 17:14 O2 Sat by Pulse Oximetry (%) 98 09/12/16 09:00 Constitutional: Yes: No Distress, Calm Cardiovascular: Yes: Regular Rate and Rhythm, S1, S2 Respiratory: Yes: Regular, CTA Bilaterally. No: Rales Gastrointestinal: Yes: Normal Bowel Sounds, Soft, Abdomen, Obese. No: Palpable Mass, Tenderness Edema: No Labs: CBC, BMP 09/12/16 06:30 09/12/16 06:30 INR, PTT INR 1.14 (0.82-1.09) 09/05/16 00:01 Problem List - Problems (1) Chest pain Assessment/Plan: serial CE are negative. Pt. was monitored on Telemetry. Seen by Cardio, cleared for new cardiac event. Pt. was transferred out of Telemetry. Code(s): R07.9 - CHEST PAIN, UNSPECIFIED Qualifiers: Chest pain type: chest pain on breathing Qualified Code(s): R07.1 - Chest pain on breathing (2) Low back pain Assessment/Plan: Neuro consult appreciated. Pain management consult appreciated. Back MRI was done ( c/w multilevel disc bulging). Code(s): M54.5 - LOW BACK PAIN Qualifiers: Chronicity: chronic (3) Anemia Assessment/Plan: Pt. with Known MAMTA, secondary to Uterine bleed; now no obvious sign of bleed. H/H trending down; s/p one unit of PRBC. To monitor H/H. Check stool for occult blood. Code(s): D64.9 - ANEMIA, UNSPECIFIED Qualifiers: Anemia type: unspecified type Qualified Code(s): D64.9 - Anemia, unspecified (4) Diabetes Code(s): E11.9 - TYPE 2 DIABETES MELLITUS WITHOUT COMPLICATIONS Qualifiers: Diabetes mellitus type: type 2 Diabetes mellitus complication detail: with chronic kidney disease Diabetes mellitus longterm insulin use: without longterm use (5) HTN (hypertension) Code(s): I10 - ESSENTIAL (PRIMARY) HYPERTENSION Qualifiers: Hypertension type: essential hypertension Qualified Code(s): I10 - Essential (primary) hypertension (6) Nausea Code(s): R11.0 - NAUSEA (7) Sleepiness Code(s): R40.0 - SOMNOLENCE (8) UTI (urinary tract infection) Assessment/Plan: on IV abtx. Code(s): N39.0 - URINARY TRACT INFECTION, SITE NOT SPECIFIED (9) Constipation Code(s): K59.00 - CONSTIPATION, UNSPECIFIED (10) Uterine cancer Assessment/Plan: scheduled for surgery this coming Monday. Code(s): C55 - MALIGNANT NEOPLASM OF UTERUS, PART UNSPECIFIED Assessment/Plan Cardiology consult appreciated Neuro consult appreciated Pain Management consult appreciated; pt. refused back infiltrations today ( although she agreed and was scheduled for it today). I made pt. aware that needs to be discharged to go to [facility] for uterine surgery and she might not be in the condition to allow it. I adviced her to talk with Dr. Fabian and Skye for alternative treatments. DVT prophylaxis
[2016-09-12] MEDS: ATORVASTATIN CA 20 MG TABLET (FP) PO SCH (21:44)
[2016-09-12] MEDS: HEPARIN NA (PORCINE) 5,000 UNITS/ML 1ML VIAL SQ SCH (21:56)
[2016-09-13] MEDS: GABAPENTIN 300 MG CAPSULE (FP) PO SCH ×3 (05:38→22:15)
[2016-09-13] MEDS: CYCLOBENZAPRINE HCL 10 MG TABLET (FP) PO SCH ×3 (05:38→22:14)
[2016-09-13] MEDS: POLYETHYLENE GLYCOL 3350 119 GM BTL PO SCH ×3 (05:43→22:24)
[2016-09-13] MEDS ORDERED: PT OWN MED DRAWER 7, Y5N ONE ×2 (06:23→09:34)
[2016-09-13] MEDS: glipiZIDE-XL 5 MG TAB.ER.24 PO SCH (06:24)
[2016-09-13] MEDS: LEVOTHYROXINE NA 75 MCG TABLET (FP) PO SCH (06:24)
[2016-09-13] MEDS: INSULIN SLIDING SCALE (NOVOLOG) 1 VIAL SQ SCH ×4 (06:25→22:18)
[2016-09-13] MEDS: METOPROLOL SUCCINATE 50 MG TAB.SR.24H (FP) PO SCH ×2 (09:36→22:15)
[2016-09-13] MEDS: HYDROCHLOROTHIAZIDE 25 MG TABLET (FP) PO SCH (09:40)
[2016-09-13] MEDS: FUROSEMIDE 20 MG TABLET (FP) PO SCH (09:40)
[2016-09-13] MEDS: HEPARIN NA (PORCINE) 5,000 UNITS/ML 1ML VIAL SQ SCH ×2 (09:40→22:15)
[2016-09-13] MEDS: LEVOFLOXACIN 500 MG IVPB 100 ML IVPB SCH (09:40)
[2016-09-13] MEDS: LISINOPRIL 10 MG TABLET (FP) PO SCH (09:40)
[2016-09-13] MEDS: SENNOSIDES 8.6MG TABLET (FP) PO SCH ×2 (09:41→22:14)
[2016-09-13] MEDS: ACETAMINOPHEN 325 MG TABLET (FP) PO PRN (09:41)
--- NOTE | 2016-09-13 11:13 | PN ---
Progress Note, Physician History of Present Illness: Pt. transferred to regular medical floor. Pt. w/o motor or sensory deficit in UE/ LE/ face. Pt. w/o CP, palp, dizziness, abd pain, N, V, blood in stool, no vaginal bleed. Pt with improved back pain. Pt. c/o left knee pain now, not able to walk - Current Medication List Current Medications: Active Medications Acetaminophen (Tylenol -) 650 mg PO Q6H PRN PRN Reason: FEVER OR PAIN Last Admin: 09/13/16 09:41 Dose: 650 mg Aspirin (Ecotrin -) 81 mg PO DAILY [facility] Atorvastatin Calcium (Lipitor -) 20 mg PO HS [facility] Last Admin: 09/12/16 21:44 Dose: 20 mg Cyclobenzaprine HCl (Flexeril -) 10 mg PO TID [facility] Last Admin: 09/13/16 05:38 Dose: 10 mg Docusate Sodium (Colace -) 100 mg PO BID PRN PRN Reason: CONSTIPATION Furosemide (Lasix -) 20 mg PO DAILY [facility] Last Admin: 09/13/16 09:40 Dose: Not Given Gabapentin (Neurontin -) 300 mg PO TID [facility] Last Admin: 09/13/16 05:38 Dose: 300 mg Glipizide (Glucotrol Xl -) 5 mg PO DAILY@0700 [facility] Last Admin: 09/13/16 06:24 Dose: 5 mg Heparin Sodium (Porcine) (Heparin -) 5,000 unit SQ BID [facility] Last Admin: 09/13/16 09:40 Dose: 5,000 unit Levofloxacin (Levaquin 500 Mg Premixed Ivpb -) 100 mls @ 100 mls/hr IVPB DAILY [facility] Last Admin: 09/13/16 09:40 Dose: 100 mls/hr Insulin Aspart (Novolog Vial Sliding Scale -) 1 vial SQ ACHS [facility] PRN Reason: Protocol Last Admin: 09/13/16 06:25 Dose: Not Given Ketorolac Tromethamine (Toradol Injection -) 15 mg IM Q8H PRN PRN Reason: PAIN Stop: 09/14/16 20:16 Last Admin: 09/12/16 13:09 Dose: 15 mg Levothyroxine Sodium (Synthroid -) 75 mcg PO DAILY@0700 [facility] Last Admin: 09/13/16 06:24 Dose: 75 mcg Lisinopril (Prinivil) 10 mg PO DAILY [facility] Last Admin: 09/13/16 09:40 Dose: Not Given Metoprolol Succinate (Toprol Xl -) 50 mg PO BID [facility] Last Admin: 09/13/16 09:36 Dose: Not Given Morphine Sulfate (Morphine Injection -) 1 mg IVPUSH Q6H PRN PRN Reason: PAIN Ondansetron HCl (Zofran Injection) 4 mg IVPB Q8H PRN PRN Reason: NAUSEA Last Admin: 09/06/16 17:46 Dose: 4 mg Polyethylene Glycol (Miralax (For Daily Use) -) 17 gm PO TID [facility] Last Admin: 09/13/16 05:43 Dose: Not Given Senna (Senna -) 1 tab PO BID [facility] Last Admin: 09/13/16 09:41 Dose: 1 tab - Objective Vital Signs: Vital Signs Temperature 98.8 F 09/13/16 09:29 Pulse Rate 80 09/13/16 09:29 Respiratory Rate 20 09/13/16 09:29 Blood Pressure 93/54 09/13/16 09:29 O2 Sat by Pulse Oximetry (%) 98 09/12/16 21:00 Constitutional: Yes: No Distress (sitting in the chair), Calm Cardiovascular: Yes: Regular Rate and Rhythm, S1, S2 Respiratory: Yes: Regular, CTA Bilaterally. No: Rales Gastrointestinal: Yes: Normal Bowel Sounds, Soft, Abdomen, Obese. No: Palpable Mass, Tenderness Edema: No Neurological: Yes: Alert, Oriented Labs: CBC, BMP 09/12/16 06:30 09/12/16 06:30 INR, PTT INR 1.14 (0.82-1.09) 09/05/16 00:01 Problem List - Problems (1) Chest pain Assessment/Plan: serial CE are negative. Pt. was monitored on Telemetry. Seen by Cardio, cleared for new cardiac event. Pt. was transferred out of Telemetry. Code(s): R07.9 - CHEST PAIN, UNSPECIFIED Qualifiers: Chest pain type: chest pain on breathing Qualified Code(s): R07.1 - Chest pain on breathing (2) Low back pain Assessment/Plan: Neuro consult appreciated. Pain management consult appreciated. Back MRI was done ( c/w multilevel disc bulging). Code(s): M54.5 - LOW BACK PAIN Qualifiers: Chronicity: chronic (3) Anemia Assessment/Plan: Pt. with Known MAMTA, secondary to Uterine bleed; now no obvious sign of bleed. H/H trending down; s/p one unit of PRBC. To monitor H/H. Check stool for occult blood. Code(s): D64.9 - ANEMIA, UNSPECIFIED Qualifiers: Anemia type: unspecified type Qualified Code(s): D64.9 - Anemia, unspecified (4) Diabetes Code(s): E11.9 - TYPE 2 DIABETES MELLITUS WITHOUT COMPLICATIONS Qualifiers: Diabetes mellitus type: type 2 Diabetes mellitus complication detail: with chronic kidney disease Diabetes mellitus custodial insulin use: without custodial use (5) HTN (hypertension) Code(s): I10 - ESSENTIAL (PRIMARY) HYPERTENSION Qualifiers: Hypertension type: essential hypertension Qualified Code(s): I10 - Essential (primary) hypertension (6) Nausea Code(s): R11.0 - NAUSEA (7) Sleepiness Code(s): R40.0 - SOMNOLENCE (8) UTI (urinary tract infection) Assessment/Plan: on IV abtx. Code(s): N39.0 - URINARY TRACT INFECTION, SITE NOT SPECIFIED (9) Constipation Code(s): K59.00 - CONSTIPATION, UNSPECIFIED (10) Uterine cancer Assessment/Plan: scheduled for surgery this coming Monday. Code(s): C55 - MALIGNANT NEOPLASM OF UTERUS, PART UNSPECIFIED (11) Knee pain Assessment/Plan: Ortho consult. Code(s): M25.569 - PAIN IN UNSPECIFIED KNEE Assessment/Plan Cardiology consult appreciated Neuro consult appreciated Pain Management consult appreciated; pt. refused back infiltrations. Ortho consult. Cont. PT DVT prophylaxis
--- NOTE | 2016-09-13 14:00 | PN ---
Progress Note (short form) - Note Progress Note: Neurology History of Present Illness: 65 year old woman with history of coronary artery disease, DMII, HTN, fibroids, and uterine cancer, laminectomy, who developed severe back pain in July following biopsy of her uterus. She had imaging which revealed herniated discs , but the pain got better until Monday when she had an acute exacerbation to the point where any movement is excruciating. She comes in with severe incapacitating pain and associated chest pain as well, Seen by Dr. Fabian for pain mgmt. MRI brain completed and no acute changes. MRI L spine completed, mild to moderate changes noted, spinal cord signal intact. The patient is awaiting uterine surgery but still no ambulatory. I further discussed epidural injection with her which she was inquiring about. Active Medications Acetaminophen (Tylenol -) 650 mg PO Q6H PRN PRN Reason: FEVER OR PAIN Last Admin: 09/13/16 09:41 Dose: 650 mg Aspirin (Ecotrin -) 81 mg PO DAILY [facility] Atorvastatin Calcium (Lipitor -) 20 mg PO HS [facility] Last Admin: 09/12/16 21:44 Dose: 20 mg Cyclobenzaprine HCl (Flexeril -) 10 mg PO TID [facility] Last Admin: 09/13/16 05:38 Dose: 10 mg Docusate Sodium (Colace -) 100 mg PO BID PRN PRN Reason: CONSTIPATION Furosemide (Lasix -) 20 mg PO DAILY [facility] Last Admin: 09/13/16 09:40 Dose: Not Given Gabapentin (Neurontin -) 300 mg PO TID [facility] Last Admin: 09/13/16 05:38 Dose: 300 mg Glipizide (Glucotrol Xl -) 5 mg PO DAILY@0700 [facility] Last Admin: 09/13/16 06:24 Dose: 5 mg Heparin Sodium (Porcine) (Heparin -) 5,000 unit SQ BID [facility] Last Admin: 09/13/16 09:40 Dose: 5,000 unit Levofloxacin (Levaquin 500 Mg Premixed Ivpb -) 100 mls @ 100 mls/hr IVPB DAILY [facility] Last Admin: 09/13/16 09:40 Dose: 100 mls/hr Insulin Aspart (Novolog Vial Sliding Scale -) 1 vial SQ ACHS [facility] PRN Reason: Protocol Last Admin: 09/13/16 11:53 Dose: Not Given Ketorolac Tromethamine (Toradol Injection -) 15 mg IM Q8H PRN PRN Reason: PAIN Stop: 09/14/16 20:16 Last Admin: 09/12/16 13:09 Dose: 15 mg Levothyroxine Sodium (Synthroid -) 75 mcg PO DAILY@0700 [facility] Last Admin: 09/13/16 06:24 Dose: 75 mcg Lisinopril (Prinivil) 10 mg PO DAILY [facility] Last Admin: 09/13/16 09:40 Dose: Not Given Metoprolol Succinate (Toprol Xl -) 50 mg PO BID [facility] Last Admin: 09/13/16 09:36 Dose: Not Given Morphine Sulfate (Morphine Injection -) 1 mg IVPUSH Q6H PRN PRN Reason: PAIN Ondansetron HCl (Zofran Injection) 4 mg IVPB Q8H PRN PRN Reason: NAUSEA Last Admin: 09/06/16 17:46 Dose: 4 mg Polyethylene Glycol (Miralax (For Daily Use) -) 17 gm PO TID [facility] Last Admin: 09/13/16 05:43 Dose: Not Given Senna (Senna -) 1 tab PO BID [facility] Last Admin: 09/13/16 09:41 Dose: 1 tab Physical Exam-Neuro Vital Signs Temperature 98.8 F 09/13/16 09:29 Pulse Rate 80 09/13/16 09:29 Respiratory Rate 20 09/13/16 09:29 Blood Pressure 93/54 09/13/16 09:29 O2 Sat by Pulse Oximetry (%) 97 09/13/16 09:00 - Neuro Exam Cranial Nerves II-XII Intact: No (CN II-XII intact except for reduced movement of right lower face and flattened right nasolabial fold.) DTR's: 0 Left Achilles, 0 Right Achilles, 2+ Left Bicep, 2+ Right Bicep, 2+ Left Tricep, 2+ Right Tricep, 2+ Left Brachioradialis, 2+ Right Brachioradialis Babinski: Absent (withdrew) Motor Strength: 5/5: Left Arm, Right Arm Gait: Deferred - Plan:65 year old woman with history of coronary artery disease, DMII, HTN, fibroids, and uterine cancer, laminectomy, who developed severe back pain in July following biopsy of her uterus. She had imaging which revealed herniated discs, but the pain got better until Monday when she had an acute exacerbation to the point where any movement is excruciating. She comes in with severe incapacitating pain and associated chest pain as well, Seen by Dr. Fabian for pain mgmt. MRI brain completed and no acute changes. MRI L spine completed, mild to moderate changes noted, spinal cord signal intact. Well appearing today but reports inability to ambulate. MRI L spine completed, no cord changes, mild to moderate changes noted PT/OT, may need rehab placement as she reports not being able to ambulate Pain mgmt follow up, Dr. fabian Would not make sudden movements DVT ppx fall precautions Awaiting uterine surgery but at this time still not ambulatory, she is considering delay until current condition improves/resolves. Encouraged epidural with patient again
--- NOTE | 2016-09-13 14:34 | CON.ORTH ---
Consult Reason for Consultation:: b/l knee pain - Past Medical History Cardio/Vascular: Yes: HTN, Hyperlipdemia, Other (chest pain, CAD with apical ischemia) Pulmonary: Yes: Other (SOB ) Renal/: Yes: Renal Calculi Musculoskeletal: Yes: Osteoarthritis Endocrine: Yes: Diabetes Mellitus, Hypothyroidism - Past Surgical History Past Surgical History: Yes: (1954, 1955, 1980 ), Laminectomy (spine surgery , 3 times, disc removal & fusion done at [facility] ) - Alcohol/Substance Use Hx Alcohol Use: No History of Substance Use: reports: None - Smoking History Smoking history: Never smoked Have you smoked in the past 12 months: No Aproximately how many cigarettes per day: 0 - Social History ADL: Independent 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 History of Recent Travel: No Home Medications - Allergies Allergies/Adverse Reactions: Allergies Allergy/AdvReac Type Severity Reaction Status Date / Time Penicillins AdvReac Intermediate Rash Verified 07/25/16 07:47 - Home Medications Home Medications: Ambulatory Orders Atorvastatin Ca [Lipitor] 20 mg PO HS 07/22/16 Furosemide [Lasix] 20 mg PO DAILY 07/22/16 Hydrochlorothiazide 25 mg PO DAILY 07/22/16 Levothyroxine [Synthroid -] 75 mcg PO DAILY 07/22/16 Lisinopril 10 mg PO DAILY 07/22/16 Metoprolol Succinate [Toprol Xl] 50 mg PO DAILY 07/22/16 Acetaminophen [Tylenol .Regular Strength -] 650 mg PO Q6H PRN #0 tablet Clopidogrel Bisulfate [Plavix -] 75 mg PO HS 07/28/16 Glipizide [Glipizide ER] 5 mg PO DAILY 09/05/16 Family Disease History - Family Disease History Family Disease History: Diabetes: Father, Brother, Sister, Heart Disease: Mother (Stomach Ca, CVA), CA: Grandparent (Cervical), Mother, Sister Physical Exam for Ortho Vital Signs: Vital Signs Temperature 98.8 F 09/13/16 09:29 Pulse Rate 80 09/13/16 09:29 Respiratory Rate 20 09/13/16 09:29 Blood Pressure 93/54 09/13/16 09:29 O2 Sat by Pulse Oximetry (%) 97 09/13/16 09:00 Labs: CBC, BMP 09/12/16 06:30 09/12/16 06:30 INR, PTT INR 1.14 (0.82-1.09) 09/05/16 00:01 - Lower Extremity Knee: Yes: Left, Right, Limited ROM, Pain, Tenderness, Other (+diffuse tenderness r>l, rom 0-100, calf soft, nt, nvi) Assessment/Plan 65 year old woman with history of coronary artery disease, DMII, HTN, fibroids, and uterine cancer, laminectomy, who developed severe back pain in July following biopsy of her uterus. She had imaging which revealed herniated discs , but the pain got better until Monday when she had an acute exacerbation to the point where any movement is excruciating. She comes in with severe incapacitating pain and associated chest pain as well, Seen by Dr. Fabian for pain mgmt. MRI brain completed and no acute changes. MRI L spine completed, mild to moderate changes noted, spinal cord signal intact. The patient is awaiting uterine surgery but still no ambulatory. I further discussed epidural injection with her which she was inquiring about. No with b/l knee pain. R>L. h/ o djd with injections in the past by Dr. Gonzalez. No injury/trauma a/p- b/l knee djd xrays of b/l knees PT pain control will advise after xrays d/w Dr. Gonzalez
[2016-09-13] MEDS: ASPIRIN COATED 81 MG TABLET.EC PO SCH (14:48)
[2016-09-13] MEDS: KETOROLAC TROMETHAMINE 15 MG/ML VIAL IM PRN (16:31)
--- NOTE | 2016-09-13 16:55 | PN ---
Progress Note, Physician - Current Medication List Current Medications: Active Medications Acetaminophen (Tylenol -) 650 mg PO Q6H PRN PRN Reason: FEVER OR PAIN Last Admin: 09/13/16 09:41 Dose: 650 mg Aspirin (Ecotrin -) 81 mg PO DAILY [facility] Last Admin: 09/13/16 14:48 Dose: 81 mg Atorvastatin Calcium (Lipitor -) 20 mg PO HS [facility] Last Admin: 09/12/16 21:44 Dose: 20 mg Cyclobenzaprine HCl (Flexeril -) 10 mg PO TID [facility] Last Admin: 09/13/16 14:48 Dose: 10 mg Docusate Sodium (Colace -) 100 mg PO BID PRN PRN Reason: CONSTIPATION Furosemide (Lasix -) 20 mg PO DAILY [facility] Last Admin: 09/13/16 09:40 Dose: Not Given Gabapentin (Neurontin -) 300 mg PO TID [facility] Last Admin: 09/13/16 14:49 Dose: 300 mg Glipizide (Glucotrol Xl -) 5 mg PO DAILY@0700 [facility] Last Admin: 09/13/16 06:24 Dose: 5 mg Heparin Sodium (Porcine) (Heparin -) 5,000 unit SQ BID [facility] Last Admin: 09/13/16 09:40 Dose: 5,000 unit Levofloxacin (Levaquin 500 Mg Premixed Ivpb -) 100 mls @ 100 mls/hr IVPB DAILY [facility] Last Admin: 09/13/16 09:40 Dose: 100 mls/hr Insulin Aspart (Novolog Vial Sliding Scale -) 1 vial SQ ACHS [facility] PRN Reason: Protocol Last Admin: 09/13/16 16:36 Dose: Not Given Ketorolac Tromethamine (Toradol Injection -) 15 mg IM Q8H PRN PRN Reason: PAIN Stop: 09/14/16 20:16 Last Admin: 09/13/16 16:31 Dose: 15 mg Levothyroxine Sodium (Synthroid -) 75 mcg PO DAILY@0700 [facility] Last Admin: 09/13/16 06:24 Dose: 75 mcg Lisinopril (Prinivil) 10 mg PO DAILY [facility] Last Admin: 09/13/16 09:40 Dose: Not Given Metoprolol Succinate (Toprol Xl -) 50 mg PO BID [facility] Last Admin: 09/13/16 09:36 Dose: Not Given Morphine Sulfate (Morphine Injection -) 1 mg IVPUSH Q6H PRN PRN Reason: PAIN Ondansetron HCl (Zofran Injection) 4 mg IVPB Q8H PRN PRN Reason: NAUSEA Last Admin: 09/06/16 17:46 Dose: 4 mg Polyethylene Glycol (Miralax (For Daily Use) -) 17 gm PO TID [facility] Last Admin: 09/13/16 14:49 Dose: 17 grams Senna (Senna -) 1 tab PO BID [facility] Last Admin: 09/13/16 09:41 Dose: 1 tab - Objective Vital Signs: Vital Signs Temperature 97.9 F 09/13/16 16:06 Pulse Rate 88 09/13/16 16:06 Respiratory Rate 16 09/13/16 16:06 Blood Pressure 105/88 09/13/16 16:06 O2 Sat by Pulse Oximetry (%) 97 09/13/16 09:00 Labs: CBC, BMP 09/12/16 06:30 09/12/16 06:30 INR, PTT INR 1.14 (0.82-1.09) 09/05/16 00:01 Problem List - Problems (1) Chest pain Code(s): R07.9 - CHEST PAIN, UNSPECIFIED Qualifiers: Chest pain type: chest pain on breathing Qualified Code(s): R07.1 - Chest pain on breathing (2) Diabetes Code(s): E11.9 - TYPE 2 DIABETES MELLITUS WITHOUT COMPLICATIONS Qualifiers: Diabetes mellitus type: type 2 Diabetes mellitus complication detail: with chronic kidney disease Diabetes mellitus usp insulin use: without usp use (3) Low back pain of multiple sites of spine with sciatica Code(s): M54.40 - LUMBAGO WITH SCIATICA, UNSPECIFIED SIDE (4) LACEY (acute kidney injury) Code(s): N17.9 - ACUTE KIDNEY FAILURE, UNSPECIFIED (5) Anemia Code(s): D64.9 - ANEMIA, UNSPECIFIED Qualifiers: Anemia type: unspecified type Qualified Code(s): D64.9 - Anemia, unspecified (6) Coronary artery disease Code(s): I25.10 - ATHSCL HEART DISEASE OF [place] CORONARY ARTERY W/O ANG PCTRS Qualifiers: Coronary Disease-Associated Artery/Lesion type: unspecified vessel or lesion type [place] vs. transplanted heart: [place] heart Associated angina: with unspecified angina Qualified Code(s): I25.119 - Atherosclerotic heart disease of [place] coronary artery with unspecified angina pectoris (7) Dyslipidemia associated with type 2 diabetes mellitus Code(s): E11.69 - TYPE 2 DIABETES MELLITUS WITH OTHER SPECIFIED COMPLICATION E78.5 - HYPERLIPIDEMIA, UNSPECIFIED (8) HTN (hypertension) Code(s): I10 - ESSENTIAL (PRIMARY) HYPERTENSION Qualifiers: Hypertension type: essential hypertension Qualified Code(s): I10 - Essential (primary) hypertension (9) Hyperlipidemia Code(s): E78.5 - HYPERLIPIDEMIA, UNSPECIFIED Qualifiers: Hyperlipidemia type: pure hypercholesterolemia Qualified Code(s): E78.00 - Pure hypercholesterolemia, unspecified; E78.0 - Pure hypercholesterolemia (10) Menometrorrhagia Code(s): N92.1 - EXCESSIVE AND FREQUENT MENSTRUATION WITH IRREGULAR CYCLE (11) Pre-operative cardiovascular examination Code(s): Z01.810 - ENCOUNTER FOR PREPROCEDURAL CARDIOVASCULAR EXAMINATION
[2016-09-13] MEDS: ATORVASTATIN CA 20 MG TABLET (FP) PO SCH (22:15)
[2016-09-14] MEDS: GABAPENTIN 300 MG CAPSULE (FP) PO SCH ×3 (06:06→22:14)
[2016-09-14] MEDS: INSULIN SLIDING SCALE (NOVOLOG) 1 VIAL SQ SCH ×4 (06:06→22:15)
[2016-09-14] MEDS: LEVOTHYROXINE NA 75 MCG TABLET (FP) PO SCH (06:06)
[2016-09-14] MEDS: CYCLOBENZAPRINE HCL 10 MG TABLET (FP) PO SCH ×3 (06:06→22:14)
[2016-09-14] MEDS: POLYETHYLENE GLYCOL 3350 119 GM BTL PO SCH ×4 (06:08→22:15)
[2016-09-14] MEDS ORDERED: PT OWN MED DRAWER 7, Y5N ONE ×3 (06:16→10:01)
[2016-09-14] MEDS: glipiZIDE-XL 5 MG TAB.ER.24 PO SCH ×2 (06:59→08:33)
[2016-09-14 08:12] LABS: MCHC 33.2 g/dl (32.0-36.0); MEAN CELL VOLUME 84.3 fl (80-96); MEAN PLT VOLUME 7.1 fl (7.5-11.1); PLATELET COUNT 374 K/MM3 (134-434); RDW 17.4 % (11.6-15.6); WHITE BLOOD COUNT 10.8 K/mm3 (4.0-10.0)
[2016-09-14 08:34] LABS: CALCIUM 9.3 mg/dL (8.5-10.1); COCKROFT - GAULT 76.3045
--- NOTE | 2016-09-14 09:15 | PN ---
Progress Note (short form) - Note Progress Note: XRAYS SHOW SEVERE DJD B KNEES PATIENT HAS FAILED INJECTIONS, NSAIDS AND PT PATIENT OFFERED TKR. SHE WILL THINK ABOUT IT AND DECIDE AT A LATTER TIME. CURRENTLY SHE IS SCHEDULED FOR ABDOMINAL SURGERY IN [place] LATER THIS WEEK. SHE WILL FOLLOW UP IN THE OFFICE WHEN READY
[2016-09-14] MEDS: FUROSEMIDE 20 MG TABLET (FP) PO SCH (10:03)
[2016-09-14] MEDS: HEPARIN NA (PORCINE) 5,000 UNITS/ML 1ML VIAL SQ SCH ×2 (10:03→22:14)
[2016-09-14] MEDS: ASPIRIN COATED 81 MG TABLET.EC PO SCH (10:03)
[2016-09-14] MEDS: LISINOPRIL 10 MG TABLET (FP) PO SCH (10:03)
[2016-09-14] MEDS: LEVOFLOXACIN 500 MG IVPB 100 ML IVPB SCH (10:03)
[2016-09-14] MEDS: SENNOSIDES 8.6MG TABLET (FP) PO SCH ×2 (10:04→22:14)
[2016-09-14] MEDS: METOPROLOL SUCCINATE 50 MG TAB.SR.24H (FP) PO SCH ×2 (10:04→22:14)
[2016-09-14] MEDS: ACETAMINOPHEN 325 MG TABLET (FP) PO PRN ×2 (10:05→17:36)
--- NOTE | 2016-09-14 12:46 | PN ---
Progress Note, Physician History of Present Illness: Back pain radiating to left leg has improved. Chest pain, palpitations, dizziness, dyspnea and nausea resolved, L-S MRI results appreciated. - Current Medication List Current Medications: Active Medications Acetaminophen (Tylenol -) 650 mg PO Q6H PRN PRN Reason: FEVER OR PAIN Last Admin: 09/14/16 10:05 Dose: 650 mg Aspirin (Ecotrin -) 81 mg PO DAILY [facility] Last Admin: 09/14/16 10:03 Dose: 81 mg Atorvastatin Calcium (Lipitor -) 20 mg PO HS [facility] Last Admin: 09/13/16 22:15 Dose: 20 mg Cyclobenzaprine HCl (Flexeril -) 10 mg PO TID [facility] Last Admin: 09/14/16 06:06 Dose: 10 mg Docusate Sodium (Colace -) 100 mg PO BID PRN PRN Reason: CONSTIPATION Furosemide (Lasix -) 20 mg PO DAILY [facility] Last Admin: 09/14/16 10:03 Dose: 20 mg Gabapentin (Neurontin -) 300 mg PO TID [facility] Last Admin: 09/14/16 06:06 Dose: 300 mg Glipizide (Glucotrol Xl -) 5 mg PO DAILY@0700 [facility] Last Admin: 09/14/16 08:33 Dose: 5 mg Heparin Sodium (Porcine) (Heparin -) 5,000 unit SQ BID [facility] Last Admin: 09/14/16 10:03 Dose: 5,000 unit Levofloxacin (Levaquin 500 Mg Premixed Ivpb -) 100 mls @ 100 mls/hr IVPB DAILY [facility] Last Admin: 09/14/16 10:03 Dose: 100 mls/hr Insulin Aspart (Novolog Vial Sliding Scale -) 1 vial SQ ACHS [facility] PRN Reason: Protocol Last Admin: 09/14/16 06:06 Dose: Not Given Ketorolac Tromethamine (Toradol Injection -) 15 mg IM Q8H PRN PRN Reason: PAIN Stop: 09/14/16 20:16 Last Admin: 09/13/16 16:31 Dose: 15 mg Levothyroxine Sodium (Synthroid -) 75 mcg PO DAILY@0700 [facility] Last Admin: 09/14/16 06:06 Dose: 75 mcg Lisinopril (Prinivil) 10 mg PO DAILY [facility] Last Admin: 09/14/16 10:03 Dose: 10 mg Metoprolol Succinate (Toprol Xl -) 50 mg PO BID [facility] Last Admin: 09/14/16 10:04 Dose: 50 mg Morphine Sulfate (Morphine Injection -) 1 mg IVPUSH Q6H PRN PRN Reason: PAIN Ondansetron HCl (Zofran Injection) 4 mg IVPB Q8H PRN PRN Reason: NAUSEA Last Admin: 09/06/16 17:46 Dose: 4 mg Polyethylene Glycol (Miralax (For Daily Use) -) 17 gm PO TID [facility] Last Admin: 09/14/16 06:08 Dose: Not Given Senna (Senna -) 1 tab PO BID [facility] Last Admin: 09/14/16 10:04 Dose: 1 tab - Objective Vital Signs: Vital Signs Temperature 98.6 F 09/14/16 08:38 Pulse Rate 78 09/14/16 08:38 Respiratory Rate 20 09/14/16 08:38 Blood Pressure 114/60 09/14/16 08:38 O2 Sat by Pulse Oximetry (%) 97 09/13/16 21:00 Constitutional: Yes: No Distress, Calm Neck: Yes: Supple Cardiovascular: Yes: Regular Rate and Rhythm Respiratory: Yes: Regular, Diminished Gastrointestinal: Yes: Normal Bowel Sounds, Soft, Abdomen, Obese Musculoskeletal: Yes: Joint Stiffness Edema: No Labs: CBC, BMP 09/14/16 07:00 09/14/16 07:00 INR, PTT INR 1.14 (0.82-1.09) 09/05/16 00:01 Problem List - Problems (1) Chest pain Code(s): R07.9 - CHEST PAIN, UNSPECIFIED Qualifiers: Chest pain type: chest pain on breathing Qualified Code(s): R07.1 - Chest pain on breathing (2) Sciatica Code(s): M54.30 - SCIATICA, UNSPECIFIED SIDE Qualifiers: Laterality: left Qualified Code(s): M54.32 - Sciatica, left side (3) Status post dilation and curettage Code(s): Z98.890 - OTHER SPECIFIED POSTPROCEDURAL STATES (4) Anemia Code(s): D64.9 - ANEMIA, UNSPECIFIED Qualifiers: Anemia type: unspecified type Qualified Code(s): D64.9 - Anemia, unspecified (5) Coronary artery disease Code(s): I25.10 - ATHSCL HEART DISEASE OF [place] CORONARY ARTERY W/O ANG PCTRS Qualifiers: Coronary Disease-Associated Artery/Lesion type: unspecified vessel or lesion type [place] vs. transplanted heart: [place] heart Associated angina: with unspecified angina Qualified Code(s): I25.119 - Atherosclerotic heart disease of [place] coronary artery with unspecified angina pectoris (6) Diabetes mellitus type 2 in obese Code(s): E11.9 - TYPE 2 DIABETES MELLITUS WITHOUT COMPLICATIONS E66.9 - OBESITY, UNSPECIFIED (7) Dyslipidemia associated with type 2 diabetes mellitus Code(s): E11.69 - TYPE 2 DIABETES MELLITUS WITH OTHER SPECIFIED COMPLICATION E78.5 - HYPERLIPIDEMIA, UNSPECIFIED (8) HTN (hypertension) Code(s): I10 - ESSENTIAL (PRIMARY) HYPERTENSION Qualifiers: Hypertension type: essential hypertension Qualified Code(s): I10 - Essential (primary) hypertension (9) Hyperlipidemia Code(s): E78.5 - HYPERLIPIDEMIA, UNSPECIFIED Qualifiers: Hyperlipidemia type: pure hypercholesterolemia Qualified Code(s): E78.00 - Pure hypercholesterolemia, unspecified; E78.0 - Pure hypercholesterolemia (10) Hypothyroid Code(s): E03.9 - HYPOTHYROIDISM, UNSPECIFIED Qualifiers: Hypothyroidism type: acquired Qualified Code(s): E03.9 - Hypothyroidism, unspecified (11) Low back pain Code(s): M54.5 - LOW BACK PAIN Qualifiers: Chronicity: chronic (12) Osteoarthritis of both knees Code(s): M17.0 - BILATERAL PRIMARY OSTEOARTHRITIS OF KNEE Qualifiers: Osteoarthritis type: unspecified Qualified Code(s): M17.0 - Bilateral primary osteoarthritis of knee Assessment/Plan 1. Chest pain syndrome with atypical features suspect anxiety in context of severe sciatica, L5 nerve impingement 2. CAD post acute coronary syndrome abnormal MPI study (mild apical ischemia) angina pectoris 3. Diastolic LV dysfunction with class 0 NYHA classification LV failure 4. HTN 5. DM 6. Hypercholesterolemia 7. Hypothyroidism 8. Left renal colic and hydronephrosis post cystoscopy and left ureteral stent 9. History of LACEY (related obstructive uropathy) 10. Anemia with h/o dysfunctional uterine bleed due to uterine CA 11. Bilateral knee DJD PLAN: 1. Continue Toprol XL 50 bid and Lisinopril 10 qd 2. Continue Lipitor 20 qhs 3. Continue Lasix 20 qd and Hydrochlorothiazide 25 qd 4. Await hysterectomy next week (surgery to be performed with ASA 81 qd on board ) - Plavix has been discontinued. There appears to be no absolute contraindication in proceeding with planned hysterectomy in view of absence of ischemic symptoms, decompensated congestive heart failure or malignant arrhythmia. 5. Pain management as per the primary team, declines epidural injection 6. DVT prophylaxis, PT as tolerated 7. Complete antibiotic course
--- NOTE | 2016-09-14 13:28 | PN ---
Progress Note, Physician History of Present Illness: Pt. transferred to regular medical floor. Pt. w/o motor or sensory deficit in UE/ LE/ face. Pt. w/o CP, palp, dizziness, abd pain, N, V, blood in stool, no vaginal bleed. Pt with improved back pain. Pt. c/o left knee pain slightly better. - Current Medication List Current Medications: Active Medications Acetaminophen (Tylenol -) 650 mg PO Q6H PRN PRN Reason: FEVER OR PAIN Last Admin: 09/14/16 10:05 Dose: 650 mg Aspirin (Ecotrin -) 81 mg PO DAILY [facility] Last Admin: 09/14/16 10:03 Dose: 81 mg Atorvastatin Calcium (Lipitor -) 20 mg PO HS [facility] Last Admin: 09/13/16 22:15 Dose: 20 mg Cyclobenzaprine HCl (Flexeril -) 10 mg PO TID [facility] Last Admin: 09/14/16 06:06 Dose: 10 mg Docusate Sodium (Colace -) 100 mg PO BID PRN PRN Reason: CONSTIPATION Furosemide (Lasix -) 20 mg PO DAILY [facility] Last Admin: 09/14/16 10:03 Dose: 20 mg Gabapentin (Neurontin -) 300 mg PO TID [facility] Last Admin: 09/14/16 06:06 Dose: 300 mg Glipizide (Glucotrol Xl -) 5 mg PO DAILY@0700 [facility] Last Admin: 09/14/16 08:33 Dose: 5 mg Heparin Sodium (Porcine) (Heparin -) 5,000 unit SQ BID [facility] Last Admin: 09/14/16 10:03 Dose: 5,000 unit Insulin Aspart (Novolog Vial Sliding Scale -) 1 vial SQ ACHS [facility] PRN Reason: Protocol Last Admin: 09/14/16 06:06 Dose: Not Given Ketorolac Tromethamine (Toradol Injection -) 15 mg IM Q8H PRN PRN Reason: PAIN Stop: 09/14/16 20:16 Last Admin: 09/13/16 16:31 Dose: 15 mg Levothyroxine Sodium (Synthroid -) 75 mcg PO DAILY@0700 [facility] Last Admin: 09/14/16 06:06 Dose: 75 mcg Lisinopril (Prinivil) 10 mg PO DAILY [facility] Last Admin: 09/14/16 10:03 Dose: 10 mg Metoprolol Succinate (Toprol Xl -) 50 mg PO BID [facility] Last Admin: 09/14/16 10:04 Dose: 50 mg Ondansetron HCl (Zofran Injection) 4 mg IVPB Q8H PRN PRN Reason: NAUSEA Last Admin: 09/06/16 17:46 Dose: 4 mg Polyethylene Glycol (Miralax (For Daily Use) -) 17 gm PO TID [facility] Last Admin: 09/14/16 06:08 Dose: Not Given Senna (Senna -) 1 tab PO BID [facility] Last Admin: 09/14/16 10:04 Dose: 1 tab - Objective Vital Signs: Vital Signs Temperature 98.6 F 09/14/16 08:38 Pulse Rate 78 09/14/16 08:38 Respiratory Rate 20 09/14/16 08:38 Blood Pressure 114/60 09/14/16 08:38 O2 Sat by Pulse Oximetry (%) 97 09/13/16 21:00 Constitutional: Yes: No Distress, Calm Cardiovascular: Yes: Regular Rate and Rhythm, S1, S2 Respiratory: Yes: Regular, CTA Bilaterally. No: Rales Gastrointestinal: Yes: Normal Bowel Sounds, Soft, Abdomen, Obese. No: Tenderness Edema: No Neurological: Yes: Alert, Oriented Labs: CBC, BMP 09/14/16 07:00 09/14/16 07:00 INR, PTT INR 1.14 (0.82-1.09) 09/05/16 00:01 Problem List - Problems (1) Chest pain Assessment/Plan: serial CE are negative. Pt. was monitored on Telemetry. Seen by Cardio, cleared for new cardiac event. Pt. was transferred out of Telemetry. Code(s): R07.9 - CHEST PAIN, UNSPECIFIED Qualifiers: Chest pain type: chest pain on breathing Qualified Code(s): R07.1 - Chest pain on breathing (2) Low back pain Assessment/Plan: Neuro consult appreciated. Pain management consult appreciated. Back MRI was done ( c/w multilevel disc bulging). Code(s): M54.5 - LOW BACK PAIN Qualifiers: Chronicity: chronic (3) Anemia Code(s): D64.9 - ANEMIA, UNSPECIFIED Qualifiers: Anemia type: unspecified type Qualified Code(s): D64.9 - Anemia, unspecified (4) Diabetes Code(s): E11.9 - TYPE 2 DIABETES MELLITUS WITHOUT COMPLICATIONS Qualifiers: Diabetes mellitus type: type 2 Diabetes mellitus complication detail: with chronic kidney disease Diabetes mellitus intermediate designer insulin use: without intermediate designer use (5) HTN (hypertension) Code(s): I10 - ESSENTIAL (PRIMARY) HYPERTENSION Qualifiers: Hypertension type: essential hypertension Qualified Code(s): I10 - Essential (primary) hypertension (6) Nausea Code(s): R11.0 - NAUSEA (7) Sleepiness Code(s): R40.0 - SOMNOLENCE (8) UTI (urinary tract infection) Code(s): N39.0 - URINARY TRACT INFECTION, SITE NOT SPECIFIED (9) Constipation Assessment/Plan: Miralax was added. Resolved Code(s): K59.00 - CONSTIPATION, UNSPECIFIED (10) Uterine cancer Assessment/Plan: scheduled for surgery this coming Monday. Code(s): C55 - MALIGNANT NEOPLASM OF UTERUS, PART UNSPECIFIED (11) Knee pain Assessment/Plan: Ortho consult appreciated. Per Ortho she needs TKR. Today she was able to walk a short distance with PT; to monitor her pain. Pt has stairs to get to her house; to ask PT for evaluation. Code(s): M25.569 - PAIN IN UNSPECIFIED KNEE Assessment/Plan Cardiology consult appreciated Neuro consult appreciated Pain Management consult appreciated; pt. refused back infiltrations. Ortho consult apprecitaed. Cont. PT DVT prophylaxis. Case was d/w pt.'s nurse
[2016-09-14 14:41] LABS: INR 1.17 (0.82-1.09); PROTHROMBIN TIME (PATIENT) 12.9 SEC (9.98-11.88)
--- NOTE | 2016-09-14 16:15 | PN ---
Progress Note (short form) - Note Progress Note: Neurology History of Present Illness: 65 year old woman with history of coronary artery disease, DMII, HTN, fibroids, and uterine cancer, laminectomy, who developed severe back pain in July following biopsy of her uterus. She had imaging which revealed herniated discs , but the pain got better until Monday when she had an acute exacerbation to the point where any movement is excruciating. She comes in with severe incapacitating pain and associated chest pain as well, Seen by Dr. Fabian for pain mgmt. MRI brain completed and no acute changes. MRI L spine completed, mild to moderate changes noted, spinal cord signal intact. The patient is awaiting uterine surgery but still not ambulatory. I further discussed epidural injection with her which she was inquiring about yesterday. She reports some ambulation this morning with walker. Active Medications Acetaminophen (Tylenol -) 650 mg PO Q6H PRN PRN Reason: FEVER OR PAIN Last Admin: 09/13/16 09:41 Dose: 650 mg Aspirin (Ecotrin -) 81 mg PO DAILY [facility] Atorvastatin Calcium (Lipitor -) 20 mg PO HS [facility] Last Admin: 09/12/16 21:44 Dose: 20 mg Cyclobenzaprine HCl (Flexeril -) 10 mg PO TID [facility] Last Admin: 09/13/16 05:38 Dose: 10 mg Docusate Sodium (Colace -) 100 mg PO BID PRN PRN Reason: CONSTIPATION Furosemide (Lasix -) 20 mg PO DAILY [facility] Last Admin: 09/13/16 09:40 Dose: Not Given Gabapentin (Neurontin -) 300 mg PO TID [facility] Last Admin: 09/13/16 05:38 Dose: 300 mg Glipizide (Glucotrol Xl -) 5 mg PO DAILY@0700 [facility] Last Admin: 09/13/16 06:24 Dose: 5 mg Heparin Sodium (Porcine) (Heparin -) 5,000 unit SQ BID [facility] Last Admin: 09/13/16 09:40 Dose: 5,000 unit Levofloxacin (Levaquin 500 Mg Premixed Ivpb -) 100 mls @ 100 mls/hr IVPB DAILY [facility] Last Admin: 09/13/16 09:40 Dose: 100 mls/hr Insulin Aspart (Novolog Vial Sliding Scale -) 1 vial SQ ACHS [facility] PRN Reason: Protocol Last Admin: 09/13/16 11:53 Dose: Not Given Ketorolac Tromethamine (Toradol Injection -) 15 mg IM Q8H PRN PRN Reason: PAIN Stop: 09/14/16 20:16 Last Admin: 09/12/16 13:09 Dose: 15 mg Levothyroxine Sodium (Synthroid -) 75 mcg PO DAILY@0700 [facility] Last Admin: 09/13/16 06:24 Dose: 75 mcg Lisinopril (Prinivil) 10 mg PO DAILY [facility] Last Admin: 09/13/16 09:40 Dose: Not Given Metoprolol Succinate (Toprol Xl -) 50 mg PO BID [facility] Last Admin: 09/13/16 09:36 Dose: Not Given Morphine Sulfate (Morphine Injection -) 1 mg IVPUSH Q6H PRN PRN Reason: PAIN Ondansetron HCl (Zofran Injection) 4 mg IVPB Q8H PRN PRN Reason: NAUSEA Last Admin: 09/06/16 17:46 Dose: 4 mg Polyethylene Glycol (Miralax (For Daily Use) -) 17 gm PO TID [facility] Last Admin: 09/13/16 05:43 Dose: Not Given Senna (Senna -) 1 tab PO BID [facility] Last Admin: 09/13/16 09:41 Dose: 1 tab Physical Exam-Neuro Vital Signs Temperature 98.4 F 09/14/16 14:36 Pulse Rate 80 09/14/16 14:36 Respiratory Rate 18 09/14/16 14:36 Blood Pressure 100/60 09/14/16 14:36 O2 Sat by Pulse Oximetry (%) 96 09/14/16 09:00 - Neuro Exam Cranial Nerves II-XII Intact: No (CN II-XII intact except for reduced movement of right lower face and flattened right nasolabial fold.) DTR's: 0 Left Achilles, 0 Right Achilles, 2+ Left Bicep, 2+ Right Bicep, 2+ Left Tricep, 2+ Right Tricep, 2+ Left Brachioradialis, 2+ Right Brachioradialis Babinski: Absent (withdrew) Motor Strength: 5/5: Left Arm, Right Arm Gait: Deferred - Plan:65 year old woman with history of coronary artery disease, DMII, HTN, fibroids, and uterine cancer, laminectomy, who developed severe back pain in July following biopsy of her uterus. She had imaging which revealed herniated discs, but the pain got better until Monday when she had an acute exacerbation to the point where any movement is excruciating. She comes in with severe incapacitating pain and associated chest pain as well, Seen by Dr. Fabian for pain mgmt. MRI brain completed and no acute changes. MRI L spine completed, mild to moderate changes noted, spinal cord signal intact. Well appearing today but reports inability to ambulate. MRI L spine completed, no cord changes, mild to moderate changes noted PT/OT, may need rehab placement as she reports not being able to ambulate Pain mgmt follow up, Dr. fabian Would not make sudden movements DVT ppx fall precautions Awaiting uterine surgery but at this time still not ambulatory, she is considering delay until current condition improves/resolves. Increased ambulation as tolerated
[2016-09-14] MEDS: ATORVASTATIN CA 20 MG TABLET (FP) PO SCH (22:14)
[2016-09-15] MEDS: ACETAMINOPHEN 325 MG TABLET (FP) PO PRN ×4 (02:26→21:26)
[2016-09-15] MEDS: GABAPENTIN 300 MG CAPSULE (FP) PO SCH ×3 (06:10→21:28)
[2016-09-15] MEDS: CYCLOBENZAPRINE HCL 10 MG TABLET (FP) PO SCH ×3 (06:10→21:27)
[2016-09-15] MEDS: POLYETHYLENE GLYCOL 3350 119 GM BTL PO SCH ×3 (06:10→21:28)
[2016-09-15] MEDS: LEVOTHYROXINE NA 75 MCG TABLET (FP) PO SCH (06:10)
[2016-09-15] MEDS: glipiZIDE-XL 5 MG TAB.ER.24 PO SCH (06:11)
[2016-09-15] MEDS: INSULIN SLIDING SCALE (NOVOLOG) 1 VIAL SQ SCH ×4 (06:12→21:32)
[2016-09-15] MEDS: SENNOSIDES 8.6MG TABLET (FP) PO SCH ×2 (09:17→21:28)
[2016-09-15] MEDS: METOPROLOL SUCCINATE 50 MG TAB.SR.24H (FP) PO SCH ×2 (09:17→21:29)
[2016-09-15] MEDS: LISINOPRIL 10 MG TABLET (FP) PO SCH (09:17)
[2016-09-15] MEDS: ASPIRIN COATED 81 MG TABLET.EC PO SCH (09:17)
[2016-09-15] MEDS: HEPARIN NA (PORCINE) 5,000 UNITS/ML 1ML VIAL SQ SCH ×2 (09:19→21:28)
[2016-09-15] MEDS: FUROSEMIDE 20 MG TABLET (FP) PO SCH (09:27)
--- NOTE | 2016-09-15 11:38 | PN ---
Progress Note, Physician History of Present Illness: Back pain radiating to left leg has flared up. Chest pain, palpitations, dizziness, dyspnea and nausea resolved, L-S MRI results appreciated. - Current Medication List Current Medications: Active Medications Acetaminophen (Tylenol -) 650 mg PO Q6H PRN PRN Reason: FEVER OR PAIN Last Admin: 09/15/16 09:17 Dose: 650 mg Aspirin (Ecotrin -) 81 mg PO DAILY [facility] Last Admin: 09/15/16 09:17 Dose: 81 mg Atorvastatin Calcium (Lipitor -) 20 mg PO HS [facility] Last Admin: 09/14/16 22:14 Dose: 20 mg Cyclobenzaprine HCl (Flexeril -) 10 mg PO TID [facility] Last Admin: 09/15/16 06:10 Dose: 10 mg Docusate Sodium (Colace -) 100 mg PO BID PRN PRN Reason: CONSTIPATION Furosemide (Lasix -) 20 mg PO DAILY [facility] Last Admin: 09/15/16 09:27 Dose: 20 mg Gabapentin (Neurontin -) 300 mg PO TID [facility] Last Admin: 09/15/16 06:10 Dose: 300 mg Glipizide (Glucotrol Xl -) 5 mg PO DAILY@0700 [facility] Last Admin: 09/15/16 06:11 Dose: Not Given Heparin Sodium (Porcine) (Heparin -) 5,000 unit SQ BID [facility] Last Admin: 09/15/16 09:19 Dose: 5,000 unit Hydromorphone HCl (Dilaudid -) 1 mg PO Q6H PRN PRN Reason: PAIN Insulin Aspart (Novolog Vial Sliding Scale -) 1 vial SQ ACHS [facility] PRN Reason: Protocol Last Admin: 09/15/16 06:12 Dose: Not Given Levothyroxine Sodium (Synthroid -) 75 mcg PO DAILY@0700 [facility] Last Admin: 09/15/16 06:10 Dose: 75 mcg Lisinopril (Prinivil) 10 mg PO DAILY [facility] Last Admin: 09/15/16 09:17 Dose: 10 mg Metoprolol Succinate (Toprol Xl -) 50 mg PO BID [facility] Last Admin: 09/15/16 09:17 Dose: 50 mg Ondansetron HCl (Zofran Injection) 4 mg IVPB Q8H PRN PRN Reason: NAUSEA Last Admin: 09/06/16 17:46 Dose: 4 mg Polyethylene Glycol (Miralax (For Daily Use) -) 17 gm PO TID [facility] Last Admin: 09/15/16 06:10 Dose: Not Given Senna (Senna -) 1 tab PO BID [facility] Last Admin: 09/15/16 09:17 Dose: 1 tab - Objective Vital Signs: Vital Signs Temperature 98.1 F 09/15/16 06:34 Pulse Rate 82 09/15/16 10:13 Respiratory Rate 20 09/15/16 06:34 Blood Pressure 104/52 09/15/16 06:34 O2 Sat by Pulse Oximetry (%) 97 09/15/16 10:13 Constitutional: Yes: Calm, Anxious, Mild Distress Neck: Yes: Supple Cardiovascular: Yes: Regular Rate and Rhythm Respiratory: Yes: Regular, Diminished Gastrointestinal: Yes: Normal Bowel Sounds, Soft, Abdomen, Obese Edema: No Labs: CBC, BMP 09/14/16 07:00 09/14/16 07:00 INR, PTT INR 1.17 (0.82-1.09) H 09/14/16 13:35 Problem List - Problems (1) Chest pain Code(s): R07.9 - CHEST PAIN, UNSPECIFIED Qualifiers: Chest pain type: chest pain on breathing Qualified Code(s): R07.1 - Chest pain on breathing (2) Sciatica Code(s): M54.30 - SCIATICA, UNSPECIFIED SIDE Qualifiers: Laterality: left Qualified Code(s): M54.32 - Sciatica, left side (3) Status post dilation and curettage Code(s): Z98.890 - OTHER SPECIFIED POSTPROCEDURAL STATES (4) Anemia Code(s): D64.9 - ANEMIA, UNSPECIFIED Qualifiers: Anemia type: unspecified type Qualified Code(s): D64.9 - Anemia, unspecified (5) Coronary artery disease Code(s): I25.10 - ATHSCL HEART DISEASE OF [place] CORONARY ARTERY W/O ANG PCTRS Qualifiers: Coronary Disease-Associated Artery/Lesion type: unspecified vessel or lesion type [place] vs. transplanted heart: [place] heart Associated angina: with unspecified angina Qualified Code(s): I25.119 - Atherosclerotic heart disease of [place] coronary artery with unspecified angina pectoris (6) Diabetes mellitus type 2 in obese Code(s): E11.9 - TYPE 2 DIABETES MELLITUS WITHOUT COMPLICATIONS E66.9 - OBESITY, UNSPECIFIED (7) Dyslipidemia associated with type 2 diabetes mellitus Code(s): E11.69 - TYPE 2 DIABETES MELLITUS WITH OTHER SPECIFIED COMPLICATION E78.5 - HYPERLIPIDEMIA, UNSPECIFIED (8) HTN (hypertension) Code(s): I10 - ESSENTIAL (PRIMARY) HYPERTENSION Qualifiers: Hypertension type: essential hypertension Qualified Code(s): I10 - Essential (primary) hypertension (9) Hyperlipidemia Code(s): E78.5 - HYPERLIPIDEMIA, UNSPECIFIED Qualifiers: Hyperlipidemia type: pure hypercholesterolemia Qualified Code(s): E78.00 - Pure hypercholesterolemia, unspecified; E78.0 - Pure hypercholesterolemia (10) Hypothyroid Code(s): E03.9 - HYPOTHYROIDISM, UNSPECIFIED Qualifiers: Hypothyroidism type: acquired Qualified Code(s): E03.9 - Hypothyroidism, unspecified (11) Low back pain Code(s): M54.5 - LOW BACK PAIN Qualifiers: Chronicity: chronic (12) Osteoarthritis of both knees Code(s): M17.0 - BILATERAL PRIMARY OSTEOARTHRITIS OF KNEE Qualifiers: Osteoarthritis type: unspecified Qualified Code(s): M17.0 - Bilateral primary osteoarthritis of knee Assessment/Plan 1. Chest pain syndrome with atypical features suspect anxiety in context of severe sciatica, L5 nerve impingement 2. CAD post acute coronary syndrome abnormal MPI study (mild apical ischemia) angina pectoris 3. Diastolic LV dysfunction with class 0 NYHA classification LV failure 4. HTN 5. DM 6. Hypercholesterolemia 7. Hypothyroidism 8. Left renal colic and hydronephrosis post cystoscopy and left ureteral stent 9. History of LACEY (related obstructive uropathy) 10. Anemia with h/o dysfunctional uterine bleed due to uterine CA 11. Bilateral knee DJD PLAN: 1. Continue Toprol XL 50 bid and Lisinopril 10 qd 2. Continue Lipitor 20 qhs 3. Continue Lasix 20 qd and Hydrochlorothiazide 25 qd 4. Await hysterectomy next week (surgery to be performed with ASA 81 qd on board ) - Plavix has been discontinued. There appears to be no absolute contraindication in proceeding with planned hysterectomy in view of absence of ischemic symptoms, decompensated congestive heart failure or malignant arrhythmia. 5. Pain management as per the primary team, recommend reconsideration for epidural injection 6. DVT prophylaxis, PT as tolerated 7. Complete antibiotic course
[2016-09-15] MEDS: HYDROmorphone HCL 2 MG TABLET PO PRN ×3 (11:40→23:59)
--- NOTE | 2016-09-15 13:53 | PN ---
Progress Note (short form) - Note Progress Note: Neurology History of Present Illness: 65 year old woman with history of coronary artery disease, DMII, HTN, fibroids, and uterine cancer, laminectomy, who developed severe back pain in July following biopsy of her uterus. She had imaging which revealed herniated discs , but the pain got better until Monday when she had an acute exacerbation to the point where any movement is excruciating. She comes in with severe incapacitating pain and associated chest pain as well, Seen by Dr. Fabian for pain mgmt. MRI brain completed and no acute changes. MRI L spine completed, mild to moderate changes noted, spinal cord signal intact. The patient is awaiting uterine surgery but still not ambulatory and today with worsening pain. Unsure if patient would be stable for surgical intervention or if surgeons would proceed with intervention in patient's current condition. Except she would need to be able to ambulate before and after surgery. Active Medications Acetaminophen (Tylenol -) 650 mg PO Q6H PRN PRN Reason: FEVER OR PAIN Last Admin: 09/15/16 09:17 Dose: 650 mg Aspirin (Ecotrin -) 81 mg PO DAILY [facility] Last Admin: 09/15/16 09:17 Dose: 81 mg Atorvastatin Calcium (Lipitor -) 20 mg PO HS [facility] Last Admin: 09/14/16 22:14 Dose: 20 mg Cyclobenzaprine HCl (Flexeril -) 10 mg PO TID [facility] Last Admin: 09/15/16 06:10 Dose: 10 mg Docusate Sodium (Colace -) 100 mg PO BID PRN PRN Reason: CONSTIPATION Furosemide (Lasix -) 20 mg PO DAILY [facility] Last Admin: 09/15/16 09:27 Dose: 20 mg Gabapentin (Neurontin -) 300 mg PO TID [facility] Last Admin: 09/15/16 06:10 Dose: 300 mg Glipizide (Glucotrol Xl -) 5 mg PO DAILY@0700 [facility] Last Admin: 09/15/16 06:11 Dose: Not Given Heparin Sodium (Porcine) (Heparin -) 5,000 unit SQ BID [facility] Last Admin: 09/15/16 09:19 Dose: 5,000 unit Hydromorphone HCl (Dilaudid -) 1 mg PO Q6H PRN PRN Reason: PAIN Last Admin: 09/15/16 11:40 Dose: 1 mg Insulin Aspart (Novolog Vial Sliding Scale -) 1 vial SQ ACHS [facility] PRN Reason: Protocol Last Admin: 09/15/16 06:12 Dose: Not Given Levothyroxine Sodium (Synthroid -) 75 mcg PO DAILY@0700 [facility] Last Admin: 09/15/16 06:10 Dose: 75 mcg Lisinopril (Prinivil) 10 mg PO DAILY [facility] Last Admin: 09/15/16 09:17 Dose: 10 mg Metoprolol Succinate (Toprol Xl -) 50 mg PO BID [facility] Last Admin: 09/15/16 09:17 Dose: 50 mg Ondansetron HCl (Zofran Injection) 4 mg IVPB Q8H PRN PRN Reason: NAUSEA Last Admin: 09/06/16 17:46 Dose: 4 mg Polyethylene Glycol (Miralax (For Daily Use) -) 17 gm PO TID [facility] Last Admin: 09/15/16 06:10 Dose: Not Given Senna (Senna -) 1 tab PO BID [facility] Last Admin: 09/15/16 09:17 Dose: 1 tab Physical Exam-Neuro Vital Signs Temperature 98.5 F 09/15/16 09:00 Pulse Rate 82 09/15/16 10:13 Respiratory Rate 20 09/15/16 09:00 Blood Pressure 104/78 09/15/16 09:00 O2 Sat by Pulse Oximetry (%) 97 09/15/16 10:13 - Neuro Exam Cranial Nerves II-XII Intact: No (CN II-XII intact except for reduced movement of right lower face and flattened right nasolabial fold.) DTR's: 0 Left Achilles, 0 Right Achilles, 2+ Left Bicep, 2+ Right Bicep, 2+ Left Tricep, 2+ Right Tricep, 2+ Left Brachioradialis, 2+ Right Brachioradialis Babinski: Absent (withdrew) Motor Strength: 5/5: Left Arm, Right Arm Gait: Deferred - Plan: 65 year old woman with history of coronary artery disease, DMII, HTN, fibroids, and uterine cancer, laminectomy, who developed severe back pain in July following biopsy of her uterus. She had imaging which revealed herniated discs , but the pain got better until Monday when she had an acute exacerbation to the point where any movement is excruciating. She comes in with severe incapacitating pain and associated chest pain as well, Seen by Dr. Fabian for pain mgmt. MRI brain completed and no acute changes. MRI L spine completed, mild to moderate changes noted, spinal cord signal intact. Well appearing today but reports inability to ambulate. MRI L spine completed, no cord changes, mild to moderate changes noted PT/OT, may need rehab placement as she reports not being able to ambulate Pain mgmt follow up, Dr. fabian Would not make sudden movements DVT ppx fall precautions Awaiting uterine surgery but at this time still not ambulatory Possibly exacerbation over night
--- NOTE | 2016-09-15 17:44 | DS ---
Physical Examination Vital Signs: Vital Signs Temperature 98.2 F 09/15/16 15:03 Pulse Rate 84 09/15/16 15:03 Respiratory Rate 16 09/15/16 15:03 Blood Pressure 120/70 09/15/16 15:03 O2 Sat by Pulse Oximetry (%) 97 09/15/16 10:13 Findings/Remarks: Pt. was c/o in AM of back pain/ hip pain, not able to come out of bed; I started pt. on Dilaudid 1 mg PO PRN Q6 hour with good control of the pain and w/ o sedation. Pt. wants to go home today as tomorrow is scheduled for hysterectomy at [facility] (for uterine cancer), procedure that pt. has been waiting for couple of weeks and doesn't want to postpone it. Pt.'s at bedside. No fever, CP, Palp., SOB, cg, abd pain, costipation. Time spent for managing pt. discharge: over 55 minutes. Constitutional: Yes: No Distress, Calm Cardiovascular: Yes: Regular Rate and Rhythm, S1, S2 Respiratory: Yes: Regular, CTA Bilaterally. No: Rales Gastrointestinal: Yes: Normal Bowel Sounds, Soft, Abdomen, Obese. 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 Lumbar spine MRI Other Procedures: CXR. Knee XR Hospital Course: Pt. came to ER c/o left side CP (at rest) and back pain (not relief by home medications). Pt was admitted to Telemetry, had negative CE, was seen by Cardio and considered to have atypical CP, no additional tests required. Pt was seen by Neuro for back pain, had brain (no acute event) and lumbar spine (c/w multilevel disc bulging) MRI; tp. was seen by Pain Management, scheduled for back infiltrations but pt. changed her mind before procedure. Pt. with abnormal urine, suggestive of UTI, treated with abtx. Pt. with left knee pain, seen by Ortho, recommended TKR (as she didn't improved in the past with infiltrations); pt wants go go for hysterectomy for uterine cancer before any other procedure, so will follow-up with Ortho as outpt. Pt. to go to [facility] ([facility]) in AM for uterine cancer treatment. To f/u with my office, Ortho, Neuro, Cardio after [facility] treatment. Condition: Fair - Instructions Diet, Activity, Other Instructions: Diet: ADA, low salt, low cholesterol. Part of medication list is: Cyclobenzaprine (Flexeril) 10 mg PO, TID. HOLD it for Sleepiness or Sedation or Lethargy. To go in AM to [facility] for surgical procedure. Referrals: Javier Mcginnis MD [Staff Physician] - (1 to 2 weeks after discharge from [facility]) Javier Lamb MD [Primary Care Provider] - Belén Guzman MD [Staff Physician] - (1 to 2 weeks after discharge from [facility]) Mt Gonzalez MD [Staff Physician] - (1 to 2 weeks after discharge from [facility]) Pravin Cheung MD [Staff Physician] - (1 to 2 weeks after discharge from [facility]) Kei Fabian MD [Staff Physician] - (1 to 2 weeks after discharge from [facility]) Disposition: HOME - Home Medications Comprehensive Discharge Medication List: Ambulatory Orders Atorvastatin Ca [Lipitor] 20 mg PO HS 07/22/16 Furosemide [Lasix] 20 mg PO DAILY 07/22/16 Hydrochlorothiazide 25 mg PO DAILY 07/22/16 Levothyroxine [Synthroid -] 75 mcg PO DAILY 07/22/16 Lisinopril 10 mg PO DAILY 07/22/16 Metoprolol Succinate [Toprol Xl] 50 mg PO DAILY 07/22/16 Acetaminophen [Tylenol .Regular Strength -] 650 mg PO Q6H PRN #0 tablet Clopidogrel Bisulfate [Plavix -] 75 mg PO HS 07/28/16 Glipizide [Glipizide ER] 5 mg PO DAILY 09/05/16
[2016-09-15] MEDS: ATORVASTATIN CA 20 MG TABLET (FP) PO SCH (21:28)
[2016-09-16 08:24] VITALS: BP 114/70; PULSE 82; TEMP 98
== END 2016-09-16 09:03 | disposition home or self-care (01) | DRG 552 ==
LOC: JER 23:13 → JERBED 09-05 01:05 → J4W 09-05 19:46 → J8W 09-08 20:04
PROVIDERS: ADMIT Specialist; ATTEND Specialist
PROC: 30233N1 Transfusion of Nonautologous Red Blood Cells into Peripheral Vein, Percutaneous Approach (ICD-10-PCS; principal; 2016-09-09)
DX: M51.17 Intervertebral disc disorders with radiculopathy, lumbosacral region (principal); N39.0 Urinary tract infection, site not specified; S04.50XA Injury of facial nerve, unspecified side, initial encounter; E11.9 Type 2 diabetes mellitus without complications; C55 Malignant neoplasm of uterus, part unspecified; R07.89 Other chest pain; E78.5 Hyperlipidemia, unspecified; I10 Essential (primary) hypertension; D64.9 Anemia, unspecified; E03.9 Hypothyroidism, unspecified; M17.0 Bilateral primary osteoarthritis of knee; I25.119 Atherosclerotic heart disease of native coronary artery with unspecified angina pectoris; K59.00 Constipation, unspecified; I11.9 Hypertensive heart disease without heart failure; M54.32 Sciatica, left side; X58.XXXA Exposure to other specified factors, initial encounter; Y93.9 Activity, unspecified; Y92.89 Other specified places as the place of occurrence of the external cause; Y99.8 Other external cause status; M48.07 Spinal stenosis, lumbosacral region
CPT/HCPCS: 36415; 36430; 70551-TC; 71010-TC; 72158-TC; 73560-TC-LT; 73560-TC-RT; 80048; 80053; 81003; 81015; 82272; 82550; 83540; 83735; 83880; 84443; 84484; 85025; 85027; 85610; 86850; 86900; 86901; 86922; 87040; 87077; 87086; 87186; 93005; 93010; 97116-GP; 97161-GP; 99285-25; A9576; J1644; P9038; P9058

== ENCOUNTER 2017-07-29 17:29 | Emergency (ER) | payer OTHER ==
--- NOTE | 2017-07-29 17:50 | PDOC ---
History of Present Illness - General Chief Complaint: Pain Stated Complaint: PAIN TO RIGHT SECOND TOE REDNESS AND SWELLING Time Seen by Provider: 07/29/17 17:39 - History of Present Illness Initial Comments: 07/29/17 18:02 The patient is a 66 year old female with a history of HTN, HLD, CAD, DM who presents for evaluation of pain to her toe. The patient reports a 3 day history of worsening redness, swelling, warmth, and pain to her right 2nd toe prompting her presentation to the ED for evaluation. She denies any pus drainage or other symptoms. She otherwise denies fevers, chills, SOB, chest pain, nausea, vomiting, abdominal pain, or changes with urination or bowel movements. Past History - Past Medical History Allergies/Adverse Reactions: Allergies Allergy/AdvReac Type Severity Reaction Status Date / Time Penicillins AdvReac Intermediate Rash Verified 07/29/17 17:32 Home Medications: Ambulatory Orders Atorvastatin Ca [Lipitor] 20 mg PO HS 07/29/17 Clindamycin HCl 300 mg PO Q6H #56 capsule 07/29/17 Clindamycin HCl 300 mg PO Q6H #56 capsule 07/29/17 Furosemide [Lasix] 20 mg PO DAILY 07/29/17 Glipizide 5 mg PO DAILY 07/29/17 Hydrochlorothiazide 25 mg PO DAILY 07/29/17 Levothyroxine [Synthroid -] 75 mcg PO DAILY 07/29/17 Lisinopril [Prinivil] 10 mg PO DAILY 07/29/17 Metoprolol Succinate 75 mg PO BID 07/29/17 Anemia: Yes (BLOOD TRANSFUSION) Asthma: No Cancer: No Cardiac Disorders: Yes ([place](2017)) CVA: No COPD: No CHF: No Dementia: No Diabetes: Yes GI Disorders: (POST MENOPAUSAL BLEEDING) Disorders: Yes HTN: Yes Hypercholesterolemia: Yes Liver Disease: No Seizures: No Thyroid Disease: Yes (HYPO.) - Surgical History Abdominal Surgery: Yes Appendectomy: No Cardiac Surgery: No Cholecystectomy: No Lung Surgery: No Neurologic Surgery: Yes (BACK X 3.) Orthopedic Surgery: Yes - Suicide/Smoking/Psychosocial Hx Smoking Status: No Smoking History: Never smoked Have you smoked in the past 12 months: No Number of Cigarettes Smoked Daily: 0 Hx Alcohol Use: No Drug/Substance Use Hx: No Substance Use Type: None Hx Substance Use Treatment: No Review of Systems - Review of Systems Comments:: 07/29/17 18:09 Constitutional: No fevers, chills, fatigue, malaise HEENT: No Rhinorrhea, nasal congestion, visual changes Cardiovascular: No chest pain, syncope, palpitations, lightheadedness Respiratory: No Cough, SOB, Hemoptysis, Gastrointestinal: No Abdominal pain, Nausea, Vomiting, Constipation, Diarrhea, Melena Genitourinary: No Dysuria, Frequency, Urgency, Hesitancy, Hematuria, Flank pain Musculoskeletal: No Myalgia, arthralgia Skin: Redness, Swelling, Pain to the 2nd right toe. No rashes, itching, bruising, pallor Neurologic: No Headache, Dizziness, Numbness, Weakness, or Tingling Psychiatric: No Hallucinations. No SI or HI *Physical Exam - Physical Exam Comments: 07/29/17 18:10 General Appearance: Nourished. No Apparent Distress HEENT: EOMI, TRUDY. No Pharyngeal Erythema, Tonsillar Exudate, Tonsillar Erythema Neck: No Cervical Lymphadenopathy Respiratory/Chest: Lungs Clear, Normal Breath Sounds. No Crackles, Rales, Rhonchi, Wheezing Cardiovascular: Regular Rhythm, Regular Rate. No Murmur, Gallops, Rubs Gastrointestinal/Abdominal: Normal Bowel Sounds, Soft. No Guarding, Rebound, Tenderness Musculoskeletal: No CVA Tenderness Extremity: Erythema, Warmth, edema, noted to the 2nd Right toe with tenderness to palpation. Normal Capillary Refill Integumentary: Normal Color, Dry, Warm Neurologic: Fully Oriented, Alert, Normal Mood/Affect, Normal Response, ED Treatment Course - LABORATORY CBC & Chemistry Diagram: 07/29/17 18:50 07/29/17 18:50 Medical Decision Making - Medical Decision Making 07/29/17 18:04 The patient is a 66 year old female with a history of HTN, HLD, CAD, DM who presents for evaluation of pain to her toe. Differential includes but is not limited to: Cellulitis, abscess, infectious, metabolic derangement. Given the patient's physical exam, it is likely the patients symptoms are due to a cellulitis as not definite fluid pocket can be identified. We will obtain a cbc , cmp, and plain film to evaluate further. We will continue to monitor and reassess. Likely discharge home if lab work is negative on a course of PO clindamycin with primary care provider follow up. *DC/Admit/Observation/Transfer Diagnosis at time of Disposition: Cellulitis - Discharge Dispostion Disposition: HOME Condition at time of disposition: Stable - Prescriptions Prescriptions: Clindamycin HCl 300 mg PO Q6H #56 capsule Clindamycin HCl 300 mg PO Q6H #56 capsule - Referrals - Patient Instructions Printed Discharge Instructions: DI for Cellulitis -- Adult Additional Instructions: Follow up with your primary doctor within 2-3 days for a wound check. Take the antibiotics (clindamycin) as prescribed. Return to the emergency department if you have any new, worsening, or concerning symptoms such as worsening redness or pain of the affected toe. Drink plenty of water - Post Discharge Activity
[2017-07-29 17:51] VITALS: BP 141/61; PULSE 87; TEMP 98.4; BMI 36.1
--- NOTE | 2017-07-29 19:03 | PDOC ---
Attending Attestation - Resident Resident Name: Dionisio Bowens - ED Attending Attestation I have performed the following: I have examined & evaluated the patient, The case was reviewed & discussed with the resident, I agree w/resident's findings & plan, Exceptions are as noted <Jax Pickard - Last Filed: 07/29/17 19:14> - Medical Decision Making Care of this patient received by Dr Pickard. Chemistry profile reveals mild pre-renal azotemia but no other signficant abnormality. Patient urged to drink more water . She will be discharged as planned with course of clindamycin <Amarilis Velasquez - Last Filed: 07/30/17 03:02> Discharge Disposition - Discharge Dispostion Last Admission D/C Date: 09/16/16 <Jax Pickard - Last Filed: 07/29/17 19:14> <Amarilis Velasquez - Last Filed: 07/30/17 03:02> - Diagnosis Cellulitis Qualifiers: Site of cellulitis: extremity Site of cellulitis of extremity: lower extremity Laterality: unspecified laterality Qualified Code(s): L03.119 - Cellulitis of unspecified part of limb - Discharge Dispostion Disposition: HOME Condition at time of disposition: Stable - Prescriptions Prescriptions: Clindamycin HCl 300 mg PO Q6H #56 capsule Clindamycin HCl 300 mg PO Q6H #56 capsule - Patient Instructions Printed Discharge Instructions: DI for Cellulitis -- Adult Additional Instructions: Follow up with your primary doctor within 2-3 days for a wound check. Take the antibiotics (clindamycin) as prescribed. Return to the emergency department if you have any new, worsening, or concerning symptoms such as worsening redness or pain of the affected toe. Drink plenty of water
[2017-07-29 19:07] LABS: BASO % 0.9 % (0-2.0); EOS % 1.1 % (0-4.5); HEMATOCRIT 37.2 % (32.4-45.2); HEMOGLOBIN 12.4 GM/dl (10.7-15.3); LYMPH % 26.7 % (8-40); MCH 28.1 pg (25.7-33.7); MCHC 33.5 g/dl (32.0-36.0); MEAN PLT VOLUME 7.9 fl (7.5-11.1); MONO % 8.6 % (3.8-10.2); NEUT % 62.7 % (42.8-82.8); PLATELET COUNT 394 K/MM3 (134-434); RBC 4.43 M/mm3 (3.60-5.2); RDW 14.1 % (11.6-15.6); WHITE BLOOD COUNT 13.2 K/mm3 (4.0-10.8)
[2017-07-29] MEDS ORDERED: CLINDAMYCIN HCL 150 MG CAPSULE (FP) PO ONE (19:09)
[2017-07-29] MEDS ORDERED: CLINDAMYCIN HCL 150 MG CAPSULE (FP) ONE (19:13)
[2017-07-29 19:23] LABS: ALBUMIN 3.9 g/dl (3.5-5.0); ALK PHOS 106 U/L (32-92); ANION GAP 8 (8-16); BLOOD UREA NITROGEN 27 mg/dl (7-18); CALCIUM 9.3 mg/dl (8.4-10.2); CHLORIDE 99 mmol/L (98-107); CO2 29 mmol/L (22-28); CREATININE 0.8 mg/dl (0.6-1.3); GLUCOSE,RANDOM 134 mg/dl (74-106); POTASSIUM 3.5 mmol/L (3.5-5.1); SGOT/AST 21 U/L (10-42); SGPT/ALT 16 U/L (10-40); SODIUM 136 mmol/L (136-145); TOT PROT 7.6 g/dl (6.4-8.3)
[2017-07-29 19:33] LABS: BILIRUBIN,TOTAL 0.5 mg/dl (0.2-1.0)
== END 2017-07-29 19:59 | disposition home or self-care (01) ==
LOC: FER 17:29
DX: L03.031 Cellulitis of right toe (principal); I10 Essential (primary) hypertension; E78.5 Hyperlipidemia, unspecified; E11.9 Type 2 diabetes mellitus without complications; I25.10 Atherosclerotic heart disease of native coronary artery without angina pectoris
CPT/HCPCS: 36415; 73630-TC-RT-FY; 80053; 85025; 99281-25

== ENCOUNTER 2017-08-18 12:01 | Emergency (ER) | payer OTHER ==
[2017-08-18 12:11] VITALS: TEMP 98.2; BMI 38.8
--- NOTE | 2017-08-18 13:16 | PDOC ---
History of Present Illness - General History Source: Patient Exam Limitations: No Limitations - History of Present Illness Initial Comments: 08/18/17 13:50 The patient is a 66 year old female, with a significant PMH of HTN, HLD, CAD, DM , uterine cancer and fibroids who presents to the emergency department with a sudden onset of left upper quadrant pain beginning 12 hours ago. The patient states that last night at 1 am she experienced a sharp onset of constant left upper quadrant pain which woke her up out of her sleep. The patient states the left upper quadrant pain feels like a constant, sharp achy pain that is exacerbated with deep inspiration and when lying down. The patient states she had a bowel movement this morning which was normal. The patient denies chest pain, shortness of breath, headache and dizziness. Denies fever, chills, nausea, vomit, diarrhea and constipation. Denies dysuria, frequency, urgency and hematuria. Allergies: Penicillins Surgical history: hysterectomy 2017 PCP: Dr. Piper <Mele Mcelroy - Last Filed: 08/18/17 16:49> <Uli Melendez - Last Filed: 08/18/17 19:13> - General Chief Complaint: Pain, Acute Stated Complaint: LT SIDE PAIN Time Seen by Provider: 08/18/17 12:46 Past History <Mele Mcelroy - Last Filed: 08/18/17 16:49> - Past Medical History Anemia: Yes (BLOOD TRANSFUSION) Asthma: No Cancer: No Cardiac Disorders: Yes ([place](2017)) CVA: No COPD: No CHF: No Dementia: No Diabetes: Yes GI Disorders: (POST MENOPAUSAL BLEEDING) Disorders: Yes HTN: Yes Hypercholesterolemia: Yes Liver Disease: No Seizures: No Thyroid Disease: Yes (HYPO.) - Surgical History Abdominal Surgery: Yes Appendectomy: No Cardiac Surgery: No Cholecystectomy: No Lung Surgery: No Neurologic Surgery: Yes (BACK X 3.) Orthopedic Surgery: Yes - Immunization History Immunization Up to Date: Yes - Suicide/Smoking/Psychosocial Hx Smoking Status: No Smoking History: Never smoked Have you smoked in the past 12 months: No Number of Cigarettes Smoked Daily: 0 Information on smoking cessation initiated: No Hx Alcohol Use: No Drug/Substance Use Hx: No Substance Use Type: None Hx Substance Use Treatment: No <Uil Melendez - Last Filed: 08/18/17 19:13> - Past Medical History Allergies/Adverse Reactions: Allergies Allergy/AdvReac Type Severity Reaction Status Date / Time Penicillins AdvReac Intermediate Rash Verified 08/18/17 12:06 Home Medications: Ambulatory Orders Atorvastatin Ca [Lipitor] 20 mg PO HS 07/29/17 Furosemide [Lasix] 20 mg PO DAILY 07/29/17 Glipizide 5 mg PO DAILY 07/29/17 Hydrochlorothiazide 25 mg PO DAILY 07/29/17 Levothyroxine [Synthroid -] 75 mcg PO DAILY 07/29/17 Lisinopril [Prinivil] 10 mg PO DAILY 07/29/17 Metoprolol Succinate 75 mg PO BID 07/29/17 Aspirin [ASA -] 81 mg PO DAILY 08/18/17 Naproxen 500 mg PO PRN 08/18/17 Review of Systems - Review of Systems Comments:: 08/18/17 13:51 A complete review of 10 out of 10 review of systems is taken and is negative apart from what is previously mentioned below and in the HPI. <Mele Mcelroy - Last Filed: 08/18/17 16:49> *Physical Exam - Vital Signs Last Vital Signs Temp Pulse Resp BP Pulse Ox 98.2 F 78 15 124/69 98 08/18/17 12:07 08/18/17 12:07 08/18/17 12:07 08/18/17 12:07 08/18/17 13:28 - Physical Exam Comments: 08/18/17 13:51 Vitals: Triage vital signs reviewed General Appearance: No acute distress, well nourished, well developed Head: Atraumatic Eyes: Pupils equal reactive round, extraocular movement intact Ears: TM's normal bilaterally Nose: Nares patent bilaterally; no nasal congestion Throat: Posterior oropharynx without erythema, mucous membranes moist Neck: Supple; No nuchal rigidity Chest Wall: Nontender Cardiac: Regular rate and rhythm, no murmurs, no rubs, no gallops Lungs: Clear to auscultation bilateral, good air movement bilaterally Abdomen: (+) Left upper quadrant tenderness to palpation. No rebound or guarding. Soft, nondistended, normal bowel sounds. Rectal: Exam deferred Extremities: Full range of motion to all extremities, no cyanosis, clubbing, or edema Skin: Warm and dry, no rashes or lesions, no rash, no petechiae Neuro: AOX3; Cranial Nerves 2-12 grossly intact, Strength intact to all extremities, Sensation intact to all extremities Psych: Normal mood, normal affect <Mele Mcelroy - Last Filed: 08/18/17 16:49> - Vital Signs Last Vital Signs Temp Pulse Resp BP Pulse Ox 98.2 F 78 15 124/69 96 08/18/17 12:07 08/18/17 12:07 08/18/17 12:07 08/18/17 12:07 08/18/17 12:07 <Uli Melendez - Last Filed: 08/18/17 19:13> ED Treatment Course - LABORATORY CBC & Chemistry Diagram: 08/18/17 13:10 08/18/17 13:10 - ADDITIONAL ORDERS Additional order review: 08/18/17 13:10 RBC 4.05 MCV 85.7 MCHC 33.7 RDW 14.9 D MPV 7.8 Neutrophils % 63.3 Lymphocytes % 26.2 Monocytes % 8.1 Eosinophils % 1.8 Basophils % 0.6 - RADIOLOGY Radiograph Interpretation: 08/18/17 16:49 EXAM#: TYPE/EXAM: RESULT: [id number] RAD/CHEST X-RAY PORTABLE* INDICATION: Chest pain. TECHNIQUE: Single AP portable view of the chest. COMPARISON: 09/04/2016 chest x-ray. FINDINGS: There is no evidence of acute infiltrate, pulmonary vascular congestion or pleural effusion. There is no definable pneumothorax. The cardiomediastinal silhouette is magnified secondary to AP portable technique, but unchanged in size and contour since 08/27/2016 chest x- ray. There is no abnormal deviation of the trachea. There is acromioclavicular arthropathy, similar to the prior radiograph. IMPRESSION: No evidence of acute infiltrate or pleural effusion. Reported By: Estevan Leiva DO <Mele Mcelroy - Last Filed: 08/18/17 16:49> - LABORATORY CBC & Chemistry Diagram: 08/18/17 13:10 08/18/17 13:10 - RADIOLOGY Radiology Studies Ordered: Category Date Time Status CXRPORT [CHEST X-RAY PORTABLE*] [RAD] Stat Radiology 08/18/17 12:47 Ordered <Uli Melendez - Last Filed: 08/18/17 19:13> Medical Decision Making - Medical Decision Making 08/18/17 13:52 The patient is a 66 year old female, with a significant PMH of HTN, HLD, CAD, DM , uterine cancer and fibroids who presents to the emergency department with a sudden onset of left upper quadrant pain beginning 12 hours ago. Plan: EKG, Troponin, Labs, Meds, Abdomen and pelvis CT w/ contrast, Chest x- ray. <Mele Mcelroy - Last Filed: 08/18/17 16:49> - Medical Decision Making No acute findings on CT repeat examination pain is maximal over her left lower rib however given that there are no findings on the CAT scan most likely cysts represents a costochondritis Offered patient observation given that she is feeling better is comfortable knowing that her laboratory analysis and CAT scan were unremarkable she feels comfortable returning home we'll take some Tylenol she'll follow-up with her doctor on Monday she'll return to ED for any severe worsening symptoms or for any concerns Findings, the need for follow-up and strict return instructions discussed with patient. <Uli Melendez - Last Filed: 08/18/17 19:13> *DC/Admit/Observation/Transfer - Attestations Scribe Attestion: 08/18/17 13:54 Documentation prepared by Mele Mcelroy, acting as medical device assembler for Uli Melendez MD. <Mele Mcelroy - Last Filed: 08/18/17 16:49> - Discharge Dispostion Decision to Admit order: No <Uli Melendez - Last Filed: 08/18/17 19:13> Diagnosis at time of Disposition: Rib pain - Discharge Dispostion Disposition: HOME - Referrals Referrals: Gomez Piper MD [Primary Care Provider] - - Patient Instructions Printed Discharge Instructions: DI for Rib Contusion Additional Instructions: Take [id number] Tylenol Motrin as directed on package. Follow-up to on Monday. Return to the emergency [facility] for any severe worsening symptoms or for any concerns. - Post Discharge Activity
[2017-08-18 13:21] LABS: BASO % 0.6 % (0-2.0); EOS % 1.8 % (0-4.5); HEMATOCRIT 34.7 % (32.4-45.2); HEMOGLOBIN 11.7 GM/dL (10.7-15.3); LYMPH % 26.2 % (8-40); MCH 28.9 pg (25.7-33.7); MCHC 33.7 g/dl (32.0-36.0); MEAN CELL VOLUME 85.7 fl (80-96); MEAN PLT VOLUME 7.8 fl (7.5-11.1); MONO % 8.1 % (3.8-10.2); NEUT % 63.3 % (42.8-82.8); PLATELET COUNT 331 K/MM3 (134-434); RBC 4.05 M/mm3 (3.60-5.2); RDW 14.9 % (11.6-15.6); WHITE BLOOD COUNT 11.2 K/mm3 (4.0-10.0)
[2017-08-18] MEDS ORDERED: morphine CARPU-JECT 4 MG/1 ML DISP.SYRIN IVPUSH ONE (13:42)
[2017-08-18] MEDS ORDERED: SODIUM CHLORIDE 0.9% 1000 ML INFUS.BAG IV ONE (13:42)
[2017-08-18 13:52] LABS: ALBUMIN 3.9 g/dl (3.4-5.0); ANION GAP 6 (8-16); BILIRUBIN,TOTAL 0.4 mg/dL (0.2-1.0); BLOOD UREA NITROGEN 34 mg/dL (7-18); CALCIUM 9.1 mg/dL (8.5-10.1); CHLORIDE 104 mmol/L (98-107); CO2 30 mmol/L (21-32); CREATININE 0.8 mg/dL (0.55-1.02); GLUCOSE,RANDOM 141 mg/dL (74-106); POTASSIUM 3.9 mmol/L (3.5-5.1); SGOT/AST 20 U/L (15-37); SGPT/ALT 22 U/L (12-78); SODIUM 140 mmol/L (136-145); TOT PROT 7.6 g/dl (6.4-8.2)
[2017-08-18 13:55] LABS: ALK PHOS 111 U/L (45-117)
[2017-08-18] MEDS ORDERED: MORPHINE SULFATE 10 MG/1 ML *VIAL ONE (14:00)
[2017-08-18] MEDS ORDERED: ONDANSETRON 4 MG/2 ML VIAL IVPUSH ONE ×2 (14:49→16:20)
[2017-08-18] MEDS ORDERED: ONDANSETRON 4 MG/2 ML VIAL ONE ×2 (15:12→16:20)
[2017-08-18] MEDS ORDERED: METOCLOPRAMIDE HCL INJECTION 10 MG/2 ML VIAL IVPB ONE (16:20)
[2017-08-18] MEDS ORDERED: METOCLOPRAMIDE HCL INJECTION 10 MG/2 ML VIAL ONE (16:20)
[2017-08-18 17:12] VITALS: BP 110/55; PULSE 62
--- NOTE | 2017-08-19 08:21 | EKG ---
Test Reason : Blood Pressure : / mmHG Vent. Rate : 082 BPM Atrial Rate : 082 BPM P-R Int : 116 ms QRS Dur : 114 ms QT Int : 398 ms P-R-T Axes : 056 007 024 degrees QTc Int : 464 ms NORMAL SINUS RHYTHM INCOMPLETE RIGHT BUNDLE BRANCH BLOCK BORDERLINE ECG WHEN COMPARED WITH ECG OF 04-SEP-2016 23:50, NO SIGNIFICANT CHANGE WAS FOUND Confirmed by JAIME ENCINAS, MALLORY ([id number]) on 08/19/2017 8:21:31 AM Referred By: Confirmed By:MALLORY SANDOVAL MD
== END 2017-08-18 19:21 | disposition home or self-care (01) ==
LOC: JER 12:01
PROC: 3E033NZ Introduction of Analgesics, Hypnotics, Sedatives into Peripheral Vein, Percutaneous Approach (ICD-10-PCS; principal; 2017-08-18)
PROC: 3E033GC Introduction of Other Therapeutic Substance into Peripheral Vein, Percutaneous Approach (ICD-10-PCS; 2017-08-18)
PROC: 3E033GC Introduction of Other Therapeutic Substance into Peripheral Vein, Percutaneous Approach (ICD-10-PCS; 2017-08-18)
PROC: 3E033GC Introduction of Other Therapeutic Substance into Peripheral Vein, Percutaneous Approach (ICD-10-PCS; 2017-08-18)
PROC: 3E033GC Introduction of Other Therapeutic Substance into Peripheral Vein, Percutaneous Approach (ICD-10-PCS; 2017-08-18)
DX: R07.81 Pleurodynia (principal); I25.2 Old myocardial infarction; I10 Essential (primary) hypertension; E78.5 Hyperlipidemia, unspecified; E11.9 Type 2 diabetes mellitus without complications; D64.9 Anemia, unspecified; E03.9 Hypothyroidism, unspecified; Z79.84 Long term (current) use of oral hypoglycemic drugs; Z85.42 Personal history of malignant neoplasm of other parts of uterus; Z87.42 Personal history of other diseases of the female genital tract
CPT/HCPCS: 36415; 71045-TC-FY; 74177-TC; 80053; 84484; 85025; 93005; 93010; 96374; 96375; 99285-25; J7030

== ENCOUNTER 2018-05-31 20:20 | Emergency (ER) | payer OTHER ==
[2018-05-31] MEDS ORDERED: KETOROLAC TROMETHAMINE 60 MG/2 ML VIAL IM ONE (20:37)
--- NOTE | 2018-05-31 20:37 | PDOC ---
History of Present Illness - General History Source: Patient Exam Limitations: No Limitations - History of Present Illness Initial Comments: 05/31/18 20:52 A portion of this note was documented by scribe services under my direction. I have reviewed the details of the note, within reason, and agree with the documentation with the following case summary and management plan written by me. Patient treated in the ED. Nursing notes are reviewed and incorporated into the medical decision-making. Vital signs reviewed. Assessment and plan: This is a 67-year-old female who comes in complaining of left lower tooth pain and associated tenderness and discomfort of the cheek and jaw area. Patient did have a dental carry and associated periodontal infection Patient given Toradol for the pain and started on clindamycin. Patient has a dentist appointment for the morning which she will keep <Addis Moreno I - Last Filed: 05/31/18 20:52> - History of Present Illness Initial Comments: The patient is a 67 year old female, with a significant PMH of DM, HTN, HLD, hypercholesterolemia, CAD (MS), hypothyroid, anemia, uterine cancer, and fibroids, who presents to the emergency department today complaining of left lower tooth pain for 2 days. Patient notes that the pain began last night and has progressively worsened since. She rates it as a 10/10, radiating from her left lower mandible to her left ear and left throat. Patient has tried Tylenol, Naproxen, and gargling salt water without any relief. She does report having an appointment tomorrow morning with her dentist, but he suggested if the pain was intolerable that she come to the ED for IV antibiotics. Patient notes having a dental cleaning 3 months ago, and was told everything was normal. The patient denies chest pain, shortness of breath, headache and dizziness. Denies fever, chills, nausea, vomit, diarrhea and constipation. Denies dysuria, frequency, urgency and hematuria. PAST MEDICAL HISTORY: DM, HTN, HLD, hypercholesterolemia, CAD (MS), hypothyroid , anemia, uterine cancer, and fibroids, PAST SURGICAL HISTORY: Hysterectomy, back surgery, and orthopedic surgery FAMILY HISTORY: no pertinent history SOCIAL HISTORY: Pt lives with family and is employed. MEDICATIONS: Atorvastatin Ca, Furosemide, Levothyroxine, Lisinopril, Metoprolol Succinate, aspirin, Naproxen, GLipizide, and Losartan Potassium ALLERGIES: Penicillins PCP: Dr. Gomez Piper Adult ROS General: No fevers or chills, no weakness, no weight loss HEENT: +Left lower mandibular pain radiating to left ear and left throat. No change in vision. No sore throat. CardioVascular: No chest pain or shortness of breath Respiratory:No cough, or wheezing. Gastrointestinal: no nausea, vomiting, diarrhea or constipation, No rectal bleeding Genitourinary: No dysuria, hematuria, or frequency Musculoskeletal: No joint or muscle pain or swelling Neurologic: No headache, vertigo, dizziness or loss of consciousness Psychiatric: nor depression Skin: No rashes or easy bruising Endocrine: no increased thirst or abnormal weight change Allergic: no skin or latex allergy All other systems reviewed and normal Adult Exam: General: Well-nourished well-developed individual, no acute distress HEENT: +Poor dentition with multiple missing teeth. +First molar appears to have a carry with associated periodontal infection of the soft tissues of the cheek. +Increased tenderness to palpation. +Increased erythema. +Increased warmth. No palpable abscess or collection. Throat: +Tender reactive lymph node on the left submandibular side. Tonsils normal, no exudate Neck: Supple, no meningeal signs, no lymphadenopathy Eyes::Pupils equal reactive and round, extraocular motion intact Chest: Nontender to palpation Cardiac: S1-S2 normal, regular rate and rhythm, no murmurs rubs or gallops Respiratory: Lungs clear to auscultation bilateral Abdomen: Soft, nondistended, normal bowel sounds, nontender to palpation diffusely Extremities: Warm, dry, no cyanosis, clubbing, or edema Skin: No rashes Neuro: Alert and oriented x3, nonfocal exam, grossly intact, normal gait Psych: Normal mood and affect 05/31/18 21:04 <Rain Gamino - Last Filed: 05/31/18 21:04> - General Chief Complaint: Toothache Stated Complaint: TOOTHACHE Time Seen by Provider: 05/31/18 20:24 Past History - Past Medical History Anemia: Yes (BLOOD TRANSFUSION) Asthma: No Cancer: No Cardiac Disorders: Yes (MS(2017)) CVA: No COPD: No CHF: No Dementia: No Diabetes: Yes GI Disorders: (POST MENOPAUSAL BLEEDING) Disorders: Yes HTN: Yes Hypercholesterolemia: Yes Liver Disease: No Seizures: No Thyroid Disease: Yes (HYPO.) - Surgical History Abdominal Surgery: Yes Appendectomy: No Cardiac Surgery: No Cholecystectomy: No Lung Surgery: No Neurologic Surgery: Yes (BACK X 3.) Orthopedic Surgery: Yes - Immunization History Immunization Up to Date: Yes - Suicide/Smoking/Psychosocial Hx Smoking Status: No Smoking History: Never smoked Have you smoked in the past 12 months: No Number of Cigarettes Smoked Daily: 0 Hx Alcohol Use: No Drug/Substance Use Hx: No Substance Use Type: None Hx Substance Use Treatment: No <Addis Moreno I - Last Filed: 05/31/18 20:52> <Rain Gamino - Last Filed: 05/31/18 21:04> - Past Medical History Allergies/Adverse Reactions: Allergies Allergy/AdvReac Type Severity Reaction Status Date / Time Penicillins AdvReac Intermediate Rash Verified 05/31/18 20:21 Home Medications: Ambulatory Orders Atorvastatin Ca [Lipitor] 20 mg PO HS 07/29/17 Furosemide [Lasix] 20 mg PO DAILY 07/29/17 Levothyroxine [Synthroid -] 75 mcg PO DAILY 07/29/17 Lisinopril [Prinivil] 10 mg PO DAILY 07/29/17 Metoprolol Succinate 50 mg PO BID 07/29/17 Aspirin [ASA -] 81 mg PO DAILY 08/18/17 Naproxen 500 mg PO PRN 08/18/17 Clindamycin [Cleocin -] 300 mg PO BID #14 capsule 05/31/18 Glipizide [Glipizide ER] 2.5 mg PO DAILY 05/31/18 Losartan Potassium [Cozaar -] 50 mg PO DAILY 05/31/18 *Physical Exam - Vital Signs Last Vital Signs Temp Pulse Resp BP Pulse Ox 98.5 F 72 18 167/90 94 L 05/31/18 20:21 05/31/18 20:21 05/31/18 20:21 05/31/18 20:21 05/31/18 20:21 <Rain Gamino - Last Filed: 05/31/18 21:04> Moderate Sedation - Procedure Monitoring Vital Signs: Procedure Monitoring Vital Signs Temperature 98.5 F 05/31/18 20:21 Pulse Rate 72 05/31/18 20:21 Respiratory Rate 18 05/31/18 20:21 Blood Pressure 167/90 05/31/18 20:21 O2 Sat by Pulse Oximetry (%) 94 L 05/31/18 20:21 <Rain Gamino - Last Filed: 05/31/18 21:04> ED Treatment Course - Medications Given in the ED: ED Medications Discontinued Medications Generic Name Dose Route Start Last Admin Trade Name Jose F PRN Reason Stop Dose Admin Clindamycin HCl 600 mg 05/31/18 20:38 05/31/18 20:45 Cleocin - PO 05/31/18 20:39 600 mg ONCE ONE Administration Ketorolac Tromethamine 60 mg 05/31/18 20:37 05/31/18 20:46 Toradol Injection - IM 05/31/18 20:38 60 mg ONCE ONE Administration <Rain Gamino - Last Filed: 05/31/18 21:04> *DC/Admit/Observation/Transfer - Discharge Dispostion Decision to Admit order: No <Addis Moreno I - Last Filed: 05/31/18 20:52> - Attestations Scribe Attestion: Documentation prepared by [id number] Mckeon, acting as medical manager for Addis Moreno MD. 05/31/18 21:03 <Rain Gamino - Last Filed: 05/31/18 21:04> Diagnosis at time of Disposition: Dentalgia, Oral infection - Discharge Dispostion Disposition: HOME Condition at time of disposition: Good - Prescriptions Prescriptions: Clindamycin [Cleocin -] 300 mg PO BID #14 capsule - Referrals Referrals: Gomez Piper MD [Primary Care Provider] - - Patient Instructions Printed Discharge Instructions: DI for Tooth Decay, DI for Dental Pain Additional Instructions: For the pain U can take Tylenol or Motrin or Aleve, You were given a first dose of antibiotics here in the emergency room and a prescription was sent to your pharmacy. Take the clindamycin twice a day for 7 days Take the medication with food don't take on an empty stomach and your cell some probiotics or yogurt as the medication can cause diarrhea. Return to the emergency department immediately with ANY new, persistent or worsening symptoms. Continue any medications as previously prescribed by your physician. You should follow up with your primary doctor as soon as possible regarding today's emergency department visit. . Please make sure your doctor reviews the results of your emergency evaluation. Thank you for coming to the Emergency Department today for your care. It was a pleasure to see you today. Please note that your evaluation is INCOMPLETE until you follow-up with your doctor. - Post Discharge Activity
[2018-05-31] MEDS ORDERED: CLINDAMYCIN HCL 300 MG CAPSULE PO ONE (20:38)
[2018-05-31] MEDS ORDERED: CLINDAMYCIN HCL 150 MG CAPSULE (FP) ONE ×2 (20:43→20:50)
[2018-05-31] MEDS ORDERED: KETOROLAC TROMETHAMINE 60 MG/2 ML VIAL ONE (20:43)
[2018-05-31 20:45] VITALS: BP 167/90; PULSE 72; TEMP 98.5; BMI 37.5
== END 2018-05-31 21:03 | disposition home or self-care (01) ==
LOC: FER 20:20
PROC: 3E0233Z Introduction of Anti-inflammatory into Muscle, Percutaneous Approach (ICD-10-PCS; principal; 2018-05-31)
DX: K12.2 Cellulitis and abscess of mouth (principal); K08.89 Other specified disorders of teeth and supporting structures; I10 Essential (primary) hypertension; E78.5 Hyperlipidemia, unspecified; E11.9 Type 2 diabetes mellitus without complications; E03.9 Hypothyroidism, unspecified; I25.10 Atherosclerotic heart disease of native coronary artery without angina pectoris; I25.2 Old myocardial infarction; D64.9 Anemia, unspecified; D21.9 Benign neoplasm of connective and other soft tissue, unspecified; Z85.42 Personal history of malignant neoplasm of other parts of uterus; Z88.0 Allergy status to penicillin; Z79.82 Long term (current) use of aspirin; Z79.84 Long term (current) use of oral hypoglycemic drugs
CPT/HCPCS: 99282-25

== ENCOUNTER 2020-04-10 11:08 | Emergency (ER) | payer OTHER ==
[2020-04-10 11:24] VITALS: BP 175/83; PULSE 80; TEMP 98.1; BMI 41.0
[2020-04-10] MEDS ORDERED: SODIUM CHLORIDE 0.9% 500 ML INFUS.BAG IV ONE (11:44)
[2020-04-10] MEDS ORDERED: MECLIZINE HCL 25 MG TABLET (FP) PO ONE (11:44)
[2020-04-10] MEDS ORDERED: ONDANSETRON 4 MG/2 ML VIAL IVPUSH ONE (11:44)
[2020-04-10] MEDS ORDERED: ONDANSETRON 4 MG/2 ML VIAL ONE (11:51)
[2020-04-10] MEDS ORDERED: MECLIZINE HCL 25 MG TABLET (FP) ONE (11:51)
[2020-04-10 12:35] LABS: BASO % 1.5 % (0-2.0); EOS % 0.7 % (0-4.5); HEMATOCRIT 38.9 % (32.4-45.2); HEMOGLOBIN 12.9 GM/dl (10.7-15.3); MCH 29.1 pg (25.7-33.7); MCHC 33.1 g/dl (32.0-36.0); MEAN CELL VOLUME 87.7 fl (80-96); MEAN PLT VOLUME 8.7 fl (7.5-11.1); MONO % 2.5 % (3.8-10.2); NEUT % 80.3 % (42.8-82.8); PLATELET COUNT 345 K/MM3 (134-434); RBC 4.43 M/mm3 (3.60-5.2); RDW 14.1 % (11.6-15.6); WHITE BLOOD COUNT 10.3 K/mm3 (4.0-10.8)
[2020-04-10 12:40] LABS: ACTIVATED PTT 26.6 SECONDS (25.2-36.5)
[2020-04-10 12:41] LABS: BILIRUBIN,TOTAL 0.5 mg/dl (0.2-1); CALCIUM 9.3 mg/dl (8.5-10); CREATININE 0.7 mg/dl (0.55-1.3); TOT PROT 7.2 g/dl (6.4-8.2)
[2020-04-10 12:45] LABS: INR 1.11 (0.82-1.09); PROTHROMBIN TIME (PATIENT) 12.3 SEC (10.2-13.0)
== END 2020-04-10 13:45 | disposition home or self-care (01) ==
LOC: FER 11:08
PROC: 3E033GC Introduction of Other Therapeutic Substance into Peripheral Vein, Percutaneous Approach (ICD-10-PCS; principal; 2020-04-10)
DX: H81.10 Benign paroxysmal vertigo, unspecified ear (principal)
CPT/HCPCS: 36415; 80053; 82550; 84484; 85025; 85610; 85730; 93005; 99284-25

== ENCOUNTER 2020-11-17 22:46 | Observation (INO) | payer OTHER ==
[2020-11-17 23:18] LABS: BASO % 1.1 % (0-2.0); EOS % 1.9 % (0-4.5); HEMATOCRIT 37.4 % (32.4-45.2); HEMOGLOBIN 11.8 GM/dl (10.7-15.3); LYMPH % 31.4 % (8-40); MCH 27.4 pg (25.7-33.7); MCHC 31.5 g/dl (32.0-36.0); MEAN CELL VOLUME 87.2 fl (80-96); MEAN PLT VOLUME 8.6 fl (7.5-11.1); MONO % 9.1 % (3.8-10.2); NEUT % 56.5 % (42.8-82.8); PLATELET COUNT 345 10^3/uL (134-434); RBC 4.28 M/mm3 (3.60-5.2); RDW 14.5 % (11.6-15.6); WHITE BLOOD COUNT 11.3 K/mm3 (4.0-10.8)
[2020-11-17] MEDS ORDERED: NITROGLYCERIN SUBLINGUAL 1/150 0.4 MG TAB SL ONE (23:23)
[2020-11-17] MEDS ORDERED: ASPIRIN 81 MG CHEWABLE TABLETS PO ONE (23:23)
[2020-11-17] MEDS ORDERED: NITROGLYCERIN SUBLINGUAL 1/150 0.4 MG TAB ONE (23:24)
[2020-11-17 23:29] LABS: ALBUMIN 3.5 g/dl (3.4-5.0); BILIRUBIN,TOTAL 0.5 mg/dl (0.2-1); CALCIUM 8.9 mg/dl (8.5-10); CREATININE 0.8 mg/dl (0.55-1.3)
[2020-11-18 02:53] VITALS: BMI 43.7
[2020-11-18 04:59] LABS: BASO % 0.6 % (0-2.0); EOS % 0.9 % (0-4.5); HEMATOCRIT 34.4 % (32.4-45.2); HEMOGLOBIN 11.3 GM/dL (10.7-15.3); LYMPH % 19.8 % (8-40); MCHC 32.9 g/dl (32.0-36.0); MEAN CELL VOLUME 85.1 fl (80-96); MEAN PLT VOLUME 8.2 fl (7.5-11.1); MONO % 7.3 % (3.8-10.2); NEUT % 71.4 % (42.8-82.8); PLATELET COUNT 290 10^3/uL (134-434); RBC 4.04 M/mm3 (3.60-5.2); RDW 15.6 % (11.6-15.6); WHITE BLOOD COUNT 12.3 K/mm3 (4.0-10.0)
[2020-11-18 05:18] LABS: CHLORIDE 108 mmol/L (98-107); SODIUM 141 mmol/L (136-145)
[2020-11-18 05:19] LABS: BLOOD UREA NITROGEN 25.4 mg/dL (7-18); CALCIUM 8.8 mg/dL (8.5-10.1)
[2020-11-18 05:20] LABS: GLUCOSE,RANDOM 207 mg/dL (74-106)
[2020-11-18 05:23] LABS: CREATININE 0.8 mg/dL (0.55-1.3)
[2020-11-18 05:41] LABS: ANION GAP 9 MMOL/L (8-16); CO2 25 mmol/L (21-32)
[2020-11-18] MEDS ORDERED: HEPARIN NA (PORCINE) 5,000 UNITS/ML 1ML VIAL IVPUSH PRN ×2 (05:59→08:01)
[2020-11-18] MEDS ORDERED: HEPARIN - 25,000 UNIT in SODIUM CHLORIDE 495 ML IV SCH (06:00)
[2020-11-18] MEDS ORDERED: LEVOTHYROXINE NA 75 MCG TABLET (FP) PO SCH (07:00)
[2020-11-18] MEDS ORDERED: INSULIN SLIDING SCALE (NOVOLOG) 1 VIAL SQ SCH (07:00)
[2020-11-18] MEDS ORDERED: HEPARIN INFUSION - 25,000 UNITS/500 ML INFUS.BAG IVPB SCH (08:00)
[2020-11-18] MEDS ORDERED: HEPARIN NA (PORCINE) 5,000 UNITS/ML 1ML VIAL IVPUSH ONE (08:15)
[2020-11-18] MEDS ORDERED: CLOPIDOGREL BISULFATE 300 MG TABLET PO ONE (09:30)
[2020-11-18 09:31] LABS: INR 1.03 (0.82-1.09); PROTHROMBIN TIME (PATIENT) 11.5 SEC (10.2-13.0)
[2020-11-18] MEDS ORDERED: PT OWN MED DRAWER 7, Y5N ONE (09:37)
[2020-11-18 09:53] VITALS: BP 139/47; PULSE 70; TEMP 98
[2020-11-18] MEDS ORDERED: FUROSEMIDE 20 MG TABLET (FP) PO SCH (10:00)
[2020-11-18] MEDS ORDERED: ENOXAPARIN NA (PORCINE) 40 MG/0.4 ML DISP.SYRIN SQ SCH (10:00)
[2020-11-18] MEDS ORDERED: VALSARTAN 160 MG TABLET PO SCH (10:00)
[2020-11-18] MEDS ORDERED: ASPIRIN 81 MG CHEWABLE TABLETS PO SCH (10:00)
[2020-11-18] MEDS ORDERED: DOXAZOSIN MESYLATE 4 MG TABLET PO SCH (22:00)
[2020-11-18] MEDS ORDERED: ATORVASTATIN CA 20 MG TABLET (FP) PO SCH (22:00)
== END 2020-11-18 09:58 | disposition short-term general hospital (02) ==
LOC: FER 22:46 → FM/S 11-18 01:59
PROVIDERS: ADMIT Internal Medicine; ATTEND Nurse Practitioner Acute Care
PROC: 3E023GC Introduction of Other Therapeutic Substance into Muscle, Percutaneous Approach (ICD-10-PCS; principal; 2020-11-18)
DX: I25.110 Atherosclerotic heart disease of native coronary artery with unstable angina pectoris (principal); I11.9 Hypertensive heart disease without heart failure; E78.00 Pure hypercholesterolemia, unspecified; D64.9 Anemia, unspecified; I24.9 Acute ischemic heart disease, unspecified; I25.2 Old myocardial infarction; N95.0 Postmenopausal bleeding; I45.10 Unspecified right bundle-branch block; M19.90 Unspecified osteoarthritis, unspecified site; I99.8 Other disorder of circulatory system
CPT/HCPCS: 36415; 71045-TC-FY; 80048; 80053; 82550; 82962; 84443; 84484; 85025; 85610; 85730; 93005; 96365; 99285-25; C9803; G0378; J1644; U0003; U0005

== ENCOUNTER 2021-03-31 17:20 | Emergency (ER) | payer OTHER ==
[2021-03-31 18:15] VITALS: BP 149/72; PULSE 87; TEMP 98.6; BMI 41.0
[2021-03-31] MEDS ORDERED: CLINDAMYCIN HCL 150 MG CAPSULE (FP) PO ONE (19:05)
[2021-03-31] MEDS ORDERED: CLINDAMYCIN HCL 150 MG CAPSULE (FP) ONE (19:08)
== END 2021-03-31 19:16 | disposition home or self-care (01) ==
LOC: FER 17:20
DX: L03.031 Cellulitis of right toe (principal)
CPT/HCPCS: 73660-TC-FY; 99284-25